=== PATIENT | female | born 1960 | race Caucasian/White ===

== ENCOUNTER 2022-03-03 16:03 | Emergency (ER) | payer BC, SELFPAY ==
[2022-03-03 16:04] VITALS: BP 159/85; PULSE 93; RESP 15; TEMP 36.1; O2SAT 95; BMI 19.3
--- NOTE | 2022-03-03 16:39 | RAD_ITS ---
STUDY: SACRUM AND COCCYX X-RAY SERIES OF 1659 HOURS ON 03/03/2022 REASON FOR EXAM: 62-year-old female with a fall injury and sacrococcygeal pain. TECHNIQUE: 4 view(s) of the sacrum and coccyx were obtained. COMPARISON: None. FINDINGS: Normal bilateral sacroiliac joints. Normal visualized sacral ala and fused sacral bodies. Normal sacrococcygeal junction with a normal angulation. Normal coccygeal segments. No fractures or dislocations of the sacrum or coccyx. There is a 45 degrees sacrococcygeal angle. The presacral soft tissue structures are unremarkable, except for extensive vascular calcification.. RAD/Sacrum-Coccyx min 2 Views IMPRESSION: 1. No fractures or dislocations. 2. No osseous lytic, sclerotic or mass lesions. 3. 45 degrees sacrococcygeal ankle. 4. Extensive vascular calcification. 5. Normal surrounding soft tissues. Electronically Signed: Tomasz Aguillon MD at 18:01 EDT ,
--- NOTE | 2022-03-03 16:40 | ED.VIS.FALL ---
HPI HPI - Fall History of Present Illness Chief Complaint: Lower Extremity Injury Informant: patient Occured/Mechanism Occurred: Month(s) (1) Mechanism/Context: Yes same level fall Narrative: pulled down to the ground by my big dog Usually ambulates: Without assistance Pain/Injury Pain Location: lower extremity (R hip) Quality of Pain: Aching Current Severity: Moderate Maximum Severity: Severe Worsened by: certain movements, walking Relieved by: remaining still Associated Symptoms Associated Symptoms: Negative for Parasthesias, Weakness, Loss of function and Inability to ambulate Narrative Narrative: Patient states she was pulled down by her dog a month ago, she was holding onto the leash, landing on and injuring her right hip. She has had pain when walking ever since but she has been able to. Today she did a certain movement that she cannot recall exactly, but when she did she had a sudden pain that shot down to her foot that was relatively brief but her hip has been hurting worse. This is the first time she has presented for medical attention to have this evaluated since the fall/injury. She denies any bowel or bladder dysfunction. She points to the area of the right SI joint which is hurting as well right now. [facility] Medical History Diverticulitis Home Medications prednisone 40 mg PO DAILY #10 tablet 03/03/22 [Rx Last Taken Unknown] tramadol 50 mg PO Q4H PRN PRN 3 Days #15 tab 03/03/22 [Rx Last Taken Unknown] Allergy/AdvReac Type Severity Reaction Status Date / Time Penicillins [PCN] Allergy Anaphylaxis Verified 03/03/22 16:05 Surgical History H/O: hysterectomy History of colostomy History of colostomy reversal Social History Smoking Status: Current every day smoker tobacco type: cigarettes ROS ROS ED Constitutional Constitutional ED: Denies chills or fever(s) Gastrointestinal Gastrointestinal: Denies abdominal pain, constipation, fecal incontinence, nausea or vomiting Genitourinary Genitourinary ED: Reports other Details: no urinary retention ; Denies abdominal discomfort or urinary incontinence Musculoskeletal Musculoskeletal: Reports as per HPI, back pain and extremity pain; Denies neck pain Integumentary Denies rash or wounds Neurologic Neurologic: Denies headache(s), paresthesias or weakness EXAM Physical Exam Const Vital Signs: 03/03/22 16:04 Temperature 96.9 F L Temperature Source Temporal Pulse Rate 93 Respiratory Rate 15 Blood Pressure 159/85 H Blood Pressure Mean 109 Pulse Ox 95 Oxygen Delivery Method Room Air Positive well nourished and well developed General Appearance ED: well developed and NAD HEENT Negative for trauma or tenderness Eyes PERRL and EOMs intact bilaterally Neck full ROM and supple GI normal to inspection, nondistended, normoactive bowel sounds, soft to palpation and non-tender Back/Spine no CVA tenderness and normal to inspection Thoracic Spine / Upper Back: normal to inspection and thoracic ROM normal Lumbar Spine / Lower Back: lumbar ROM normal and straight leg raise negative bilaterally Sacroiliac Joints: SI joints abnormal tender to palpation (right) and other (no pain w/ compression of iliac crests) Extremity normal to inspection, full ROM and no pedal edema Extremity Narrative: Tender right greater trochanter. Painless hip joint range of motion when performing gentle passive internal/external rotation. Full flexion of the hip induces no joint pain, nor radicular symptoms. Neuro oriented x3 and no sensory deficits noted Sensorium / Orientation: alert Motor Exam: strength 5/5 throughout and clonus absent Deep Tendon Reflexes: Rt Patellar (L4): 2+, Lt Patellar (L4): 2+, Rt Ankle (S1): 2+ and Lt Ankle (S1): 2+ Deep Tendon Reflexes Back: Rt Patellar (L4): 2+, Lt Patellar (L4): 2+, Rt Ankle (S1): 2+ and Lt Ankle (S1): 2+ Plantar Reflex: Downgoing: bilateral Psych mental status grossly normal and thought process normal Skin no rashes or lesions noted and no wounds MDM MDM MDM Narrative Medical decision making narrative: 4 view x-ray series of the sacrum and coccyx shows chronic arthritic abnormalities but nothing acute on my interpretation. 3 view x-ray series of the right hip and pelvis show arthritic abnormalities but no acute fractures mitral rotation. Radiology in agreement with all this, in addition seen that there is a right hip joint effusion and severe arthritis. This could be related to her pain, I will put her on prednisone to help with the inflammation and effusion which may help her pain and walk better, and refer her to orthopedics in addition to prescribing her something else for pain. Radiography Diagnostic Testing: Clinical Impression(s) from Imaging Studies Sacrum and Coccyx X-Ray 03/03/22 16:39 IMPRESSION: 1. No fractures or dislocations. 2. No osseous lytic, sclerotic or mass lesions. 3. 45 degrees sacrococcygeal ankle. 4. Extensive vascular calcification. 5. Normal surrounding soft tissues. Electronically Signed: Tomasz Aguillon MD at 18:01 EDT , Hip/Pelvis X-Ray 03/03/22 16:50 IMPRESSION: 1. No fractures or dislocations 2. Marked narrowing of the lateral aspect right hip joint with mild osteophytic degenerative changes and [id number] contact at that site. 3. Mild right hip joint effusion. 4. No neoplastic or inflammatory mass lesions. 5. Normal sacrum and coccyx. Electronically Signed: Tomasz Aguillon MD at 17:57 EDT , Discharge Plan Triage Chief Complaint: Lower Extremity Injury ED Provider: David Hector Dx/Rx/DC Orders Clinical Impression: Contusion of hip, right, Arthritis of right hip Instructions: How Your Hip Works, What Is Osteoarthritis? Prescriptions: New prednisone 20 MG tablet 40 mg PO DAILY Qty: 10 RF: 0 tramadol 50 MG tablet 50 mg PO Q4H PRN PRN (Reason: Pain) 3 Days Qty: 15 RF: 0 Primary Care Provider: Care Physician,No Primary Referrals: Manuel Contreras DO [STAFF PHYSICIAN] - (Call for follow-up appointment) Care Physician,No Primary [Primary Care Provider] - Disposition Disposition: Home, Self Care
--- NOTE | 2022-03-03 16:50 | RAD_ITS ---
STUDY: AP PELVIS AND RIGHT HIP X-RAY SERIES--4 VIEWS OF 1656 HOURS ON 03/03/2022 REASON FOR EXAM: 62-year-old female with fall injury and right hip pain. TECHNIQUE: 4 views of the pelvis and hip. COMPARISON: None. FINDINGS: Mild demineralization. No fractures or dislocations. There is marked narrowing of the lateral aspect of the right hip joint with mild osteophytic degenerative changes. There is bone on bone contact at that site. A small right hip joint effusion is noted. There is no evidence of neoplastic or inflammatory lesions. Sacrum and coccyx have a normal appearance. There is extensive arterial calcification. Surgical clips are noted of the pelvis. RAD/HIP, UNI W/ Pelvis 2-3 Views IMPRESSION: 1. No fractures or dislocations 2. Marked narrowing of the lateral aspect right hip joint with mild osteophytic degenerative changes and [id number] contact at that site. 3. Mild right hip joint effusion. 4. No neoplastic or inflammatory mass lesions. 5. Normal sacrum and coccyx. Electronically Signed: Tomasz Aguillon MD at 17:57 EDT ,
[2022-03-03] MEDS: traMADol 50 MG Tablet PO (19:38)
[2022-03-03] MEDS: Naproxen 250 MG Tablet 500 MG PO (19:38)
[2022-03-03] MEDS: predniSONE 20 MG Tablet 40 MG PO (19:39)
== END 2022-03-03 19:46 | disposition home or self-care (01) ==
PROVIDERS: Emergency Provider Emergency Medicine; Visit Provider Emergency Medicine
DX: M16.11 Unilateral primary osteoarthritis, right hip (principal); S70.01XA Contusion of right hip, initial encounter; W18.30XA Fall on same level, unspecified, initial encounter; F17.210 Nicotine dependence, cigarettes, uncomplicated
CPT/HCPCS: 72220; 73502; 99283

== ENCOUNTER 2022-10-29 09:48 | Inpatient (IN) | payer BC, SELFPAY ==
[2022-10-29] VITALS (17 sets, daily range): BP systolic 114–140; BP diastolic 66–120; PULSE 57–96; RESP 12–22; TEMP 35.7–36.7; O2SAT 86–98; BMI 18.3; BMI 17.8
--- NOTE | 2022-10-29 10:05 | RAD_ITS ---
EXAM: XR CHEST, 1 VIEW CLINICAL INDICATION: chest pain TECHNIQUE: Frontal view of the chest. This report was created using [employer] report generation technology. COMPARISON: None. FINDINGS: LUNGS AND PLEURAL SPACES: Hyperinflation suggesting emphysema. No pneumothorax. No effusion. HEART: Normal heart size. MEDIASTINUM: No mediastinal or hilar mass. BONES/JOINTS: No acute abnormality. SOFT TISSUES: Normal. RAD/Chest 1 View (Portable) IMPRESSION: Hyperinflation suggesting emphysema. Electronically Signed: Miki Cuevas MD at 10:56 EST ,
--- NOTE | 2022-10-29 10:05 | EKG12_ITS ---
Test Reason : Blood Pressure : / mmHG Vent. Rate : 090 BPM Atrial Rate : 090 BPM P-R Int : 126 ms QRS Dur : 094 ms QT Int : 388 ms P-R-T Axes : 080 089 073 degrees QTc Int : 474 ms Normal sinus rhythm Poor R wave progression Nonspecific T wave abnormality Confirmed by ELENA RUIZ, ROMEO ([id number]), tape editor FRANKLIN SHELL ([id number]) on 10/31/2022 9:25:18 AM Referred By: Confirmed By:ROMEO PARKER MD
--- NOTE | 2022-10-29 10:09 | NURSING ---
NO OLD EKGS
[2022-10-29] MEDS: MethylPREDNISolone 125 MG/2 ML Vial IV (10:16)
[2022-10-29] MEDS: Albuterol 2.5 MG/3 ML VIAL.NEB. INHALATION (10:29)
[2022-10-29] MEDS: Ipratropium/Albuterol Sulfate 3 ML AMPUL.NEB INHALATION ×3 (10:29→20:30)
[2022-10-29 10:30] LABS: Absolute Lymphocyte Count 2.14 X10^3/uL (0.83-4.51); Absolute Neutrophil Count 6.6 X10^3/uL (2.0-7.7); Basophil# 0.04 X10^3/uL; Basophil% 0.4 % (0-1); Eosinophil# 0.03 X10^3/uL; Eosinophils% 0.3 % (0-5); Hematocrit 44.6 % (37-47); Hemoglobin 14.4 g/dL (12.0-15.0); Lymphocyte # 2.14 X10^3/ul (0.83-4.51); Lymphocyte % 21.7 % (19-41); Mean Corp Hgb Conc 32.3 g/dL (32-36); Mean Corpuscular Hgb 32.9 pg (27.0-32.0); Mean Corpuscular Volume 101.8 fL (81-99); Mean Platelet Vol. 10.4 fl (6.2-12.0); Monocyte# 0.97 X10^3/uL; Monocyte% 9.9 % (0-10); NRBC Flagged by Analyzer 0 % (0-5); Neutrophil # 6.63 X10^3/uL (2.7-7.7); Neutrophil % 67.4 % (47-70); Platelet Count 213 K/mm3 (150-450); RBC Distribution Width CV 13.6 % (11.6-14.6); Red Blood Count 4.38 M/mm3 (4.2-5.4); White Blood Count 9.8 K/mm3 (4.4-11.0)
[2022-10-29 10:47] LABS: D-Dimer Quantitative (DVT/PE) 0.92 FEU/ug/m (0.27-0.49)
--- NOTE | 2022-10-29 10:48 | ED.RN ---
d dimer of 0.92
[2022-10-29 10:52] LABS: Anion Gap 5 (5-15); BUN 18 mg/dL (7-18); BUN/Creat Ratio 12.8 RATIO (10-20); Calcium,Total 9.1 mg/dL (8.5-10.1); Chloride 101 mmol/L (98-107); Creatinine, Serum 1.41 mg/dL (0.55-1.02); EST Glomerular Filtration Rate 40 mL/min (>60); Est Glom Filt Rate - Afr Amer 49 mL/min (>60); Estimated Creatinine Clearance 34.56 ml/min; Glucose 158 mg/dL (74-106); Potassium 4.1 mmol/L (3.5-5.1); Sodium Level 136 mmol/L (136-145); Troponin-I HS (w/2H Reflex) 12 pg/mL (3.0-54.0)
--- NOTE | 2022-10-29 10:53 | CT_ITS ---
EXAM: CT ANGIOGRAPHY CHEST WITHOUT AND WITH INTRAVENOUS CONTRAST CLINICAL INDICATION: hypoxic respiratory failure. TECHNIQUE: Helically acquired angiography images were obtained of the chest without and with intravenous contrast. This CT exam was performed using one or more of the following dose reduction techniques: automated exposure control, adjustment of the mA and/or kV according to patient size, and/or use of iterative reconstruction technique. This report was created using [employer] report generation technology. MIP reconstructed images were created and reviewed. CONTRAST: IV 75mL [id number] COMPARISON: None. FINDINGS: PULMONARY ARTERIES: Normal. Normal in caliber. No evidence of pulmonary embolism. AORTA: Normal. Normal in caliber. No evidence of dissection. GREAT VESSELS OF AORTIC ARCH: Normal. Normal in caliber. No evidence of dissection. LUNGS AND PLEURAL SPACES: Centrilobular and paraseptal emphysematous changes of the lungs. Minor atelectatic change at the lung bases. No mass. No pleural effusion or thickening. No pneumothorax. HEART: Mild coronary artery calcification. No pericardial effusion. No signs of right heart strain, ratio of right ventricle to left ventricle measures less than 1. MEDIASTINUM: Normal. No mediastinal or hilar adenopathy. Esophagus is unremarkable. No hiatal hernia. THYROID: Normal. No thyroid lesions. BONES/JOINTS: Normal. No suspicious lytic or blastic abnormality. CT/CTA Chest W/WO Contrast IMPRESSION: 1. No evidence of acute pulmonary embolism. 2. Pulmonary emphysema. Electronically Signed: Miki Cuevas MD at 11:38 EST ,
--- NOTE | 2022-10-29 12:02 | ED.VIS.DYS ---
HPI History of Present Illness Chief Complaint: Shortness of Breath Narrative Narrative: 62-year-old female presenting with shortness of breath for about 3 days. She does have a history of COPD. She is a current every day smoker. She reports that she is not had a fever, chills, body aches. She does not have any chest pain. She has history of provoked PE in the past which happened after surgery. She is no longer anticoagulated. She is eating and drinking normally. She is making normal urine and stool. She reports that if she sits very still or lays down she feels fine but if she gets up and walks she is immediately short of breath. PE Risk Factors: Positive for Prior DVT or PE; Negative for Cancer, OCP + Smoking + > 35, Recent immobilization, Recent surgery or Recent travel [facility] Medical History Diverticulitis Allergy/AdvReac Type Severity Reaction Status Date / Time Penicillins [PCN] Allergy Anaphylaxis Verified 10/29/22 09:54 Surgical History H/O: hysterectomy History of colostomy History of colostomy reversal Social History Smoking Status: Current every day smoker tobacco type: cigarettes ROS ROS ED Constitutional Constitutional ED: Denies chills or fever(s) Eyes Eyes: Denies change in vision or diplopia ENT ENT ED: Denies rhinorrhea or sore throat Cardiovascular Cardiovascular: Denies chest pain or palpitations Respiratory/Chest Respiratory/Chest: Reports cough, dyspnea and dyspnea on exertion Gastrointestinal Gastrointestinal: Denies abdominal pain, nausea or vomiting Genitourinary Genitourinary ED: Denies dysuria or hematuria Musculoskeletal Musculoskeletal: Denies arthralgias or back pain Integumentary Denies abscess Neurologic Neurologic: Denies headache(s) or paresthesias Psychiatric Psychiatric: Denies anxiety or depression EXAM Physical Exam Const Vital Signs: 10/29/22 09:49 10/29/22 09:48 10/29/22 09:55 Temperature 96.3 F L Temperature Source Temporal Pulse Rate 96 Respiratory Rate 12 Respiratory Effort Short of Breath Labored Respiratory Depth Normal Respiratory Pattern Normal Blood Pressure 136/120 H Blood Pressure Mean 125 Pulse Ox 86 98 Oxygen Delivery Method Room Air Nasal Cannula Nasal Cannula Oxygen Flow Rate (L/min) 4 2 10/29/22 10:08 10/29/22 10:05 10/29/22 10:30 Temperature 96.4 F L Temperature Source Temporal Pulse Rate 96 90 Respiratory Rate 18 20 H Respiratory Effort Respiratory Depth Respiratory Pattern Normal Blood Pressure 114/66 Blood Pressure Mean 82 Pulse Ox 95 93 Oxygen Delivery Method Nasal Cannula Nasal Cannula Oxygen Flow Rate (L/min) 1 1 10/29/22 11:08 10/29/22 11:00 10/29/22 12:00 Temperature 96.5 F L 96.9 F L Temperature Source Temporal Temporal Pulse Rate 96 57 L 83 Respiratory Rate 16 20 H 15 Respiratory Effort Respiratory Depth Respiratory Pattern Blood Pressure 115/82 H 140/77 H 120/73 Blood Pressure Mean 93 98 88 Pulse Ox 96 97 94 Oxygen Delivery Method Nasal Cannula Nasal Cannula Nasal Cannula Oxygen Flow Rate (L/min) 2 2 2 10/29/22 12:05 Temperature 96.9 F L Temperature Source Temporal Pulse Rate 83 Respiratory Rate 15 Respiratory Effort Respiratory Depth Respiratory Pattern Blood Pressure 120/73 Blood Pressure Mean 88 Pulse Ox 94 Oxygen Delivery Method Nasal Cannula Oxygen Flow Rate (L/min) 2 Positive well nourished General Appearance ED: NAD; Negative for pallor HEENT Reports moist mucous membranes atraumatic Eyes PERRL and EOMs intact bilaterally Neck no lymphadenopathy, supple and no meningeal signs Resp Auscultation: wheezes throughout Cardio regular rate and regular rhythm Rate: Negative for bradycardia GI non-tender Neuro oriented x3 and CN's II-XII intact bilaterally Sensorium / Orientation: alert Motor Exam: strength 5/5 throughout Psych mental status grossly normal Skin General Skin Exam: Negative for jaundice or pallor MDM MDM MDM Narrative Medical decision making narrative: Patient presenting with hypoxia. She has a history of COPD and she is a smoker. She reports 3 days of worsening shortness of breath. I obtained a CBC to see if she has a elevated white blood cell count or anemia. Her white blood cell count is normal at 9.8. Hemoglobin stable at 14.4. Platelets normal 213. BMP obtained to check her electrolytes and renal function. Electrolytes appear unremarkable. Her creatinine is 1.41. I do not have a previous creatinine to compare this to. She had an EKG performed to assess for cardiac source. EKG shows a normal sinus rhythm with a ventricular rate of 90 bpm without sign of ischemic change or dysrhythmia. Chest x-ray performed for shortness of breath shows no acute cardiopulmonary findings on my interpretation. Radiologist are persistent agrees. I did draw a D-dimer to assess for possible blood clot as a source. She does have a history of PE which was provoked by surgery. Her D-dimer was elevated today 0.92. Because of this I obtained a CTA of the chest which was negative for PE or dissection. There is no evidence of infiltrate. Patient was ambulated in the emergency room and by the time she got back to her bed she was 80% on room air. Given this I think she will need to be admitted to the hospital. I spoke with the hospitalist who recommended doing a rapid COVID and rapid influenza as well as a viral respiratory panel. These were ordered. These are pending on admission. Hospitalist will follow up on these. Impression: 1. COPD exacerbation 2. Hypoxia 3. Elevated creatinine Lab Data Attestation: I reviewed the patient's lab results. Labs: Laboratory Results - last 24 hr 10/29/22 10/29/22 10/29/22 09:50 09:50 09:50 WBC 9.8 RBC 4.38 Hgb 14.4 Hct 44.6 MCV 101.8 H MCH 32.9 H MCHC 32.3 RDW Std Deviation 52.0 H RDW Coeff of Lali 13.6 Plt Count 213 MPV 10.4 Immature Gran % (Auto) 0.300 Neut % (Auto) 67.4 Lymph % (Auto) 21.7 [place] % (Auto) 9.9 Eos % (Auto) 0.3 Baso % (Auto) 0.4 Absolute Neuts (auto) 6.6 Absolute Lymphs (auto) 2.14 Nucleated RBC % 0 D-Dimer Quant (PE/DVT) 0.92 H* Sodium 136 Potassium 4.1 Chloride 101 Carbon Dioxide 30.0 Anion Gap 5 BUN 18 Creatinine 1.41 H Estim Creat Clear Calc 34.56 Est GFR (MDRD) Af Amer 49 L Est GFR (MDRD) Non-Af 40 L BUN/Creatinine Ratio 12.8 Glucose 158 H Calcium 9.1 Troponin I High Sens 12 Radiography Diagnostic Testing: Clinical Impression(s) from Imaging Studies Chest X-Ray 10/29/22 10:05 IMPRESSION: Hyperinflation suggesting emphysema. Electronically Signed: Miki Cuevas MD at 10:56 EST , Chest CTA 10/29/22 10:53 IMPRESSION: 1. No evidence of acute pulmonary embolism. 2. Pulmonary emphysema. Electronically Signed: Miki Cuevas MD at 11:38 EST , Discharge Plan Triage Chief Complaint: Shortness of Breath ED Provider: Israel Grimes Dx/Rx/DC Orders Primary Care Provider: Care Physician,No Primary
[2022-10-29 12:27] LABS: Reflex Troponin-HS? (from REC) Y
--- NOTE | 2022-10-29 12:46 | NURSING ---
MED SURG AAMDO COPD EXAC, HYPOXIA
--- NOTE | 2022-10-29 12:48 | HP.PCM.HOS_ITS ---
HPI - General General Date of Admission: 10/29/22 Date of Service: 10/29/22 Chief Complaint: shortness of breath HPI Narrative WHITNEY DOWLING, is a 62 F who presents suffered a history of dyspnea on exertion. Previous to that, patient had symptoms of the flu. Patient was having myalgias and fever and chills and those resolved and then shortness of breath started. Patient was noted just walking short distance she would feel short of breath. So she presented to the emergency room for evaluation. Patient had CTA of her chest that showed no infiltrates nor PE as patient does have a history of VTE. They got her up and walked her and she dropped down to 80% with ambulation. Hospital service was then contacted. Patient has no prior history of COPD but does smoke currently about half pack per day. She has been coughing up phlegm. [facility] Medical History Diverticulitis Allergy/AdvReac Type Severity Reaction Status Date / Time Penicillins [PCN] Allergy Anaphylaxis Verified 10/29/22 09:54 Surgical History H/O: hysterectomy History of colostomy History of colostomy reversal Social History Smoking Status: Current every day smoker tobacco type: cigarettes ROS ROS Narrative All review of systems were negative except as mentioned above in the history of present illness and the other review of systems. Vital Signs Vital Signs Vital Signs: 10/29/22 09:49 10/29/22 09:48 10/29/22 09:55 Temperature 35.7 C L Temperature Source Temporal Pulse Rate 96 Respiratory Rate 12 Respiratory Effort Short of Breath Labored Respiratory Depth Normal Respiratory Pattern Normal Blood Pressure 136/120 H Blood Pressure Mean 125 Pulse Ox 86 98 Oxygen Delivery Method Room Air Nasal Cannula Nasal Cannula Oxygen Flow Rate (L/min) 4 2 10/29/22 10:08 10/29/22 10:05 10/29/22 10:30 Temperature 35.8 C L Temperature Source Temporal Pulse Rate 96 90 Respiratory Rate 18 20 H Respiratory Effort Respiratory Depth Respiratory Pattern Normal Blood Pressure 114/66 Blood Pressure Mean 82 Pulse Ox 95 93 Oxygen Delivery Method Nasal Cannula Nasal Cannula Oxygen Flow Rate (L/min) 1 1 01/02/23 11:08 10/29/22 11:00 10/29/22 12:00 Temperature 35.8 C L 36.1 C L Temperature Source Temporal Temporal Pulse Rate 96 57 L 83 Respiratory Rate 16 20 H 15 Respiratory Effort Respiratory Depth Respiratory Pattern Blood Pressure 115/82 H 140/77 H 120/73 Blood Pressure Mean 93 98 88 Pulse Ox 96 97 94 Oxygen Delivery Method Nasal Cannula Nasal Cannula Nasal Cannula Oxygen Flow Rate (L/min) 2 2 2 10/29/22 12:05 Temperature 36.1 C L Temperature Source Temporal Pulse Rate 83 Respiratory Rate 15 Respiratory Effort Respiratory Depth Respiratory Pattern Blood Pressure 120/73 Blood Pressure Mean 88 Pulse Ox 94 Oxygen Delivery Method Nasal Cannula Oxygen Flow Rate (L/min) 2 Weight Weight: 51.6 kg Body Mass Index (BMI) 18.3 Physical Exam Const alert and no apparent distress Constitutional Narrative: Cachectic HEENT normocephalic and hearing grossly normal bilaterally Resp normal respiratory effort Cardio regular rate, regular rhythm, S1 normal heart sound and S2 normal heart sound GI normal to inspection, nondistended, normoactive bowel sounds, soft to palpation, non-tender and non-distended Neuro oriented x3, CN's II-XII intact bilaterally, moves all extremities and no focal motor deficits Psych affect normal Results Lab / Micro Data Result Diagrams: 10/29/22 09:50 10/29/22 09:50 Labs: Laboratory Results - last 24 hr 10/29/22 09:50: WBC 9.8, RBC 4.38, Hgb 14.4, Hct 44.6, MCV 101.8 H, MCH 32.9 H, MCHC 32.3, RDW Std Deviation 52.0 H, RDW Coeff of Lali 13.6, Plt Count 213, MPV 10.4, Immature Gran % (Auto) 0.300, Neut % (Auto) 67.4, Lymph % (Auto) 21.7, [place] % (Auto) 9.9, Eos % (Auto) 0.3, Baso % (Auto) 0.4, Absolute Neuts (auto) 6.6, Absolute Lymphs (auto) 2.14, Nucleated RBC % 0 10/29/22 09:50: D-Dimer Quant (PE/DVT) 0.92 H* 10/29/22 09:50: Sodium 136, Potassium 4.1, Chloride 101, Carbon Dioxide 30.0, Anion Gap 5, BUN 18, Creatinine 1.41 H, Estim Creat Clear Calc 34.56, Est GFR (MDRD) Af Amer 49 L, Est GFR (MDRD) Non-Af 40 L, BUN/Creatinine Ratio 12.8, Glucose 158 H, Calcium 9.1, Troponin I High Sens 12 Radiology Impression Chest X-Ray 10/29/22 10:05 IMPRESSION: Hyperinflation suggesting emphysema. Electronically Signed: Miki Cuevas MD at 10:56 EST , Chest CTA 10/29/22 10:53 IMPRESSION: 1. No evidence of acute pulmonary embolism. 2. Pulmonary emphysema. Electronically Signed: Miki Cuevas MD at 11:38 EST , Assessment & Plan Assessment/Plan (1) COPD exacerbation: PLAN: Patient is never been diagnosed with COPD but patient does have emphysematous changes on her CAT scan. Patient did have influenza prior to this release what she thought was influenza. Steroids, bronchodilators I have recommend the ED check her for viral panel which has been since ordered. PLAN: Plan VTE prophylaxis: Low molecular heparin. Charges/Coding Visit Charges Inpatient E&M: 13095 Init Hosp L2
[2022-10-29 13:38] LABS: Troponin-I HS 11 pg/mL (3.0-54.0)
[2022-10-29] MEDS: 0.9% Saline Lock 10 ML Syringe IV ×2 (15:27→22:31)
[2022-10-29] MEDS: guaiFENesin 600 MG Tablet PO (22:27)
[2022-10-30] VITALS (11 sets, daily range): BP systolic 123–150; BP diastolic 66–81; PULSE 80–99; RESP 16–21; TEMP 36.5–36.8; O2SAT 82–94
--- NOTE | 2022-10-30 02:17 | CPS ---
RT unable to perform pep due to critical patient
[2022-10-30] MEDS: Ipratropium/Albuterol Sulfate 3 ML AMPUL.NEB INHALATION ×4 (03:32→14:31)
[2022-10-30] MEDS: 0.9% Saline Lock 10 ML Syringe IV ×2 (04:44→13:21)
[2022-10-30 06:41] LABS: Anion Gap 3 (5-15); BUN 13 mg/dL (7-18); BUN/Creat Ratio 12.4 RATIO (10-20); Calcium,Total 8.9 mg/dL (8.5-10.1); Chloride 102 mmol/L (98-107); Creatinine, Serum 1.05 mg/dL (0.55-1.02); EST Glomerular Filtration Rate 57 mL/min (>60); Est Glom Filt Rate - Afr Amer 69 mL/min (>60); Estimated Creatinine Clearance 44.97 ml/min; Glucose 131 mg/dL (74-106); Potassium 4.4 mmol/L (3.5-5.1); Sodium Level 135 mmol/L (136-145)
--- NOTE | 2022-10-30 07:35 | PN.HOSP_ITS ---
Subjective Subjective Breathing better. Feeling better. Objective Data Objective Data Vital Signs: Vital Signs Temp Pulse Resp BP Pulse Ox O2 Del Method O2 Flow Rate 36.5 C L 80 16 123/66 H 93 Nasal Cannula 3 10/30/22 03:13 10/30/22 03:33 10/30/22 03:33 10/30/22 03:13 10/30/22 03:13 10/30/22 03:18 10/30/22 03:18 Oxygen Flow Rate (L/min) 3 Oxygen Delivery Method Nasal Cannula Weight: 50 kg Body Mass Index (BMI) 17.8 Intake & Output: Intake and Output for Last 24 Hours 10/28/22 10/29/22 10/30/22 23:59 23:59 23:59 Intake Total 200 / 200 Balance 200 / 200 Lab / Micro Data Result Diagrams: 10/29/22 09:50 10/30/22 05:40 Labs: Laboratory Results - last 24 hr 10/29/22 09:50: WBC 9.8, RBC 4.38, Hgb 14.4, Hct 44.6, MCV 101.8 H, MCH 32.9 H, MCHC 32.3, RDW Std Deviation 52.0 H, RDW Coeff of Lali 13.6, Plt Count 213, MPV 10.4, Immature Gran % (Auto) 0.300, Neut % (Auto) 67.4, Lymph % (Auto) 21.7, [place] % (Auto) 9.9, Eos % (Auto) 0.3, Baso % (Auto) 0.4, Absolute Neuts (auto) 6.6, Absolute Lymphs (auto) 2.14, Nucleated RBC % 0 10/29/22 09:50: D-Dimer Quant (PE/DVT) 0.92 H* 10/29/22 09:50: Sodium 136, Potassium 4.1, Chloride 101, Carbon Dioxide 30.0, Anion Gap 5, BUN 18, Creatinine 1.41 H, Estim Creat Clear Calc 34.56, Est GFR (MDRD) Af Amer 49 L, Est GFR (MDRD) Non-Af 40 L, BUN/Creatinine Ratio 12.8, Glucose 158 H, Calcium 9.1, Troponin I High Sens 12 10/29/22 12:54: Troponin I High Sens 11 10/30/22 05:40: Sodium 135 L, Potassium 4.4, Chloride 102, Carbon Dioxide 30.0, Anion Gap 3 L, BUN 13, Creatinine 1.05 H, Estim Creat Clear Calc 44.97, Est GFR (MDRD) Af Amer 69, Est GFR (MDRD) Non-Af 57 L, BUN/Creatinine Ratio 12.4, Glucose 131 H, Calcium 8.9 Micro: Microbiology 10/29/22 14:46 Mucosa - Nasopharyngeal Respiratory Panel (PCR) - Final 10/29/22 12:54 Nasal Secretion SARS-CoV-2 & FLU Antigen (Rapid) - Final Radiography Diagnostic Testing: Radiology Impression Chest X-Ray 10/29/22 10:05 IMPRESSION: Hyperinflation suggesting emphysema. Electronically Signed: Miki Cuevas MD at 10:56 EST , Chest CTA 10/29/22 10:53 IMPRESSION: 1. No evidence of acute pulmonary embolism. 2. Pulmonary emphysema. Electronically Signed: Miki Cuevas MD at 11:38 EST , Physical Exam Const alert and no apparent distress Resp Resp Narrative: diminished. faint exp wheeze Cardio regular rate, regular rhythm, S1 normal heart sound and S2 normal heart sound GI normal to inspection, nondistended, normoactive bowel sounds, soft to palpation and non-tender Assessment & Plan Assessment/Plan (1) COPD exacerbation: PLAN: Patient is never been diagnosed with COPD but patient does have emphysematous changes on her CAT scan. Patient did have influenza prior to this release what she thought was influenza. Steroids, bronchodilators Respiratory panel, rapid test for COVID-19 and influenza negative Patient was 90% with ambulation on 4 L. Patient will require oxygen with rest and activity at 4 L/min. Recommend patient follow-up with pulmonology for further testing including PFTs.
[2022-10-30] MEDS: guaiFENesin 600 MG Tablet PO (09:49)
[2022-10-30] MEDS: Enoxaparin 40 MG/0.4 ML Syringe SC (09:49)
--- NOTE | 2022-10-30 11:22 | CASEMGMT ---
Addendum entered by Betty Pompa 10/30/22 13:03: Pt qualifies for home oxygen, referral sent to [employer] via careport. Referral made for patient link as well. Original Note: NAHUM ANGELES Assessment: Face to Face with pt for initial transition planning/care coordination assessment. NAHUM ANGELES introduced self and role at [facility], pt voices understanding and consents to assessment. Pt is A/O x4 and answers all questions appropriately at this time. Pt sitting up in bed in no distress with oxygen on. Care providers, pharmacy, and demographics verified/updated. Admitting Dx: COPD exac PCP:Pt denies, provided local healthcare directory pamphlet to pt Specialists:Pt denies. Preferred Pharmacy: [facility] Retail Insurance: [place] Prescription Benefit: yes LNOK: Gowojciech Sailaja, Living Arrangements: Pt lives with and adult son in a two story house with 3 steps to enter without a rail. Pt reports he is I in ADL's and denies concerns at home. Transportation: Pt drives self and denies concerns with transportation. DME/HHC/SNF: Pt denies having any DME in the home, previous HHC or SNF stays. Pt states no concerns with going home at time of dc. Provided pt with a verbal local in network list of DME companies should pt qualify for oxygen, pt chose [employer]. Pt is able to afford a pox, encouraged her to get this. Discussed homegoing oxygen instructions, pt is aware to call once home. Pt states she has two big dogs and prefers people not come in the home. Made her aware they may need to come in the home. Pt states no further concerns/needs. CM to follow. Advised pt to ask CM if any further question/concerns/needs arise, voices understanding. Pt Goal: Home Plan: Home, follow for oxygen.
--- NOTE | 2022-10-30 12:19 | DCINST_ITS ---
Discharge Instructions Diet Discharge Diet: No restrictions Dressing / Incision Call your doctor if you observe: Shortness of breath Follow Up Care Test Results: Test results from this visit will be discussed in further detail at your follow- up appointment, if applicable. Discharge Plan Admission Admit Date/Time: 10/29/22 12:43 Primary Reason for Your Visit: COPD exacerbation Attending Provider: Brent Young Primary Care Provider: Care Physician,No Primary Discharge Orders/Prescriptions Prescriptions: New guaifenesin [Mucus Relief ER] 600 mg Tablet Extended Release 12hr 600 mg PO BID Qty: 10 0RF prednisone 20 mg tablet 40 mg PO DAILY 5 Days Qty: 10 0RF albuterol sulfate [ProAir HFA] 90 mcg/actuation HFA aerosol inhaler 2 puff inhalation Q6H PRN (Reason: shortness of breath or wheezing) Qty: 8.5 0RF Continued multivitamin Tablet 1 tab PO DAILY Referrals / Follow Up: [facility] [Provider Group] - Within 1 Month Care Physician,No Primary [Primary Care Provider] - Disposition Disposition (needs filled in before D/C Order can be placed): Home, Self Care
--- NOTE | 2022-10-30 12:22 | DS.PCM_ITS ---
Providers Date of Admission: 10/29/22 Primary Care Physician: No Primary Care Phys Reason For Visit: COPD EX Diagnosis Discharge Diagnosis (1) COPD exacerbation: Status: Chronic Code(s): J44.1 - Chronic obstructive pulmonary disease with (acute) exacerbation Plan: Patient is never been diagnosed with COPD but patient does have emphysematous changes on her CAT scan. Patient did have influenza prior to this release what she thought was influenza. Steroids, bronchodilators Respiratory panel, rapid test for COVID-19 and influenza negative Patient was 90% with ambulation on 4 L. Patient will require oxygen with rest and activity at 4 L/min. Recommend patient follow-up with pulmonology for further testing including PFTs. Medications at Discharge Home Medications multivitamin 1 tab PO DAILY supplement 10/29/22 albuterol sulfate 90 mcg/actuation aerosol inhaler (ProAir HFA) 2 puff inhalation Q6H PRN shortness of breath or wheezing #8.5 grams 10/30/22 guaifenesin 600 mg tablet, extended release 12 hr (Mucus Relief ER) 600 mg PO BID #10 tabs 10/30/22 prednisone 20 mg tablet 40 mg PO DAILY 5 days #10 tabs 10/30/22 Medical Records Data Medical Nutrition Assessment Dietitian: Malnutrition Criteria Met Start: 10/30/22 11:43 Freq: Status: Active Protocol: Document 10/30/22 11:43 RMA (Rec: 10/30/22 11:43 RMA [id number]) Nutrition Malnutrition Evidence of Malnutrition Exists Yes Malnutrition (severe): Acute Illness/Injury Evidenced By Suboptimal Energy Intake ( Severe),Weight Loss (Severe), Physical Changes (Severe) Clinical Problem Acute Disease or Injury Related Malnutrition Etiology Severe protein/calorie malnutrition in the context of acute disease related to inadequate oral intake and increased energy expenditure Signs/Symptoms as evidenced by 4-5% wt loss x past 1 week, BMI 17.8, PO meeting less than 50% estimated nutrition needs and obvious physical signs of muscle/fat wasting in the clavicle, face, arms and legs Status Active Problem Recommendation Dietitian Recommendations/Changes Continue liberalized regular diet. Will add 1-2 oz extra protein w/ meals TID. Will add 240 ml ensure clear w / breakfast and dinner. Pt dislikes ensure plus high protein and not interested in trying ensure pudding or magic cup at this time. Additional ONS as appetite improves and pt willing. Weight / BMI Weight Weight: 50 kg Body Mass Index (BMI) 17.8 ABG / Lab / Microbiology Data Result Diagrams: 10/29/22 09:50 10/30/22 05:40 Laboratory: Laboratory Results - last 24 hr 10/29/22 12:54: Troponin I High Sens 11 10/30/22 05:40: Sodium 135 L, Potassium 4.4, Chloride 102, Carbon Dioxide 30.0, Anion Gap 3 L, BUN 13, Creatinine 1.05 H, Estim Creat Clear Calc 44.97, Est GFR (MDRD) Af Amer 69, Est GFR (MDRD) Non-Af 57 L, BUN/Creatinine Ratio 12.4, Gl ucose 131 H, Calcium 8.9 Microbiology: Microbiology 10/29/22 14:46 Mucosa - Nasopharyngeal Respiratory Panel (PCR) - Final 10/29/22 12:54 Nasal Secretion SARS-CoV-2 & FLU Antigen (Rapid) - Final D/C Instructions Discharge Diet: No restrictions Call your doctor if you observe: Shortness of breath Meaningful Use Info Meaningful Use Diagnoses (Choose all that apply): None applicable Discharge Plan Admission Admit Date/Time: 10/29/22 12:43 Primary Reason for Your Visit: COPD exacerbation Attending Provider: Brent Young Primary Care Provider: Care Physician,Margo Primary Discharge Orders/Prescriptions Prescriptions: New guaifenesin [Mucus Relief ER] 600 mg Tablet Extended Release 12hr 600 mg PO BID Qty: 10 0RF prednisone 20 mg tablet 40 mg PO DAILY 5 Days Qty: 10 0RF albuterol sulfate [ProAir HFA] 90 mcg/actuation HFA aerosol inhaler 2 puff inhalation Q6H PRN (Reason: shortness of breath or wheezing) Qty: 8.5 0RF Continued multivitamin Tablet 1 tab PO DAILY Referrals / Follow Up: Pulmonary Medicine [facility] Pedra[facility] [Provider Group] - Within 1 Month Care Physician,No Primary [Primary Care Provider] - Disposition Disposition (needs filled in before D/C Order can be placed): Home, Self Care Charges/Coding Visit Charges Inpatient E&M: 61188 Disch Hosp
== END 2022-10-30 17:23 | disposition home or self-care (01) | DRG 192 ==
LOC: ED 10:45 → MS3 18:33
PROVIDERS: Emergency Provider Student in an Organized Health Care Education/Training Program
DX: J44.1 Chronic obstructive pulmonary disease with (acute) exacerbation (principal); F17.210 Nicotine dependence, cigarettes, uncomplicated; R79.89 Other specified abnormal findings of blood chemistry; R09.02 Hypoxemia
CPT/HCPCS: 36415; 71045; 71275; 80048; 84484; 85025; 85379; 87428; 87633; 93005; 94640; 94667; 94668; 97802; 99252; 99285; 99406; Q9967; A4216; G0463

== ENCOUNTER → 2022-12-03 | Outpatient (CLI) | payer BC, SELFPAY ==
[2022-12-10 11:08] LABS: Alternaria tenuis <0.10 kU/L (Class 0); Ash, White <0.10 kU/L (Class 0); Aspergillus fumigatus <0.10 kU/L (Class 0); Bermuda Grass <0.10 kU/L (Class 0); Birch <0.10 kU/L (Class 0); Black Walnut <0.10 kU/L (Class 0); Cat Hair / Dander,Stand <0.10 kU/L (Class 0); Cedar, Mountain <0.10 kU/L (Class 0); Cladosporium herbarum <0.10 kU/L (Class 0); Cockroach, American <0.10 kU/L (Class 0); Cottonwood <0.10 kU/L (Class 0); D farinae Mite <0.10 kU/L (Class 0); D pteronyssinus <0.10 kU/L (Class 0); Dog Epithelia <0.10 kU/L (Class 0); Elm, American White <0.10 kU/L (Class 0); Immunoglobulin E 9 IU/mL (6-495); Maple/Box Elder <0.10 kU/L (Class 0); Mulberry, White <0.10 kU/L (Class 0); Oak, White <0.10 kU/L (Class 0); Pecan <0.10 kU/L (Class 0); Penicillium Notatum <0.10 kU/L (Class 0); Pigweed, Rough <0.10 kU/L (Class 0); Ragweed, Short/Common <0.10 kU/L (Class 0); Russian Thistle <0.10 kU/L (Class 0); Sheep Sorrel <0.10 kU/L (Class 0); Sycamore, American <0.10 kU/L (Class 0); Timothy Grass <0.10 kU/L (Class 0)
[2022-12-10 17:58] LABS: Mouse Urine <0.10 kU/L (Class 0)
== END | disposition home or self-care (01) ==
LOC: PAVLAB 14:16
PROVIDERS: Referring Provider Internal Medicine; Visit Provider Internal Medicine
DX: J30.9 Allergic rhinitis, unspecified (principal); J44.1 Chronic obstructive pulmonary disease with (acute) exacerbation
CPT/HCPCS: 36415; 82785; 86003

== ENCOUNTER → 2022-12-13 | Outpatient (CLI) | payer BC, SELFPAY ==
--- NOTE | 2022-12-13 12:19 | PFT ---
This 64-year-old female recent smoker had complete pulmonary function testing today after hospital admission in August for exacerbation of COPD due to viral URI. The patient was on as needed albuterol MDI at the time of the test, taken once since December 03. She has completely quit smoking vaping and using marijuana since her hospital discharge. Spirometry pre and postbronchodilator showed moderate airway obstruction, with no significant bronchodilator response. The FEV1 was 61% predicted, FEV1/FVC 44%, FVC 106% predicted. The flow volume loop corroborates airway obstruction. The chest met ATS standards of spirometry. The combination of spirometry results and recent exacerbation requiring hospitalization is consistent with GOLD stage 2 Grade B COPD. Lung volume studies by plethysmography showed: No evidence of restriction; total lung capacity was 146% predicted, and other lung volumes were greater than 100%. Severe hyperinflation, with residual volume 193% predicted and RV/TLC 132% predicted. Height weight and age were is stated above. Diffusing capacity showed mildly decreased gas exchange, consistent with her COPD severity. DLCO is 51% predicted DLCO/VA is 57% predicted. Carlos Monzon MD MS FCCP [facility]
--- NOTE | 2022-12-13 13:27 | PFTCOMP ---
COMPLETE PULMONARY FUNCTION TEST INTERPRETATION Brief HPI: Patient is a 62-year-old female, currently under the care of Dr. Monzon, who presents to [facility] for complete pulmonary function tests secondary to diagnosis of COPD. Respiratory therapist reports good effort and reproducible results. Interpretation: Forced expiration spirometry shows a moderate large airways obstructive ventilatory defect with an FEV1 of 61% predicted. There is no significant bronchodilator response by strict ATS criteria. Spirograms are of good quality and plateau slowly, indicating slowly emptying areas of the lungs. The respiratory flow volume loop shows decreased expiratory flow rates at all lung volumes consistent with airway obstruction. Lung volumes by body plethysmography show an elevated total lung capacity at 7.46 L, 146% predicted. FRC and RV are elevated out of proportion. Lung volume measurements are consistent with hyperinflation and air-trapping. Diffusion capacity by carbon monoxide is decreased at 51% predicted. The airway resistance is slightly elevated. No previous pulmonary function tests were available for review. Impression: Irreversible moderate large airways obstructive ventilatory defect, resulting in air trapping with hyperinflation, and a symmetric reduction in diffusion capacity
== END | disposition home or self-care (01) ==
PROVIDERS: Referring Provider Internal Medicine; Visit Provider Internal Medicine
DX: J44.1 Chronic obstructive pulmonary disease with (acute) exacerbation (principal)
CPT/HCPCS: 94060; 94726; 94729

== ENCOUNTER → 2024-01-21 | Outpatient (CLI) | payer BC, SELFPAY ==
--- NOTE | 2024-01-21 15:04 | CT_ITS ---
STUDY: LOW DOSE CT LUNG CANCER SCREENING REASON FOR EXAM: Female, 64 years old. 80 pack year history, quit 10/2022 RADIATION DOSAGE (If Supplied By Facility): CTDIvol = ( 2.01 ) mGy, DLP = ( 72.48 ) mGycm TECHNIQUE: No contrast was administered. Low dose technique was utilized (average mAS-38 and kVp 120). 1.25 mm axial source images with a slice interval of 1.25-mm were reconstructed in lung windows. 2.5 mm axial source images with a slice interval of 2.5-mm were reconstructed in lung windows. 5.0 mm axial source images with a slice interval of 5.0-mm were reconstructed in soft tissue windows. COMPARISON: Comparison is made with prior CT of the thorax dated October 29, 2022. NODULES: No suspicious nodules are seen. Emphysema: Hyperinflation. Emphysematous changes. Mild linear scarring in the anterior medial aspect of the right middle lobe. Mild scarring in the right lower lobe. Endobronchial lesion: Unremarkable Aorta: Minimal atherosclerotic plaque formation. CORONARY ARTERIES: Coronary artery calcification is seen. Heart: Minimal pericardial thickening. Pulmonary artery: Unremarkable Mediastinal nodes: Unremarkable Other chest and abdominal findings: CT/Low Dose CT Lung Screening IMPRESSION: Lung-RADS category 2 - Continue annual screening with LDCT in 12 months. IMPORTANT NOTES FOR USE: ACR Lung-RADS Version 1.1 Assessment Categories Release Date: 2018 Category: Coded 0-4 bases on nodule(s) with highest degree of suspicion. Negative screen is defined as categories 1 and 2; a positive screen is defined as categories 3 and 4. Category 3 and 4A nodules that are unchanged on interval CT should be coded as category 2, and individuals returned to screening in 12 months. Category 4X: Category 3 or 4 nodules with additional imaging findings that increase the suspicion of lung cancer, such as spiculation, GGN that doubles in size in 1 year, enlarged lymph notes, etc. Category Modifiers: S (significant finding unrelated to lung cancer) Electronically Signed: Harry Mccormick MD at 13:29 EDT ,
== END | disposition home or self-care (01) ==
LOC: CT 15:02
PROVIDERS: Referring Provider Nurse Practitioner Acute Care; Visit Provider Nurse Practitioner Acute Care
DX: Z12.2 Encounter for screening for malignant neoplasm of respiratory organs (principal); Z87.891 Personal history of nicotine dependence
CPT/HCPCS: 71271

== ENCOUNTER 2024-07-21 17:27 | Inpatient (IN) | payer BC, SELFPAY ==
[2024-07-21] VITALS (11 sets, daily range): BP systolic 108–116; BP diastolic 65–82; PULSE 86–103; RESP 15–20; TEMP 36.6–36.7; O2SAT 91–97; BMI 21.0; BMI 20.6
--- NOTE | 2024-07-21 17:59 | EKG12_ITS ---
Test Reason : SOB Blood Pressure : / mmHG Vent. Rate : 088 BPM Atrial Rate : 088 BPM P-R Int : 148 ms QRS Dur : 102 ms QT Int : 376 ms P-R-T Axes : 092 088 058 degrees QTc Int : 454 ms Sinus rhythm with Premature atrial complexes Otherwise normal ECG Confirmed by Kimo Bernardo ([id number]), image editor FRANKLIN SHELL ([id number]) on 07/22/2024 10:32:56 AM Referred By: Confirmed By:Kimo Bernardo
--- NOTE | 2024-07-21 18:15 | US_ITS ---
EXAM: US DUPLEX BILATERAL LOWER EXTREMITIES VEINS CLINICAL INDICATION: BILATERAL SWELLING TECHNIQUE: Real-time duplex ultrasound scan of the bilateral lower extremity veins integrating B-mode two-dimensional vascular structure, Doppler spectral analysis, color flow Doppler imaging and compression. COMPARISON: No relevant prior studies available. FINDINGS: RIGHT DEEP VEINS: Unremarkable. No DVT in the right common femoral, femoral, proximal deep femoral or popliteal veins. The veins demonstrate normal color flow, are normally compressible, with normal phasic flow and/or augmentation response. RIGHT SUPERFICIAL VEINS: Unremarkable. No thrombus in the visualized right great saphenous vein. LEFT DEEP VEINS: Unremarkable. No DVT in the left common femoral, femoral, proximal deep femoral or popliteal veins. The veins demonstrate normal color flow, are normally compressible, with normal phasic flow and/or augmentation response. LEFT SUPERFICIAL VEINS: Unremarkable. No thrombus in the visualized left great saphenous vein. SOFT TISSUES: No acute findings. No popliteal cyst. US/Venous Duplex Imag/Obi Extrem IMPRESSION: Normal bilateral lower extremity duplex venous ultrasound. Electronically Signed: Aroldo Woods MD at 19:36 EDT ,
--- NOTE | 2024-07-21 18:27 | RAD_ITS ---
EXAM: XR CHEST, 1 VIEW CLINICAL INDICATION: dyspnea TECHNIQUE: Frontal view of the chest. COMPARISON: 03/29/2023 FINDINGS: LUNGS AND PLEURAL SPACES: There are small bilateral pleural effusions. There is minimal bibasilar atelectasis. No pneumothorax. HEART: The cardiac silhouette is mildly enlarged in size. MEDIASTINUM: Central airways and mediastinal contour are unremarkable. BONES/JOINTS: Unremarkable. No acute fracture. SOFT TISSUES: Unremarkable. RAD/Chest 1 View (Portable) IMPRESSION: Cardiomegaly with small bilateral effusions and bibasilar atelectasis Electronically Signed: Aroldo Woods MD at 19:35 EDT ,
[2024-07-21 18:33] LABS: Absolute Lymphocyte Count 0.92 X10^3/uL (0.83-4.51); Absolute Neutrophil Count 2.6 X10^3/uL (2.0-7.7); Basophil# 0.04 X10^3/uL; Eosinophil# 0.04 X10^3/uL; Hematocrit 32.4 % (37-47); Hemoglobin 11.4 g/dL (12.0-15.0); Lymphocyte # 0.92 X10^3/ul (0.83-4.51); Lymphocyte % 23.8 % (19-41); Mean Corp Hgb Conc 35.2 g/dL (32-36); Mean Corpuscular Hgb 35.1 pg (27.0-32.0); Mean Corpuscular Volume 99.7 fL (81-99); Monocyte# 0.29 X10^3/uL; Monocyte% 7.5 % (0-10); NRBC Flagged by Analyzer 0 % (0-5); Neutrophil # 2.57 X10^3/uL (2.7-7.7); Neutrophil % 66.7 % (47-70); Platelet Count 308 K/mm3 (150-450); RBC Distribution Width CV 14.9 % (11.6-14.6); RBC Distribution Width SD 54.4 fl (35.1-43.9); Red Blood Count 3.25 M/mm3 (4.2-5.4); White Blood Count 3.9 K/mm3 (4.4-11.0)
[2024-07-21 19:00] LABS: BNP,B-Type NATRIURETIC PEPTIDE 742.5 pg/mL (0-100)
[2024-07-21 19:04] LABS: D-Dimer Quantitative (DVT/PE) 1.05 FEU/ug/m (0.27-0.49)
[2024-07-21 19:06] LABS: Anion Gap 6 (5-15); BUN 18 mg/dL (7-18); BUN/Creat Ratio 13.1 RATIO (10-20); Calcium,Total 9.4 mg/dL (8.5-10.1); Chloride 102 mmol/L (98-107); Creatinine, Serum 1.37 mg/dL (0.55-1.02); EST Glomerular Filtration Rate 41 mL/min (>60); Est Glom Filt Rate - Afr Amer 50 mL/min (>60); Estimated Creatinine Clearance 39.73 ml/min; Glucose 116 mg/dL (74-106); Potassium 4.4 mmol/L (3.5-5.1); Sodium Level 135 mmol/L (136-145); Troponin-I HS 34 pg/mL (3.0-54.0)
--- NOTE | 2024-07-21 19:13 | CT_ITS ---
EXAM: CT ANGIOGRAPHY CHEST WITHOUT AND WITH INTRAVENOUS CONTRAST CLINICAL INDICATION: dyspnea, elevated d-dimer TECHNIQUE: Helically acquired angiography images were obtained of the chest without and with intravenous contrast. This CT exam was performed using one or more of the following dose reduction techniques: automated exposure control, adjustment of the mA and/or kV according to patient size, and/or use of iterative reconstruction technique. MIP reconstructed images were created and reviewed. CONTRAST: IV 100mL [id number] COMPARISON: 10/29/2022 FINDINGS: PULMONARY ARTERIES: Unremarkable. Normal in caliber. No evidence of pulmonary embolism. AORTA: Unremarkable. Normal in caliber. No evidence of dissection. GREAT VESSELS OF AORTIC ARCH: Unremarkable. Normal in caliber. No evidence of dissection. INFERIOR VENA CAVA: There is reflux of contrast into the inferior vena cava and hepatic veins which may indicate decreased cardiac output. LUNGS AND PLEURAL SPACES: There is bilateral lower lobe consolidation which may represent pneumonia greater on the left. There are bilateral pleural effusions larger on arrival in the left. No mass. HEART: There is a pericardial effusion present that measures 1.6 cm in greatest diameter. MEDIASTINUM: Unremarkable. No mediastinal or hilar adenopathy. Esophagus is unremarkable. No hiatal hernia. THYROID: Unremarkable. No thyroid lesions. BONES/JOINTS: Unremarkable. No suspicious lytic or blastic abnormality. CT/CTA Chest W/WO Contrast IMPRESSION: 1. No evidence of pulmonary embolus. 2. Bilateral pleural effusions and bilateral lower lobe consolidation which may represent bilateral lower lobe pneumonia. 3. No pericardial effusion. 4. Reflux of contrast into the inferior vena cava and hepatic veins which may indicate decreased cardiac output. Electronically Signed: Aroldo Woods MD at 20:05 EDT ,
[2024-07-21 19:20] LABS: Lactic Acid 1.8 mmol/L (0.4-1.9)
--- NOTE | 2024-07-21 20:20 | EDS_ITS ---
HPI History of Present Illness Chief Complaint: Shortness of Breath Detail of Chief Complaint: Shortness of breath Informant: patient Narrative Narrative: Patient presents with shortness of breath that started more than a month ago and progressively worsening. Patient states that normally she is able to go throughout the day without any oxygen but now requiring 4 to 5 L of oxygen. She complains of exertional dyspnea. She complains of leg swelling. Patient states last time she felt short of breath she had a PE but is currently not anticoagulated. She has had a chronic cough but no fever. No history of CHF. She does have history of COPD and states she quit smoking 2 years ago. PFSH PFSH Medical History Acute sinusitis Allergic rhinitis due to allergen COPD (chronic obstructive pulmonary disease) with emphysema COPD exacerbation Diverticulitis Severe protein-calorie malnutrition Smoker Home Medications ?Medication ?Instructions ?Recorded ?Last Taken ?Type ipratropium bromide 21 mcg (0.03 2 spray intranasal BID #30 mL 01/21/24 Unknown Rx %) nasal spray albuterol sulfate 90 mcg/actuation 2 puff inhalation Q6H PRN 02/03/24 Unknown Rx aerosol inhaler (ProAir HFA) shortness of breath or wheezing #8.5 grams fluticasone fur. 200 mcg-umeclid 1 ea inhalation QDAY #1 ea 02/03/24 Unknown Rx 62.5 mcg-vilant 25 mcg inhalat.powder (Trelegy Ellipta) Allergy/AdvReac Type Severity Reaction Status Date / Time Penicillins (PCN) Allergy Anaphylaxis Verified 07/21/24 17:30 Surgical History H/O: hysterectomy History of colostomy History of colostomy reversal Social History Smoking Status: Former smoker how long ago did patient quit smoking: Oct 2022. ROS ROS ED Review of Systems ROS Unobtainable: other Constitutional Constitutional ED: Reports lethargy; Denies chills, fever(s), sweats or weight loss Eyes Eyes: Denies blurry vision, change in vision or diplopia ENT ENT ED: Denies rhinorrhea or sore throat Cardiovascular Cardiovascular: Denies chest pain, orthopnea or racing heartbeat Respiratory/Chest Respiratory/Chest: Reports cough, dyspnea and dyspnea on exertion; Denies orthopnea or sputum Gastrointestinal Gastrointestinal: Denies abdominal pain, diarrhea, nausea or vomiting Genitourinary Genitourinary ED: Denies dysuria, hematuria or urinary frequency Musculoskeletal Musculoskeletal: Reports other Details: Leg edema ; Denies arthralgias, back pain, myalgias or neck pain Integumentary Denies abscess, Abrasions or rash Neurologic Neurologic: Denies headache(s) or weakness Psychiatric Psychiatric: Denies anxiety, depression or suicidal thoughts Endocrine Endocrinology: Denies polydipsia, polyphagia or polyuria Hematologic/Lymphatic Hematologic/Lymphatic: Denies easy bleeding, easy bruising or lymphadenopathy Allergic/Immunologic Allergic/Immunologic ED: Denies mouth swelling, tongue swelling or urticaria EXAM Physical Exam Const Vital Signs: 07/21/24 17:30 07/21/24 17:47 07/21/24 17:47 Temperature 97.8 F Temperature Source Oral Pulse Rate 103 H Respiratory Rate 20 H Respiratory Effort Short of Breath Blood Pressure 114/71 Blood Pressure Mean 85 Pulse Ox 96 Oxygen Delivery Method Nasal Cannula Nasal Cannula Oxygen Flow Rate (L/min) 4 4 07/21/24 18:25 07/21/24 18:32 07/21/24 19:00 Temperature 97.8 F 97.8 F Temperature Source Oral Oral Pulse Rate 91 98 Respiratory Rate 15 17 Respiratory Effort Blood Pressure 113/65 108/82 H Blood Pressure Mean 81 90 Pulse Ox 97 96 92 Oxygen Delivery Method Nasal Cannula Nasal Cannula Nasal Cannula Oxygen Flow Rate (L/min) 4 4 4 07/21/24 19:00 Temperature Temperature Source Pulse Rate 89 Respiratory Rate 16 Respiratory Effort Blood Pressure 108/82 H Blood Pressure Mean 90 Pulse Ox 94 Oxygen Delivery Method Oxygen Flow Rate (L/min) Positive well nourished and well developed General Appearance ED: well developed and NAD HEENT Reports TM's clear and moist mucous membranes normocephalic and atraumatic; Negative for trauma or tenderness Tympanic Membrane ED: Yes TM's clear Eyes PERRL and EOMs intact bilaterally General Eye ED: Negative for pale conjunctiva or scleral icterus Neck no lymphadenopathy, supple and no JVD General: Negative for tenderness Chest Wall inspection of chest normal and palpation of chest normal Chest: Negative for tenderness Resp normal respiratory effort and clear to auscultation bilaterally Resp Narrative: Patient with few Rales in the bases. No significant wheezing. 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 Effort and Inspection: Negative for respiratory distress or pain with movement Auscultation: diminished lung sounds; Negative for rhonchi or wheezes Cardio regular rate, regular rhythm, S1 normal heart sound, S2 normal heart sound and no murmurs Peripheral Pulses: pulses 2+ throughout GI normal to inspection, nondistended, normoactive bowel sounds, soft to palpation, non-tender, non-distended and no masses Back/Spine no CVA tenderness and no thoracic nor lumbar tenderness Extremity Extremity Narrative: +3 edema both lower extremities below the knees. General Extremety ED: Yes edema General Extremity: edema Neuro oriented x3, CN's II-XII intact bilaterally, no sensory deficits noted and gait normal Sensorium / Orientation: awake, alert, oriented to person, oriented to place and oriented to time Motor Exam: strength 5/5 throughout and strength abnormal Psych mental status grossly normal Skin no rashes or lesions noted and no wounds MDM MDM MDM Narrative Medical decision making narrative: Patient presents with shortness of breath x 1 month. In the differential would be acute coronary syndrome versus PE versus pneumonia or CHF. COPD exacerbation would be in the differential. IV line established. EKG obtained on arrival showed a sinus rhythm with ventricular rate of 88 bpm with occasional PACs. CBC with differential showed a white count 3.9 with hemoglobin 11.4 and platelet count 308. Chemistries unremarkable. Lactate normal at 1.8. Troponin normal at 34. BNP was elevated at 742. D-dimer elevated 1.05. CTA of the chest obtained showed no evidence for PE but there were bilateral pleural effusions and concern for decreased ejection fraction. Patient also initially had a chest x-ray that showed bilateral small pleural effusions and cardiomegaly. At this point I suspect likely etiology of her dyspnea is CHF. She was given Lasix 40 mg IV. Will discuss case with hospitalist to evaluate for admission. Lab Data Attestation: I reviewed the patient's lab results. Labs: Laboratory Results - last 24 hr 07/21/24 07/21/24 18:18 18:26 WBC 3.9 L RBC 3.25 L Hgb 11.4 L Hct 32.4 L MCV 99.7 H MCH 35.1 H MCHC 35.2 RDW Std Deviation 54.4 H RDW Coeff of Lali 14.9 H Plt Count 308 MPV 11.0 Immature Gran % (Auto) 0.000 Neut % (Auto) 66.7 Lymph % (Auto) 23.8 Converse % (Auto) 7.5 Eos % (Auto) 1.0 Baso % (Auto) 1.0 Absolute Neuts (auto) 2.6 Absolute Lymphs (auto) 0.92 Nucleated RBC % 0 D-Dimer Quant (PE/DVT) 1.05 H* Sodium 135 L Potassium 4.4 Chloride 102 Carbon Dioxide 27.0 Anion Gap 6 BUN 18 Creatinine 1.37 H Estim Creat Clear Calc 39.73 Est GFR (MDRD) Af Amer 50 L Est GFR (MDRD) Non-Af 41 L BUN/Creatinine Ratio 13.1 Glucose 116 H Lactic Acid 1.8 Calcium 9.4 Troponin I High Sens 34 B-Natriuretic Peptide 742.5 H Radiography Diagnostic Testing: Clinical Impression(s) from Imaging Studies Venous Duplex 07/21/24 18:15 IMPRESSION: Normal bilateral lower extremity duplex venous ultrasound. Electronically Signed: Aroldo Woods MD at 19:36 EDT , Chest X-Ray 07/21/24 18:27 IMPRESSION: Cardiomegaly with small bilateral effusions and bibasilar atelectasis Electronically Signed: Aroldo Woods MD at 19:35 EDT , Chest CTA 07/21/24 19:13 IMPRESSION: 1. No evidence of pulmonary embolus. 2. Bilateral pleural effusions and bilateral lower lobe consolidation which may represent bilateral lower lobe pneumonia. 3. No pericardial effusion. 4. Reflux of contrast into the inferior vena cava and hepatic veins which may indicate decreased cardiac output. Electronically Signed: Aroldo Woods MD at 20:05 EDT , 1 view chest x-ray obtained interpreted by myself as cardiomegaly with small bilateral pleural effusions without evidence of infiltrate or pneumothorax or other acute disease process. Radiology in agreement. EKG Initial EKG: Attestation: I personally reviewed and interpreted this EKG as follows: Comments: Sinus rhythm with rate of 88 bpm with occasional PACs Discharge Plan Triage Chief Complaint: Shortness of Breath Other Complaint: Edema ED Provider: Eron Zepeda Dx/Rx/DC Orders Clinical Impression: CHF (congestive heart failure), Dyspnea, Hypoxemia, History of COPD Prescriptions: No Action Trelegy Ellipta 200-62.5-25 mcg blister with device 1 ea inhalation QDAY Qty: 1 11RF albuterol sulfate [ProAir HFA] 90 mcg/actuation HFA aerosol inhaler 2 puff inhalation Q6H PRN (Reason: shortness of breath or wheezing) Qty: 8.5 5RF ipratropium bromide 21 mcg (0.03 %) spray,non-aerosol 2 spray intranasal BID Qty: 30 3RF Rx Instructions: administer into each nostril Primary Care Provider: Care Physician,No Primary Referrals: Care Physician,No Primary [Primary Care Provider] - Print Language: Korean Disposition Disposition: Acute Care Hospital [facility]
[2024-07-21] MEDS: Furosemide 40 MG/4 ML Vial IV (20:21)
--- NOTE | 2024-07-21 20:27 | HP.PCM.HOS_ITS ---
[facility] - General General Date of Admission: 07/21/24 Date of Service: 07/21/24 Chief Complaint: SOB and LE Edema. HPI Narrative WHITNEY DOWLING, is a 64 F with a past medical history of essential hypertension, history of tobacco abuse (quit ~2 year ago); with subsequent COPD, chronic hypoxic respiratory failure on ~4-5L NC, history of PE (~2013), history of allergic rhinitis, history of severe protein-calorie malnutrition, history of diverticulitis, history of hysterectomy, history of colostomy; s/p reversal, listed allergy to PCN (anaphylaxis) and OA who presents to [facility] ER complaining of SOB and LE edema. Ms. Dowling reports her symptoms began approximately one month prior to admission with the gradual-onset of progressively worsening KURTZ and LE edema. She also admits her SOB was made worse by laying flat - particularly when waking up from sleep. She states she used to just need her supplemental oxygen intermittently with exertion but now she is having to use it continuously. She complains of symmetrical 2-3+ bilateral LE pitting edema that is not helped by wearing compression stockings. She denies a history of CHF and she also denies other similar previous episodes. There was no associated fever, chills, nausea, vomiting, diarrhea or constipation. In the ER she was noted to have an elevated BNP of 2,810 pg/mL along with CTA of chest negative for PE - but positive for Bilateral Pleural Effusions and bilateral lower lobe consolidations with reflux of contrast into the IVC and hepatic veins which may indicated decreased cardiac output consistent with a New-onset of AE of likely systolic CHF complicated by clinical evidence of Cirdx-ry-Yufhjon Respiratory Insufficiency and she was then admitted to the PCU for ongoing care for a stay that is expected to extend beyond 2 midnights. [facility] Medical History Acute sinusitis Severe protein-calorie malnutrition COPD (chronic obstructive pulmonary disease) with emphysema Allergic rhinitis due to allergen COPD exacerbation Smoker Diverticulitis Home Medications ?Medication ?Instructions ?Recorded ?Last Taken ?Type ipratropium bromide 21 mcg (0.03 2 spray intranasal BID #30 mL 01/21/24 Unknown Rx %) nasal spray albuterol sulfate 90 mcg/actuation 2 puff inhalation Q6H PRN 02/03/24 Unknown Rx aerosol inhaler (ProAir HFA) shortness of breath or wheezing #8.5 grams fluticasone fur. 200 mcg-umeclid 1 ea inhalation QDAY #1 ea 02/03/24 Unknown Rx 62.5 mcg-vilant 25 mcg inhalat.powder (Trelegy Ellipta) Allergy/AdvReac Type Severity Reaction Status Date / Time Penicillins (PCN) Allergy Anaphylaxis Verified 07/21/24 17:30 Surgical History H/O: hysterectomy History of colostomy reversal History of colostomy Social History Smoking Status: Former smoker how long ago did patient quit smoking: Oct 2022. ROS ROS Narrative Review of Systems: Constitutional: Patient denies fever or chills. Eyes: Patient denies changes in vision or discharge from eyes. ENT: Patient denies runny nose, sore throat or ear pain. Resp: Patient admits to SOB but she denies cough. CV: Patient denies palpitations or heart racing. GI: Patient admits to nausea and bilious emesis as per HPI. : Patient denies dysuria or hematuria. MSK: Patient admits to 2-3 bilateral lower extremity edema. Skin: Patient denies rash, abscess or jaundice. Neuro: Patient denies headache, paresthesias or focal neurologic deficits. Psych: Patient denies symptoms of uncontrolled depression or anxiety. Allergy: Patient denies lip swelling, tongue swelling or urticaria. Hematology: Patient denies easy bleeding or easy bruisability. Endocrinology: Patient denies polyuria, polydipsia or polyphagia. 14 point ROS otherwise negative except for positives noted above in HPI. Vital Signs Vital Signs Vital Signs: 07/21/24 17:30 07/21/24 17:47 07/21/24 17:47 Temperature 97.8 F Temperature Source Oral Pulse Rate 103 H Respiratory Rate 20 H Respiratory Effort Short of Breath Blood Pressure 114/71 Blood Pressure Mean 85 Pulse Ox 96 Oxygen Delivery Method Nasal Cannula Nasal Cannula Oxygen Flow Rate (L/min) 4 4 07/21/24 18:25 07/21/24 18:32 07/21/24 19:00 Temperature 97.8 F 97.8 F Temperature Source Oral Oral Pulse Rate 91 98 Respiratory Rate 15 17 Respiratory Effort Blood Pressure 113/65 108/82 H Blood Pressure Mean 81 90 Pulse Ox 97 96 92 Oxygen Delivery Method Nasal Cannula Nasal Cannula Nasal Cannula Oxygen Flow Rate (L/min) 4 4 4 07/21/24 19:00 07/21/24 20:25 Temperature 98.1 F Temperature Source Pulse Rate 89 91 Respiratory Rate 16 17 Respiratory Effort Blood Pressure 108/82 H 112/79 Blood Pressure Mean 90 90 Pulse Ox 94 91 Oxygen Delivery Method Oxygen Flow Rate (L/min) Weight Weight: 130 lb 4.8 oz Body Mass Index (BMI) 21.0 Physical Exam Const alert, oriented x3 and no apparent distress Constitutional Narrative: Mild distress noted with patient appearing chronically ill. General Appearance: cooperative HEENT normocephalic, head/scalp atraumatic, hearing grossly normal bilaterally and moist oral mucous membranes Eyes PERRL and EOMs intact bilaterally Neck no lymphadenopathy and supple Resp Resp Narrative: Diminished breath sounds throughout with faint bibasilar rales. Auscultation: rales Cardio regular rate and regular rhythm GI normal to inspection, nondistended, normoactive bowel sounds, soft to palpation, non-tender and non-distended Extremity Extremity Narrative: 2-3+ symmetrical bilateral LE edema. Neuro oriented x3, CN's II-XII intact bilaterally, moves all extremities and no focal motor deficits Sensorium / Orientation: awake, alert, oriented to person, oriented to place and oriented to time Speech: speech normal Psych affect normal Results Medical Records Data Attestation: I reviewed the patient's medical records Lab / Micro Data Attestation: I reviewed the patient's lab results. 07/21/24 18:18 07/21/24 18:18 Labs: Laboratory Results - last 24 hr 07/21/24 18:18: WBC 3.9 L, RBC 3.25 L, Hgb 11.4 L, Hct 32.4 L, MCV 99.7 H, MCH 35.1 H, MCHC 35.2, RDW Std Deviation 54.4 H, RDW Coeff of Lali 14.9 H, Plt Count 308, MPV 11.0, Immature Gran % (Auto) 0.000, Neut % (Auto) 66.7, Lymph % (Auto) 23.8, Maury % (Auto) 7.5, Eos % (Auto) 1.0, Baso % (Auto) 1.0, Absolute Neuts (auto) 2.6, Absolute Lymphs (auto) 0.92, Nucleated RBC % 0, Sodium 135 L, Potassium 4.4, Chloride 102, Carbon Dioxide 27.0, Anion Gap 6, BUN 18, C reatinine 1.37 H, Estim Creat Clear Calc 39.73, Est GFR (MDRD) Af Amer 50 L, Est GFR (MDRD) Non-Af 41 L, BUN/Creatinine Ratio 13.1, Glucose 116 H, Calcium 9.4, Troponin I High Sens 34, B-Natriuretic Peptide 742.5 H 07/21/24 18:26: D-Dimer Quant (PE/DVT) 1.05 H*, Lactic Acid 1.8 Imaging Radiology Impression Venous Duplex 07/21/24 18:15 IMPRESSION: Normal bilateral lower extremity duplex venous ultrasound. Electronically Signed: Aroldo Woods MD at 19:36 EDT , Chest X-Ray 07/21/24 18:27 IMPRESSION: Cardiomegaly with small bilateral effusions and bibasilar atelectasis Electronically Signed: Aroldo Woods MD at 19:35 EDT , Chest CTA 07/21/24 19:13 IMPRESSION: 1. No evidence of pulmonary embolus. 2. Bilateral pleural effusions and bilateral lower lobe consolidation which may represent bilateral lower lobe pneumonia. 3. No pericardial effusion. 4. Reflux of contrast into the inferior vena cava and hepatic veins which may indicate decreased cardiac output. Electronically Signed: Aroldo Woods MD at 20:05 EDT , Assessment & Plan Assessment/Plan (1) CHF (congestive heart failure): QUALIFIERS: Heart failure type: unspecified Heart failure chronicity: acute Qualified Code(s): I50.9 - Heart failure, unspecified (2) Respiratory insufficiency: (3) History of COPD: (4) Smoking greater than 40 pack years: PLAN: Plan 1. New-onset AE CHF; evidenced by elevated BNP of 742.5 pg/mL present on admission with confirmatory bilateral pleural effusions on Chest CT - Admit to PCU. Continue IV Lasix with supplemental KCl and magnesium. Check echocardiogram to evaluate LVEF. Finally, we will consult [facility] to see this patient on-rounds in the AM for further recommendations with help appreciated in advance. 2. [id number] Respiratory Insufficiency attributable to #1- Wean supplemental oxygen as tolerated. 3. History of tobacco abuse (quit ~2 year ago); with subsequent COPD - Stable at this time with no evidence of flare. 4. Essential Hypertension - Continue home regimen plus give prn IV Hydralazine for systolic blood pressure > 160 mmHg. 5. History of PE (~2013) - Noted with CTA of chest negative for PE and LE dopplers negative for DVT this admission. 6. History of allergic rhinitis - Noted. 7. History of severe protein-calorie malnutrition - Noted. 8. History of diverticulitis - Stable. 9. History of hysterectomy - Noted. 10. History of colostomy; s/p reversal - Stable. 11. Listed allergy to PCN (anaphylaxis) - We will avoid this class of agents if possible. 12. OA - Give Tylenol prn. 13. DVT prophylaxis - Lovenox 40 mg sq daily. Total time: Approximately 55 minutes. Charges/Coding Visit Charges Inpatient E&M: 06792 Init Hosp L2
--- NOTE | 2024-07-21 20:54 | ECHOD_ITS ---
Reason For Study: CHF Procedure This was a 2D Doppler, Color Flow transthoracic echocardiogram. Exam performed portable in patient room. Left Ventricle Severely dilated left ventricle. The estimated ejection fraction is 14 %. Stage 1 diastolic dysfunction. There is severe global hypokinesis of the left ventricle. Right Ventricle Normal RV size. Normal systolic function. Atria Normal left atrium. Normal right atrium. Mitral Valve Moderate focal mitral valve thickening. Mild (1+) eccentric mitral valve insufficiency. Tricuspid Valve Normal tricuspid valve. Mild (1+) tricuspid valve insufficiency. Pulmonary artery systolic pressure is 30 mmHg. Aortic Valve Trisinus/trileaflet aortic valve. Mild (1+) aortic valve insufficiency. Pulmonic Valve Mild focal pulmonic valve thickening. Trivial eccentric pulmonic valve insufficiency. Great Vessels Normal aortic root. The pulmonary artery is normal size. Inferior vena cava collapse with respiration. Pericardium/Pleural Small pericardial effusion. There are no echocardiographic indications of cardiac tamponade. MMode/2D Measurements & Calculations LVIDd: 6.9 cm IVSd: 0.73 cm Ao root diam: 3.0 cm LVIDs: 6.4 cm LVPWd: 1.1 cm RVDd: 2.8 cm FS: 7.8 % LAV(MOD-bp): 39.1 ml LVAd ap4: 46.5 cm2 SV(MOD-sp4): 26.2 ml LAV(MOD-bp) Indexed: 23.5 ml/m2 LVLd ap4: 8.9 cm LAV(MOD-sp2): 40.8 ml EDV(MOD-sp4): 205.2 ml LAV(MOD-sp4): 32.6 ml EDV(sp4-el): 205.2 ml LVAs ap4: 41.5 cm2 LVLs ap4: 8.3 cm ESV(MOD-sp4): 179.0 ml ESV(sp4-el): 176.4 ml EF(MOD-sp4): 12.8 % EF(sp4-el): 14.0 % SV(sp4-el): 28.8 ml LA A4 area: 13.8 cm2 LA dimension(2D): 3.1 cm RA A4 area: 11.6 cm2 TAPSE: 1.6 cm Time Measurements MV dec time: 0.14 sec Doppler Measurements & Calculations MV E max donte: 48.0 cm/sec Lat Peak E' Donte: 4.8 cm/sec Med Peak E' Donte: 2.8 cm/sec MV A max donte: 69.4 cm/sec E/E' lat: 10.1 E/E' med: 16.8 MV E/A: 0.69 Ao V2 max: 103.7 cm/sec AI max donte: 383.2 cm/sec LV V1 max: 83.9 cm/sec Ao max P.3 mmHg AI max P.7 mmHg LV V1 max P.8 mmHg AI dec slope: 309.1 cm/sec2 AI P1/2t: 363.1 msec PA V2 max: 49.1 cm/sec TR max donte: 255.8 cm/sec TR max P.2 mmHg ECHO/Echo Complete Interpretation Summary Severely dilated left ventricle. The estimated ejection fraction is 14 %. Stage 1 diastolic dysfunction. Mild (1+) tricuspid valve insufficiency. Small pericardial effusion. Ordering Physician: Yaakov Gonzalez Performed By: Elodia Francis RDCS
[2024-07-21 21:52] LABS: Troponin-I HS 37 pg/mL (3.0-54.0)
[2024-07-21] MEDS: Albuterol 2.5 MG/3 ML VIAL.NEB. INHALATION (23:38)
[2024-07-22] VITALS (12 sets, daily range): BP systolic 93–125; BP diastolic 58–76; PULSE 83–96; RESP 16–28; TEMP 36.1–36.6; O2SAT 84–100; BMI 20.6
[2024-07-22] MEDS: Potassium Chloride Oral Tablet 20 MEQ PO ×3 (00:26→20:41)
[2024-07-22] MEDS: Furosemide 40 MG/4 ML Vial IV ×3 (00:26→17:42)
[2024-07-22] MEDS: Magnesium Chloride 64 MG Delay Rel.Tablet 128 MG PO ×3 (00:26→20:41)
--- NOTE | 2024-07-22 05:55 | RAD_ITS ---
INDICATION: AE CHF. EXAMINATION/TECHNIQUE: X-RAY - XR Chest 1 View COMPARISON: 07/21/2024 FINDINGS: LINES/DEVICES: None. LUNGS: Hyperinflation both lungs suggesting COPD. Ill-defined airspace opacity in the left lung base suggesting pneumonia. Small right pleural effusion has decreased in size since the previous study. MEDIASTINUM AND CARDIOVASCULAR STRUCTURES: Cardiac silhouette is moderately enlarged. Central airways and mediastinal contour are unremarkable. BONES AND SOFT TISSUES: Unremarkable. RAD/Chest 1 View (Portable) IMPRESSION: COPD. Left lower lobe pneumonia. Improved CHF. Electronically Signed: Alisa Munoz MD at 6:47 EDT ,
[2024-07-22] MEDS: Budesonide Respules 0.5 MG/2 ML AMPUL.NEB. INHALATION ×2 (06:52→19:12)
[2024-07-22] MEDS: Ipratropium/Albuterol Sulfate 3 ML AMPUL.NEB INHALATION ×3 (06:53→19:12)
[2024-07-22 07:11] LABS: Absolute Lymphocyte Count 1.09 X10^3/uL (0.83-4.51); Absolute Neutrophil Count 2.2 X10^3/uL (2.0-7.7); Basophil# 0.04 X10^3/uL; Basophil% 1.1 % (0-1); Eosinophil# 0.04 X10^3/uL; Eosinophils% 1.1 % (0-5); Hematocrit 35.5 % (37-47); Hemoglobin 11.7 g/dL (12.0-15.0); Lymphocyte # 1.09 X10^3/ul (0.83-4.51); Lymphocyte % 29.5 % (19-41); Mean Corpuscular Hgb 32.2 pg (27.0-32.0); Mean Corpuscular Volume 97.8 fL (81-99); Monocyte# 0.36 X10^3/uL; Monocyte% 9.8 % (0-10); NRBC Flagged by Analyzer 0 % (0-5); Neutrophil # 2.15 X10^3/uL (2.7-7.7); Neutrophil % 58.2 % (47-70); Platelet Count 216 K/mm3 (150-450); RBC Distribution Width CV 14.6 % (11.6-14.6); RBC Distribution Width SD 52.8 fl (35.1-43.9); Red Blood Count 3.63 M/mm3 (4.2-5.4); White Blood Count 3.7 K/mm3 (4.4-11.0)
[2024-07-22 07:37] LABS: ALB/GLOB Ratio 1.1 RATIO (0.9-2.4); AST(SGOT) 28 U/L (15-37); Alanine Aminotransfer ALT/SGPT 20 U/L (13-56); Albumin, Serum 3.4 g/dL (3.2-5.0); Alkaline Phosphatase 87 U/L (45-117); Anion Gap 7 (5-15); BUN 15 mg/dL (7-18); BUN/Creat Ratio 11.9 RATIO (10-20); Calcium,Total 9.2 mg/dL (8.5-10.1); Chloride 100 mmol/L (98-107); Creatinine, Serum 1.26 mg/dL (0.55-1.02); EST Glomerular Filtration Rate 46 mL/min (>60); Est Glom Filt Rate - Afr Amer 55 mL/min (>60); Estimated Creatinine Clearance 42.39 ml/min; Globulin 3.1 g/dL (2.2-4.2); Glucose 96 mg/dL (74-106); Magnesium 2.2 mg/dL (1.6-2.6); Phosphorus 3.6 mg/dL (2.5-4.9); Potassium 3.9 mmol/L (3.5-5.1); Protein, Total 6.5 g/dL (6.4-8.2); Sodium Level 136 mmol/L (136-145)
--- NOTE | 2024-07-22 09:03 | CON.PCM.CA_ITS ---
Assessment & Plan Assessment/Plan (1) Respiratory insufficiency: PLAN: Patient's respiratory insufficiency is probably multifactorial. She does have a history of longstanding primary pulmonary insults including COPD and remote pulmonary emboli in 2013. However, the CT scan is suggestive of right sided issues. This could be the etiology of her lower extremity edema although she did have a viral infection a month ago which started this lower extremity edema suggestive of a possible cardiomyopathy related to postviral syndrome. 2D echo is pending at this time. Further recommendations concerning therapy and treatment options will be made depending on the outcome of the echo. (2) Lower extremity edema: PLAN: This is suggestive of a recent insult with an viral infection approximately a month ago. This may be related to progressive right-sided heart failure or it could be biventricular failure. The echocardiogram is pending at this time. (3) Hypoxemia: PLAN: Multifactorial hypoxemia related to recent viral infections on top of chronic COPD. Patient is now requiring full-time home oxygen which she had been historically using intermittently. PLAN: Plan 1. 2D echocardiogram is ordered further recommendations be forthcoming once results are known. 2. Would recommend continuing with gentle diuresis. 3. At this time would avoid beta-mata therapy given her current pulmonary status. If she is found to have significant LV dysfunction would institute Coreg and ARB therapy. 4. Will follow-up following the results of the echo. HPI Consult Data Date of Consult: 07/22/24 HPI Narrative Reason for Consultation: Presumed new onset heart failure. HPI Narrative: WHITNEY DOWLING, is a 64 F who presents a 1 month history of increasing shortness of breath and new lower extremity edema. The patient has a history of COPD related tobacco use and also has a history of pulmonary emboli in 2013. The patient has been intermittently on oxygen in her home environment until the last month she has been on it consistently. She now presents with this 1 month history of progressive shortness of breath, new lower extremity edema, and a BNP of 2800. The patient does not have any previous documented right-sided heart failure signs or symptoms to her knowledge. The patient denies any previous history of heart disease and has never had an KS to her knowledge. An echocardiogram is pending at this time. A CT scan done in the emergency department showed no evidence of pulmonary emboli there is a questionable reflux of contrast into the IVC suggestive of right-sided failure. [facility] Medical History Acute sinusitis Severe protein-calorie malnutrition COPD (chronic obstructive pulmonary disease) with emphysema Allergic rhinitis due to allergen COPD exacerbation Smoker Diverticulitis Home Medications ?Medication ?Instructions ?Recorded ?Last Taken ?Type ipratropium bromide 21 mcg (0.03 2 spray intranasal BID #30 mL 01/21/24 Unknown Rx %) nasal spray albuterol sulfate 90 mcg/actuation 2 puff inhalation Q6H PRN 02/03/24 Unknown Rx aerosol inhaler (ProAir HFA) shortness of breath or wheezing #8.5 grams fluticasone fur. 200 mcg-umeclid 1 ea inhalation QDAY #1 ea 02/03/24 Unknown Rx 62.5 mcg-vilant 25 mcg inhalat.powder (Trelegy Ellipta) Allergy/AdvReac Type Severity Reaction Status Date / Time Penicillins (PCN) Allergy Anaphylaxis Verified 07/21/24 17:30 Surgical History H/O: hysterectomy History of colostomy reversal History of colostomy Social History Smoking Status: Former smoker how long ago did patient quit smoking: Oct 2022. ROS Constitutional Constitutional: Reports as per HPI Eyes Eyes: Reports systems reviewed and no addt'l complaints, except as documented ENT HEENT: Reports systems reviewed and no addt'l complaints, except as documented Cardiovascular Cardiovascular: Reports as per HPI Respiratory/Chest Respiratory/Chest: Reports as per HPI Gastrointestinal Gastrointestinal: Reports systems reviewed and no addt'l complaints, except as documented Genitourinary Genitourinary: Reports systems reviewed and no addt'l complaints, except as documented Musculoskeletal Musculoskeletal: Reports systems reviewed and no addt'l complaints, except as documented Integumentary Integumentary: Reports systems reviewed and no addt'l complaints, except as documented Neurologic Neurologic: Reports systems reviewed and no addt'l complaints, except as documented Psychiatric Psychiatric: Reports systems reviewed and no addt'l complaints, except as documented Endocrine Endocrinology: Reports systems reviewed and no addt'l complaints, except as documented Hematologic/Lymphatic Hematologic/Lymphatic: Reports systems reviewed and no addt'l complaints, except as documented Allergic/Immunologic Allergic/Immunologic: Reports systems reviewed and no addt'l complaints, except as documented Physical Exam Narrative Very thin white female with poor nursing home and cachexia. Const alert and oriented x3 HEENT normocephalic Eyes PERRL Neck Neck Narrative: JVD noted at 90 degrees. At the clavicle. Chest Chest Narrative: Chest is thin and the patient is cachectic appearing. Resp Resp Narrative: Patient and his coughing with minimal production of yellow sputum. There is diffuse rhonchi throughout with poor breath sounds in the bases bilaterally. Auscultation: rhonchi throughout Cardio Rate: regular rate Rhythm: regular rhythm Heart Sounds: S1 normal and S2 normal; Negative for click, gallop or murmur GI soft to palpation Extremity General Extremity: edema bilateral lower extremity (2+) Details: moderate Neuro Neuro Narrative: Alert and oriented x 3 Psych mental status grossly normal Risk Stratification Risk Stratification Applicable: No Charges/Coding Visit Charges Inpatient E&M: 03799 Init Hosp L3 Objective Data Vital Signs: Vital Signs Temp Pulse Resp BP Pulse Ox O2 Del Method O2 Flow Rate 98.1 F 86 16 111/66 91 Nasal Cannula 5 07/21/24 22:19 07/21/24 23:41 07/21/24 23:41 07/21/24 22:19 07/21/24 23:41 07/21/24 23:41 07/21/24 23:41 Oxygen Flow Rate (L/min) 5 Oxygen Delivery Method Nasal Cannula Weight: 127 lb 13.89 oz Body Mass Index (BMI) 20.6 Intake & Output: Intake and Output for Last 24 Hours 07/20/24 07/21/24 07/22/24 23:59 23:59 23:59 Intake Total 0 / 0 Balance 0 / 0 Lab / Micro Data Attestation: I reviewed the patient's lab results. 07/22/24 05:09 07/22/24 05:09 Labs: Laboratory Results - last 24 hr 07/21/24 18:18: WBC 3.9 L, RBC 3.25 L, Hgb 11.4 L, Hct 32.4 L, MCV 99.7 H, MCH 35.1 H, MCHC 35.2, RDW Std Deviation 54.4 H, RDW Coeff of Lali 14.9 H, Plt Count 308, MPV 11.0, Immature Gran % (Auto) 0.000, Neut % (Auto) 66.7, Lymph % (Auto) 23.8, [place] % (Auto) 7.5, Eos % (Auto) 1.0, Baso % (Auto) 1.0, Absolute Neuts (auto) 2.6, Absolute Lymphs (auto) 0.92, Nucleated RBC % 0, Sodium 135 L, Potassium 4.4, Chloride 102, Carbon Dioxide 27.0, Anion Gap 6, BUN 18, C reatinine 1.37 H, Estim Creat Clear Calc 39.73, Est GFR (MDRD) Af Amer 50 L, Est GFR (MDRD) Non-Af 41 L, BUN/Creatinine Ratio 13.1, Glucose 116 H, Calcium 9.4, Troponin I High Sens 34, B-Natriuretic Peptide 742.5 H 07/21/24 18:26: D-Dimer Quant (PE/DVT) 1.05 H*, Lactic Acid 1.8 07/21/24 21:18: Troponin I High Sens 37, B-Natriuretic Peptide 2810.0 H 07/22/24 05:09: WBC 3.7 L, RBC 3.63 L, Hgb 11.7 L, Hct 35.5 L, MCV 97.8, MCH 32.2 H, MCHC 33.0 D, RDW Std Deviation 52.8 H, RDW Coeff of Lali 14.6, Plt Count 216, MPV 11.0, Immature Gran % (Auto) 0.300, Neut % (Auto) 58.2, Lymph % (Auto) 29.5, [place] % (Auto) 9.8, Eos % (Auto) 1.1, Baso % (Auto) 1.1 H, Absolute Neuts (auto) 2.2, Absolute Lymphs (auto) 1.09, Nucleated RBC % 0, Sodium 136, Potassium 3.9, Chloride 100, Carbon Dioxide 29.0, Anion Gap 7, BUN 15, C reatinine 1.26 H, Estim Creat Clear Calc 42.39, Est GFR (MDRD) Af Amer 55 L, Est GFR (MDRD) Non-Af 46 L, BUN/Creatinine Ratio 11.9, Glucose 96, Calcium 9.2, Phosphorus 3.6, Magnesium 2.2, Total Bilirubin 0.50, AST 28, ALT 20, Alkaline Phosphatase 87, Total Protein 6.5, Albumin 3.4, Globulin 3.1, Albumin/Globulin Ratio 1.1, TSH 50.000 H Rhythm Strip Rhythm Strip: Sinus Rhythm Rate: 82 Cardiology Labs/Tests 07/21/24 18:18: WBC 3.9 L, RBC 3.25 L, Hgb 11.4 L, Hct 32.4 L, MCV 99.7 H, MCH 35.1 H, MCHC 35.2, Plt Count 308, MPV 11.0, Immature Gran % (Auto) 0.000, Neut % (Auto) 66.7, Lymph % (Auto) 23.8, [place] % (Auto) 7.5, Eos % (Auto) 1.0, Baso % (Auto) 1.0, Absolute Neuts (auto) 2.6, Nucleated RBC % 0, Sodium 135 L, Potassium 4.4, Chloride 102, Carbon Dioxide 27.0, Anion Gap 6, BUN 18, C reatinine 1.37 H, Est GFR (MDRD) Af Amer 50 L, Est GFR (MDRD) Non-Af 41 L, BUN/Creatinine Ratio 13.1, Glucose 116 H, Calcium 9.4, B-Natriuretic Peptide 742.5 H 07/21/24 18:26: D-Dimer Quant (PE/DVT) 1.05 H*, Lactic Acid 1.8 07/21/24 21:18: B-Natriuretic Peptide 2810.0 H 07/22/24 05:09: WBC 3.7 L, RBC 3.63 L, Hgb 11.7 L, Hct 35.5 L, MCV 97.8, MCH 32.2 H, MCHC 33.0 D, Plt Count 216, MPV 11.0, Immature Gran % (Auto) 0.300, Neut % (Auto) 58.2, Lymph % (Auto) 29.5, [place] % (Auto) 9.8, Eos % (Auto) 1.1, B aso % (Auto) 1.1 H, Absolute Neuts (auto) 2.2, Nucleated RBC % 0, Sodium 136, Potassium 3.9, Chloride 100, Carbon Dioxide 29.0, Anion Gap 7, BUN 15, C reatinine 1.26 H, Est GFR (MDRD) Af Amer 55 L, Est GFR (MDRD) Non-Af 46 L, BUN/Creatinine Ratio 11.9, Glucose 96, Calcium 9.2, Phosphorus 3.6, Magnesium 2.2, Total Bilirubin 0.50 Rhythm: EKG: ECHO: Stress Test: Cardiac Cath: PCI: CT Surgery: Holter monitor: EPS: PPM: CXR: Chest CT Scan: Radiography Diagnostic Testing: Radiology Impression Venous Duplex 07/21/24 18:15 IMPRESSION: Normal bilateral lower extremity duplex venous ultrasound. Electronically Signed: Aroldo Woods MD at 19:36 EDT , Chest X-Ray 07/21/24 18:27 IMPRESSION: Cardiomegaly with small bilateral effusions and bibasilar atelectasis Electronically Signed: Aroldo Woods MD at 19:35 EDT , Chest CTA 07/21/24 19:13 IMPRESSION: 1. No evidence of pulmonary embolus. 2. Bilateral pleural effusions and bilateral lower lobe consolidation which may represent bilateral lower lobe pneumonia. 3. No pericardial effusion. 4. Reflux of contrast into the inferior vena cava and hepatic veins which may indicate decreased cardiac output. Electronically Signed: Aroldo Woods MD at 20:05 EDT , Chest X-Ray 07/22/24 05:55 IMPRESSION: COPD. Left lower lobe pneumonia. Improved CHF. Electronically Signed: Alisa Munoz MD at 6:47 EDT , EKG Initial EKG: Attestation: I personally reviewed and interpreted this EKG as follows: (Normal sinus rhythm at 88 bpm occasional PACs otherwise unremarkable.)
--- NOTE | 2024-07-22 09:31 | PN.HOSP_ITS ---
Subjective Subjective Doing well, feels little bit better today says that the swelling in her lower extremities is down Objective Data Objective Data Vital Signs: Vital Signs Temp Pulse Resp BP Pulse Ox O2 Del Method O2 Flow Rate 98.1 F 88 20 H 111/66 93 Nasal Cannula 5 07/21/24 22:19 07/22/24 06:52 07/22/24 06:52 07/21/24 22:19 07/22/24 06:52 07/22/24 06:52 07/22/24 06:52 Oxygen Flow Rate (L/min) 5 Oxygen Delivery Method Nasal Cannula Weight: 127 lb 13.89 oz Body Mass Index (BMI) 20.6 Intake & Output: Intake and Output for Last 24 Hours 07/21/24 07/22/24 07/23/24 03:59 03:59 03:59 Intake Total 0 / 0 Balance 0 / 0 Lab / Micro Data 07/22/24 05:09 07/22/24 05:09 Labs: Laboratory Results - last 24 hr 07/21/24 18:18: WBC 3.9 L, RBC 3.25 L, Hgb 11.4 L, Hct 32.4 L, MCV 99.7 H, MCH 35.1 H, MCHC 35.2, RDW Std Deviation 54.4 H, RDW Coeff of Lali 14.9 H, Plt Count 308, MPV 11.0, Immature Gran % (Auto) 0.000, Neut % (Auto) 66.7, Lymph % (Auto) 23.8, [place] % (Auto) 7.5, Eos % (Auto) 1.0, Baso % (Auto) 1.0, Absolute Neuts (auto) 2.6, Absolute Lymphs (auto) 0.92, Nucleated RBC % 0, Sodium 135 L, Potassium 4.4, Chloride 102, Carbon Dioxide 27.0, Anion Gap 6, BUN 18, C reatinine 1.37 H, Estim Creat Clear Calc 39.73, Est GFR (MDRD) Af Amer 50 L, Est GFR (MDRD) Non-Af 41 L, BUN/Creatinine Ratio 13.1, Glucose 116 H, Calcium 9.4, Troponin I High Sens 34, B-Natriuretic Peptide 742.5 H 07/21/24 18:26: D-Dimer Quant (PE/DVT) 1.05 H*, Lactic Acid 1.8 07/21/24 21:18: Troponin I High Sens 37, B-Natriuretic Peptide 2810.0 H 07/22/24 05:09: WBC 3.7 L, RBC 3.63 L, Hgb 11.7 L, Hct 35.5 L, MCV 97.8, MCH 32.2 H, MCHC 33.0 D, RDW Std Deviation 52.8 H, RDW Coeff of Lali 14.6, Plt Count 216, MPV 11.0, Immature Gran % (Auto) 0.300, Neut % (Auto) 58.2, Lymph % (Auto) 29.5, [place] % (Auto) 9.8, Eos % (Auto) 1.1, Baso % (Auto) 1.1 H, Absolute Neuts (auto) 2.2, Absolute Lymphs (auto) 1.09, Nucleated RBC % 0, Sodium 136, Potassium 3.9, Chloride 100, Carbon Dioxide 29.0, Anion Gap 7, BUN 15, C reatinine 1.26 H, Estim Creat Clear Calc 42.39, Est GFR (MDRD) Af Amer 55 L, Est GFR (MDRD) Non-Af 46 L, BUN/Creatinine Ratio 11.9, Glucose 96, Calcium 9.2, Phosphorus 3.6, Magnesium 2.2, Total Bilirubin 0.50, AST 28, ALT 20, Alkaline Phosphatase 87, Total Protein 6.5, Albumin 3.4, Globulin 3.1, Albumin/Globulin Ratio 1.1, TSH 50.000 H Radiography Diagnostic Testing: Radiology Impression Venous Duplex 07/21/24 18:15 IMPRESSION: Normal bilateral lower extremity duplex venous ultrasound. Electronically Signed: Aroldo Woods MD at 19:36 EDT , Chest X-Ray 07/21/24 18:27 IMPRESSION: Cardiomegaly with small bilateral effusions and bibasilar atelectasis Electronically Signed: Aroldo Woods MD at 19:35 EDT , Chest CTA 07/21/24 19:13 IMPRESSION: 1. No evidence of pulmonary embolus. 2. Bilateral pleural effusions and bilateral lower lobe consolidation which may represent bilateral lower lobe pneumonia. 3. No pericardial effusion. 4. Reflux of contrast into the inferior vena cava and hepatic veins which may indicate decreased cardiac output. Electronically Signed: Aroldo Woods MD at 20:05 EDT , Chest X-Ray 07/22/24 05:55 IMPRESSION: COPD. Left lower lobe pneumonia. Improved CHF. Electronically Signed: Alisa Munoz MD at 6:47 EDT , Rhythm Strip Rhythm Strip: Sinus Rhythm Rate: 82 Physical Exam Narrative General: Alert, Oriented x3, Cooperative, No apparent distress HEENT: Atraumatic, PERRLA, EOMI, Normocephalic Oral: Moist Mucosa Neck: Supple, JVD Lungs: Diminished, Normal air movement, No rhonchi, No wheeze, No rales Cardiovascular: Regular rate, Regular Rhythm, Normal S1, Normal S2, No murmurs Abdomen: Soft, Non Tender, Non-Distended, No Hepato-splenomegaly Extremities: Edema, Capillary Refill Less than 3 Seconds Skin: No rashes, No breakdown Musculoskeletal: No Tenderness to Palpation of Joints or Extremities Neurological: No focal neurological deficits, Motor Exam 5/5 strength throughout, Sensory exam intact to light touch and pain Psych/Mental Status: Normal Affect, Appropriate Assessment & Plan Assessment/Plan (1) CHF (congestive heart failure): QUALIFIERS: Heart failure type: unspecified Heart failure chronicity: acute Qualified Code(s): I50.9 - Heart failure, unspecified (2) Respiratory insufficiency: (3) History of COPD: (4) Smoking greater than 40 pack years: PLAN: Plan 1. New onset CHF unclear etiology with acute on chronic respiratory insufficiency/essential HTN ? Appreciate cardiology's assistance ? Echo is pending ? Continue with IV Lasix 40 mg twice daily ? Wean oxygen as able 2. COPD/history of PE ? Does not appear to be in a COPD flare ? Continue with her home inhalers 3. Severe protein calorie malnutrition ? Nutrition DVT: Lovenox Charges/Coding Visit Charges Inpatient E&M: 13773 Subs Hosp L2
[2024-07-22] MEDS: Enoxaparin 40 MG/0.4 ML Syringe SC (11:05)
[2024-07-22] MEDS: Ipratropium Bromide 0.06% NASAL SPRAY 2 SPRAY NASAL ×2 (11:07→20:45)
[2024-07-22] MEDS: 0.9% Saline Lock 10 ML Syringe IV ×2 (11:07→17:42)
[2024-07-22 11:43] LABS: Allen Test Positive; Base Excess 4 mmol/L (-2 to +2); Bicarbonate 27.2 mmol/L (22-26); Blood Gas Specimen Type ART; Mode Not entered; O2 Delivery Device NRB; PO2 47 mmHG (75-100); SITE R Radial; SO2 86 % (95-99); Total Carbon Dioxide 28 mmol/L; pCO2 34.5 mmHg (35-45); pH 7.51 (7.35-7.45)
--- NOTE | 2024-07-22 14:15 | CASEMGMT ---
NAHUM ANGELES Assessment: Face to Face with pt for initial transition planning/care coordination assessment. NAHUM ANGELES introduced self and role at [facility], pt voices understanding and consents to assessment. Pt is A&O x4 and answers all questions appropriately at this time. Pt sitting up in bed in no distress. Pt at bedside, pt agreeable to asking questions with family present. Care providers, pharmacy, and demographics verified/updated. Strata: 2 Admitting Dx: AECHF PCP: None, Provided pt with list of local PCPs. Specialists: [facility]. Preferred Pharmacy: [facility] Insurance: [employer] Prescription Benefit: yes LNOK: [place], . Living Arrangements: Pt lives with and son in a 2 story home with 15 steps to enter. Pt reports stairs are hard for her to go up. ADLs: Pt states I with ADLs and IADLs previously, but has been getting harder. Transportation: Pt drives self and denies concerns with transportation. DME: BiPap, Oxygen at night through [facility], Pulse Ox. HHC/SNF: Denies hx of. Pt states no concerns with going home at time of dc. Pt states no further concerns/needs. CM to follow. Advised pt to ask CM if any further question/concerns/needs arise, voices understanding. Pt Goal: Home Plan: Home, follow therapy and changes in O2 needs. Stephanie SIDHU CM
--- NOTE | 2024-07-22 14:59 | CHAPLAIN ---
Type of Pastoral Visit _x__ Initial Visit ___ Follow-up Visit ___ On-call Visit ___ General Patient Visit ___ Spiritual Assessment ___ Family Conference ___ Bereavement ___ Rapid Response ___ Code Blue ___ Other (describe below) Pastoral Care Referral From _x__ Patient ___ Family ___ Nurse ___ Physician ___ Program Medical Director ___ Can Sorter ___ Other (describe below) Sacrament/Intervention _x__ Active listening ___ Anointing ___ Gnosticism ___ Bereavement ___ Communion ___ Sharlene exploration ___ ___ Life review ___ Prayer ___ Reconciliation ___ Sacrament of Sick _x__ Supportive presence ___ Wedding ___ Other (describe below) Pastoral Comments patient is on the bi-pap machine but awake and alert; granddaughter is at bedside with another guest also in the room; pt states that she is fine; however she is breathing with great assistance; granddaughter asks for assistance to have the nurse come into room and remove the bi-pap because the patient doesn't like it; pt affirms this request; instructed granddaughter to call again on the light and seek assistance; this was done and someone answered the phone to tell the nurse; again offer of support and presence given to patient and to family; all decline any needs and for direct spiritual care
[2024-07-22] MEDS: Carvedilol 3.125 MG TABLET PO (18:28)
[2024-07-22 20:26] LABS: T4 Free Direct 0.14 ng/dL (0.76-1.46)
[2024-07-22] MEDS: Levothyroxine 25 MCG TABLET PO (20:45)
[2024-07-23] VITALS (15 sets, daily range): BP systolic 81–96; BP diastolic 55–66; PULSE 76–90; RESP 12–19; TEMP 36.4–36.9; O2SAT 4–99; BMI 27.0; BMI 18.8
[2024-07-23 06:19] LABS: Absolute Lymphocyte Count 0.91 X10^3/uL (0.83-4.51); Absolute Neutrophil Count 1.6 X10^3/uL (2.0-7.7); Basophil# 0.03 X10^3/uL; Eosinophil# 0.04 X10^3/uL; Eosinophils% 1.4 % (0-5); Hematocrit 32.5 % (37-47); Hemoglobin 10.4 g/dL (12.0-15.0); Lymphocyte # 0.91 X10^3/ul (0.83-4.51); Lymphocyte % 30.8 % (19-41); Mean Platelet Vol. 10.3 fl (6.2-12.0); Monocyte# 0.34 X10^3/uL; Monocyte% 11.5 % (0-10); NRBC Flagged by Analyzer 0 % (0-5); Neutrophil # 1.62 X10^3/uL (2.7-7.7); Platelet Count 199 K/mm3 (150-450); RBC Distribution Width SD 54.7 fl (35.1-43.9); Red Blood Count 3.25 M/mm3 (4.2-5.4)
[2024-07-23] MEDS: Levothyroxine 25 MCG TABLET PO (06:31)
[2024-07-23 06:40] LABS: Anion Gap 6 (5-15); BUN 19 mg/dL (7-18); BUN/Creat Ratio 11.3 RATIO (10-20); Calcium,Total 9.1 mg/dL (8.5-10.1); Chloride 100 mmol/L (98-107); Creatinine, Serum 1.68 mg/dL (0.55-1.02); EST Glomerular Filtration Rate 33 mL/min (>60); Est Glom Filt Rate - Afr Amer 40 mL/min (>60); Estimated Creatinine Clearance 36.14 ml/min; Glucose 103 mg/dL (74-106); Magnesium 2.5 mg/dL (1.6-2.6); Phosphorus 4.3 mg/dL (2.5-4.9); Potassium 4.2 mmol/L (3.5-5.1); Sodium Level 137 mmol/L (136-145)
[2024-07-23] MEDS: Ipratropium/Albuterol Sulfate 3 ML AMPUL.NEB INHALATION ×3 (06:41→18:57)
[2024-07-23] MEDS: Budesonide Respules 0.5 MG/2 ML AMPUL.NEB. INHALATION ×2 (06:41→18:57)
[2024-07-23] MEDS: Potassium Chloride Oral Tablet 20 MEQ PO ×2 (08:34→20:37)
[2024-07-23] MEDS: Magnesium Chloride 64 MG Delay Rel.Tablet 128 MG PO ×2 (08:34→20:37)
[2024-07-23] MEDS: Carvedilol 3.125 MG TABLET PO ×2 (08:34→16:48)
[2024-07-23] MEDS: Enoxaparin 40 MG/0.4 ML Syringe SC (08:35)
[2024-07-23] MEDS: Ipratropium Bromide 0.06% NASAL SPRAY 2 SPRAY NASAL ×2 (08:35→20:38)
--- NOTE | 2024-07-23 09:31 | PN.CARD_ITS ---
Subjective Subjective The patient's sitting up in the bed today on nasal cannula. Yesterday she had significant respiratory issues and required BiPAP for a period of time. Her O2 sats were markedly depressed yesterday she was diuresed aggressively. She now has issues with hypotension. Her echo showed severe LV dysfunction EF in the 15% range. We have been trying to titrate gently her medical regiment of Coreg and losartan to get her on guideline directed medical therapy. The patient's creatinine increased from 1.26-1.68 with the diuresis her GFR is 33. Telemetry shows her heart rate in the 80s with normal sinus rhythm. Her I's and O's are negative over the last 24 hours. Hemoglobin is 10.4. Objective Data Vital Signs: Vital Signs Temp Pulse Resp BP Pulse Ox O2 Del Method O2 Flow Rate 97.7 F L 77 12 96/61 96 High Flow 7 07/23/24 03:39 07/23/24 06:41 07/23/24 06:41 07/23/24 03:39 07/23/24 06:41 07/23/24 06:41 07/23/24 06:41 FiO2 40 07/23/24 06:02 Oxygen Flow Rate (L/min) 7 Oxygen Delivery Method High Flow Weight: 167 lb 5.294 oz Body Mass Index (BMI) 27.0 Intake & Output: Intake and Output for Last 24 Hours 07/21/24 07/22/24 07/23/24 23:59 23:59 23:59 Intake Total 620 / 740 240 / 240 Output Total 1450 / 1900 1000 / 1000 Balance -830 / -1160 -760 / -760 Lab / Micro Data Attestation: I reviewed the patient's lab results. 07/23/24 05:40 07/23/24 05:40 Labs: Laboratory Results - last 24 hr 07/22/24 19:59: Free T4 0.14 L 07/23/24 05:40: WBC 3.0 L, RBC 3.25 L, Hgb 10.4 L, Hct 32.5 L, MCV 100.0 H, MCH 32.0, MCHC 32.0, RDW Std Deviation 54.7 H, RDW Coeff of Lali 15.0 H, Plt Count 199, MPV 10.3, Immature Gran % (Auto) 0.300, Neut % (Auto) 55.0, Lymph % (Auto) 30.8, [place] % (Auto) 11.5 H, Eos % (Auto) 1.4, Baso % (Auto) 1.0, Absolute Neuts (auto) 1.6 L, Absolute Lymphs (auto) 0.91, Nucleated RBC % 0, Sodium 137, Potassium 4.2, Chloride 100, Carbon Dioxide 31.0, Anion Gap 6, BUN 19 H, C reatinine 1.68 H, Estim Creat Clear Calc 36.14, Est GFR (MDRD) Af Amer 40 L, Est GFR (MDRD) Non-Af 33 L, BUN/Creatinine Ratio 11.3, Glucose 103, Calcium 9.1, Phosphorus 4.3, Magnesium 2.5 ABG Data ABG results: ABG 07/22/24 11:39 Specimen Type ART Sample Site R Radial pH 7.51 H Bicarbonate Actual 27.2 H Total CO2 28 Base Excess 4 H O2 Saturation 86 L O2 % 100.0 ABG pCO2 34.5 L ABG pO2 47 L Randy Test Positive O2 Delivery Device NRB Vent Mode Not entered Rhythm Strip Rhythm Strip: Sinus Rhythm Rate: 80 Cardiology Labs/Tests 07/22/24 11:39: pH 7.51 H, Bicarbonate Actual 27.2 H, Base Excess 4 H, O2 Saturation 86 L, ABG pCO2 34.5 L, ABG pO2 47 L, Randy Test Positive 07/23/24 05:40: WBC 3.0 L, RBC 3.25 L, Hgb 10.4 L, Hct 32.5 L, MCV 100.0 H, MCH 32.0, MCHC 32.0, Plt Count 199, MPV 10.3, Immature Gran % (Auto) 0.300, Neut % (Auto) 55.0, Lymph % (Auto) 30.8, [place] % (Auto) 11.5 H, Eos % (Auto) 1.4, Baso % (Auto) 1.0, Absolute Neuts (auto) 1.6 L, Nucleated RBC % 0, Sodium 137, Potassium 4.2, Chloride 100, Carbon Dioxide 31.0, Anion Gap 6, BUN 19 H, C reatinine 1.68 H, Est GFR (MDRD) Af Amer 40 L, Est GFR (MDRD) Non-Af 33 L, BUN/Creatinine Ratio 11.3, Glucose 103, Calcium 9.1, Phosphorus 4.3, Magnesium 2.5 Rhythm: EKG: ECHO: Stress Test: Cardiac Cath: PCI: CT Surgery: Holter monitor: EPS: PPM: CXR: Chest CT Scan: Radiography Diagnostic Testing: Radiology Impression Echocardiogram 07/21/24 20:54 Interpretation Summary Severely dilated left ventricle. The estimated ejection fraction is 14 %. Stage 1 diastolic dysfunction. Mild (1+) tricuspid valve insufficiency. Small pericardial effusion. Ordering Physician: Yaakov Gonzalez Performed By: Elodia Francis RDCS Physical Exam Const alert and oriented x3 HEENT normocephalic Eyes EOMs intact bilaterally Resp normal respiratory effort Auscultation: rhonchi throughout and diminished lung sounds bilateral lower Cardio Cardio Narrative: Distant heart tones due to pulmonary status Rate: regular rate Rhythm: regular rhythm Heart Sounds: S1 normal and S2 normal; Negative for click, gallop or murmur Extremity General Extremity: edema right lower extremity mild and left lower extremity trace Neuro Neuro Narrative: Alert and oriented x 3 Psych mental status grossly normal Assessment & Plan Assessment/Plan (1) CHF (congestive heart failure): QUALIFIERS: Heart failure type: unspecified Heart failure chronicity: acute Qualified Code(s): I50.9 - Heart failure, unspecified PLAN: Patient has heart failure reduced ejection fraction in the 15% range. We have initiated low-dose Coreg and losartan in divided doses spread out to try and minimize impact on her already low blood pressure. It appears that she is diuresing well her edema in her lower extremities is improved. Her hypotension is making titration of guideline directed medical therapy very challenging. I did discuss with her given her significant pulmonary issues her now new renal insufficiency as well as her severe LV dysfunction that we need to start considering end-of-life wishes. It does appear that this heart failure may be related to a release sent viral infection approximately 4 weeks ago. (2) Respiratory insufficiency: PLAN: The patient required BiPAP for a period of time yesterday. She is currently back on high flow nasal cannula. Respiratory insufficiency being treated by the primary service. (3) Hypoxemia: PLAN: Patient has a history of respiratory hypoxia her O2 sats have been consistently low. She appears asymptomatic with O2 sats in the upper 80s. Further evaluation and treatment per the primary service. At this point in time I would be careful with diuresis given her hypotension and her resolving peripheral edema suggestive that she may becoming intravascularly depleted. This is a situation where invasive monitoring may be required to determine her true volume status. If this is the case consideration may be given for transfer to a higher level of care and heart failure specialist. PLAN: Plan 1. Would decrease diuretic therapy at this time. 2. Continue to try to gently titrate Coreg and losartan. 3. Continue to monitor renal status closely. 4. Patient continues to be a challenge with volume determination would have to consider invasive monitoring and/or inotropic support. Charges/Coding Visit Charges Inpatient E&M: [id number] [place] [id number]
[2024-07-23] MEDS: Furosemide 40 MG Tablet PO (10:13)
[2024-07-23] MEDS: Losartan Potassium 25 MG Tablet PO (11:33)
--- NOTE | 2024-07-23 12:04 | PN.HOSP_ITS ---
Subjective Subjective Feels little bit better today, EF is 14% and she is significantly hypothyroid which is likely contributing somewhat to her cardiac illness Objective Data Objective Data Vital Signs: Vital Signs Temp Pulse Resp BP Pulse Ox O2 Del Method O2 Flow Rate 97.5 F L 85 19 H 81/59 L 93 Nasal Cannula 4 07/23/24 09:39 07/23/24 09:39 07/23/24 09:39 07/23/24 09:39 07/23/24 09:39 07/23/24 10:00 07/23/24 10:00 FiO2 40 07/23/24 06:02 Oxygen Flow Rate (L/min) 4 Oxygen Delivery Method Nasal Cannula Weight: 167 lb 5.294 oz Body Mass Index (BMI) 27.0 Intake & Output: Intake and Output for Last 24 Hours 07/22/24 07/23/24 07/24/24 03:59 03:59 03:59 Intake Total 0 / 0 740 / 740 120 / 120 Output Total 1900 / 1900 550 / 550 Balance 0 / 0 -1160 / -1160 -430 / -430 Lab / Micro Data 07/23/24 05:40 07/23/24 05:40 Labs: Laboratory Results - last 24 hr 07/22/24 19:59: Free T4 0.14 L 07/23/24 05:40: WBC 3.0 L, RBC 3.25 L, Hgb 10.4 L, Hct 32.5 L, MCV 100.0 H, MCH 32.0, MCHC 32.0, RDW Std Deviation 54.7 H, RDW Coeff of Lali 15.0 H, Plt Count 199, MPV 10.3, Immature Gran % (Auto) 0.300, Neut % (Auto) 55.0, Lymph % (Auto) 30.8, [place] % (Auto) 11.5 H, Eos % (Auto) 1.4, Baso % (Auto) 1.0, Absolute Neuts (auto) 1.6 L, Absolute Lymphs (auto) 0.91, Nucleated RBC % 0, Sodium 137, Potassium 4.2, Chloride 100, Carbon Dioxide 31.0, Anion Gap 6, BUN 19 H, C reatinine 1.68 H, Estim Creat Clear Calc 36.14, Est GFR (MDRD) Af Amer 40 L, Est GFR (MDRD) Non-Af 33 L, BUN/Creatinine Ratio 11.3, Glucose 103, Calcium 9.1, Phosphorus 4.3, Magnesium 2.5 Radiography Diagnostic Testing: Radiology Impression Echocardiogram 07/21/24 20:54 Interpretation Summary Severely dilated left ventricle. The estimated ejection fraction is 14 %. Stage 1 diastolic dysfunction. Mild (1+) tricuspid valve insufficiency. Small pericardial effusion. Ordering Physician: Yaakov Gonzalez Performed By: Elodia Francis RDCS Rhythm Strip Rhythm Strip: Sinus Rhythm Rate: 80 Physical Exam Narrative General: Alert, Oriented x3, Cooperative, No apparent distress HEENT: Atraumatic, PERRLA, EOMI, Normocephalic Oral: Moist Mucosa Neck: Supple, JVD Lungs: Diminished, Normal air movement, No rhonchi, No wheeze, No rales Cardiovascular: Regular rate, Regular Rhythm, Normal S1, Normal S2, No murmurs Abdomen: Soft, Non Tender, Non-Distended, No Hepato-splenomegaly Extremities: Edema, Capillary Refill Less than 3 Seconds Skin: No rashes, No breakdown Musculoskeletal: No Tenderness to Palpation of Joints or Extremities Neurological: No focal neurological deficits, Motor Exam 5/5 strength throughout, Sensory exam intact to light touch and pain Psych/Mental Status: Normal Affect, Appropriate Assessment & Plan Assessment/Plan (1) CHF (congestive heart failure): QUALIFIERS: Heart failure type: unspecified Heart failure chronicity: acute Qualified Code(s): I50.9 - Heart failure, unspecified (2) Respiratory insufficiency: (3) History of COPD: (4) Smoking greater than 40 pack years: PLAN: Plan 1. Acute systolic CHF with acute on chronic respiratory insufficiency because of CHF/essential HTN/hypothyroidism ? Appreciate cardiology's assistance ? Echo EF of 14% with stage I diastolic dysfunction. ?Given her EF she was started on Coreg and losartan. Lasix was transitioned to 40 mg p.o. daily secondary to her creatinine ? Wean oxygen as able ? Will increase Synthroid that was started last evening from 25 mcg to 50 mcg given her deficiency and this is likely contributing somewhat to her cardiac dysfunction 2. COPD/history of PE ? Does not appear to be in a COPD flare ? Continue with her home inhalers 3. Severe protein calorie malnutrition ? Nutrition DVT: Lovenox Charges/Coding Visit Charges Inpatient E&M: [id number] Subs Hosp L2
[2024-07-23] MEDS: Acetaminophen 325 MG Tablet 650 MG PO (16:48)
--- NOTE | 2024-07-23 20:34 | CPS ---
Patient refused PAP therapy for night time use.
[2024-07-24] VITALS (15 sets, daily range): BP systolic 83–98; BP diastolic 53–76; PULSE 78–84; RESP 14–20; TEMP 36.1–36.8; O2SAT 89–99; BMI 18.8
[2024-07-24] MEDS: Levothyroxine 50 MCG Tablet PO (05:53)
[2024-07-24] MEDS: Budesonide Respules 0.5 MG/2 ML AMPUL.NEB. INHALATION ×2 (07:03→19:47)
[2024-07-24] MEDS: Ipratropium/Albuterol Sulfate 3 ML AMPUL.NEB INHALATION ×2 (07:03→19:47)
[2024-07-24 08:15] LABS: Anion Gap 7 (5-15); BUN 21 mg/dL (7-18); BUN/Creat Ratio 14.7 RATIO (10-20); Calcium,Total 8.9 mg/dL (8.5-10.1); Chloride 101 mmol/L (98-107); Creatinine, Serum 1.43 mg/dL (0.55-1.02); EST Glomerular Filtration Rate 39 mL/min (>60); Est Glom Filt Rate - Afr Amer 48 mL/min (>60); Glucose 85 mg/dL (74-106); Sodium Level 138 mmol/L (136-145)
[2024-07-24] MEDS: Ipratropium Bromide 0.06% NASAL SPRAY 2 SPRAY NASAL ×2 (08:34→21:31)
[2024-07-24] MEDS: Carvedilol 3.125 MG TABLET PO ×2 (08:34→16:29)
[2024-07-24] MEDS: Furosemide 40 MG Tablet PO (08:35)
[2024-07-24] MEDS: Potassium Chloride Oral Tablet 20 MEQ PO ×2 (08:35→21:32)
[2024-07-24] MEDS: Enoxaparin 40 MG/0.4 ML Syringe SC (08:35)
[2024-07-24] MEDS: Magnesium Chloride 64 MG Delay Rel.Tablet 128 MG PO ×2 (08:35→21:33)
[2024-07-24] MEDS: Polyethylene Glycol 3350 17 GM PACKET PO ×2 (08:36→16:29)
--- NOTE | 2024-07-24 11:20 | PCM.PN.HOSP ---
Subjective Subjective Doing well, no issues overnight. No repeat episodes of her significant shortness of breath like she had the first day Objective Data Objective Data Vital Signs: Vital Signs Temp Pulse Resp BP Pulse Ox O2 Del Method O2 Flow Rate 96.9 F L 79 20 H 95/57 L 89 High Flow 6 07/24/24 05:54 07/24/24 07:03 07/24/24 07:03 07/24/24 08:00 07/24/24 11:07 07/24/24 11:07 07/24/24 11:07 FiO2 40 07/23/24 06:02 Oxygen Flow Rate (L/min) 6 Oxygen Delivery Method High Flow Weight: 116 lb 6.465 oz Body Mass Index (BMI) 18.8 Intake & Output: Intake and Output for Last 24 Hours 07/23/24 07/24/24 07/25/24 03:59 03:59 03:59 Intake Total 740 / 740 1080 / 1080 0 / 0 Output Total 1900 / 1900 1350 / 1350 Balance -1160 / -1160 -270 / -270 0 / 0 Lab / Micro Data 07/23/24 05:40 07/24/24 06:20 Labs: Laboratory Results - last 24 hr 07/24/24 06:20: Sodium 138, Potassium 4.0, Chloride 101, Carbon Dioxide 30.0, Anion Gap 7, BUN 21 H, Creatinine 1.43 H, Estim Creat Clear Calc 34.00, Est GFR (MDRD) Af Amer 48 L, Est GFR (MDRD) Non-Af 39 L, BUN/Creatinine Ratio 14.7, Glucose 85, Calcium 8.9 Micro: Microbiology 07/21/24 18:18 Blood Culture (Wb) - Venous Blood Culture - Preliminary No growth in 48 hours. Rhythm Strip Rhythm Strip: Sinus Rhythm Rate: 80 Physical Exam Narrative General: Alert, Oriented x3, Cooperative, No apparent distress HEENT: Atraumatic, PERRLA, EOMI, Normocephalic Oral: Moist Mucosa Neck: Supple, JVD Lungs: Diminished, Normal air movement, No rhonchi, No wheeze, No rales Cardiovascular: Regular rate, Regular Rhythm, Normal S1, Normal S2, No murmurs Abdomen: Soft, Non Tender, Non-Distended, No Hepato-splenomegaly Extremities: Edema, Capillary Refill Less than 3 Seconds Skin: No rashes, No breakdown Musculoskeletal: No Tenderness to Palpation of Joints or Extremities Neurological: No focal neurological deficits, Motor Exam 5/5 strength throughout, Sensory exam intact to light touch and pain Psych/Mental Status: Normal Affect, Appropriate Assessment & Plan Assessment/Plan (1) CHF (congestive heart failure): QUALIFIERS: Heart failure type: unspecified Heart failure chronicity: acute Qualified Code(s): I50.9 - Heart failure, unspecified (2) Respiratory insufficiency: (3) History of COPD: (4) Smoking greater than 40 pack years: PLAN: Plan 1. Acute systolic CHF with acute on chronic respiratory insufficiency because of CHF/essential HTN/hypothyroidism ? Appreciate cardiology's assistance ? Echo EF of 14% with stage I diastolic dysfunction. ?Given her EF she was started on Coreg and losartan. Lasix was transitioned to 40 mg p.o. daily secondary to her creatinine ? Wean oxygen as able ?Continue with Synthroid at 50 mcg daily. Currently are still requiring 6 L nasal cannula so we will wean as able 2. COPD/history of PE ? Does not appear to be in a COPD flare ? Continue with her home inhalers 3. Severe protein calorie malnutrition ? Nutrition DVT: Lovenox Charges/Coding Visit Charges Inpatient E&M: [id number] Subs Hosp L2
[2024-07-24] MEDS: Losartan Potassium 25 MG Tablet PO (11:52)
--- NOTE | 2024-07-24 12:23 | PN.CARD_ITS ---
<Statement entered by Lynne Hurst MD - 07/24/24 16:52> Pt seen & evaluated w/MASON. I personally interviewed & exam the pt. I was involved in all aspects of pt's orders, interpretation of results & treatment Subjective Subjective Patient seen today at bedside along with the nursing staff Shortness of breath is improving gradually No chest pain reported Objective Data Vital Signs: Vital Signs Temp Pulse Resp BP Pulse Ox O2 Del Method O2 Flow Rate 96.9 F L 79 20 H 95/57 L 89 High Flow 6 07/24/24 05:54 07/24/24 07:03 07/24/24 07:03 07/24/24 08:00 07/24/24 11:07 07/24/24 11:07 07/24/24 11:07 FiO2 40 07/23/24 06:02 Oxygen Flow Rate (L/min) 6 Oxygen Delivery Method High Flow Weight: 116 lb 6.465 oz Body Mass Index (BMI) 18.8 Intake & Output: Intake and Output for Last 24 Hours 07/22/24 07/23/24 07/24/24 23:59 23:59 23:59 Intake Total 620 / 740 960 / 1200 240 / 240 Output Total 1450 / 1900 1400 / 1800 400 / 400 Balance -830 / -1160 -440 / -600 -160 / -160 Lab / Micro Data 07/23/24 05:40 07/24/24 06:20 Labs: Laboratory Results - last 24 hr 07/24/24 06:20: Sodium 138, Potassium 4.0, Chloride 101, Carbon Dioxide 30.0, Anion Gap 7, BUN 21 H, Creatinine 1.43 H, Estim Creat Clear Calc 34.00, Est GFR (MDRD) Af Amer 48 L, Est GFR (MDRD) Non-Af 39 L, BUN/Creatinine Ratio 14.7, Glucose 85, Calcium 8.9 Micro: Microbiology 07/21/24 18:18 Blood Culture (Wb) - Venous Blood Culture - Preliminary No growth in 48 hours. Rhythm Strip Rhythm Strip: Sinus Rhythm Rate: 80 Cardiology Labs/Tests 07/24/24 06:20: Sodium 138, Potassium 4.0, Chloride 101, Carbon Dioxide 30.0, Anion Gap 7, BUN 21 H, Creatinine 1.43 H, Est GFR (MDRD) Af Amer 48 L, Est GFR (MDRD) Non-Af 39 L, BUN/Creatinine Ratio 14.7, Glucose 85, Calcium 8.9 Rhythm: EKG: ECHO: Stress Test: Cardiac Cath: PCI: CT Surgery: Holter monitor: EPS: PPM: CXR: Chest CT Scan: Physical Exam Cardio Cardio Narrative: Review of the cardiac rhythm sinus rhythm Cardiovascular exam S1-S2 regular Chest exam diminished air entry bilateral with mild bilateral inspiratory rales Examination lower extremity +1?+2 lower extremity edema bilateral Assessment & Plan Assessment/Plan (1) COPD (chronic obstructive pulmonary disease) with emphysema: QUALIFIERS: Emphysema type: centrilobular Qualified Code(s): J 43.2 - Centrilobular emphysema (2) Acute systolic heart failure: PLAN: Plan Cardiac care plan; 64-year-old patient with acute systolic heart failure presented with symptoms of shortness of breath Started on treatment with diuretic Lasix ARB with losartan as well as carvedilol she has blood pressure on the lower side systolic blood pressure over 90 Cardiac evaluation by echocardiogram showed EF severely reduced with ejection fraction of around 14%. Also review of the labs revealed significantly elevated TSH level up to 50 patient was started on Synthroid. In addition to the cardiac medication. On review of the bus driver/monitor cardiac rhythm is sinus rhythm no evidence of atrial fibrillation noted. Would recommend to continue current medical therapy. This patient has a progressive symptoms shortness of breath and longstanding history of COPD a smoker And the recent echo showed severely reduced ejection fraction of around 14% contributing to her symptoms of shortness of breath and bilateral lower extremity swelling. Patient is on home oxygen. Other problem include severe protein calorie malnutrition and history of diverticulitis. I discussed cardiac care plan will gradually start to introduce guideline directed medical therapy as tolerated by the blood pressure Annual follow-up in the cardiology clinic. Further evaluation by CTA showed no evidence of pulm embolism The chest x-ray is consistent with cardiomegaly and small bilateral pleural effusion. The chest x-ray also suggestive of left lower lobe pneumonia From cardiac standpoint continue to monitor and follow-up clinically Patient to follow-up with the [facility] cardiology team which can be set up as an outpatient. Lynne Hurst MD,FACC,[facility]
[2024-07-25] VITALS (9 sets, daily range): BP systolic 82–96; BP diastolic 52–66; PULSE 70–81; RESP 16–18; TEMP 36.2–36.6; O2SAT 93–99
[2024-07-25] MEDS: Levothyroxine 50 MCG Tablet PO (05:42)
[2024-07-25] MEDS: Lactulose 20 GM/30 ML UDC 30 GM PO (06:19)
[2024-07-25 06:53] LABS: Absolute Lymphocyte Count 0.83 X10^3/uL (0.83-4.51); Absolute Neutrophil Count 3.2 X10^3/uL (2.0-7.7); Basophil# 0.02 X10^3/uL; Basophil% 0.4 % (0-1); Eosinophil# 0.02 X10^3/uL; Eosinophils% 0.4 % (0-5); Hematocrit 34.3 % (37-47); Lymphocyte # 0.83 X10^3/ul (0.83-4.51); Lymphocyte % 18.4 % (19-41); Mean Corp Hgb Conc 32.1 g/dL (32-36); Mean Corpuscular Hgb 31.8 pg (27.0-32.0); Mean Corpuscular Volume 99.1 fL (81-99); Mean Platelet Vol. 10.3 fl (6.2-12.0); Monocyte# 0.47 X10^3/uL; Monocyte% 10.4 % (0-10); NRBC Flagged by Analyzer 0 % (0-5); Neutrophil # 3.17 X10^3/uL (2.7-7.7); Neutrophil % 70.2 % (47-70); Platelet Count 205 K/mm3 (150-450); RBC Distribution Width CV 14.9 % (11.6-14.6); Red Blood Count 3.46 M/mm3 (4.2-5.4); White Blood Count 4.5 K/mm3 (4.4-11.0)
[2024-07-25] MEDS: Budesonide Respules 0.5 MG/2 ML AMPUL.NEB. INHALATION ×2 (07:03→19:35)
[2024-07-25] MEDS: Ipratropium/Albuterol Sulfate 3 ML AMPUL.NEB INHALATION ×3 (07:03→19:35)
[2024-07-25 07:23] LABS: Anion Gap 5 (5-15); BUN 20 mg/dL (7-18); BUN/Creat Ratio 15.3 RATIO (10-20); Calcium,Total 8.8 mg/dL (8.5-10.1); Chloride 100 mmol/L (98-107); Creatinine, Serum 1.31 mg/dL (0.55-1.02); EST Glomerular Filtration Rate 44 mL/min (>60); Est Glom Filt Rate - Afr Amer 53 mL/min (>60); Glucose 87 mg/dL (74-106); Potassium 4.4 mmol/L (3.5-5.1); Sodium Level 135 mmol/L (136-145)
[2024-07-25] MEDS: Ipratropium Bromide 0.06% NASAL SPRAY 2 SPRAY NASAL ×2 (08:46→20:30)
[2024-07-25] MEDS: Polyethylene Glycol 3350 17 GM PACKET PO (08:49)
[2024-07-25] MEDS: Potassium Chloride Oral Tablet 20 MEQ PO ×2 (08:49→20:29)
[2024-07-25] MEDS: Enoxaparin 40 MG/0.4 ML Syringe SC (08:50)
[2024-07-25] MEDS: Magnesium Chloride 64 MG Delay Rel.Tablet 128 MG PO ×2 (08:50→20:30)
[2024-07-25] MEDS: Furosemide 40 MG Tablet PO (08:50)
[2024-07-25] MEDS: Carvedilol 3.125 MG TABLET PO ×2 (11:38→17:14)
[2024-07-25] MEDS: Bisacodyl 10 MG Suppository RC (12:20)
--- NOTE | 2024-07-25 17:49 | PN.HOSP_ITS ---
Reason for Visit Reason for Visit: Diagnoses Nicotine dependence, cigarettes, uncomplicated (07/21/24) Acute systolic (congestive) heart failure (07/21/24) Heart failure, unspecified (07/21/24) Centrilobular emphysema (07/21/24) Other abnormalities of breathing (07/21/24) Hypoxemia (07/21/24) Localized edema (07/21/24) Personal history of other diseases of the respiratory system (07/21/24) Subjective Subjective Patient was seen and examined today, I briefly talked by phone with cardiology about her care. Patient's systolic blood pressures been in the 80s and 90s today, I held her losartan this morning due to concerns of lowering her blood pressure. The patient is currently on 6 L of oxygen-she states she is on 4 L at home at baseline. Objective Data Objective Data Vital Signs: Vital Signs Temp Pulse Resp BP Pulse Ox O2 Del Method O2 Flow Rate 97.7 F L 78 18 90/58 L 96 High Flow 6 07/25/24 17:00 07/25/24 17:00 07/25/24 17:00 07/25/24 17:00 07/25/24 17:00 07/25/24 17:00 07/25/24 17:00 FiO2 40 07/23/24 06:02 Oxygen Flow Rate (L/min) 6 Oxygen Delivery Method High Flow Weight: 56.2 kg Body Mass Index (BMI) 20.0 Intake & Output: Intake and Output for Last 24 Hours 07/23/24 07/24/24 07/25/24 23:59 23:59 23:59 Intake Total 960 / 1200 360 / 360 Output Total 1400 / 1800 700 / 700 Balance -440 / -600 -340 / -340 Lab / Micro Data 07/25/24 06:11 07/25/24 06:11 Labs: Laboratory Results - last 24 hr 07/25/24 06:11: WBC 4.5, RBC 3.46 L, Hgb 11.0 L, Hct 34.3 L, MCV 99.1 H, MCH 31.8, MCHC 32.1, RDW Std Deviation 54.0 H, RDW Coeff of Lali 14.9 H, Plt Count 205, MPV 10.3, Immature Gran % (Auto) 0.200, Neut % (Auto) 70.2 H, Lymph % (Auto) 18.4 L, [place] % (Auto) 10.4 H, Eos % (Auto) 0.4, Baso % (Auto) 0.4, Absolute Neuts (auto) 3.2, Absolute Lymphs (auto) 0.83, Nucleated RBC % 0, S odium 135 L, Potassium 4.4, Chloride 100, Carbon Dioxide 30.0, Anion Gap 5, BUN 20 H, Creatinine 1.31 H, Estim Creat Clear Calc 39.50, Est GFR (MDRD) Af Amer 53 L, Est GFR (MDRD) Non-Af 44 L, BUN/Creatinine Ratio 15.3, Glucose 87, Calcium 8.8 Micro: Microbiology 07/21/24 18:18 Blood Culture (Wb) - Venous Blood Culture - Preliminary No growth in 48 hours. Rhythm Strip Rhythm Strip: Sinus Rhythm Rate: 80 Physical Exam Const alert, oriented x3 and no apparent distress Constitutional Narrative: Patient appears much older than her stated age, she does appear frail General Appearance: cooperative and well developed Orientation / Consciousness: awake, oriented to person, oriented to place and oriented to time HEENT normocephalic, head/scalp atraumatic and moist oral mucous membranes Eyes PERRL, EOMs intact bilaterally and conjunctivae normal Neck supple, no JVD and thyroid normal General: trachea midline Resp normal respiratory effort, no retractions and no use of accessory muscles Resp Narrative: Decreased breath sounds are noted bilaterally Auscultation: Negative for rales, rhonchi or wheezes Cardio regular rate, regular rhythm, S1 normal heart sound, S2 normal heart sound, no murmurs, no rub and no gallops GI normal to inspection, nondistended, normoactive bowel sounds, soft to palpation, non-tender and non-distended Extremity no clubbing, cyanosis or edema Skin no rashes or lesions noted General Skin Exam: no breakdown Neuro oriented x3, CN's II-XII intact bilaterally, no focal motor deficits and no sensory deficits noted Sensorium / Orientation: awake and alert Speech: speech normal Psych affect normal Assessment & Plan Assessment/Plan (1) Acute systolic heart failure: PLAN: Plan 1. Acute systolic congestive heart failure-etiology unclear at this point, patient will remain on oral Lasix and beta-blockers and losartan will be used blood pressure permitting. #2 cardiomyopathy-type unknown, patient's EF is 14%, complicates care, management, recovery, and prognosis, again patient will remain on her current medications blood pressure permitting #3 acute on chronic hypoxic respiratory failure-patient is on chronic oxygen at home at 4 L. Pulse ox will be monitored, she may need set up with a different oxygen concentrator at home due to her oxygen demand. #4 chronic obstructive pulmonary disease-complicates care, management, recovery, and prognosis #5 hypothyroidism-patient is on thyroid replacement I do not believe the patient has pneumonia currently, I do not feel that the patient has severe protein and caloric malnutrition Total clinical time spent by myself addressing the patient's medical issues, reviewing all of her data, and collaborating with patient's care team: 50 minutes Charges/Coding Visit Charges Inpatient E&M: [id number] [facility] Hosp L3
[2024-07-26] VITALS (9 sets, daily range): BP systolic 80–90; BP diastolic 49–60; PULSE 69–80; RESP 16–18; TEMP 36.4–36.6; O2SAT 92–99; BMI 19.9
[2024-07-26] MEDS: Levothyroxine 50 MCG Tablet PO (03:47)
[2024-07-26 06:18] LABS: Anion Gap 5 (5-15); BUN 20 mg/dL (7-18); BUN/Creat Ratio 15.6 RATIO (10-20); Calcium,Total 8.8 mg/dL (8.5-10.1); Chloride 100 mmol/L (98-107); Creatinine, Serum 1.28 mg/dL (0.55-1.02); EST Glomerular Filtration Rate 45 mL/min (>60); Est Glom Filt Rate - Afr Amer 54 mL/min (>60); Estimated Creatinine Clearance 40.29 ml/min; Glucose 101 mg/dL (74-106); Potassium 4.6 mmol/L (3.5-5.1); Sodium Level 134 mmol/L (136-145)
[2024-07-26] MEDS: Ipratropium/Albuterol Sulfate 3 ML AMPUL.NEB INHALATION ×3 (07:53→19:00)
[2024-07-26] MEDS: Budesonide Respules 0.5 MG/2 ML AMPUL.NEB. INHALATION ×2 (07:53→19:00)
[2024-07-26] MEDS: Ipratropium Bromide 0.06% NASAL SPRAY 2 SPRAY NASAL ×2 (08:31→20:34)
[2024-07-26] MEDS: Furosemide 40 MG Tablet PO (08:37)
[2024-07-26] MEDS: Magnesium Chloride 64 MG Delay Rel.Tablet 128 MG PO ×2 (08:37→20:35)
[2024-07-26] MEDS: Polyethylene Glycol 3350 17 GM PACKET PO (08:37)
[2024-07-26] MEDS: Potassium Chloride Oral Tablet 20 MEQ PO ×2 (08:38→20:35)
[2024-07-26] MEDS: Enoxaparin 40 MG/0.4 ML Syringe SC (08:38)
[2024-07-26] MEDS: Losartan Potassium 25 MG Tablet PO (09:03)
[2024-07-26] MEDS: Carvedilol 3.125 MG TABLET PO ×2 (09:03→16:36)
--- NOTE | 2024-07-26 12:37 | PCM.PN.HOSP ---
Reason for Visit Reason for Visit: Diagnoses Nicotine dependence, cigarettes, uncomplicated (07/21/24) Acute systolic (congestive) heart failure (07/21/24) Heart failure, unspecified (07/21/24) Centrilobular emphysema (07/21/24) Other abnormalities of breathing (07/21/24) Hypoxemia (07/21/24) Localized edema (07/21/24) Personal history of other diseases of the respiratory system (07/21/24) Subjective Subjective Patient was seen and examined today, she remains on oxygen at 4 L via nasal cannula, I had a discussion with the patient about her disease process and possible interventions down the road, she understands that she has severe cardiac impairment, she desires to be full code with all measures if needed. I told the patient we would attempt to administer her medications and if she got dizzy/lightheaded when she stands, we could adjust the dosage. I went over this with her nurse today also. Her blood pressure remains in the 80s systolic but she is currently asymptomatic. Objective Data Objective Data Vital Signs: Vital Signs Temp Pulse Resp BP Pulse Ox O2 Del Method O2 Flow Rate 97.5 F L 71 18 82/54 L 93 Nasal Cannula 4 07/26/24 08:20 07/26/24 11:09 07/26/24 08:20 07/26/24 11:09 07/26/24 08:20 07/26/24 08:20 07/26/24 10:07 FiO2 40 07/23/24 06:02 Oxygen Flow Rate (L/min) 4 Oxygen Delivery Method Nasal Cannula Weight: 56 kg Body Mass Index (BMI) 19.9 Intake & Output: Intake and Output for Last 24 Hours 07/24/24 07/25/24 07/26/24 23:59 23:59 23:59 Intake Total 360 / 360 Output Total 700 / 700 400 / 400 Balance -340 / -340 -400 / -400 Lab / Micro Data 07/25/24 06:11 07/26/24 04:22 Labs: Laboratory Results - last 24 hr 07/26/24 04:22: Sodium 134 L, Potassium 4.6, Chloride 100, Carbon Dioxide 29.0, Anion Gap 5, BUN 20 H, Creatinine 1.28 H, Estim Creat Clear Calc 40.29, Est GFR (MDRD) Af Amer 54 L, Est GFR (MDRD) Non-Af 45 L, BUN/Creatinine Ratio 15.6, Glucose 101, Calcium 8.8 Micro: Microbiology 07/21/24 18:18 Blood Culture (Wb) - Venous Blood Culture - Preliminary No growth in 48 hours. Rhythm Strip Rhythm Strip: Sinus Rhythm Rate: 80 Physical Exam Narrative alert, oriented x3 and no apparent distress Constitutional Narrative: Patient appears much older than her stated age, she does appear frail General Appearance: cooperative and well developed Orientation / Consciousness: awake, oriented to person, oriented to place and oriented to time HEENT normocephalic, head/scalp atraumatic and moist oral mucous membranes Eyes PERRL, EOMs intact bilaterally and conjunctivae normal Neck supple, no JVD and thyroid normal General: trachea midline Resp normal respiratory effort, no retractions and no use of accessory muscles Resp Narrative: Decreased breath sounds are noted bilaterally Auscultation: Negative for rales, rhonchi or wheezes Cardio regular rate, regular rhythm, S1 normal heart sound, S2 normal heart sound, no murmurs, no rub and no gallops GI normal to inspection, nondistended, normoactive bowel sounds, soft to palpation, non-tender and non-distended Extremity no clubbing, cyanosis or edema Skin no rashes or lesions noted General Skin Exam: no breakdown Neuro oriented x3, CN's II-XII intact bilaterally, no focal motor deficits and no sensory deficits noted Sensorium / Orientation: awake and alert Speech: speech normal Psych affect normal Assessment & Plan Assessment/Plan (1) Acute systolic heart failure: PLAN: Plan 1. Acute systolic congestive heart failure-etiology unclear at this point-most likely viral in nature as the patient states that she had a severe illness about a month ago, patient will remain on oral Lasix and beta-blockers and losartan will be used blood pressure permitting. #2 cardiomyopathy-type unknown, patient's EF is 14%, complicates care, management, recovery, and prognosis, again patient will remain on her current medications blood pressure permitting #3 acute on chronic hypoxic respiratory failure-patient is on chronic oxygen at home at 4 L-she states that this is only at night while sleeping. Pulse ox will be monitored, she may need set up with a different oxygen concentrator at home due to her oxygen demand. #4 chronic obstructive pulmonary disease-complicates care, management, recovery, and prognosis #5 hypothyroidism-patient is on thyroid replacement I do not believe the patient had pneumonia currently this admission, I do not feel that the patient has severe protein and caloric malnutrition Total clinical time spent by myself addressing the patient's medical issues, reviewing all of her data, and collaborating with patient's care team: 35 minutes Charges/Coding Visit Charges Inpatient E&M: 93866 Subs Hosp L2
--- NOTE | 2024-07-26 16:40 | PCM.PN.CARD ---
Subjective Subjective Patient seen and examined today. Has been on oxygen through nasal cannula No symptoms of chest pain reported today. And shortness of breath is improving gradually. On the current treat Objective Data Vital Signs: Vital Signs Temp Pulse Resp BP Pulse Ox O2 Del Method O2 Flow Rate 97.6 F L 71 18 82/60 L 93 Nasal Cannula 4 07/26/24 14:00 07/26/24 16:30 07/26/24 16:30 07/26/24 16:30 07/26/24 16:30 07/26/24 16:30 07/26/24 16:30 FiO2 40 07/23/24 06:02 Oxygen Flow Rate (L/min) 4 Oxygen Delivery Method Nasal Cannula Weight: 123 lb 7.342 oz Body Mass Index (BMI) 19.9 Intake & Output: Intake and Output for Last 24 Hours 07/24/24 07/25/24 07/26/24 23:59 23:59 23:59 Intake Total 360 / 360 Output Total 700 / 700 400 / 400 Balance -340 / -340 -400 / -400 Lab / Micro Data 07/25/24 06:11 07/26/24 04:22 Labs: Laboratory Results - last 24 hr 07/26/24 04:22: Sodium 134 L, Potassium 4.6, Chloride 100, Carbon Dioxide 29.0, Anion Gap 5, BUN 20 H, Creatinine 1.28 H, Estim Creat Clear Calc 40.29, Est GFR (MDRD) Af Amer 54 L, Est GFR (MDRD) Non-Af 45 L, BUN/Creatinine Ratio 15.6, Glucose 101, Calcium 8.8 Rhythm Strip Rhythm Strip: Sinus Rhythm Rate: 80 Cardiology Labs/Tests 07/26/24 04:22: Sodium 134 L, Potassium 4.6, Chloride 100, Carbon Dioxide 29.0, Anion Gap 5, BUN 20 H, Creatinine 1.28 H, Est GFR (MDRD) Af Amer 54 L, Est GFR (MDRD) Non-Af 45 L, BUN/Creatinine Ratio 15.6, Glucose 101, Calcium 8.8 Rhythm: EKG: ECHO: Stress Test: Cardiac Cath: PCI: CT Surgery: Holter monitor: EPS: PPM: CXR: Chest CT Scan: Physical Exam Cardio Cardio Narrative: Patient alert orientated x 3 Cardiac exam underlying cardiac rhythm is regular sinus rhythm S1 and S2 are normal no murmurs or rub Chest exam normal respiratory effort decreased breath sounds noted bilaterally. Assessment & Plan Assessment/Plan (1) COPD (chronic obstructive pulmonary disease) with emphysema: QUALIFIERS: Emphysema type: centrilobular Qualified Code(s): J43.2 - Centrilobular emphysema (2) Nicotine addiction: QUALIFIERS: Nicotine product type: cigarettes Substance use status: in remission Qualified Code(s): F17.211 - Nicotine dependence, cigarettes, in remission (3) Acute systolic heart failure: PLAN: Plan Cardiac care plan recommendation 64-year-old patient who has acute systolic congestive heart failure. Etiology possible viral myocarditis On review of the echocardiogram patient has severe LV systolic dysfunction Ejection fraction in the range of 14% Also patient has acute on chronic hypoxic respiratory failure Patient has a history of COPD and has been on 4 L oxygen at home Known history of hypothyroidism currently on thyroid replacement therapy. I reviewed the cardiac evaluation and the current medication. Which include beta-mata low-dose metoprolol as tolerated by the blood pressure patient as well is on furosemide Losartan Electrolyte replaced using potassium chloride. From cardiac standpoint recommendation would be to continue on medical treatment as tolerated by the blood pressure and clinical response Once stable patient can follow-up and evaluated further as an outpatient with the cardiology team here at [facility].
[2024-07-27] MEDS: Levothyroxine 50 MCG Tablet PO (03:15)
[2024-07-27] MEDS: Ipratropium/Albuterol Sulfate 3 ML AMPUL.NEB INHALATION ×2 (06:50→14:01)
[2024-07-27] MEDS: Budesonide Respules 0.5 MG/2 ML AMPUL.NEB. INHALATION (06:50)
[2024-07-27 07:26] VITALS: PULSE 74; RESP 18; O2SAT 94
[2024-07-27 07:55] VITALS: BP 89/48; PULSE 72; RESP 17; TEMP 36.6; O2SAT 93
[2024-07-27] MEDS: Polyethylene Glycol 3350 17 GM PACKET PO (07:59)
[2024-07-27] MEDS: Furosemide 40 MG Tablet PO (07:59)
[2024-07-27] MEDS: Enoxaparin 40 MG/0.4 ML Syringe SC (08:00)
[2024-07-27] MEDS: Magnesium Chloride 64 MG Delay Rel.Tablet 128 MG PO (08:00)
[2024-07-27] MEDS: Potassium Chloride Oral Tablet 20 MEQ PO (08:00)
[2024-07-27] MEDS: Ipratropium Bromide 0.06% NASAL SPRAY 2 SPRAY NASAL (08:01)
[2024-07-27] MEDS: Carvedilol 3.125 MG TABLET PO ×2 (09:39→17:21)
[2024-07-27] MEDS: Acetaminophen 325 MG Tablet 650 MG PO (09:42)
[2024-07-27 14:33] VITALS: PULSE 76; RESP 19
[2024-07-27 14:44] VITALS: BP 89/58; PULSE 67; RESP 16; TEMP 36.6; O2SAT 91
[2024-07-27] MEDS: Losartan Potassium 25 MG Tablet PO (14:47)
[2024-07-27 15:56] VITALS: O2SAT 4; O2SAT 82; O2SAT 87; O2SAT 89
--- NOTE | 2024-07-27 16:33 | CASEMGMT ---
RN notified NAHUM ANGELES pt would like a conserving portable tank. NAHUM ANGELES into pt room to discuss pt needs. Pt uses [facility] for O2 needs, has a portable tank, pt would like to get a conserving device for the tank. NAHUM ANGELES obtained script and walking O2 test. 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
--- NOTE | 2024-07-27 16:36 | CASEMGMT ---
RN notified RN KARTHIK pt would like to a conserving portable O2 tank. NAHUM ANGELES into pt room to discuss pt needs. Pt would like to get conserving device for portable tank. NAHMU ANGELES [place] [facility] [place] informed to email order to Harika so pt can cone picker today. Obtained order, sent via email to Harika. Notified pt. Pt denies additional questions or concerns at this time.
--- NOTE | 2024-07-27 17:00 | DCINST_ITS ---
Discharge Instructions Diet Discharge Diet: No restrictions Activity Discharge Activity: Return to Normal Activity Weight Bearing Status: Full weight bearing Additional Activity Instructions:: Be on the look out for any lightheadedness while walking, if you feel lightheaded please sit down Follow Up Care Test Results: Test results from this visit will be discussed in further detail at your follow- up appointment, if applicable. Discharge Plan Admission Admit Date/Time: 07/21/24 20:43 Primary Reason for Your Visit: Congestive heart failure Attending Provider: Luis Howard Primary Care Provider: Care Physician,No Primary Consulting Providers: Yaakov Gonzalez; Kimo Bernardo; Manuel Ross Instructions Additional Instructions / Restrictions: Use 4 L of oxygen at rest, 5 L of oxygen while ambulating Discharge Orders/Prescriptions Prescriptions: New furosemide 40 mg Tablet 40 mg PO DAILY Qty: 30 0RF carvedilol 3.125 mg Tablet 3.125 mg PO BIDCM Qty: 60 0RF potassium chloride 20 mEq Tablet,Er Particles/Crystals 20 meq PO BID Qty: 60 0RF losartan 25 mg Tablet 25 mg PO DAILY Qty: 30 0RF magnesium chloride [Mag 64] 64 mg Tablet,Delayed Release (Dr/Ec) 128 mg PO BID Qty: 60 0RF levothyroxine 88 mcg capsule 88 mcg PO DAILY Qty: 30 0RF Continued Trelegy Ellipta 200-62.5-25 mcg blister with device 1 ea inhalation QDAY Qty: 1 11RF albuterol sulfate [ProAir HFA] 90 mcg/actuation HFA aerosol inhaler 2 puff inhalation Q6H PRN (Reason: shortness of breath or wheezing) Qty: 8.5 5RF ipratropium bromide 21 mcg (0.03 %) spray,non-aerosol 2 spray intranasal BID Qty: 30 3RF Rx Instructions: administer into each nostril Referrals / Follow Up: Care Physician,No Primary [Primary Care Provider] - Disposition Disposition (needs filled in before D/C Order can be placed): Home, Self Care
--- NOTE | 2024-07-27 17:07 | PCM.DC.SUM ---
Providers Date of Admission: 07/21/24 Date of Discharge: 07/27/24 Primary Care Physician: Margo Primary Care Phys Consultations 07/21/24 22:11 Consult: Cardiology Routine Consulting Provider: Kimo Bernardo Reason for Consult: AE CHF; new and poorly tolerated. EMERGENT Consult: No MD Notified: Yes Date Notified: 07/22/24 Time Notified: 08:29 Method of Notification: Text Method of Consult:: In-Person Reason For Visit: AECHF Diagnosis Discharge Diagnosis (1) COPD (chronic obstructive pulmonary disease) with emphysema: Status: Chronic Code(s): J43.9 - Emphysema, unspecified Qualifiers: Emphysema type: centrilobular Qualified Code(s): J43.2 - Centrilobular emphysema (2) Nicotine addiction: Status: Chronic Code(s): F17.200 - Nicotine dependence, unspecified, uncomplicated Qualifiers: Nicotine product type: cigarettes Substance use status: in remission Qualified Code(s): F17.211 - Nicotine dependence, cigarettes, in remission (3) Acute systolic heart failure: Status: Acute Code(s): I50.21 - Acute systolic (congestive) heart failure Plan 1. Acute systolic congestive heart failure-etiology unclear at this point-most likely viral in nature as the patient states that she had a severe illness about a month ago, patient will remain on oral Lasix and beta-blockers and losartan will be used blood pressure permitting. #2 cardiomyopathy-type unknown, patient's EF is 14%, complicates care, management, recovery, and prognosis, again patient will remain on her current medications blood pressure permitting #3 acute on chronic hypoxic respiratory failure-patient is on chronic oxygen at home at 4 L-she states that this is only at night while sleeping. Pulse ox will be monitored, she may need set up with a different oxygen concentrator at home due to her oxygen demand. #4 chronic obstructive pulmonary disease-complicates care, management, recovery, and prognosis #5 hypothyroidism-patient is on thyroid replacement I do not believe the patient had pneumonia currently this admission, I do not feel that the patient has severe protein and caloric malnutrition Total clinical time spent by myself addressing the patient's medical issues, reviewing all of her data, and collaborating with patient's care team: 35 minutes Medications at Discharge Home Medications ipratropium bromide 21 mcg (0.03 %) nasal spray 2 spray intranasal BID #30 mL 03/26/24 albuterol sulfate 90 mcg/actuation aerosol inhaler (ProAir HFA) 2 puff inhalation Q6H PRN shortness of breath or wheezing #8.5 grams 02/03/24 fluticasone fur. 200 mcg-umeclid 62.5 mcg-vilant 25 mcg inhalat.powder (Trelegy Ellipta) 1 ea inhalation QDAY #1 ea 02/03/24 carvedilol 3.125 mg tablet 3.125 mg PO BIDCM #60 tabs 07/27/24 furosemide 40 mg tablet 40 mg PO DAILY #30 tabs 07/27/24 levothyroxine 88 mcg capsule 88 mcg PO DAILY #30 caps 07/27/24 losartan 25 mg tablet 25 mg PO DAILY #30 tabs 07/27/24 magnesium chloride 64 mg (magnesium chloride) tablet,delayed release (Mag 64) 128 mg (2 x 64 mg) PO BID #60 tabs 07/27/24 potassium chloride 20 mEq tablet,extended release(part/cryst) 20 meq PO BID #60 tabs 07/27/24 Hospital Course Operations None Procedures 2-D Echocardiogram Summary of Care Provided Minutes Spent on Discharge: 32 Hospital Course: 64-year-old white female was seen in the emergency room at [facility] with complaints of worsening shortness of breath over approximately a month. Patient states she had an illness approximately a month ago-she was nonspecific about the type of illness but it sounded as if she was describing an upper respiratory tract infection. Patient uses nighttime oxygen due to chronic obstructive pulmonary disease. Workup in the emergency room included a CBC which showed a low white blood cell count at 3.9, hemoglobin was 11.4, D-dimer was elevated at 1.05, chemistry profile was abnormal for creatinine of 1.37, beta nitric peptide was elevated at 742. CT of the chest was performed which showed no evidence of pulmonary embolus, there is noted to be bilateral pleural effusions and bilateral lower lobe consolidation which was questionable for pneumonia. Patient's venous duplex of the lower extremities were negative for VTE. Patient was admitted to PCU for possible pneumonia and congestive heart failure with hypoxia, this examiner did not feel she ultimately had pneumonia and felt that the patient's hypoxia was secondary to congestive heart failure. Patient underwent an echocardiogram which showed a very poor ejection fraction of approximately 14%, she was seen in consultation by cardiology recommended medical treatment and follow-up as an outpatient. Discussions were carried out with the patient concerning her prognosis and the patient desired full measures during her hospitalization. Patient remained on oxygen throughout her hospital stay, on 07/27/2024 she was seen and examined: On examination she appeared in good health and spirits, she does not appear to be in any distress. Vital signs as documented. Skin warm and dry and without overt rashes. Neck without JVD, thyroid appears normal, trachea is midline, neck is supple. Lungs clear, normal air movement was noted. Heart exam notable for regular rhythm, normal sounds and absence of murmurs, rubs or gallops. Abdomen unremarkable and without evidence of organomegaly, masses, or abdominal aortic enlargement, bowel sounds are present in all 4 quadrants, no abdominal tenderness was noted. Extremities nonedematous, no cyanosis was noted, no clubbing was noted. Neuro: Cranial nerves II through XII are grossly intact, no focal motor deficits were noted, sensation to light touch and pinprick is intact, motor exam 5/5 throughout. Psych: Patient is alert and oriented x3, she does not appear anxious or depressed, she does not appear agitated. Patient was felt to be stable for discharge home on 07/27/2024, she required 5 L of oxygen while ambulating and 4 L at rest. Weight / BMI Weight Weight: 56.2 kg Body Mass Index (BMI) 20.0 ABG / Lab / Microbiology Data 07/25/24 06:11 07/26/24 04:22 Microbiology: Microbiology 07/21/24 18:18 Blood Culture (Wb) - Venous Blood Culture - Final No growth in 5 days. D/C Instructions Discharge Diet: No restrictions Weight Bearing Status: Full weight bearing Additional Activity Instructions: Be on the look out for any lightheadedness while walking, if you feel lightheaded please sit down Meaningful Use Info Meaningful Use Meaningful Use Diagnoses (Choose all that apply): CHF CHF ENRICO/ARB ordered at discharge?: Yes Documented LVEF (%): 14 Ischemic Stroke Statin Dosing Therapy Reference: STATIN DOSE THERAPY REFERENCE: * Patients > 75 years receive moderate or high dose statin therapy. * Patients 75 years or YOUNGER should receive HIGH intensity statin dose unless contraindicated. You will be required to document reason for non-treatment if statin daily dose does not meet guidelines. HIGH DOSE STATIN THERAPY DAILY Atorvastatin > than or = to 40 mg Rosuvastatin > than or = to 20 mg Amlodipine + Atorvastatin > than or = to 2.5/40 mg Ezetimibe + Simvastatin 10/80 mg Simvastatin 80mg Discharge Plan Admission Admit Date/Time: 07/21/24 20:43 Primary Reason for Your Visit: Congestive heart failure Attending Provider: Luis Howard Primary Care Provider: Care Physician,No Primary Consulting Providers: Yaakov Gonzalez; Kimo Bernardo; Manuel Ross Instructions Additional Instructions / Restrictions: Use 4 L of oxygen at rest, 5 L of oxygen while ambulating Discharge Orders/Prescriptions Prescriptions: New furosemide 40 mg Tablet 40 mg PO DAILY Qty: 30 0RF carvedilol 3.125 mg Tablet 3.125 mg PO BIDCM Qty: 60 0RF potassium chloride 20 mEq Tablet,Er Particles/Crystals 20 meq PO BID Qty: 60 0RF losartan 25 mg Tablet 25 mg PO DAILY Qty: 30 0RF magnesium chloride [Mag 64] 64 mg Tablet,Delayed Release (Dr/Ec) 128 mg PO BID Qty: 60 0RF levothyroxine 88 mcg capsule 88 mcg PO DAILY Qty: 30 0RF Continued Trelegy Ellipta 200-62.5-25 mcg blister with device 1 ea inhalation QDAY Qty: 1 11RF albuterol sulfate [ProAir HFA] 90 mcg/actuation HFA aerosol inhaler 2 puff inhalation Q6H PRN (Reason: shortness of breath or wheezing) Qty: 8.5 5RF ipratropium bromide 21 mcg (0.03 %) spray,non-aerosol 2 spray intranasal BID Qty: 30 3RF Rx Instructions: administer into each nostril Referrals / Follow Up: Care Physician,No Primary [Primary Care Provider] - Disposition Disposition (needs filled in before D/C Order can be placed): Home, Self Care Charges/Coding Visit Charges Inpatient E&M: 54474 Disch Hosp >30min
[2024-07-27 17:18] VITALS: BP 97/65; PULSE 84; RESP 17; TEMP 36.6; O2SAT 92
== END 2024-07-27 18:15 | disposition home or self-care (01) | DRG 291 ==
LOC: ED 20:25 → PCU 21:46
PROVIDERS: Family Medicine; Admitting Provider Internal Medicine; Emergency Provider Emergency Medicine; Visit Provider Internal Medicine
DX: I11.0 Hypertensive heart disease with heart failure (principal); I50.21 Acute systolic (congestive) heart failure; J96.21 Acute and chronic respiratory failure with hypoxia; I95.9 Hypotension, unspecified; I42.9 Cardiomyopathy, unspecified; Z99.81 Dependence on supplemental oxygen; J43.2 Centrilobular emphysema; E03.9 Hypothyroidism, unspecified; I50.82 Biventricular heart failure; F17.211 Nicotine dependence, cigarettes, in remission; N28.9 Disorder of kidney and ureter, unspecified; Z88.0 Allergy status to penicillin; Z79.51 Long term (current) use of inhaled steroids; Z79.890 Hormone replacement therapy; Z79.899 Other long term (current) drug therapy; Z86.711 Personal history of pulmonary embolism
CPT/HCPCS: 36415; 36600; 71045; 71275; 80048; 80053; 82803; 83605; 83735; 83880; 84100; 84439; 84443; 84484; 85025; 85379; 87040; 93005; 93306; 93970; 94002; 94003; 94640; 94668; 94762; 97110; 97162; 97166; 97530; 97535; 97802; 97803; 99285; 99406; Q9967; A4216; J1940

== ENCOUNTER → 2024-08-12 | Outpatient (CLI) | payer BC, SELFPAY ==
[2024-08-12 11:29] LABS: Hematocrit 34.3 % (37-47); Mean Corp Hgb Conc 32.1 g/dL (32-36); Mean Corpuscular Hgb 32.5 pg (27.0-32.0); Mean Corpuscular Volume 101.5 fL (81-99); Mean Platelet Vol. 9.3 fl (6.2-12.0); Platelet Count 314 K/mm3 (150-450); RBC Distribution Width CV 15.1 % (11.6-14.6); RBC Distribution Width SD 55.9 fl (35.1-43.9); Red Blood Count 3.38 M/mm3 (4.2-5.4); White Blood Count 5.2 K/mm3 (4.4-11.0)
[2024-08-12 11:53] LABS: Anion Gap 5 (5-15); BUN 30 mg/dL (7-18); BUN/Creat Ratio 26.1 RATIO (10-20); Calcium,Total 9.4 mg/dL (8.5-10.1); Chloride 102 mmol/L (98-107); Creatinine, Serum 1.15 mg/dL (0.55-1.02); EST Glomerular Filtration Rate 51 mL/min (>60); Est Glom Filt Rate - Afr Amer 61 mL/min (>60); Glucose 102 mg/dL (74-106); Magnesium 2.6 mg/dL (1.6-2.6); Potassium 4.6 mmol/L (3.5-5.1); Sodium Level 139 mmol/L (136-145)
== END | disposition home or self-care (01) ==
LOC: LAB 10:31
PROVIDERS: Referring Provider Internal Medicine Cardiovascular Disease; Visit Provider Internal Medicine Cardiovascular Disease
DX: I50.9 Heart failure, unspecified (principal)
CPT/HCPCS: 36415; 80048; 83735; 83880; 85027

== ENCOUNTER → 2024-08-26 | Outpatient (CLI) | payer BC, SELFPAY ==
--- NOTE | 2024-08-26 12:42 | VDLE_ITS ---
Reason For Study: Left leg swelling RIGHT LEFT CFV is compressible, spontaneous, phasic, GSV is normal. competent and demonstrates normal CFV is compressible, spontaneous, phasic, augmentation. competent, and demonstrates normal Procedure augmentation. This is a venous duplex using B-mode, color FV is compressible, spontaneous, phasic, flow and spectral Doppler. competent and demonstrates normal Exam performed in department. augmentation. A preliminary report was called and/or faxed POP V is compressible, spontaneous, phasic, to [facility] RN Voicemail. competent and demonstrates normal augmentation. T/P Trunk is compressible. PTV is compressible. LT PerV is compressible. VL/Venous Duplex US, Unilateral Interpretation Summary Deep veins of the left lower extremity are patent and compressible segmentally. There is no evidence of left lower extremity deep vein thrombosis. The left great saphenous vein jackie ears patent and compressible segmentally. Ordering Physician: Kimo Bernardo Performed By: Zaida Rao RVT
== END | disposition home or self-care (01) ==
LOC: CVS 12:41
PROVIDERS: Referring Provider Internal Medicine Cardiovascular Disease; Visit Provider Internal Medicine Cardiovascular Disease
DX: R60.0 Localized edema (principal); M79.89 Other specified soft tissue disorders
CPT/HCPCS: 93971

== ENCOUNTER → 2024-10-14 | Outpatient (CLI) | payer BC, SELFPAY ==
--- NOTE | 2024-10-14 12:51 | ECHOLC_ITS ---
Reason For Study: CONGESTIVE HEART FAILURE Procedure This was a limited 2D transthoracic echocardiogram. The study was technically difficult. Contrast injection was performed. Exam performed in department. Left Ventricle Severely dilated left ventricle. The left ventricular ejection fraction is 20 %. There is severe global hypokinesis of the left ventricle. Right Ventricle Normal RV size. Normal systolic function. Atria Normal left atrium. Normal right atrium. Mitral Valve Normal mitral valve. Mild (1+) eccentric mitral valve insufficiency. Tricuspid Valve Normal tricuspid valve. Aortic Valve Trisinus/trileaflet aortic valve. Mild (1+) eccentric aortic valve insufficiency. Pulmonic Valve Normal pulmonic valve. Great Vessels Normal aortic root. The pulmonary artery is normal size. Normal inferior vena cava. Pericardium/Pleural No pericardial effusion. Medication 22 gauge I.V. with prn adaptor inserted into right arm. Diluted definity 2.5ml given slow IV push to enhance endocardial definition. MMode/2D Measurements & Calculations LVIDd: 6.7 cm IVSd: 0.80 cm LVOT diam: 1.9 cm LVIDs: 6.0 cm LVPWd: 0.99 cm RVDd: 2.8 cm FS: 10.7 % LVOT area: 2.9 cm2 LAV(MOD-bp): 36.5 ml LVAd ap4: 50.4 cm2 LVAd ap2: 47.9 cm2 LAV(MOD-bp) Indexed: 23.8 ml/m2 LVLd ap4: 9.1 cm LVLd ap2: 8.6 cm LAV(MOD-sp2): 44.6 ml EDV(MOD-sp4): 232.9 ml EDV(MOD-sp2): 217.0 ml LAV(MOD-sp4): 29.3 ml EDV(sp4-el): 236.4 ml EDV(sp2-el): 228.1 ml LVAs ap4: 44.3 cm2 LVAs ap2: 42.2 cm2 LVLs ap4: 8.4 cm LVLs ap2: 7.8 cm ESV(MOD-sp4): 196.1 ml ESV(MOD-sp2): 188.7 ml ESV(sp4-el): 199.3 ml ESV(sp2-el): 193.1 ml EF(MOD-sp4): 15.8 % EF(MOD-sp2): 13.0 % EF(sp4-el): 15.7 % SV(MOD-sp4): 36.8 ml SV(MOD-sp2): 28.3 ml SV(sp4-el): 37.1 ml SI(MOD-sp4): 24.0 ml/m2 SI(MOD-sp2): 18.4 ml/m2 Ao sinus diam: 3.3 cm LA A4 area: 12.8 cm2 LA dimension(2D): 3.7 cm TAPSE: 1.5 cm RA A4 area: 9.3 cm2 Time Measurements MV dec time: 0.15 sec Doppler Measurements & Calculations MV E max donte: 40.4 cm/sec Lat Peak E' Donte: 3.7 cm/sec Med Peak E' Donte: 4.0 cm/sec MV A max donte: 97.1 cm/sec E/E' lat: 10.9 E/E' med: 10.1 MV E/A: 0.42 MV dec slope: 273.0 cm/sec2 AI max donte: 420.7 cm/sec AI max P.8 mmHg AI dec slope: 270.4 cm/sec2 AI P1/2t: 455.8 msec ECHO/Echo Limited w/Contrast Interpretation Summary There is severe global hypokinesis of the left ventricle. Mild (1+) eccentric mitral valve insufficiency. The left ventricular ejection fraction is 20 %. Mild (1+) eccentric aortic valve insufficiency. Severely dilated left ventricle. Contrast injection was performed. Ordering Physician: Kimo Bernardo Referring Physician: Kimo Bernardo Performed By: Acacia Roth RDCS
== END | disposition home or self-care (01) ==
LOC: CVS 12:50
PROVIDERS: Referring Provider Internal Medicine Cardiovascular Disease; Visit Provider Internal Medicine Cardiovascular Disease
DX: I50.9 Heart failure, unspecified (principal)
CPT/HCPCS: 93308; Q9957; A4216; C8924

== ENCOUNTER → 2024-10-19 | Outpatient (CLI) | payer BC, SELFPAY ==
[2024-10-19 14:46] LABS: Anion Gap 3 (5-15); BUN 17 mg/dL (7-18); BUN/Creat Ratio 18.1 RATIO (10-20); Calcium,Total 9.4 mg/dL (8.5-10.1); Chloride 108 mmol/L (98-107); Creatinine, Serum 0.94 mg/dL (0.55-1.02); EST Glomerular Filtration Rate 64 mL/min (>60); Est Glom Filt Rate - Afr Amer 77 mL/min (>60); Glucose 126 mg/dL (74-106); Potassium 5.2 mmol/L (3.5-5.1); Sodium Level 140 mmol/L (136-145)
== END | disposition home or self-care (01) ==
LOC: LAB 13:13
PROVIDERS: Referring Provider Physician Assistant Medical; Visit Provider Physician Assistant Medical
DX: I50.9 Heart failure, unspecified (principal)
CPT/HCPCS: 36415; 80048

== ENCOUNTER → 2024-11-09 | Outpatient (CLI) | payer BC, SELFPAY ==
[2024-11-09 14:28] LABS: Anion Gap 3 (5-15); BUN 16 mg/dL (7-18); BUN/Creat Ratio 17.2 RATIO (10-20); Calcium,Total 9.2 mg/dL (8.5-10.1); Chloride 104 mmol/L (98-107); Creatinine, Serum 0.93 mg/dL (0.55-1.02); EST Glomerular Filtration Rate 65 mL/min (>60); Est Glom Filt Rate - Afr Amer 78 mL/min (>60); Glucose 130 mg/dL (74-106); Potassium 4.6 mmol/L (3.5-5.1); Sodium Level 138 mmol/L (136-145)
== END | disposition home or self-care (01) ==
LOC: LAB 13:34
PROVIDERS: Referring Provider Physician Assistant Medical; Visit Provider Physician Assistant Medical
DX: I50.9 Heart failure, unspecified (principal)
CPT/HCPCS: 36415; 80048

== ENCOUNTER → 2024-12-04 | Outpatient (CLI) | payer BC, SELFPAY ==
[2024-12-04 15:43] LABS: Anion Gap 4 (5-15); BUN 18 mg/dL (7-18); Calcium,Total 9.6 mg/dL (8.5-10.1); Chloride 100 mmol/L (98-107); Creatinine, Serum 0.95 mg/dL (0.55-1.02); EST Glomerular Filtration Rate 63 mL/min (>60); Est Glom Filt Rate - Afr Amer 77 mL/min (>60); Glucose 130 mg/dL (74-106); Potassium 4.3 mmol/L (3.5-5.1); Sodium Level 136 mmol/L (136-145)
== END | disposition home or self-care (01) ==
PROVIDERS: Referring Provider Physician Assistant Medical; Visit Provider Physician Assistant Medical
DX: I50.9 Heart failure, unspecified (principal); E03.9 Hypothyroidism, unspecified
CPT/HCPCS: 36415; 80048; 84443

== ENCOUNTER → 2025-02-02 | Outpatient (CLI) | payer BC, SELFPAY ==
[2025-02-02 14:07] LABS: Thyroid Stim Hormone (TSH) 0.873 uIU/mL (0.300-4.200)
== END | disposition home or self-care (01) ==
LOC: VSLAB 12:24
PROVIDERS: PCP Family Medicine; Visit Provider Physician Assistant Medical
DX: E03.9 Hypothyroidism, unspecified (principal)
CPT/HCPCS: 36415; 84443

== ENCOUNTER → 2025-03-08 | Outpatient (CLI) | payer BC, SELFPAY ==
[2025-03-08 15:53] LABS: Anion Gap 10 (5-15); BUN 13 mg/dL (4-19); BUN/Creat Ratio 16.5 RATIO (10-20); Carbon Dioxide 25.8 mmol/L (21.0-32.0); Chloride 103 mmol/L (98-108); Creatinine, Serum 0.78 mg/dL (0.70-1.20); EST Glomerular Filtration Rate 85 (>60); Glucose 108 mg/dL (70-99); Potassium 4.4 mmol/L (3.3-5.1); Pro- Brain NATRIURETIC PEPTIDE 146 pg/mL (<=900); Sodium Level 139 mmol/L (133-145)
== END | disposition home or self-care (01) ==
LOC: LAB 13:26
PROVIDERS: PCP Family Medicine; Referring Provider Internal Medicine Cardiovascular Disease; Visit Provider Internal Medicine Cardiovascular Disease
DX: B33.24 Viral cardiomyopathy (principal)
CPT/HCPCS: 36415; 80048; 83880; 84443

== ENCOUNTER → 2025-04-19 | Outpatient (CLI) | payer BC, SELFPAY ==
--- NOTE | 2025-04-19 13:01 | ECHOLC_ITS ---
Reason For Study Reason For Study: CARDIOMYOPATHY Procedure This was a limited 2D transthoracic echocardiogram. The study was technically difficult. Contrast injection was performed. Exam performed in department. Left Ventricle Normal LV size. The left ventricular ejection fraction is 25 %. Stage 1 diastolic dysfunction. Right Ventricle Normal RV size. Normal systolic function. Atria Normal left atrium. Normal right atrium. Mitral Valve Normal mitral valve. Tricuspid Valve Normal tricuspid valve. Aortic Valve The aortic valve is not well visualized. Mild (1+) aortic valve insufficiency. Pericardium/Pleural No pericardial effusion. Medication 22 gauge I.V. with prn adaptor inserted into right arm. Diluted definity 2ml given slow IV push to enhance endocardial definition. MMode/2D Measurements & Calculations LVIDd: 5.2 cm IVSd: 1.1 cm LVOT diam: 2.0 cm LVIDs: 4.5 cm LVPWd: 0.90 cm LVOT area: 3.2 cm2 RVDd: 2.5 cm FS: 13.9 % LAV(MOD-bp): 21.8 ml LVAd ap4: 36.7 cm2 LVAd ap2: 35.2 cm2 LAV(MOD-bp) Indexed: 14.3 ml/m2 LVLd ap4: 7.8 cm LVLd ap2: 7.4 cm LAV(MOD-sp2): 24.8 ml EDV(MOD-sp4): 143.8 ml EDV(MOD-sp2): 135.7 ml LAV(MOD-sp4): 18.0 ml EDV(sp4-el): 147.6 ml EDV(sp2-el): 142.4 ml LVAs ap4: 29.4 cm2 LVAs ap2: 28.2 cm2 LVLs ap4: 6.8 cm LVLs ap2: 6.5 cm ESV(MOD-sp4): 105.7 ml ESV(MOD-sp2): 99.3 ml ESV(sp4-el): 107.2 ml ESV(sp2-el): 104.6 ml EF(MOD-sp4): 26.5 % EF(MOD-sp2): 26.8 % EF(sp4-el): 27.4 % SV(MOD-sp4): 38.2 ml SV(MOD-sp2): 36.4 ml SV(sp4-el): 40.4 ml SI(MOD-sp4): 25.1 ml/m2 SI(MOD-sp2): 23.9 ml/m2 Ao sinus diam: 3.5 cm LA A4 area: 9.0 cm2 LA dimension(2D): 2.9 cm RA A4 area: 8.3 cm2 TAPSE: 1.7 cm Time Measurements MV dec time: 0.24 sec Doppler Measurements & Calculations MV E max donte: 44.3 cm/sec Lat Peak E' Donte: 5.4 cm/sec Med Peak E' Donte: 7.9 cm/sec MV A max donte: 74.7 cm/sec E/E' lat: 8.2 E/E' med: 5.6 MV E/A: 0.59 MV dec slope: 183.2 cm/sec2 AI max donte: 336.2 cm/sec AI max P.2 mmHg AI dec slope: 160.9 cm/sec2 AI P1/2t: 612.2 msec ECHO/Echo Limited w/Contrast Interpretation Summary The left ventricular ejection fraction is 25 %. Stage 1 diastolic dysfunction. Contrast injection was performed. Compared to previous study, the left ventricu lar systolic function is the same.. Ordering Physician: Kimo Bernardo Referring Physician: Kimo Bernardo Performed By: Acacia Roth RDCS
--- OUTSIDE RECORDS SUMMARY | 2025-04-19 22:35 | XMS RPT_ITS | CCD ---
Author Organization [facility] Care Team Providers Care Apartment Leasing Agent Name Role Phone Pcp, No Primary Care Provider Unavailabl e Unavailable Primary Care Provider Unavailabl e Care Physician, No Primary Primary Care Provider Unavailable Dr. Israel Grimes Emergency Provider Dr. Brent Young Admit Provider Dr. Brent Young Attending Provider Dr. Brent Young Other Provider Unavailable Primary Care Provider Unavailabl e Care Physician, No Primary Referring Provider Un available Dr. Carlos Monzon Attending Provider Dr. Carlos Monzon Referring Provider Care Physician, No Primary Referring Provider Un available Dr. Carlos Monzon Other Provider Care Physician, No Primary Primary Care Provider Unavailable Dr. Kimo Bernardo MD Attending Provider Dr. Kimo Bernardo MD Referring Provider Dr. Manjeet Zapata MD Attending Provider Mary Molina Attending Provider Mary Molina Referring Provider Care Physician, No Primary Referring Provider Un available Taylor Barnes Attending Provider Ester Stahl DO Primary Care Provider Care Physician, No Primary Primary Care Provider Unavailable Mary Molina Attending Provider Mary Molina Referring Provider Ester Stahl DO Referring Provider Dr. Kimo Bernardo MD Attending Provider Dr. Kimo Bernardo MD Referring Provider Care Physician, No Primary Primary Care Unava ilable Yaakov Gonzalez Admitting Unavailable Yaakov Gonzalez Consulting Unavailable Luis Howard Attending Unavailable Kimo Bernardo Consulting Unavailable Manuel Ross Consulting Unavailable Care Physician, No Primary Primary Care Unava ilable Patricia SULLIVAN, Mary Barrera Attending Unavail able Patricia SULLIVAN, Mary Barrera Referring Unavail able Care Physician, No Primary Primary Care Unava ilable Patricia SULLIVAN, Mary Barrera Attending Unavail able Patricia SULLIVAN, Mary Barrera Referring Unavail able Care Physician, No Primary Primary Care Unava ilable Kimo Bernardo Referring Unavailable Kimo Bernardo Attending Unavailable Care Physician, No Primary Primary Care Unava ilable Patricia SULLIVAN, Mary Barrera Attending Unavail able Patricia SULLIVAN, Mary Barrera Referring Unavail able Kimo Bernardo Referring Unavailable Favio VSC, Ester Primary Care Unavailable Kimo Bernardo Attending Unavailable Care Physician, No Primary Referring Unava ilable Care Physician, No Primary Primary Care Unava ilable Medardo RIVERS, Taylor Attending Unavailable Kimo Bernardo Attending Unavailable Care Physician, No Primary Primary Care Unava ilable Care Physician, No Primary Primary Care Unava ilable Kimo Bernardo Attending Unavailable Kimo Bernardo Referring Unavailable Care Physician, No Primary Primary Care Unava ilable Care Physician, No Primary Referring Unava ilable Patricia SULLIVAN, Mary Barrera Attending Unavail able Kimo Bernardo Referring Unavailable Favio VSC, Ester Primary Care Unavailable Kimo Bernardo Attending Unavailable Favio VSC, Ester Primary Care Unavailable Favio VSC, Ester Referring Unavailable Kimo Bernardo Attending Unavailable Favio VSC, Ester Primary Care Unavailable Care Physician, No Primary Referring Unava ilable Medardo AN/SYQ 13 NAV/C2 OPERATOR, Taylor Attending Unavailable Care Physician, No Primary Primary Care Unava ilable Care Physician, No Primary Referring Unava ilable Kimo Bernardo Attending Unavailable Favio VSC, Ester Primary Care Unavailable Patricia SULLIVAN, Mary Barrera Attending Unavail able Favio VSC, Ester Primary Care Unavailable Medardo AN/SYQ 13 NAV/C2 OPERATOR, Taylor Referring Unavailable Medardo AN/SYQ 13 NAV/C2 OPERATOR, Taylor Attending Unavailable Favio VSC, Ester Primary Care Unavailable Medardo AN/SYQ 13 NAV/C2 OPERATOR, Taylor Referring Unavailable Medardo AN/SYQ 13 NAV/C2 OPERATOR, Taylor Attending Unavailable Brent Cam Attending Unavailable Care Physician, No Primary Primary Care Unava ilable Kimo Bernardo Referring Unavailable Care Physician, No Primary Primary Care Unava ilable Manjeet Zapata Attending Unavailable Care Physician, No Primary Primary Care Unava ilable Yaakov Gonzalez Attending Unavailable Yaakov Gonzalez Admitting Unavailable Yaakov Gonzalez Consulting Unavailable Care Physician, No Primary Primary Care Unava ilable Kimo Bernardo Referring Unavailable Kimo Bernardo Attending Unavailable Luis Howard Attending Unavailable Kimo Bernardo Consulting Unavailable Manuel Ross Consulting Unavailable Luis Howard Consulting Unavailable Care Physician, No Primary Primary Care Unava ilable Manjeet Zapata Attending Unavailable Lynne Hurst Attending Unavailable Manuel Ross Attending Unavailable Kimo Bernardo Attending Unavailable Allergies Allergy Classification Reported Allergen(s) Allergy Type Date of Onset Reaction(s) Facility (9 sources) Penicillins; Translations: [Penicillins] Allergy to substance 03-03-2022 Anaphylaxis [facility] Medications Current Medications Medication Drug Class(es) Dates Sig (Normalized) Sig (Original) Fluticasone-Umeclidi n-Vilanter (14 sources) Start: 02-22-2025 Fluticasone-Umeclid in-Vilanter (Trelegy Ellipta) 200-62.5-25 mcg blister with device Active 1 NMA INHALATION daily February 22, 2025 8:56am Start: 02-03-2024 End: 02-22-2025 Znoqfditnuh-Efhgkajzm-Zjeapa er (Trelegy Ellipta) 200-62.5-25 mcg blister with device Discontinued 1 NMA INHALATION daily February 03, 2024 2:12pm February 22, 2025 8:56am Start: 02-03-2024 Fluticasone-Um eclidin-Vilanter (Trelegy Ellipta) 200-62.5-25 mcg blister with device Active 1 NMA INHALATION daily February 03, 2024 2:12pm Start: 02-03-2024 End: 02-03-2024 Vhttwltkgrd-Fuqiahecb-Thyoeo er (Trelegy Ellipta) 200-62.5-25 mcg blister with device Discontinued 1 NMA INHALATION daily February 03, 2024 12:00am February 03, 2024 2:13pm Start: 12-13-2022 End: 08-23-2023 Pgesqgskqjs-Ggyqlxvao-Wcmaur er (Trelegy Ellipta) 200-62.5-25 mcg blister with device Discontinued 1 NMA INHALATION DAILY 60 December 13, 2022 1:10pm August 23, 2023 10:11am Start: 12-13-2022 End: 08-23-2023 Gchrvxxnapy-Cgcxqradr-Nrkhpk er (Trelegy Ellipta) 200-62.5-25 mcg blister with device Discontinued 1 INH INHALATION DAILY 60 December 13, 2022 1:10pm August 23, 2023 10:11am Start: 12-13-2022 Fluticasone-Um eclidin-Vilanter (Trelegy Ellipta) 200-62.5-25 mcg blister with device Active 1 INH INHALATION DAILY 60 December 13, 2022 12:10pm Start: 12-03-2022 End: 12-13-2022 Cknnwzhlgac-Uhcisjdoe-Suqkde er (Trelegy Ellipta) 200-62.5-25 mcg blister with device Discontinued 1 NMA INHALATION DAILY 60 December 03, 2022 1:00am December 13, 2022 1:11pm Start: 12-03-2022 End: 12-13-2022 Cwtkwrkhwry-Tclvqctnv-Nfpkhw er (Trelegy Ellipta) 200-62.5-25 mcg blister with device Discontinued 1 INH INHALATION DAILY 60 December 03, 2022 1:00am December 13, 2022 1:11pm Start: 12-03-2022 End: 12-13-2022 Yufeszkzzyu-Kqnpwunen-Gzevxj er (Trelegy Ellipta) 200-62.5-25 mcg blister with device Discontinued 1 INH INHALATION DAILY 60 December 03, 2022 12:00am December 13, 2022 12:11pm Start: 12-03-2022 Fluticasone-Um eclidin-Vilanter (Trelegy Ellipta) 200-62.5-25 mcg blister with device Active 1 INH INHALATION DAILY 60 December 03, 2022 12:00am levothyroxine sodium 0.088 mg oral tablet (8 sources) l-Thyroxine Start: 11-20-2024 take 1 tablet by mouth once daily Levothyroxine 88 mcg tablet Active 88 ug PO DAILY November 20, 2024 12:54pm Prescription ran out 3 weeks ago Start: 11-20-2024 End: 11-20-2024 take 1 tablet by mouth once daily Levothyroxine 88 mcg tablet Discontinued 88 ug PO DAILY November 20, 2024 1:00am November 20, 2024 12:54pm Prescription ran out 3 weeks ago Start: 07-27-2024 End: 11-20-2024 take 1 capsule by mouth once daily Levothyroxine 88 mcg capsule Discontinued 88 ug PO DAILY August 20, 2024 11:42am November 20, 2024 12:23pm losartan potassium 25 mg oral tablet (4 sources) Angiotensin 2 Receptor Mata Start: 07-27-2024 End: 08-12-2024 take 1 tablet by mouth once daily Losartan 25 mg tablet Active 25 mg PO DAILY August 12, 2024 4:22pm spironolactone 25 mg oral tablet (2 sources) Aldosterone Antagonist Start: 11-20-2024 take 1 tablet by mouth once daily Spironolactone 25 mg tablet Active 25 mg PO DAILY November 20, 2024 1:00am traMADol hydrochloride 50 mg oral tablet (1 source) Opioid Agonist Start: 03-03-2022 take 50 mg by mouth every four hours as needed Tramadol Active 50 MG PO EVERY 4 HOURS NEEDED 09 01March 03, 2022 7:30pm Completed/Discontinued Medications Medication Drug Class(es) Dates Sig (Normalized) Sig (Original) acetaminophen 21.7 mg/ml / dextromethorphan hydrobromide 0.667 mg/ml / phenylephrine hydrochloride 0.333 mg/ml oral solution (3 sources) Uncompetitive W-jebcbm-T-aspartat e Receptor Antagonist, Sigma-1 Agonist, alpha-1 Adrenergic Agonist Start: 08-23-2023 End: 02-03-2024 take 1 mL by mouth once Phenylephrine-Dm- Acetaminophen (Theraflu Expressmax Cold Day) 5-10-325 mg/15 mL liquid Discontinued mL PO August 23, 2023 12:00am February 03, 2024 1:56pm Start: 08-23-2023 take 1 mL by mouth once Ukrttbdiahvmu-Kt-Jscneosifmztd (Theraflu Expressmax Cold Day) 5-10-325 mg/15 mL liquid Active ML PO August 23, 2023 12:00am [id number] 200 actuat albuterol 0.09 mg/actuat metered dose inhaler (13 sources) beta2-Adrenergic Agonist Start: 10-30-2022 End: 02-03-2024 Albuterol Sulfate (Proair Hfa) 90 mcg/actuation HFA aerosol inhaler Discontinued 2 NMA INHALATION EVERY 6 HOURS as needed for shortness of breath or wheezing 8.December 03, 2022 2:56pm February 03, 2024 2:13pm Start: 10-30-2022 End: 12-03-2022 take 1 puff(s) by inhalation every six hours Albuterol Sulfate (Proair Hfa) 90 mcg/actuation HFA aerosol inhaler Active 2 PUFF INHALATION EVERY 6 HOURS 8.December 03, 2022 2:56pm albuterol 0.833 mg/ml / ipratropium bromide 0.167 mg/ml inhalation solution (3 sources) Anticholinergic, beta2-Adrenergic Agonist Start: 01-21-2024 End: 01-21-2024 take 1 mL by inhalation every four hours as needed for wheezing Ipratropium-Albuterol 0.5 mg-3 mg(2.5 mg base)/3 mL solution for nebulization Discontinued 3 mL INHALATION EVERY 4 HOURS NEEDED as needed for SOB &/OR WHEEZING 180 January 21, 2024 12:00am January 21, 2024 2:27pm Start: 01-21-2024 End: 01-21-2024 take 1 mL by inhalation every four hours as needed Ipratropium-Albuterol Discontinued 3 ML INHALATION EVERY 4 HOURS NEEDED 180 January 21, 2024 12:00am January 21, 2024 2:27pm carvedilol 3.125 mg oral tablet (6 sources) alpha-Adrenergic Mata, beta-Adrenergic Mata Start: 07-27-2024 End: 11-20-2024 take 1 tablet by mouth twice daily at mealtime Carvedilol 3.125 mg tablet Discontinued 3.125 mg PO TWICE DAILY WITH MEALS 180 August 12, 2024 4:21pm November 20, 2024 12:48pm 30 actuat fluticasone furoate 0.2 mg/actuat / vilanterol 0.025 mg/actuat dry powder inhaler (3 sources) Corticosteroid, beta2-Adrenergic Agonist Start: 08-23-2023 End: 02-03-2024 Fluticasone Furoate-Vilantero l (Breo Ellipta) 200-25 mcg/dose blister with device Discontinued 1 NMA INHALATION daily August 23, 2023 12:00am February 03, 2024 1:57pm after inhalation, rinse mouth with water and spit out; do not swallow Start: 08-23-2023 Fluticasone Fu roate-Vilanterol (Breo Ellipta) 200-25 mcg/dose blister with device Active 1 INH INHALATION daily August 23, 2023 12:00am after inhalation, rinse mouth with water and spit out; do not swallow furosemide 40 mg oral tablet (8 sources) Loop Diuretic Start: 07-27-2024 End: 03-08-2025 take 1 tablet by mouth once daily as needed for edema Furosemide 40 mg tablet Discontinued 40 mg PO DAILY as needed for edema October 15, 2024 2:05pm November 20, 2024 12:26pm 12 hr guaiFENesin 600 mg extended release oral tablet (6 sources) Start: 10-30-2022 End: 12-03-2022 take 1 tablet by mouth twice daily, then take 1 tablet by mouth every twelve hours Guaifenesin (Mucus Relief Er) 600 mg Tablet Extended Release 12hr Discontinued 600 mg PO TWICE A DAY October 30, 2022 1:00am December 03, 2022 2:08pm ipratropium bromide 0.021 mg/actuat metered dose nasal spray (7 sources) Anticholinergic Start: 01-21-2024 End: 11-20-2024 Ipratropium Blodgett 21 mcg (0.03 %) spray,non-aerosol Discontinued 2 NMA INTRANASAL TWICE A DAY January 21, 2024 12:00am November 20, 2024 12:24pm administer into each nostril Start: 01-21-2024 take 1 spray(s) nasa l route twice daily Ipratropium Blodgett Active 2 SPRAY INTRANASAL TWICE A DAY January 21, 2024 12:00am administer into each nostril Start: 2023 End: 2023 Ipratropium Blodgett (Atroven t Hfa) 17 mcg/actuation HFA aerosol inhaler Discontinued 2 NMA INHALATION Q8H 12.2023 1:00am 2023 3:09pm Start: 2023 End: 2023 take 1 puff(s) by inhalation every eight hours Ipratropium Blodgett (Atrovent Hfa) 17 mcg/actuation HFA aerosol inhaler Discontinued 2 PUFF INHALATION Q8H 12.9 2023 1:00am 2023 3:09pm Start: 2023 End: 01-28-2023 take 1 spray(s) nasal route twice daily Ipratropium Blodgett Discontinued 2 SPRAY INTRANASAL TWICE A DAY 2023 1:00am January 28, 2023 10:29am administer into each nostril Ipratropium Blodgett 21 mcg (0.03 %) spray,non-aerosol (2 sources) Start: 2023 End: 01-28-2023 Ipratropium Blodgett 21 mcg (0.03 %) spray,non-aerosol Discontinued 2 NMA INTRANASAL TWICE A DAY 2023 1:00am January 28, 2023 10:29am administer into each nostril magnesium chloride 598 mg delayed release oral tablet (2 sources) Start: 07-27-2024 End: 08-12-2024 Magnesium Chloride (Mag 64) 64 mg Tablet,Delayed Release (Dr/Ec) Discontinued 128 mg PO TWICE A DAY 60 July 27, 2024 12:00am August 12, 2024 4:21pm Multivitamin preparation (4 sources) Start: 10-29-2022 End: 12-03-2022 take 1 tablet by mouth once daily Multivitamin Discontinued 1 TABLET PO DAILY October 29, 2022 1:00am December 03, 2022 2:08pm Start: 10-29-2022 End: 12-03-2022 take 1 tablet by mouth once daily Multivitamin Discontinued 1 TABLET PO DAILY October 29, 2022 12:00am December 03, 2022 1:08pm Start: 10-29-2022 take 1 tablet by aretha once daily Multivitamin Active 1 TABLET PO DAILY October 29, 2022 12:00am Multivitamin Tablet (2 sources) Start: 10-29-2022 End: 12-03-2022 Multivitamin Tablet Discontinued 1 {tbl} PO DAILY October 29, 2022 1:00am December 03, 2022 2:08pm microencapsulated potassium chloride 20 meq extended release oral tablet (4 sources) Start: 07-27-2024 End: 10-19-2024 take 1 tablet by mouth twice daily Potassium Chloride 20 mEq tablet,ER particles/crystals Discontinued 20 meq PO TWICE A DAY August 12, 2024 4:23pm October 19, 2024 4:51pm predniSONE 10 mg oral tablet (13 sources) Start: 2023 End: 08-23-2023 take 4 tablets by mouth once daily in the morning, then take 3 tablets by mouth once daily, then take 2 tablets by mouth once daily, then take 1 tablet by mouth once daily Prednisone 10 mg tablets,dose pack Discontinued 10 mg PO As Directed January 28, 2023 10:29am August 23, 2023 9:52am Take 4 tablets daily by mouth in AM x 2 days, then 3 tablets daily for 2 days, then 2 tablets daily x 2 days, then 1 tablet daily until complete. Start: 10-30-2022 End: 12-03-2022 take 2 tablets by mouth once daily Prednisone 20 mg tablet Discontinued 40 mg PO DAILY 08 01October 30, 2022 1:00am December 03, 2022 2:08pm Start: 10-30-2022 End: 12-03-2022 take 40 mg by mouth once daily Prednisone Discontinued 40 MG PO DAILY 08 01October 30, 2022 1:00am December 03, 2022 2:08pm Start: 03-03-2022 take 40 mg by mouth once daily Prednisone Active 40 MG PO DAILY March 03, 2022 7:30pm sulfamethoxazole 800 mg / trimethoprim 160 mg oral tablet (11 sources) Dihydrofolate Reductase Inhibitor Antibacterial, Sulfonamide Antimicrobial Start: 01-28-2023 End: 07-21-2024 Sulfamethoxazole-Trimethopri m (Bactrim Ds) 800-160 mg tablet Discontinued 1 {tbl} PO TWICE A DAY July 23, 2023 12:00am August 23, 2023 9:52am Umeclidinium (3 sources) Anticholinergic Start: 08-23-2023 End: 02-03-2024 take 62.5 ug by inhalation once daily Umeclidinium (Incruse Ellipta) 62.5 mcg/actuation blister with device Discontinued 1 NMA INHALATION daily August 23, 2023 12:00am February 03, 2024 1:57pm Start: 08-23-2023 take 62.5 ug by inha lation once daily Umeclidinium (Incruse Ellipta) 62.5 mcg/actuation blister with device Active 1 INH INHALATION daily August 23, 2023 12:00am Problems Active Problems Problem Classification Problem Date Documented Date Episodic/Chronic Chronic obstructive pulmonary disease and bronchiectasis (20 sources) Acute exacerbation of chronic obstructive airways disease; Translations: [Chronic obstructive pulmonary disease with (acute) exacerbation] Onset: 01-11-2025 Chronic Comment on above: Management plan as a ford Conditions associated with dizziness or vertigo (3 sources) Infection involving inner ear; Translations: [Labyrinthitis, right ear] 08-23-2023 Episodic Congestive heart failure; nonhypertensive (9 sources) Congestive heart failure; Translations: [Heart failure, unspecified] Onset: 07-30-2024 07-21-2024 Chronic Hypertension with complications and secondary hypertension (1 source) Hypertensive heart disease with heart failure; Translations: [Hypertensive heart disease with heart failure] Onset: 08-20-2024 Chronic Nutritional deficiencies (8 sources) Deficiency of macronutrients; Translations: [Unspecified severe protein-calorie malnutrition] 12-03-2022 Chronic Comment on above: Her weight is up to 130 pounds. BMI is finally over 20, today was 20.9. She is doing a great job taking care of herself, and was congratulated today.Blood pressure was mildly elevated at 137/79, does not need treatment currently but will keep an eye on it. Osteoarthritis (8 sources) Arthritis of hip; Translations: [Unilateral primary osteoarthritis, right hip] 03-11-2022 Chronic Other lower respiratory disease (3 sources) Dyspnea; Translations: [Shortness of breath] Episodic Other lower respiratory disease (5 sources) Hypoxia; Translations: [Hypoxemia] 08-23-2023 Episodic Other lower respiratory disease (2 sources) History of chronic obstructive airway disease; Translations: [Personal history of other diseases of the respiratory system] 07-21-2024 Episodic Other lower respiratory disease (2 sources) Hypoxemia; Translations: [Hypoxemia] 07-21-2024 Episodic Other lower respiratory disease (2 sources) Respiratory insufficiency; Translations: [Other abnormalities of breathing] 08-04-2024 Episodic Other upper respiratory disease (7 sources) Allergic rhinitis; Translations: [Allergic rhinitis, unspecified] 12-03-2022 Chronic Other upper respiratory disease (3 sources) Allergic rhinitis, unspecified; Translations: [Allergic rhinitis, cause unspecified] 12-03-2022 Chronic Other upper respiratory infections (3 sources) Acute sinusitis; Translations: [Acute sinusitis, unspecified] 01-28-2023 Episodic Rashida-; endo-; and myocarditis; cardiomyopathy (except that caused by tuberculosis or sexually transmitted disease) (7 sources) Cardiomyopathy; Translations: [Cardiomyopathy, unspecified] 01-27-2025 Chronic Rashida-; endo-; and myocarditis; cardiomyopathy (except that caused by tuberculosis or sexually transmitted disease) (2 sources) Viral cardiomyopathy; 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] Onset: 03-11-2025 Episodic Residual codes; unclassified (2 sources) Edema of lower extremity; Translations: [Localized edema] 08-12-2024 Episodic Substance-related disorders (12 sources) Nicotine dependence; Translations: [Nicotine dependence, unspecified, uncomplicated] Onset: 07-30-2024 12-03-2022 Chronic Comment on above: quit 10/2022 Superficial injury; contusion (8 sources) Contusion of hip; Translations: [Contusion of right hip, initial encounter] 03-11-2022 Episodic Thyroid disorders (6 sources) Hypothyroidism; Translations: [Hypothyroidism, unspecified] Onset: 02-08-2025 11-20-2024 Chronic Unclassified (1 source) Moderate COPD, GOLD stage II, grade B. With severe hyperinflation and no bronchodilator response. Her clinical course and CXR is most consistent with pure emphysema. She has limited pulmonary reserve, so typically has severe exacerbations with minor viral URIs. Stephany s breathing is now clinically well controlled, and her exercise tolerance and symptoms (none) have returned to baseline. Data on frequent severe exacerbators like Stephany supports staying on Trelegy for between 2 and 6 months before downgrading to a LAMA/LABA, because of her recent hospitalization and high chance of readmission and re-exacerbation in the next 6 months. - She does not qualify for pulmonary rehabilitation and does not need an ABG - I will check her overnight oximetry on room air with DASCO (an unattended home sleep study) to determine if she still needs O2. - Influenza vaccine in the office today. It is her first flu vaccine ever. Routine immunizations (she is still not ready for a COVID vaccine due to her belief system), avoid sick contacts, and wear mask when exposed to triggers, all discussed today. Nicotine addiction: in remission - Maintain smoking cessation; she is motivated to do so. She is succeeding [employer] and does not want NRT. No evidence of significant allergic rhinitis on testing, IgE is normal, although the patient does have distinct seasonality to her symptoms. - Take twyf-tfa-xhjnkdz allergy medicine during her seasonal symptom flare - Can give as needed Atrovent nasal spray for nasal congestion. She will follow up in January after Trelegy, adjusting her O2 dose and as needed, thank you for referring this pleasant woman to [facility] [place]. 12-13-2022 Past or Other Problems Problem Classification Problem Date Documented Date Episodic/Chronic Other lower respiratory disease (1 source) Other abnormalities of breathing; Translations: [Other abnormalities of breathing] Onset: 07-30-2024 Episodic Other lower respiratory disease (1 source) Personal history of other diseases of the respiratory system; Translations: [Personal history of other diseases of the respiratory system] Onset: 07-30-2024 Episodic Other lower respiratory disease (1 source) Hypoxemia; Translations: [Hypoxemia] Onset: 07-30-2024 Episodic Residual codes; unclassified (2 sources) Localized edema; Translations: [Localized edema] Onset: 07-30-2024 Episodic Results Test Name Value Interpretation Reference Range Facility Anion gap in Serum or Plasma Ordered By: Kimo Bernardo on 03-08-2025 Anion gap [Moles/Vol] 10 mmol/L 03-11 [facility] BUN/creatinine ratioOrdered By: Kimo Bernardo on 03-08-2025 Urea nitrogen/Creatinine [Mass ratio] 16.5 mg/mg 08-16 [facility] Basic Metabolic Profile (BMP )on 03-08-2025 BUN/CRE 16.5 RATIO Normal 08-16 [facility] Comment on above: Performed By: #### L 267.6228, L501.9520, L500.2500 #### [facility] [address] [place], [address] Calcium [Mass/Vol] 10.0 mg/dL Normal 7.6-11.0 [facility] Comment on above: Performed By: #### L 503.7505, [id number], L500.2500 #### [facility] [address] [place], [address] Chloride [Moles/Vol] 103 mmol/L Normal 98-108 [facility] Comment on above: Performed By: #### L 503.7505, [id number], L500.2500 #### [facility] [address] [place], [address] CO2 [Moles/Vol] 25.8 mmol/L Normal 21.0-32.0 [facility] Comment on above: Performed By: #### L 503.7505, [id number], L500.2500 #### [facility] [address] [place], [address] Creatinine [Mass/Vol] 0.78 mg/dL Normal 0.70-1.20 [facility] Comment on above: Performed By: #### L 503.7505, [id number], [id number] #### [facility] [address] [place], [address] GAP 10 Normal 5-15 [facility] Comment on above: Performed By: #### L 503.7505, [id number], [id number] #### [facility] [address] [place], [address] GFR/1.73 sq M.predicted among non-blacks MDRD (S/P/Bld) [Vol rate/Area] 85 mL/min/{1.73_m2} Normal >60 [facility] Comment on above: Result Comment: mL/m in/1.73m2 CKD-EPI Creatinine Equation (2020) Performed By: #### L 503.7505, [id number], [id number] #### [facility] [address] [place], [address] Glucose [Mass/Vol] 108 mg/dL High 70-99 [facility] Comment on above: Performed By: #### L 503.7505, L501.9520, L500.2500 #### [facility] [address] [place], [address] Potassium [Moles/Vol] 4.4 mmol/L Normal 3.3-5.1 [facility] Comment on above: Performed By: #### L 503.7505, L501.9520, L500.2500 #### [facility] [address] [place], [address] Sodium [Moles/Vol] 139 mmol/L Normal 133-145 [facility] Comment on above: Performed By: #### L 503.7505, L501.9520, L500.2500 #### [facility] [address] [place], [address] Urea nitrogen [Mass/Vol] 13 mg/dL Normal 4-19 [facility] Comment on above: Performed By: #### L 503.7505, L501.9520, L500.2500 #### [facility] [address] [place], [address] Carbon dioxide, total [Moles /volume] in Central venous bloodOrdered By: Kimo Bernardo on 03-08-2025 CO2 [Moles/Vol] 25.8 mmol/L 21.0-32.0 [facility] Cardiology Visit Reporton Cardiology Visit Report [facility] [address] [place] [address] OFFICE VISIT Date of Service: 03/08/25 MR#: [id number] Acct: [id number] Name: STEPHAYN MENARD Rep #: [id number] : 1960 Provider: Dr. Kimo pierce MD Age/Sex: 65/F Location: [facility] [place] [facility] Status: Signed HPI HPI History of Present Illness Details: Patient is a pleasant 65-year-old white female that comes today with family member. The patient is here for monitoring of her cardiovascular status. She had she was hospitalized back in June 2020 for with severe COPD and nonischemic cardiomyopathy EF in the 14% range. Prior to that admission she had had a significant viral infection and her blood pressure was low and it was difficult to titrate any guideline directed medical therapy for LV recovery. After she was discharged she has slowly been titrated on medical therapy. The patient also had an elevated TSH of 50 and was started on thyroid replacement. Repeat echocardiogram October 2024 showed an EF of 20%. She had stopped taking her Lasix due to weight loss and lightheadedness and she had completely resolved her lower extremity edema. She has had no recurrence of her lower extremity edema she reports she is getting around the house doing her actives of daily living with her home oxygen therapy. As long as she does not push it she does fairly well. She gets short of breath when she tries to do too much too quickly. Blood pressure in office today is 155/87 heart rate 72 respirate 18 she is 95% saturated on her nasal cannula oxygen. The patient denies any lightheadedness dizziness or near syncope. She reports she feels much better since she has been in her home environment since last fall. The patient has not been readmitted to hospital since that admission June 2024. Intake Vital Signs 01/27/25 07:56 03/08/25 13:03 Height 5 ft 6 in 5 ft 6 in Weight: 110 lb 110 lb BMI 17.7 17.7 BP 154/82 H 155/87 H Blood Pressure Location Rt brachial Lt brachial Position Sitting Sitting Respiration 20 H 18 Pulse 80 72 Pulse Source Monitor Auscultation Temp 97.5 F L Temperature Source Temporal Artery Pulse Oximetry (%) 98 95 Oxygen Delivery Method nasal canula nasal canula Oxygen Flow Rate (L/min) 3 3 Intake Visit Reasons: 3 M FU Social Worker Assistant Required: No Accompanied by: Is patient in pain?: No Allergies Penicillins (PCN) Allergy (Verified 03/08/25 13:04) Anaphylaxis Medications ???Medication ???Instructions ???Recorded ???Confirmed ???Type albuterol sulfate 90 mcg/actuation 2 puff inhalation Q6H PRN 03/08/25 Rx aerosol inhaler (ProAir HFA) shortness of breath or wheezing #8.5 grams losartan 25 mg tablet 25 mg PO DAILY #90 tabs 08/12/24 0 03/08/25 Rx carvedilol 3.125 mg tablet 3.125 mg PO BID #180 tabs 11/20/24 03/08/25 Rx levothyroxine 88 mcg tablet 88 mcg PO DAILY #90 tabs 11/20/24 03/08/25 Rx spironolactone 25 mg tablet 25 mg PO DAILY #90 tabs 11/20/24 0 03/08/25 Rx fluticasone fur. 200 mcg-umeclid 1 ea inhalation QDAY #1 ea 02/22/2 5 03/08/25 Rx 62.5 mcg-vilant 25 mcg inhalat.powder (Trelegy Ellipta) Ejection fraction %: 20 Have you fallen in the past year?: No PFSH Medical History Cardiomyopathy Hypothyroid Lower extremity edema Acute systolic heart failure Respiratory insufficiency Smoking greater than 40 pack years Nicotine addiction Acute sinusitis Severe protein-calorie malnutrition COPD (chronic obstructive pulmonary disease) with emphysema Allergic rhinitis due to allergen COPD exacerbation Smoker Diverticulitis Surgical History H/O: hysterectomy History of colostomy reversal History of colostomy Social History Smoking Status: Former smoker how long ago did patient quit smoking: Oct 2022. alcohol intake: never substance use type: does not use caffeine: Yes ROS Const Const: Negative for fatigue or weakness ENT ENT: Negative for dizziness or balance problems Cardio Chest Pain: No Palpitations: No Edema: None Muscle aches with walking: None Resp Respiratory: Positive for SOB with activity; Negative for SOB at rest or SOB orthopnea SOB lying down GI GI: Negative nausea, vomiting or heartburn Musc Musc: Negative for muscle weakness or balance problems Neuro Neuro: Negative for dizziness, lightheadedness, near syncope, syncope or weakness Endo Endo: Negative for fatigue Cardiology Exam Const Appearance: cooperative, comfortable, no acute distress and frail appearing Nutritional Appearance: thin Head Head: normal to inspection Eyes General: appe (more content not included)... Normal [facility] Chloride assayOrdered By: Delmy Bernardo on 03-08-2025 Chloride [Moles/Vol] 103 mmol/L 98-108 [facility] Glomerular filtration rate ( GFR) estimation/1.73 sq m using serum, plasma, or whole bOrdered By: Kimo Bernardo on 03-08-2025 GFR/1.73 sq M.predicted among non-blacks MDRD (S/P/Bld) [Vol rate/Area] 85 mL/min/{1.73_m2} >60 [facility] Comment on above: mL/min/1.73m2 CKD-EP I Creatinine Equation (2020) L503.7505on 03-08-2025 Natriuretic peptide B (Bld) [Mass/Vol] 146 pg/mL Normal <=900 [facility] Comment on above: Result Comment: Hear t Failure Unlikely: < 300 pg/mL Heart Failure Likely < 50 Years: > 450 pg/mL 50-75 Years: > 900 pg/mL >75 Years: > 1800 pg/mL Performed By: #### L 503.7505, L501.9520, L500.2500 #### [facility] [address] [place], [place], [id number] Natriuretic peptide.B prohor suleman N-Terminal [Mass/volume] in Serum or PlasmaOrdered By: Kimo Bernardo on 03-08-2025 Natriuretic peptide.B prohormone N-Terminal [Mass/Vol] 146 pg/mL <900 [facility] Comment on above: Heart Failure Unlike ly: < 300 pg/mLHeart Failure Likely< 50 Years: > 450 pg/mL50-75 Years: > 900 pg/mL>75 Years: > 1800 pg/mL Potassium measurement (mass/ volume)Ordered By: Kimo Bernardo on 03-08-2025 Potassium (Unsp spec) [Mass/Vol] 4.4 mmol/L 3.3-5.1 [facility] Serum creatinine measurement (mass/volume)Ordered By: Kimo Bernardo on 03-08-2025 Creatinine [Mass/Vol] 0.78 mg/dL 0.70-1.20 [facility] Serum glucose measurement (m ass/volume)Ordered By: Kimo Bernardo on 03-08-2025 Glucose [Mass/Vol] 108 mg/dL High 70-99 [facility] Serum or plasma calcium bennett urement (mass/volume)Ordered By: Kimo Bernardo on 03-08-2025 Calcium [Mass/Vol] 10.0 mg/dL 7.6-11.0 [facility] Serum or plasma urea nitroge n measurement (mass/volume)Ordered By: Kimo Bernardo on 03-08-2025 Urea nitrogen [Mass/Vol] 13 mg/dL 4-19 [facility] Sodium levelOrdered By: Fly Bernardo on 03-08-2025 Sodium [Moles/Vol] 139 mmol/L 133-145 [facility] TSH DL <= 0.005 mIU/L QnOrde red By: Kimo Bernardo on 03-08-2025 TSH Qn 2.360 uIU/mL 0.300-4.200 [facility] Thyroid Stim Hormone (TSH)on 03-08-2025 TSH 2.360 uIU/mL Normal 0.300-4.200 [facility] Comment on above: Performed By: #### L 503.7505, L501.9520, L500.2500 #### [facility] [address] [place], [address] TSH DL <= 0.005 mIU/L QnOrde red By: Mary Gomez on 02-02-2025 Thyroid Stimulating Hormone (TSH) 0.873 uIU/mL 0.300-4.200 [facility] TSH Qn 0.873 uIU/mL 0.300-4.200 [facility] Thyroid Stim Hormone (TSH)on 02-02-2025 TSH 0.873 uIU/mL Normal 0.300-4.200 [facility] Comment on above: Performed By: #### L 300.8000, L500.2500, L503.6620, L100.0100, L501.4020 #### [facility] [address] [place], [address] Pulmonary Visit Reporton Pulmonary Visit Report [facility] [place] [address] [place] [address] OFFICE VISIT Date of Service: 01/27/25 MR#: [id number] Acct: [id number] Name: STEPHANY MENARD Rep #: [id number] : 1960 Provider: ROMEL Batres Age/Sex: 65/F Location: [facility] [place].[facility] Status: Signed Assessment and Plan Assessment and Plan (1) COPD (chronic obstructive pulmonary disease) with emphysema: Status: Chronic Qualifiers: Emphysema type: centrilobular Qualified Code(s): J43.2 - Centrilobular emphysema Plan: Stable, she does not appear to be an exacerbation of COPD today. No need for prednisone or antibiotic. Continue maintenance medication, the patient is symptomatically controlled with triple therapy on Trelegy. No additional testing at this time. If you recall, a PFT was ordered prior to this office visit but given the patient's severe heart failure with an EF of 20%, she was not able to participate in that PFT at this time. Contact the office for any new or worsening symptoms. An acute visit and typically be arranged within 1-2 days. Follow-up in 3-4 months. (2) Hypoxia: Status: Chronic Plan: She is using and benefiting from supplemental oxygen. She has been encouraged to continue to titrate as needed to maintain saturations 89 to 92%. I have requested that humidification be added to her home concentrator to help with the runny nose. (3) Smoking greater than 40 pack years: Status: Acute Comment: quit 10/2022 Plan: Encourage ongoing smoking cessation. Repeat LDCT due in June, ordered accordingly. 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 This impacts her ability to test the patient to clarify the stage of COPD she is at. She is under medical management trying to optimize EF. Follow-up in the office in 3 to 4 months, if the patient is doing better from cardiac standpoint we will reorder the PFT. (5) Allergic rhinitis due to allergen: Status: Chronic Qualifiers: Allergic rhinitis trigger: pollen Allergic rhinitis seasonality: seasonal Qualified Code(s): J30.1 - Allergic rhinitis due to pollen Plan: The patient has tried Flonase without any symptom improvement. I suggested that she be formally tested by either an research intern who also performs allergy shots or an manager state. The patient states that she does not want to see any more doctors right now. Orders: Orders Low Dose CT Lung Screening 06/28/25 F17.200 - Nicotine dependence, unspecified, uncomplicated, F17.210 - Nicotine dependence, cigarettes, uncomplicated HPI HPI Comments Details: This patient presents to the office today for follow-up of her COPD with hypoxia. She is ambulatory and currently on supplemental oxygen. She is accompanied today by family member. She has not recently been seen in the ED or urgent care for any respiratory illness. She has not recently been prescribed antibiotics or steroids for her breathing. She is compliant with the use of Trelegy 1 puff daily. She reports rinsing her mouth out after each use. She denies a medication side effect such as sore throat or thrush. She uses albuterol 2-3 times a week. She is compliant with supplemental oxygen wearing 4 L/min at all times including with sleep. She continues complete smoking cessation. Sats are 97-98% on 4 lpm continuous. However, if she takes if off, sitting on room air for 30 minutes it is 92%. If you recall, she quit smoking completely in January 2024. She has shortness of breath on exertion. She has a dry cough. She denies any hemoptysis. She is having sinus congestion and frequent sneezing, as well as itchy eyes. She denies any wheezing, chest tightness, chest pain or palpitations. She has not had any fever, chills or body aches. Intake Vital Signs 08/03/24 07:43 11/20/24 11:20 01/27/25 07:56 Height 5 ft 6 in 5 ft 6 in 5 ft 6 in Weight: 110 lb BMI 17.7 BP 154/82 H Blood Pressure Location Rt brachial Position Sitting Respiration 20 H Pulse 80 Pulse Source Monitor Temp 97.5 F L Temperature Source Temporal Artery Pulse Oximetry (%) 98 Oxygen Delivery Method nasal canula Oxygen Flow Rate (L/min) 3 Intake Visit Reasons: 4 M FU Chief Complaint: SOB Social Worker Assistant Required: No DME Vendor: Ann Marie Accompanied by: Allergies Penicillins (PCN) Allergy (Verified 01/27/25 13:15) Anaphylaxis Medications ???Medication ???Instructions ???Recorded ???Confirmed ???Type albuterol sulfate 90 mcg/actuation 2 puff inhalation Q6H PRN 01/27/25 Rx aerosol inhaler (ProAir HFA) shortness of breath or wheezing #8.5 grams fluticasone fur. 200 mcg-umeclid 1 ea inhalation QDAY #1 ea (more content not included)... Normal [facility] Basic Metabolic Profile (BMP )on 12-04-2024 BUN/CRE 19.0 RATIO Normal 10-20 [facility] Comment on above: Performed By: #### L 300.8000, L500.2500, L503.6620, L100.0100, L501.4020 #### [facility] [address] [place], [address] CA,Total 9.6 mg/dL Normal 8.5-10.1 [facility] Comment on above: Performed By: #### L 300.8000, L500.2500, L503.6620, L100.0100, L501.4020 #### [facility] [address] [place], [address] Chloride [Moles/Vol] 100 mmol/L Normal 98-107 [facility] Comment on above: Performed By: #### L 300.8000, L500.2500, L503.6620, L100.0100, L501.4020 #### [facility] [address] [place], [address] CO2 [Moles/Vol] 32.0 mmol/L Normal 21.0-32.0 [facility] Comment on above: Performed By: #### L 300.8000, L500.2500, L503.6620, L100.0100, L501.4020 #### [facility] [address] [place], [address] Creatinine [Mass/Vol] 0.95 mg/dL Normal 0.55-1.02 [facility] Comment on above: Result Comment: The validity of the calculated GFR GFRAA in patients over 70 years has not been determined. Clinical correlation is essential. Performed By: #### L 300.8000, L500.2500, L503.6620, L100.0100, L501.4020 #### [facility] [address] [place], [address] EST GFR - AA 77 mL/min Normal >60 [facility] Comment on above: Result Comment: Afri can Tristanian GFR Calc Performed By: #### L 300.8000, L500.2500, L503.6620, L100.0100, L501.4020 #### [facility] [address] [place], [address] GAP 4 Low 5-15 [facility] Comment on above: Performed By: #### L 300.8000, L500.2500, L503.6620, L100.0100, L501.4020 #### [facility] [address] [place], [address] GFR/1.73 sq M.predicted among non-blacks MDRD (S/P/Bld) [Vol rate/Area] 63 mL/min/{1.73_m2} Normal >60 [facility] Comment on above: Result Comment: Non- GFR Calc Performed By: #### L 300.8000, L500.2500, L503.6620, L100.0100, L501.4020 #### [facility] [address] [place], [address] Glucose [Mass/Vol] 130 mg/dL High 74-106 [facility] Comment on above: Result Comment: Fast ing Glucose result greater than or equal to 126 mg/dL suggests DIABETES MELLITUS per A.D.A. criteria. Performed By: #### L 300.8000, L500.2500, L503.6620, L100.0100, L501.4020 #### [facility] [address] [place], [address] Potassium [Moles/Vol] 4.3 mmol/L Normal 3.5-5.1 [facility] Comment on above: Performed By: #### L 300.8000, L500.2500, L503.6620, L100.0100, L501.4020 #### [facility] [address] [place], [address] Sodium [Moles/Vol] 136 mmol/L Normal 136-145 [facility] Comment on above: Performed By: #### L 300.8000, L500.2500, L503.6620, L100.0100, L501.4020 #### [facility] [address] [place], [address] Urea nitrogen [Mass/Vol] 18 mg/dL Normal 7-18 [facility] Comment on above: Performed By: #### L 300.8000, L500.2500, L503.6620, L100.0100, L501.4020 #### [facility] [address] [place], [address] Blood urea nitrogen (BUN)/cr eatinine ratioOrdered By: Mary Gomez on 12-04-2024 Urea nitrogen/Creatinine [Mass ratio] 19.0 mg/mg 10-20 [facility] Carbon dioxide measurementOr dered By: Mary Gomez on 12-04-2024 CO2 [Moles/Vol] 32.0 mmol/L 21.0-32.0 [facility] Chloride measurementOrdered By: Mary Gomez on 12-04-2024 Chloride [Moles/Vol] 100 mmol/L 98-107 [facility] Estimated glomerular filtrat ion rate (GFR) AmericanOrdered By: Mary Gomez on 12-04-2024 Estimated GFR (MDRD) Amer 77 mL/min >60 [facility] Comment on above: GFR Calc Glomerular filtration rate ( GFR) estimationOrdered By: Mary Gomez on 12-04-2024 Estimated GFR (MDRD) Non-Af Amer 63 mL/min >60 [facility] Comment on above: Non- GFR Calc GFR/1.73 sq M.predicted among non-blacks MDRD (S/P/Bld) [Vol rate/Area] 63 mL/min/{1.73_m2} >60 [facility] Comment on above: Non- GFR Calc Glucose measurementOrdered B y: Mary Gomez on 12-04-2024 Glucose [Mass/Vol] 130 mg/dL High 74-106 [facility] Comment on above: Fasting Glucose resu lt greater than or equal to 126 mg/dL suggests DIABETES MELLITUS per A.D.A. criteria. Potassium measurementOrdered By: Mary Gomez on 12-04-2024 Potassium [Moles/Vol] 4.3 mmol/L 3.5-5.1 [facility] Serum anion gap measurementO rdered By: Mary Gomez on 12-04-2024 Anion gap [Moles/Vol] 4 mmol/L Low 5-15 [facility] Serum or plasma calcium bennett urement (mass/volume)Ordered By: Mary Gomez on 12-04-2024 Calcium [Mass/Vol] 9.6 mg/dL 8.5-10.1 [facility] Serum or plasma creatinine m easurement (mass/volume)Ordered By: Mary Gomez on 12-04-2024 Creatinine [Mass/Vol] 0.95 mg/dL 0.55-1.02 [facility] Comment on above: The validity of the calculated GFR & GFRAA in patients over 70 years has not been determined. Clinical correlation is essential. Serum or plasma thyroid stim ulating hormone (TSH) measurement (units/volume)Ordered By: Mary Gomez on 12-04-2024 TSH Qn 39.300 uIU/mL High 0.358-3.740 [facility] Serum or plasma urea nitroge n measurement (mass/volume)Ordered By: Mray Gomez on 12-04-2024 Urea nitrogen [Mass/Vol] 18 mg/dL 7-18 [facility] Sodium levelOrdered By: Fly Gomez on 12-04-2024 Sodium [Moles/Vol] 136 mmol/L 136-145 [facility] TSH QnOrdered By: Mary Rothman on 12-04-2024 Thyroid Stimulating Hormone (TSH) 39.300 uIU/mL High 0.358-3.740 [facility] Thyroid Stim Hormone (TSH)on 12-04-2024 TSH 39.300 uIU/mL High 0.358-3.740 [facility] Comment on above: Performed By: #### L 300.8000, L500.2500, L503.6620, L100.0100, L501.4020 #### [facility] [address] [place], [address] Cardiology Visit Reporton Cardiology Visit Report [facility] [address] [place] [address] OFFICE VISIT Date of Service: 11/20/24 MR#: [id number] Acct: [id number] Name: STEPHANY MENARD Rep #: [id number] : 1960 Provider: NATE Jiménez Age/Sex: 64/F Location: [facility] [place] Status: Signed HPI HPI History of Present Illness Details: Patient comes in today for posthospital visit. She is a 64-year-old white female with a history of severe COPD and a nonischemic cardiomyopathy diagnosed when she was hospitalized July 21, 2024. The patient has suffered a significant viral infection approximately 3 to 4 weeks prior to admission. She came in with progressive shortness of breath and echocardiogram showed she had global severe LV dysfunction EF estimated at 14%. She had 1+ tricuspid insufficiency and a small pericardial effusion. She had a CTA done on admission which showed no evidence of pulmonary embolus bilateral pleural effusions and bilateral lower lobe consolidation which was thought to possibly represent pneumonia. There was no pericardial effusion documented on the CT. The patient continues on her home oxygen which she gets 4 L nasal cannula this was present prior to her recent hospitalization. She is also has a history of hypothyroidism on replacement. The patient's TSH was 50 on admission and she was started on replacement therapy. She did have a repeat echocardiogram in October which demonstrated an ejection fraction of 20%. Patient states that she stopped taking her Lasix because she had too much weight loss and felt lightheaded. She would use it if she felt that she had lower extremity edema. I did discuss with patient about considering an ICD. Patient declines at this time. She states that she is not lightheaded or dizzy. She does not have any near syncope. She does not have any palpitations that she is aware of. She feels that her shortness of breath is at baseline. She does not have any lower extremity edema. She does not have any chest pain. Intake Vital Signs 08/12/24 09:59 11/20/24 11:20 Height 5 ft 6 in 5 ft 6 in Weight: 108 lb BMI 17.4 BP 148/81 H Blood Pressure Location Lt brachial Position Sitting Respiration 18 Pulse 82 Pulse Source NIBP Pulse Oximetry (%) 95 Oxygen Delivery Method nasal canula Oxygen Flow Rate (L/min) 3 Comment Normally on 4 liters at home Intake Visit Reasons: 3 M FU Social Worker Assistant Required: No Is patient in pain?: No Allergies Penicillins (PCN) Allergy (Verified 11/20/24 11:23) Anaphylaxis Medications ???Medication ???Instructions ???Recorded ???Confirmed ???Type albuterol sulfate 90 mcg/actuation 2 puff inhalation Q6H PRN 02/03/24 11/20/24 Rx aerosol inhaler (ProAir HFA) shortness of breath or wheezing #8.5 grams fluticasone fur. 200 mcg-umeclid 1 ea inhalation QDAY #1 ea 02/03/24 11/20/24 Rx 62.5 mcg-vilant 25 mcg inhalat.powder (Trelegy Ellipta) losartan 25 mg tablet 25 mg PO DAILY #90 tabs 08/12/24 11/20/24 Rx carvedilol 3.125 mg tablet 3.125 mg PO BID #180 tabs 11/20/24 11/20/24 Rx furosemide 40 mg tablet 40 mg PO DAILY PRN edema 11/20/24 11/20/24 History levothyroxine 88 mcg tablet 88 mcg PO DAILY #90 tabs 11/20/24 11/20/24 Rx spironolactone 25 mg tablet 25 mg PO DAILY #90 tabs 11/20/24 11/20/24 Rx Ejection fraction %: 20 Have you fallen in the past year?: No PFSH Medical History (Updated 11/20/24 @ 14:10 by Mary SULLIVAN, PA) Cardiomyopathy Hypothyroid Lower extremity edema Acute systolic heart failure Respiratory insufficiency Smoking greater than 40 pack years Nicotine addiction Acute sinusitis Severe protein-calorie malnutrition COPD (chronic obstructive pulmonary disease) with emphysema Allergic rhinitis due to allergen COPD exacerbation Smoker Diverticulitis Surgical History H/O: hysterectomy History of colostomy reversal History of colostomy Social History Smoking Status: Former smoker how long ago did patient quit smoking: Oct 2022. alcohol intake: never substance use type: does not use caffeine: Yes ROS Const Const: Negative for fatigue or weakness Eyes Eyes: Negative for change in vision ENT ENT: Negative for dizziness or balance problems Cardio Chest Pain: No Palpitations: No Edema: None Resp Respiratory: Positive for SOB with activity (Uses oxygen.); Negative for SOB at rest or SOB orthopnea SOB lying down GI GI: Negative nausea or heartburn Musc Musc: Negative for balance problems Neuro Neuro: Negative for dizziness, lightheadedness, near syncope, syncope or weakness Endo Endo: Negative for fatigue Cardiology Exam Const Appearance: cooperative, comfortable a (more content not included)... Normal [facility] Basic Metabolic Profile (BMP )on 11-09-2024 BUN/CRE 17.2 RATIO Normal -20 [facility] Comment on above: Performed By: #### L 300.8000, L500.2500, L503.6620, L100.0100, L501.4020 #### [facility] [address] [place], [place], [id number] CA,Total 9.2 mg/dL Normal 8.5-10.1 [facility] Comment on above: Performed By: #### L 300.8000, L500.2500, L503.6620, L100.0100, L501.4020 #### [facility] [address] [place], [address] Chloride [Moles/Vol] 104 mmol/L Normal 98-107 [facility] Comment on above: Performed By: #### L 300.8000, L500.2500, L503.6620, L100.0100, L501.4020 #### [facility] [address] [place], [address] CO2 [Moles/Vol] 31.0 mmol/L Normal 21.0-32.0 [facility] Comment on above: Performed By: #### L 300.8000, L500.2500, L503.6620, L100.0100, L501.4020 #### [facility] [address] [place], [address] Creatinine [Mass/Vol] 0.93 mg/dL Normal 0.55-1.02 [facility] Comment on above: Result Comment: The validity of the calculated GFR GFRAA in patients over 70 years has not been determined. Clinical correlation is essential. Performed By: #### L 300.8000, L500.2500, L503.6620, L100.0100, L501.4020 #### [facility] [address] [place], [address] EST GFR - AA 78 mL/min Normal >60 [facility] Comment on above: Result Comment: Afri can Tristanian GFR Calc Performed By: #### L 300.8000, L500.2500, L503.6620, L100.0100, L501.4020 #### [facility] [address] [place], [address] GAP 3 Low 5-15 [facility] Comment on above: Performed By: #### L 300.8000, L500.2500, L503.6620, L100.0100, L501.4020 #### [facility] [address] [place], [address] GFR/1.73 sq M.predicted among non-blacks MDRD (S/P/Bld) [Vol rate/Area] 65 mL/min/{1.73_m2} Normal >60 [facility] Comment on above: Result Comment: Non- GFR Calc Performed By: #### L 300.8000, L500.2500, L503.6620, L100.0100, L501.4020 #### [facility] [address] [place], [address] Glucose [Mass/Vol] 130 mg/dL High 74-106 [facility] Comment on above: Result Comment: Fast ing Glucose result greater than or equal to 126 mg/dL suggests DIABETES MELLITUS per A.D.A. criteria. Performed By: #### L 300.8000, L500.2500, L503.6620, L100.0100, L501.4020 #### [facility] [address] [place], [address] Potassium [Moles/Vol] 4.6 mmol/L Normal 3.5-5.1 [facility] Comment on above: Performed By: #### L 300.8000, L500.2500, L503.6620, L100.0100, L501.4020 #### [facility] [address] [place], [address] Sodium [Moles/Vol] 138 mmol/L Normal 136-145 [facility] Comment on above: Performed By: #### L 300.8000, L500.2500, L503.6620, L100.0100, L501.4020 #### [facility] [address] [place], [address] Urea nitrogen [Mass/Vol] 16 mg/dL Normal 7-18 [facility] Comment on above: Performed By: #### L 300.8000, L500.2500, L503.6620, L100.0100, L501.4020 #### [facility] [address] [place], [address] Blood urea nitrogen (BUN)/cr eatinine ratioOrdered By: Mary Gomez on 11-09-2024 Urea nitrogen/Creatinine [Mass ratio] 17.2 mg/mg 10-20 [facility] Carbon dioxide measurementOr dered By: Mary Gomez on 11-09-2024 CO2 [Moles/Vol] 31.0 mmol/L 21.0-32.0 [facility] Chloride measurementOrdered By: Mary Gomez on 11-09-2024 Chloride [Moles/Vol] 104 mmol/L 98-107 [facility] Estimated glomerular filtrat ion rate (GFR) AmericanOrdered By: Mary Gomez on 11-09-2024 Estimated GFR (MDRD) Amer 78 mL/min >60 [facility] Comment on above: GFR Calc Glomerular filtration rate ( GFR) estimationOrdered By: Mary Gomez on 11-09-2024 Estimated GFR (MDRD) Non-Af Amer 65 mL/min >60 [facility] Comment on above: Non- GFR Calc Glucose measurementOrdered B y: Mary Gomez on 11-09-2024 Glucose [Mass/Vol] 130 mg/dL High 74-106 [facility] Comment on above: Fasting Glucose resu lt greater than or equal to 126 mg/dL suggests DIABETES MELLITUS per A.D.A. criteria. Potassium measurementOrdered By: Mary Gomez on 11-09-2024 Potassium [Moles/Vol] 4.6 mmol/L 3.5-5.1 [facility] Serum anion gap measurementO rdered By: Mary Gomez on 11-09-2024 Anion gap [Moles/Vol] 3 mmol/L Low 5-15 [facility] Serum or plasma calcium bennett urement (mass/volume)Ordered By: Mary Gomez on 11-09-2024 Calcium [Mass/Vol] 9.2 mg/dL 8.5-10.1 [facility] Serum or plasma creatinine m easurement (mass/volume)Ordered By: Mary Gomez on 11-09-2024 Creatinine [Mass/Vol] 0.93 mg/dL 0.55-1.02 [facility] Comment on above: The validity of the calculated GFR & GFRAA in patients over 70 years has not been determined. Clinical correlation is essential. Serum or plasma urea nitroge n measurement (mass/volume)Ordered By: Mary Gomez on 11-09-2024 Urea nitrogen [Mass/Vol] 16 mg/dL 7-18 [facility] Sodium levelOrdered By: Fly Gomez on 11-09-2024 Sodium [Moles/Vol] 138 mmol/L 136-145 [facility] Basic Metabolic Profile (BMP )on 10-19-2024 BUN/CRE 18.1 RATIO Normal 10-20 [facility] Comment on above: Performed By: #### L 300.8000, L500.2500, L503.6620, L100.0100, L501.4020 #### [facility] [address] [place], [address] CA,Total 9.4 mg/dL Normal 8.5-10.1 [facility] Comment on above: Performed By: #### L 300.8000, L500.2500, L503.6620, L100.0100, L501.4020 #### [facility] [address] [place], [address] Chloride [Moles/Vol] 108 mmol/L High 98-107 [facility] Comment on above: Performed By: #### L 300.8000, L500.2500, L503.6620, L100.0100, L501.4020 #### [facility] [address] [place], [address] CO2 [Moles/Vol] 29.0 mmol/L Normal 21.0-32.0 [facility] Comment on above: Performed By: #### L 300.8000, L500.2500, L503.6620, L100.0100, L501.4020 #### [facility] [address] [place], [address] Creatinine [Mass/Vol] 0.94 mg/dL Normal 0.55-1.02 [facility] Comment on above: Result Comment: The validity of the calculated GFR GFRAA in patients over 70 years has not been determined. Clinical correlation is essential. Performed By: #### L 300.8000, L500.2500, L503.6620, L100.0100, L501.4020 #### [facility] [address] [place], [address] EST GFR - AA 77 mL/min Normal >60 [facility] Comment on above: Result Comment: Afri can Tristanian GFR Calc Performed By: #### L 300.8000, L500.2500, L503.6620, L100.0100, L501.4020 #### [facility] [address] [place], [address] GAP 3 Low 5-15 [facility] Comment on above: Performed By: #### L 300.8000, L500.2500, L503.6620, L100.0100, L501.4020 #### [facility] [address] [place], [address] GFR/1.73 sq M.predicted among non-blacks MDRD (S/P/Bld) [Vol rate/Area] 64 mL/min/{1.73_m2} Normal >60 [facility] Comment on above: Result Comment: Non- GFR Calc Performed By: #### L 300.8000, L500.2500, L503.6620, L100.0100, L501.4020 #### [facility] [address] [place], [address] Glucose [Mass/Vol] 126 mg/dL High 74-106 [facility] Comment on above: Result Comment: Fast ing Glucose result greater than or equal to 126 mg/dL suggests DIABETES MELLITUS per A.D.A. criteria. Performed By: #### L 300.8000, L500.2500, L503.6620, L100.0100, L501.4020 #### [facility] [address] [place], [address] Potassium [Moles/Vol] 5.2 mmol/L High 3.5-5.1 [facility] Comment on above: Performed By: #### L 300.8000, L500.2500, L503.6620, L100.0100, L501.4020 #### [facility] [address] [place], [address] Sodium [Moles/Vol] 140 mmol/L Normal 136-145 [facility] Comment on above: Performed By: #### L 300.8000, L500.2500, L503.6620, L100.0100, L501.4020 #### [facility] [address] [place], [address] Urea nitrogen [Mass/Vol] 17 mg/dL Normal 7-18 [facility] Comment on above: Performed By: #### L 300.8000, L500.2500, L503.6620, L100.0100, L501.4020 #### [facility] [address] [place], [address] Blood urea nitrogen (BUN)/cr eatinine ratioOrdered By: Mary Gomez on 10-19-2024 Urea nitrogen/Creatinine [Mass ratio] 18.1 mg/mg 10-20 [facility] Carbon dioxide measurementOr dered By: Mary Gomez on 10-19-2024 CO2 [Moles/Vol] 29.0 mmol/L 21.0-32.0 [facility] Chloride measurementOrdered By: Mary Gomez on 10-19-2024 Chloride [Moles/Vol] 108 mmol/L High 98-107 [facility] Estimated glomerular filtrat ion rate (GFR) AmericanOrdered By: Mary Gomez on 10-19-2024 Estimated GFR (MDRD) Amer 77 mL/min >60 [facility] Comment on above: GFR Calc Glomerular filtration rate ( GFR) estimationOrdered By: Mary Gomez on 12-23-2024 Estimated GFR (MDRD) Non-Af Amer 64 mL/min >60 [facility] Comment on above: Non- GFR Calc Glucose measurementOrdered B y: Mary Gomez on 10-19-2024 Glucose [Mass/Vol] 126 mg/dL High 74-106 [facility] Comment on above: Fasting Glucose resu lt greater than or equal to 126 mg/dL suggests DIABETES MELLITUS per A.D.A. criteria. Potassium measurementOrdered By: Mary Gomez on 10-19-2024 Potassium [Moles/Vol] 5.2 mmol/L High 3.5-5.1 [facility] Serum anion gap measurementO rdered By: Mary Gomez on 10-19-2024 Anion gap [Moles/Vol] 3 mmol/L Low 5-15 [facility] Serum or plasma calcium bennett urement (mass/volume)Ordered By: Mary Gomez on 10-19-2024 Calcium [Mass/Vol] 9.4 mg/dL 8.5-10.1 [facility] Serum or plasma creatinine m easurement (mass/volume)Ordered By: Mary Gomez on 10-19-2024 Creatinine [Mass/Vol] 0.94 mg/dL 0.55-1.02 [facility] Comment on above: The validity of the calculated GFR & GFRAA in patients over 70 years has not been determined. Clinical correlation is essential. Serum or plasma urea nitroge n measurement (mass/volume)Ordered By: Mary Gomez on 10-19-2024 Urea nitrogen [Mass/Vol] 17 mg/dL - [facility] Sodium levelOrdered By: Fly Gomez on 10-19-2024 Sodium [Moles/Vol] 140 mmol/L 136-145 [facility] Echo Limited w/Contraston Echo Limited w/Contrast [facility] [address] [place] [address] Echo Limited w/Contrast 10/14/24 1301 MR#: [id number] Acct: [id number] Name: STEPHANY MENARD Ibrahima Rep #: [id number] : 1960 64 From: Manjeet Zapata MD Attending Dr: Dr. Kimo Bernardo MD Status: FIDEL DUMONT Ordering Dr: Kimo Bernardo MD Date: 10/14/24 Location: [facility] Sex: F C Admitted: Reason For Study: CONGESTIVE HEART FAILURE Procedure This was a limited 2D transthoracic echocardiogram. The study was technically difficult. Contrast injection was performed. Exam performed in department. Left Ventricle Severely dilated left ventricle. The left ventricular ejection fraction is 20 %. There is severe global hypokinesis of the left ventricle. Right Ventricle Normal RV size. Normal systolic function. Atria Normal left atrium. Normal right atrium. Mitral Valve Normal mitral valve. Mild (1+) eccentric mitral valve insufficiency. Tricuspid Valve Normal tricuspid valve. Aortic Valve Trisinus/trileaflet aortic valve. Mild (1+) eccentric aortic valve insufficiency. Pulmonic Valve Normal pulmonic valve. Great Vessels Normal aortic root. The pulmonary artery is normal size. Normal inferior vena cava. Pericardium/Pleural No pericardial effusion. Medication 22 gauge I.V. with prn adaptor inserted into right arm. Diluted definity 2.5ml given slow IV push to enhance endocardial definition. MMode/2D Measurements Calculations LVIDd: 6.7 cm IVSd: 0.80 cm LVOT diam: 1.9 cm LVIDs: 6.0 cm LVPWd: 0.99 cm RVDd: 2.8 cm FS: 10.7 % LVOT area: 2.9 cm2 LAV(MOD-bp): 36.5 ml LVAd ap4: 50.4 cm2 LVAd ap2: 47.9 cm2 LAV(MOD-bp) Indexed: 23.8 ml/m2 LVLd ap4: 9.1 cm LVLd ap2: 8.6 cm LAV(MOD-sp2): 44.6 ml EDV(MOD-sp4): 232.9 ml EDV(MOD-sp2): 217.0 ml LAV(MOD-sp4): 29.3 ml EDV(sp4-el): 236.4 ml EDV(sp2-el): 228.1 ml LVAs ap4: 44.3 cm2 LVAs ap2: 42.2 cm2 LVLs ap4: 8.4 cm LVLs ap2: 7.8 cm ESV(MOD-sp4): 196.1 ml ESV(MOD-sp2): 188.7 ml ESV(sp4-el): 199.3 ml ESV(sp2-el): 193.1 ml EF(MOD-sp4): 15.8 % EF(MOD-sp2): 13.0 % EF(sp4-el): 15.7 % SV(MOD-sp4): 36.8 ml SV(MOD-sp2): 28.3 ml SV(sp4-el): 37.1 ml SI(MOD-sp4): 24.0 ml/m2 SI(MOD-sp2): 18.4 ml/m2 Ao sinus diam: 3.3 cm LA A4 area: 12.8 cm2 LA dimension(2D): 3.7 cm TAPSE: 1.5 cm RA A4 area: 9.3 cm2 Time Measurements MV dec time: 0.15 sec Doppler Measurements Calculations MV E max sukh: 40.4 cm/sec Lat Peak E' Sukh: 3.7 cm/sec Med Peak E' Sukh: 4.0 cm/sec MV A max sukh: 97.1 cm/sec E/E' lat: 10.9 E/E' med: 10.1 MV E/A: 0.42 MV dec slope: 273.0 cm/sec2 AI max sukh: 420.7 cm/sec AI max P.8 mmHg AI dec slope: 270.4 cm/sec2 AI P1/2t: 455.8 msec ECHO/Echo Limited w/Contrast Interpretation Summary There is severe global hypokinesis of the left ventricle. Mild (1+) eccentric mitral valve insufficiency. The left ventricular ejection fraction is 20 %. Mild (1+) eccentric aortic valve insufficiency. Severely dilated left ventricle. Contrast injection was performed. Ordering Physician: Kimo Bernardo Referring Physician: Kimo Bernardo Performed By: Acacia Roth RDCS 10/14/24 0827 Date Manjeet Zapata MD CC: Dr. Kimo Bernardo MD; No Primary Care Physician Date Dictated: 10/14/24 1301 Date Transcribed: 10/14/241646 Technical Professional: Signed Normal [facility] Venous Duplex US, Unilateral on 08-26-2024 Venous Duplex US, Unilateral [facility] [address] [place] [address] Venous Duplex US, Unilateral 08/26/24 1243 MR#: [id number] Acct: [id number] Name: STEPHANY MENARD Rep #: [id number] : 1960 64 From: Brent Cam MD Attending Dr: Dr. Kimo Bernardo MD Status: RE G CLI Ordering Dr: Kimo Bernardo MD Date: 08/26/24 Location: [facility] Sex: F C Admitted: Reason For Study: Left leg swelling RIGHT LEFT CFV is compressible, spontaneous, phasic, GSV is normal. competent and demonstrates normal CFV is compressible, spontaneous, phasic, augmentation. competent, and demonstrates normal Procedure augmentation. This is a venous duplex using B-mode, color FV is compressible, spontaneous, phasic, flow and spectral Doppler. competent and demonstrates normal Exam performed in department. augmentation. A preliminary report was called and/or faxed POP V is compressible, spontaneous, phasic, to [facility] RN Voicemail. competent and demonstrates normal augmentation. T/P Trunk is compressible. PTV is compressible. LT PerV is compressible. VL/Venous Duplex US, Unilateral Interpretation Summary Deep veins of the left lower extremity are patent and compressible segmentally. There is no evidence of left lower extremity deep vein thrombosis. The left great saphenous vein appears patent and compressible segmentally. Ordering Physician: Kimo Bernardo Performed By: Zaida Rao RVT 08/26/24 1643 Date Brent Cam MD CC: Dr. Kimo Bernardo MD; No Primary Care Physician Date Dictated: 08/26/24 1243 Date Transcribed: 08/26/24 1643 Technical Professional: Signed Normal [facility] L5000.0010on 08-15-2024 BNP Normal [facility] Comment on above: Result Comment: TEST RESULTS LIMITS B-Type Natriuretic Peptide 1157.9 High pg/mL 0.0-100.0 Siemens ADVIA Joobiliaur XP methodology [facility] ORIGINAL REPORT ON FILE IN LAB CONTAINS ADDITIONAL TEST SITE INFORMATION. Performed By: #### L 300.8000, L500.2500, L503.6620, L100.0100, L501.4020 #### [facility] [address] [place], [address] 12 Lead EKG performed by [facility] on 08-12-2024 12 Lead EKG performed by [facility] [address] [place] [address] 12 Lead EKG performed by [facility] 08/12/24 0805 MR#: [id number] Acct: [id number] Name: STEPHANY MENARD Ibrahima Rep #: [id number] : 1960 64 From: Kimo Bernardo MD Attending Dr: Dr. Kimo Bernardo MD Status: DE P AMB Ordering Dr: Kimo Bernardo MD Date: 08/12/24 [place] [facility] Sex: F C Admitted: [facility]/12 Lead EKG performed by [facility] ECG Report Interpretation ----Sinus Rhythm -Nonspecific ST depression + Nonspecific T-abnormality -Nondiagnostic. ABNORMAL Electronically signed on 08/12/2024 at 10:[address] Kimo [place]wood Software Version [id number] 08/12/24 1037 Date Kimo Bernardo MD CC: No Primary Care Physician Date Dictated: 08/12/24804 Date Transcribed: 08/12/24804 Technical Professional: Signed Normal [facility] Basic Metabolic Profile (BMP )on 08-12-2024 BUN/CRE 26.1 RATIO High 10-20 [facility] Comment on above: Performed By: #### L 300.8000, L500.2500, L503.6620, L100.0100, L501.4020 #### [facility] [address] [place], [address] CA,Total 9.4 mg/dL Normal 8.5-10.1 [facility] Comment on above: Performed By: #### L 300.8000, L500.2500, L503.6620, L100.0100, L501.4020 #### [facility] [address] [place], [address] Chloride [Moles/Vol] 102 mmol/L Normal 98-107 [facility] Comment on above: Performed By: #### L 300.8000, L500.2500, L503.6620, L100.0100, L501.4020 #### [facility] [address] [place], [address] CO2 [Moles/Vol] 32.0 mmol/L Normal 21.0-32.0 [facility] Comment on above: Performed By: #### L 300.8000, L500.2500, L503.6620, L100.0100, L501.4020 #### [facility] [address] [place], [address] Creatinine [Mass/Vol] 1.15 mg/dL High 0.55-1.02 [facility] Comment on above: Result Comment: The validity of the calculated GFR GFRAA in patients over 70 years has not been determined. Clinical correlation is essential. Performed By: #### L 300.8000, L500.2500, L503.6620, L100.0100, L501.4020 #### [facility] [address] [place], [address] EST GFR - AA 61 mL/min Normal >60 [facility] Comment on above: Result Comment: Afri can Tristanian GFR Calc Performed By: #### L 300.8000, L500.2500, L503.6620, L100.0100, L501.4020 #### [facility] [address] [place], [address] GAP 5 Normal 5-15 [facility] Comment on above: Performed By: #### L 300.8000, L500.2500, L503.6620, L100.0100, L501.4020 #### [facility] [address] [place], [address] GFR/1.73 sq M.predicted among non-blacks MDRD (S/P/Bld) [Vol rate/Area] 51 mL/min/{1.73_m2} Low >60 [facility] Comment on above: Result Comment: Non- GFR Calc Performed By: #### L 300.8000, L500.2500, L503.6620, L100.0100, L501.4020 #### [facility] [address] [place], [address] Glucose [Mass/Vol] 102 mg/dL Normal 74-106 [facility] Comment on above: Result Comment: Fast ing Glucose result from 100 to 125 mg/dL suggests IMPAIRED HOMEOSTASIS per A.D.A. criteria. Performed By: #### L 300.8000, L500.2500, L503.6620, L100.0100, L501.4020 #### [facility] [address] [place], [address] Potassium [Moles/Vol] 4.6 mmol/L Normal 3.5-5.1 [facility] Comment on above: Performed By: #### L 300.8000, L500.2500, L503.6620, L100.0100, L501.4020 #### [facility] [address] [place], [address] Sodium [Moles/Vol] 139 mmol/L Normal 136-145 [facility] Comment on above: Performed By: #### L 300.8000, L500.2500, L503.6620, L100.0100, L501.4020 #### [facility] [address] [place], [address] Urea nitrogen [Mass/Vol] 30 mg/dL High 7-18 [facility] Comment on above: Performed By: #### L 300.8000, L500.2500, L503.6620, L100.0100, L501.4020 #### [facility] [address] [place], [address] CBC-Complete Blood Cnt No Di ffon 08-12-2024 Erythrocyte distribution width (RBC) [Ratio] 15.1 % High 11.6-14.6 [facility] Comment on above: Performed By: #### L 300.8000, L500.2500, L503.6620, L100.0100, L501.4020 #### [facility] [address] [place], [address] Hematocrit (Bld) [Volume fraction] 34.3 % Low 37-47 [facility] Comment on above: Performed By: #### L 300.8000, L500.2500, L503.6620, L100.0100, L501.4020 #### [facility] [address] [place], [address] Hemoglobin (Bld) [Mass/Vol] 11.0 g/dL Low 12.0-15.0 [facility] Comment on above: Performed By: #### L 300.8000, L500.2500, L503.6620, L100.0100, L501.4020 #### [facility] [address] [place], [address] MCH (RBC) [Entitic mass] 32.5 pg High 27.0-32.0 [facility] Comment on above: Performed By: #### L 300.8000, L500.2500, L503.6620, L100.0100, L501.4020 #### [facility] [address] [place], [address] MCHC (RBC) [Mass/Vol] 32.1 g/dL Normal 32-36 [facility] Comment on above: Performed By: #### L 300.8000, L500.2500, L503.6620, L100.0100, L501.4020 #### [facility] [address] [place], [address] MCV (RBC) [Entitic vol] 101.5 fL High 81-99 [facility] Comment on above: Performed By: #### L 300.8000, L500.2500, L503.6620, L100.0100, L501.4020 #### [facility] [address] [place], [address] Platelet mean volume (Bld) [Entitic vol] 9.3 fL Normal 6.2-12.0 [facility] Comment on above: Performed By: #### L 300.8000, L500.2500, L503.6620, L100.0100, L501.4020 #### [facility] [address] [place], [address] Platelets (Bld) [#/Vol] 314 10*3/uL Normal 150-450 [facility] Comment on above: Performed By: #### L 300.8000, L500.2500, L503.6620, L100.0100, L501.4020 #### [facility] [address] [place], [address] RBC (Bld) [#/Vol] 3.38 10*6/uL Low 4.2-5.4 [facility] Comment on above: Performed By: #### L 300.8000, L500.2500, L503.6620, L100.0100, L501.4020 #### [facility] [address] [place], [address] RDW SD 55.9 fl High 35.1-43.9 [facility] Comment on above: Performed By: #### L 300.8000, L500.2500, L503.6620, L100.0100, L501.4020 #### [facility] [address] [place], [address] WBC (Bld) [#/Vol] 5.2 10*3/uL Normal 4.4-11.0 [facility] Comment on above: Performed By: #### L 300.8000, L500.2500, L503.6620, L100.0100, L501.4020 #### [facility] [address] [place], [address] Cardiology Visit Reporton Cardiology Visit Report [facility] [address] [place] [address] OFFICE VISIT Date of Service: 08/12/24 MR#: [id number] Acct: [id number] Name: STEPHANY MENARD Rep #: [id number] : 1960 Provider: Dr. Kimo pierce MD Age/Sex: 64/F [place] [facility] Status: Signed with Addenda ADDENDUM by Dr. Kimo Bernardo MD on 08/12/24 at 1035 HPI History of Present Illness Details: ECG done in the office today shows normal sinus rhythm at 79 bpm [address] minor nonspecific [address]-T wave changes. Assessment and Plan Assessment and Plan (1) CHF (congestive heart failure): Status: Acute Qualifiers: Heart failure type: unspecified Heart failure chronicity: acute Qualified Code(s): I50.9 - Heart failure, unspecified (2) Lower extremity edema: Status: Acute (3) Hypoxemia: Status: Acute Orders: Orders 12 Lead EKG performed by BMS Today I50.9 - Heart failure, unspecified Echo, Limited Study 2 Months I50.9 - Heart failure, unspecified Venous Duplex US, Unilateral 2 Weeks R60.0 - Localized edema Basic Metabolic Profile (BMP) Today I50.9 - Heart failure, unspecified BNP,B-Type NATRIURETIC PEPTIDE Today I50.9 - Heart failure, unspecified CBC-Complete Blood Cnt No Diff Today I50.9 - Heart failure, unspecified Magnesium Today I50.9 - Heart failure, unspecified Plan Details Follow Up: 3 Months (With [facility] and as needed) 08/12/24 1035 Date Kimo Bernardo MD cc: * Signed HPI HPI History of Present Illness Details: Patient comes in today for posthospital visit. She is a 64-year-old white female with a history of severe COPD and a nonischemic cardiomyopathy diagnosed when she was hospitalized July 21, 2024. The patient has suffered a significant viral infection approximately 3 to 4 weeks prior to admission. She came in with progressive shortness of breath and echocardiogram showed she had global severe LV dysfunction EF estimated at 14%. She had 1+ tricuspid insufficiency and a small pericardial effusion. She had a CTA done on admission which showed no evidence of pulmonary embolus bilateral pleural effusions and bilateral lower lobe consolidation which was thought to possibly represent pneumonia. There was no pericardial effusion documented on the CT. The patient continues on her home oxygen which she gets 4 L nasal cannula this was present prior to her recent hospitalization. She is also has a history of hypothyroidism on replacement. The patient's TSH was 50 on admission and she was started on replacement therapy. The patient's last blood work showed a hemoglobin 11.0. Sodium was 134 potassium 4.6 BUN 20 creatinine 1.28 with a GFR of 45. Her magnesium was 2.5 and calcium 8.8. The patient was discharged on magnesium replacement. The patient does complain of unilateral left lower extremity edema. This is dependent edema by her report it is gone when she first gets up in the morning and quickly occurs. She has tried compression socks and this only made the edema occur much more prominently higher above the compression socks. She has been treated with wraps in the past as well. This is not a new phenomenon. Intake Vital Signs 07/27/24 09:53 08/03/24 07:43 08/12/24 09:55 08/12/24 09:59 Height 5 ft 6 in 5 ft 6 in 5 ft 6 in 5 ft 6 in Weight: 121 lb 126 lb BMI 19.5 20.3 BP 100/63 112/74 Blood Pressure Location Rt brachial Rt brachial Position Sitting Sitting Respiration 18 18 Pulse 88 76 Pulse Source Monitor Monitor Temp 96.4 F L Temperature Source Temporal Artery Pulse Oximetry (%) 98 93 Oxygen Delivery Method nasal canula nasal canula Oxygen Flow Rate (L/min) 4 4 Comment pulse ox per pt machine Intake Visit Reasons: S/P [facility] 07/26 [facility] Social Worker Assistant Required: No Is patient in pain?: No Allergies Penicillins (PCN) Allergy (Verified 08/12/24 09:54) Anaphylaxis Medications ???Medication ???Instructions ???Recorded ???Confirmed ???Type ipratropium bromide 21 mcg (0.03 2 spray intranasal BID #30 mL 01/21/24 08/12/24 Rx %) nasal spray albuterol sulfate 90 mcg/actuation 2 puff inhalation Q6H PRN 02/03/24 08/12/24 Rx aerosol inhaler (ProAir HFA) shortness of breath or wheezing #8.5 grams fluticasone fur. 200 mcg-umeclid 1 ea inhalation QDAY #1 ea 02/03/24 08/12/24 Rx 62.5 mcg-vilant 25 mcg inhalat.powder (Trelegy Ellipta) carvedilol 3.125 mg tablet 3.125 mg PO BIDCM #60 tabs 07/27/24 08/12/24 Rx furosemide 40 mg tablet 40 mg PO DAILY #30 tabs 07/27/24 08/12/24 Rx levothyroxine 88 mcg capsule 88 mcg PO DAILY #30 caps 07/27/24 08/12/24 Rx losartan 25 mg tablet 25 mg PO DAILY #30 tabs 07/27/24 08/12/24 Rx magnesium chloride 64 mg 128 mg (2 x 64 mg) PO BID #60 tabs 07/27/24 08/12/24 Rx (magnesium c (more content not included)... Normal [facility] Magnesiumon 08-12-2024 Magnesium [Mass/Vol] 2.6 mg/dL Normal 1.6-2.6 [facility] Comment on above: Performed By: #### L 300.8000, L500.2500, L503.6620, L100.0100, L501.4020 #### [facility] [address] [place], [address] Pulmonary Visit Reporton Pulmonary Visit Report [facility] [place] [address] [place] [address] OFFICE VISIT Date of Service: 08/03/24 MR#: [id number] Acct: [id number] Name: STEPHANY MENARD Rep #: [id number] : 1960 Provider: ROMEL Batres Age/Sex: 64/F Location: [facility] Status: Signed Assessment and Plan Assessment and Plan (1) COPD (chronic obstructive pulmonary disease) with emphysema: Status: Chronic Qualifiers: Emphysema type: centrilobular Qualified Code(s): J43.2 - Centrilobular emphysema Plan: Stable, she does not appear to be an exacerbation of COPD today. No need for prednisone or antibiotic. She was previously on Trelegy which was discontinued during her recent hospital stay, I have encouraged her to restart Trelegy. Repeat pulmonary function test, it has been quite sometime since we assessed the patient's COPD stage, I suspect it has progressed. Contact the office for any new or worsening symptoms. An acute visit and typically be arranged within 1-2 days. Follow-up in 3 months. I offered in the annual influenza vaccination, the patient declined and stated I really do not want any more medications and I need right now. (2) Hypoxia: Status: Chronic Plan: She is using and benefiting from supplemental oxygen. She has been encouraged to continue to titrate as needed to maintain saturations 89 to 92%. (3) Smoking greater than 40 pack years: Status: Chronic Comment: quit 10/2022 Plan: Encourage ongoing smoking cessation. The patient would have been due for an LDCT in December, however her recent hospitalization she had a CTA of the chest. It did show bilateral pleural effusions. If the pulmonary function test also indicates residual pleural effusion, by showing either a mixed restrictive and obstructive impairment or showing a restrictive impairment, then we may need to reevaluate by repeating a CT of the chest. She is not due for the LDCT in December at this point. Continue to encourage ongoing smoking cessation. (4) Acute systolic heart failure: Status: Acute Plan: Complicates exam, plan, care and prognosis. I will hold off on repeating the pulmonary function test until the patient is more stable from a cardiac standpoint. Orders: Orders Pulmonary Function Test (Comp) 12/26/24 J43.2 - Centrilobular emphysema Plan Details Follow Up: 3 Months ([facility]) HPI 6 M FU Chief Complaint: Shortness of breath HPI Comments Details: This patient presents to the office today for follow-up of her COPD with hypoxia. She is ambulatory and currently on supplemental oxygen. She is accompanied today by family member. She has not recently been seen in the ED or urgent care for any respiratory illness, was recently hospitalized for new onset of acute hypoxic respiratory failure.. She has not recently been prescribed antibiotics or steroids for her breathing. She has not recently been using Trelegy. She reports that it was discontinued during her recent hospital stay. She was told to talk about it with you to see if she needed to go back on the medication. She states that shortness of breath has not progressed since stopping Trelegy. She does occasionally utilize albuterol. She is compliant with supplemental oxygen wearing 4 L/min at all times including with sleep. She continues complete smoking cessation. If you recall, she quit smoking completely in January 2024. She denies shortness of breath. She has an occasional cough productive of yellow-colored sputum. She denies any hemoptysis. She denies any wheezing, chest tightness, chest pain or palpitations. She has not had any fever, chills or body aches. 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 200 mcg-umeclid 1 ea inhalation QDAY #1 ea 02/03/24 08/03/24 Rx 62.5 mcg-vilant 25 mcg inhalat.powder (Trelegy Ellipta) carvedilol 3.125 mg tablet 3.125 mg PO BIDCM #60 tabs 07/27/24 08/03/24 R (more content not included)... Normal [facility] Culture, Blood (WB)on 2023 CUB Blood cultures x2, from two different sites No growth in 5 days. Normal [facility] Comment on above: Performed By: #### L 300.8000, L500.2500, L503.6620, L100.0100, L501.4020 #### [facility] [address] [place], [address] Discharge Instructionon 06-[address] [facility] Medical Records Department [address] [place] [address] Instructions for Home/Discharge Instructions 07/27/24 1700 MR#: [id number] Acct: [id number] Name: STEPHANY MENARD Rep #: [id number] : 1960 64 From: Luis Howard DO PCP: Care Physician,No Primary Status:ADM IN Discharge Instructions Diet Discharge Diet: No restrictions Activity Discharge Activity: Return to Normal Activity Weight Bearing Status: Full weight bearing Additional Activity Instructions:: Be on the look out for any lightheadedness while walking, if you feel lightheaded please sit down Follow Up Care Test Results: Test results from this visit will be discussed in further detail at your follow-up appointment, if applicable. Discharge Plan Admission Admit Date/Time: 07/21/24 20:43 Primary Reason for Your Visit: Congestive heart failure Attending Provider: Luis Howard Primary Care Provider: Care Physician,No Primary Consulting Providers: Yaakov Gonzalez; Kimo Bernardo; Manuel Ross Instructions Additional Instructions / Restrictions: Use 4 L of oxygen at rest, 5 L of oxygen while ambulating Discharge Orders/Prescriptions Prescriptions: New furosemide 40 mg Tablet 40 mg PO DAILY Qty: 30 0RF carvedilol 3.125 mg Tablet 3.125 mg PO BIDCM Qty: 60 0RF potassium chloride 20 mEq Tablet,Er Particles/Crystals 20 meq PO BID Qty: 60 0RF losartan 25 mg Tablet 25 mg PO DAILY Qty: 30 0RF magnesium chloride [Mag 64] 64 mg Tablet,Delayed Release (Dr/Ec) 128 mg PO BID Qty: 60 0RF levothyroxine 88 mcg capsule 88 mcg PO DAILY Qty: 30 0RF Continued Trelegy Ellipta 200-62.5-25 mcg blister with device 1 ea inhalation QDAY Qty: 1 11RF albuterol sulfate [ProAir HFA] 90 mcg/actuation HFA aerosol inhaler 2 puff inhalation Q6H PRN (Reason: shortness of breath or wheezing) Qty: 8.5 5RF ipratropium bromide 21 mcg (0.03 %) spray,non-aerosol 2 spray intranasal BID Qty: 30 3RF Rx Instructions: administer into each nostril Referrals / Follow Up: Care Physician,No Primary [Primary Care Provider] - Disposition Disposition (needs filled in before D/C Order can be placed): Home, Self Care 07/27/24 1707 Luis Howard DO CC: Dr. Yaakov Gonzalez DO; Dr. Kimo Bernardo MD; Dr. Manuel Ross MD; No Primary Care Physician Signed Normal [facility] Basic Metabolic Profile (BMP )on 07-26-2024 BUN/CRE 15.6 RATIO Normal 10-20 [facility] Comment on above: Performed By: #### L 300.8000, L500.2500, L503.6620, L100.0100, L501.4020 #### [facility] [address] [place], [address] CA,Total 8.8 mg/dL Normal 8.5-10.1 [facility] Comment on above: Performed By: #### L 300.8000, L500.2500, L503.6620, L100.0100, L501.4020 #### [facility] [address] [place], [address] Chloride [Moles/Vol] 100 mmol/L Normal 98-107 [facility] Comment on above: Performed By: #### L 300.8000, L500.2500, L503.6620, L100.0100, L501.4020 #### [facility] [address] [place], [address] CO2 [Moles/Vol] 29.0 mmol/L Normal 21.0-32.0 [facility] Comment on above: Performed By: #### L 300.8000, L500.2500, L503.6620, L100.0100, L501.4020 #### [facility] [address] [place], [address] Creatinine [Mass/Vol] 1.28 mg/dL High 0.55-1.02 [facility] Comment on above: Result Comment: The validity of the calculated GFR GFRAA in patients over 70 years has not been determined. Clinical correlation is essential. Performed By: #### L 300.8000, L500.2500, L503.6620, L100.0100, L501.4020 #### [facility] [address] [place], [address] ECRCL 40.29 ml/min Normal [facility] Comment on above: Performed By: #### L 300.8000, L500.2500, L503.6620, L100.0100, L501.4020 #### [facility] [address] [place], [address] EST GFR - AA 54 mL/min Low >60 [facility] Comment on above: Result Comment: Afri can Tristanian GFR Calc Performed By: #### L 300.8000, L500.2500, L503.6620, L100.0100, L501.4020 #### [facility] [address] [place], [address] GAP 5 Normal 5-15 [facility] Comment on above: Performed By: #### L 300.8000, L500.2500, L503.6620, L100.0100, L501.4020 #### [facility] [address] [place], [address] GFR/1.73 sq M.predicted among non-blacks MDRD (S/P/Bld) [Vol rate/Area] 45 mL/min/{1.73_m2} Low >60 [facility] Comment on above: Result Comment: Non- GFR Calc Performed By: #### L 300.8000, L500.2500, L503.6620, L100.0100, L501.4020 #### [facility] [address] [place], [address] Glucose [Mass/Vol] 101 mg/dL Normal 74-106 [facility] Comment on above: Result Comment: Fast ing Glucose result from 100 to 125 mg/dL suggests IMPAIRED HOMEOSTASIS per A.D.A. criteria. Performed By: #### L 300.8000, L500.2500, L503.6620, L100.0100, L501.4020 #### [facility] [address] [place], [address] Potassium [Moles/Vol] 4.6 mmol/L Normal 3.5-5.1 [facility] Comment on above: Performed By: #### L 300.8000, L500.2500, L503.6620, L100.0100, L501.4020 #### [facility] [address] [place], [address] Sodium [Moles/Vol] 134 mmol/L Low 136-145 [facility] Comment on above: Performed By: #### L 300.8000, L500.2500, L503.6620, L100.0100, L501.4020 #### [facility] [address] [place], [address] Urea nitrogen [Mass/Vol] 20 mg/dL High 7-18 [facility] Comment on above: Performed By: #### L 300.8000, L500.2500, L503.6620, L100.0100, L501.4020 #### [facility] [address] [place], [address] Basic Metabolic Profile (BMP )on 07-25-2024 BUN/CRE 15.3 RATIO Normal 10-20 [facility] Comment on above: Performed By: #### L 300.8000, L500.2500, L503.6620, L100.0100, L501.4020 #### [facility] [address] [place], [address] CA,Total 8.8 mg/dL Normal 8.5-10.1 [facility] Comment on above: Performed By: #### L 300.8000, L500.2500, L503.6620, L100.0100, L501.4020 #### [facility] [address] [place], [address] Chloride [Moles/Vol] 100 mmol/L Normal 98-107 [facility] Comment on above: Performed By: #### L 300.8000, L500.2500, L503.6620, L100.0100, L501.4020 #### [facility] [address] [place], [address] CO2 [Moles/Vol] 30.0 mmol/L Normal 21.0-32.0 [facility] Comment on above: Performed By: #### L 300.8000, L500.2500, L503.6620, L100.0100, L501.4020 #### [facility] [address] [place], [address] Creatinine [Mass/Vol] 1.31 mg/dL High 0.55-1.02 [facility] Comment on above: Result Comment: The validity of the calculated GFR GFRAA in patients over 70 years has not been determined. Clinical correlation is essential. Performed By: #### L 300.8000, L500.2500, L503.6620, L100.0100, L501.4020 #### [facility] [address] [place], [address] ECRCL 39.50 ml/min Normal [facility] Comment on above: Performed By: #### L 300.8000, L500.2500, L503.6620, L100.0100, L501.4020 #### [facility] [address] [place], [address] EST GFR - AA 53 mL/min Low >60 [facility] Comment on above: Result Comment: Afri can Tristanian GFR Calc Performed By: #### L 300.8000, L500.2500, L503.6620, L100.0100, L501.4020 #### [facility] [address] [place], [address] GAP 5 Normal 5-15 [facility] Comment on above: Performed By: #### L 300.8000, L500.2500, L503.6620, L100.0100, L501.4020 #### [facility] [address] [place], [address] GFR/1.73 sq M.predicted among non-blacks MDRD (S/P/Bld) [Vol rate/Area] 44 mL/min/{1.73_m2} Low >60 [facility] Comment on above: Result Comment: Non- GFR Calc Performed By: #### L 300.8000, L500.2500, L503.6620, L100.0100, L501.4020 #### [facility] [address] [place], [address] Glucose [Mass/Vol] 87 mg/dL Normal 74-106 [facility] Comment on above: Performed By: #### L 300.8000, L500.2500, L503.6620, L100.0100, L501.4020 #### [facility] [address] [place], [address] Potassium [Moles/Vol] 4.4 mmol/L Normal 3.5-5.1 [facility] Comment on above: Performed By: #### L 300.8000, L500.2500, L503.6620, L100.0100, L501.4020 #### [facility] [address] [place], [address] Sodium [Moles/Vol] 135 mmol/L Low 136-145 [facility] Comment on above: Performed By: #### L 300.8000, L500.2500, L503.6620, L100.0100, L501.4020 #### [facility] [address] [place], [address] Urea nitrogen [Mass/Vol] 20 mg/dL High 7-18 [facility] Comment on above: Performed By: #### L 300.8000, L500.2500, L503.6620, L100.0100, L501.4020 #### [facility] [address] [place], [address] CBC W/Diff, Automatedon 09-2 Absolute Lymph 0.83 X10 3/uL Normal 0.83-4.51 [facility] Comment on above: Performed By: #### L 300.8000, L500.2500, L503.6620, L100.0100, L501.4020 #### [facility] [address] [place], [address] Absolute Neut 3.2 X10 3/uL Normal 2.0-7.7 [facility] Comment on above: Performed By: #### L 300.8000, L500.2500, L503.6620, L100.0100, L501.4020 #### [facility] [address] [place], [address] Basophils/100 WBC (Bld) 0.4 % Normal 0-1 [facility] Comment on above: Performed By: #### L 300.8000, L500.2500, L503.6620, L100.0100, L501.4020 #### [facility] [address] [place], [address] Eosinophils/100 WBC (Bld) 0.4 % Normal 0-5 [facility] Comment on above: Performed By: #### L 300.8000, L500.2500, L503.6620, L100.0100, L501.4020 #### [facility] [address] [place], [address] Erythrocyte distribution width (RBC) [Ratio] 14.9 % High 11.6-14.6 [facility] Comment on above: Performed By: #### L 300.8000, L500.2500, L503.6620, L100.0100, L501.4020 #### [facility] [address] [place], [address] Hematocrit (Bld) [Volume fraction] 34.3 % Low 37-47 [facility] Comment on above: Performed By: #### L 300.8000, L500.2500, L503.6620, L100.0100, L501.4020 #### [facility] [address] [place], [address] Hemoglobin (Bld) [Mass/Vol] 11.0 g/dL Low 12.0-15.0 [facility] Comment on above: Performed By: #### L 300.8000, L500.2500, L503.6620, L100.0100, L501.4020 #### [facility] [address] [place], [address] IG% 0.200 Normal 0.0-0.9 [facility] Comment on above: Result Comment: IG% - Immature Granulocytes (promyelocytes, myelocytes and metamyelocytes) > 1% indicates that a LEFT SHIFT is Present. Performed By: #### L 300.8000, L500.2500, L503.6620, L100.0100, L501.4020 #### [facility] [address] [place], [address] Lymphocytes/100 WBC (Bld) 18.4 % Low 19-41 [facility] Comment on above: Performed By: #### L 300.8000, L500.2500, L503.6620, L100.0100, L501.4020 #### [facility] [address] [place], [address] MCH (RBC) [Entitic mass] 31.8 pg Normal 27.0-32.0 [facility] Comment on above: Performed By: #### L 300.8000, L500.2500, L503.6620, L100.0100, L501.4020 #### [facility] [address] [place], [address] MCHC (RBC) [Mass/Vol] 32.1 g/dL Normal 32-36 [facility] Comment on above: Performed By: #### L 300.8000, L500.2500, L503.6620, L100.0100, L501.4020 #### [facility] [address] [place], [address] MCV (RBC) [Entitic vol] 99.1 fL High 81-99 [facility] Comment on above: Performed By: #### L 300.8000, L500.2500, L503.6620, L100.0100, L501.4020 #### [facility] [address] [place], [address] Monocytes/100 WBC (Bld) 10.4 % High 0-10 [facility] Comment on above: Performed By: #### L 300.8000, L500.2500, L503.6620, L100.0100, L501.4020 #### [facility] [address] [place], [address] Neutrophils/100 WBC (Bld) 70.2 % High 47-70 [facility] Comment on above: Performed By: #### L 300.8000, L500.2500, L503.6620, L100.0100, L501.4020 #### [facility] [address] [place], [address] Nucleated RBC (Bld) [#/Vol] 0 10*3/uL Normal 0-5 [facility] Comment on above: Performed By: #### L 300.8000, L500.2500, L503.6620, L100.0100, L501.4020 #### [facility] [address] [place], [address] Platelet mean volume (Bld) [Entitic vol] 10.3 fL Normal 6.2-12.0 [facility] Comment on above: Performed By: #### L 300.8000, L500.2500, L503.6620, L100.0100, L501.4020 #### [facility] [address] [place], [address] Platelets (Bld) [#/Vol] 205 10*3/uL Normal 150-450 [facility] Comment on above: Performed By: #### L 300.8000, L500.2500, L503.6620, L100.0100, L501.4020 #### [facility] [address] [place], [address] RBC (Bld) [#/Vol] 3.46 10*6/uL Low 4.2-5.4 [facility] Comment on above: Performed By: #### L 300.8000, L500.2500, L503.6620, L100.0100, L501.4020 #### [facility] [address] [place], [address] RDW SD 54.0 fl High 35.1-43.9 [facility] Comment on above: Performed By: #### L 300.8000, L500.2500, L503.6620, L100.0100, L501.4020 #### [facility] [address] [place], [address] WBC (Bld) [#/Vol] 4.5 10*3/uL Normal 4.4-11.0 [facility] Comment on above: Performed By: #### L 300.8000, L500.2500, L503.6620, L100.0100, L501.4020 #### [facility] [address] [place], [address] Basic Metabolic Profile (BMP )on 07-24-2024 BUN/CRE 14.7 RATIO Normal 10-20 [facility] Comment on above: Performed By: #### L 500.2500 #### [facility] [address] [place], [address] CA,Total 8.9 mg/dL Normal 8.5-10.1 [facility] Comment on above: Performed By: #### L 500.2500 #### [facility] [address] [place], [address] Chloride [Moles/Vol] 101 mmol/L Normal 98-107 [facility] Comment on above: Performed By: #### L 500.2500 #### [facility] [address] [place], [address] CO2 [Moles/Vol] 30.0 mmol/L Normal 21.0-32.0 [facility] Comment on above: Performed By: #### L 500.2500 #### [facility] [address] [place], [address] Creatinine [Mass/Vol] 1.43 mg/dL High 0.55-1.02 [facility] Comment on above: Result Comment: The validity of the calculated GFR GFRAA in patients over 70 years has not been determined. Clinical correlation is essential. Performed By: #### L 500.2500 #### [facility] [address] [place], [address] ECRCL 34.00 ml/min Normal [facility] Comment on above: Performed By: #### L 500.2500 #### [facility] [address] [place], [address] EST GFR - AA 48 mL/min Low >60 [facility] Comment on above: Result Comment: Afri can Tristanian GFR Calc Performed By: #### L 500.2500 #### [facility] [address] [place], [address] GAP 7 Normal 5-15 [facility] Comment on above: Performed By: #### L 500.2500 #### [facility] [address] [place], [address] GFR/1.73 sq M.predicted among non-blacks MDRD (S/P/Bld) [Vol rate/Area] 39 mL/min/{1.73_m2} Low >60 [facility] Comment on above: Result Comment: Non- GFR Calc Performed By: #### L 500.2500 #### [facility] [address] [place], [address] Glucose [Mass/Vol] 85 mg/dL Normal 74-106 [facility] Comment on above: Performed By: #### L 500.2500 #### [facility] [address] [place], [address] Potassium [Moles/Vol] 4.0 mmol/L Normal 3.5-5.1 [facility] Comment on above: Performed By: #### L 500.2500 #### [facility] [address] [place], [address] Sodium [Moles/Vol] 138 mmol/L Normal 136-145 [facility] Comment on above: Performed By: #### L 500.2500 #### [facility] [address] [place], [address] Urea nitrogen [Mass/Vol] 21 mg/dL High 7-18 [facility] Comment on above: Performed By: #### L 500.2500 #### [facility] [address] [place], [address] Basic Metabolic Profile (BMP )on 07-23-2024 BUN/CRE 11.3 RATIO Normal 10-20 [facility] Comment on above: Performed By: #### L 500.2500 #### [facility] [address] [place], [address] CA,Total 9.1 mg/dL Normal 8.5-10.1 [facility] Comment on above: Performed By: #### L 500.2500 #### [facility] [address] [place], [address] Chloride [Moles/Vol] 100 mmol/L Normal 98-107 [facility] Comment on above: Performed By: #### L 500.2500 #### [facility] [address] [place], [address] CO2 [Moles/Vol] 31.0 mmol/L Normal 21.0-32.0 [facility] Comment on above: Performed By: #### L 500.2500 #### [facility] [address] [place], [address] Creatinine [Mass/Vol] 1.68 mg/dL High 0.55-1.02 [facility] Comment on above: Result Comment: The validity of the calculated GFR GFRAA in patients over 70 years has not been determined. Clinical correlation is essential. Performed By: #### L 500.2500 #### [facility] [address] [place], [address] ECRCL 36.14 ml/min Normal [facility] Comment on above: Performed By: #### L 500.2500 #### [facility] [address] [place], [address] EST GFR - AA 40 mL/min Low >60 [facility] Comment on above: Result Comment: Afri can Tristanian GFR Calc Performed By: #### L 500.2500 #### [facility] [address] [place], [address] GAP 6 Normal 5-15 [facility] Comment on above: Performed By: #### L 500.2500 #### [facility] [address] [place], [address] GFR/1.73 sq M.predicted among non-blacks MDRD (S/P/Bld) [Vol rate/Area] 33 mL/min/{1.73_m2} Low >60 [facility] Comment on above: Result Comment: Non- GFR Calc Performed By: #### L 500.2500 #### [facility] [address] [place], [address] Glucose [Mass/Vol] 103 mg/dL Normal 74-106 [facility] Comment on above: Result Comment: Fast ing Glucose result from 100 to 125 mg/dL suggests IMPAIRED HOMEOSTASIS per A.D.A. criteria. Performed By: #### L 500.2500 #### [facility] [address] [place], [address] Potassium [Moles/Vol] 4.2 mmol/L Normal 3.5-5.1 [facility] Comment on above: Performed By: #### L 500.2500 #### [facility] [address] [place], [address] Sodium [Moles/Vol] 137 mmol/L Normal 136-145 [facility] Comment on above: Performed By: #### L 500.2500 #### [facility] [address] [place], [address] Urea nitrogen [Mass/Vol] 19 mg/dL High 7-18 [facility] Comment on above: Performed By: #### L 500.2500 #### [facility] [address] [place], [address] CBC W/Diff, Automatedon -2 Absolute Lymph 0.91 X10 3/uL Normal 0.83-4.51 [facility] Comment on above: Performed By: #### L 500.2500 #### [facility] [address] [place], [address] Absolute Neut 1.6 X10 3/uL Low 2.0-7.7 [facility] Comment on above: Performed By: #### L 500.2500 #### [facility] [address] [place], [address] Basophils/100 WBC (Bld) 1.0 % Normal 0-1 [facility] Comment on above: Performed By: #### L 500.2500 #### [facility] [address] [place], [address] Eosinophils/100 WBC (Bld) 1.4 % Normal 0-5 [facility] Comment on above: Performed By: #### L 500.2500 #### [facility] [address] [place], [address] Erythrocyte distribution width (RBC) [Ratio] 15.0 % High 11.6-14.6 [facility] Comment on above: Performed By: #### L 500.2500 #### [facility] [address] [place], [address] Hematocrit (Bld) [Volume fraction] 32.5 % Low 37-47 [facility] Comment on above: Performed By: #### L 500.2500 #### [facility] [address] [place], [address] Hemoglobin (Bld) [Mass/Vol] 10.4 g/dL Low 12.0-15.0 [facility] Comment on above: Performed By: #### L 500.2500 #### [facility] [address] [place], [address] IG% 0.300 Normal 0.0-0.9 [facility] Comment on above: Result Comment: IG% - Immature Granulocytes (promyelocytes, myelocytes and metamyelocytes) > 1% indicates that a LEFT SHIFT is Present. Performed By: #### L 500.2500 #### [facility] [address] [place], [address] Lymphocytes/100 WBC (Bld) 30.8 % Normal 19-41 [facility] Comment on above: Performed By: #### L 500.2500 #### [facility] [address] [place], [address] MCH (RBC) [Entitic mass] 32.0 pg Normal 27.0-32.0 [facility] Comment on above: Performed By: #### L 500.2500 #### [facility] [address] [place], [address] MCHC (RBC) [Mass/Vol] 32.0 g/dL Normal 32-36 [facility] Comment on above: Performed By: #### L 500.2500 #### [facility] [address] [place], [address] MCV (RBC) [Entitic vol] 100.0 fL High 81-99 [facility] Comment on above: Performed By: #### L 500.2500 #### [facility] [address] [place], [address] Monocytes/100 WBC (Bld) 11.5 % High 0-10 [facility] Comment on above: Performed By: #### L 500.2500 #### [facility] [place], [address] Neutrophils/100 WBC (Bld) 55.0 % Normal 47-70 [facility] Comment on above: Performed By: #### L 500.2500 #### [facility] [address] [place], [address] Nucleated RBC (Bld) [#/Vol] 0 10*3/uL Normal 0-5 [facility] Comment on above: Performed By: #### L 500.2500 #### [facility] [address] [place], [address] Platelet mean volume (Bld) [Entitic vol] 10.3 fL Normal 6.2-12.0 [facility] Comment on above: Performed By: #### L 500.2500 #### [facility] [address] [place], [address] Platelets (Bld) [#/Vol] 199 10*3/uL Normal 150-450 [facility] Comment on above: Performed By: #### L 500.2500 #### [facility] [address] [place], [address] RBC (Bld) [#/Vol] 3.25 10*6/uL Low 4.2-5.4 [facility] Comment on above: Performed By: #### L 500.2500 #### [facility] [address] [place], [address] RDW SD 54.7 fl High 35.1-43.9 [facility] Comment on above: Performed By: #### L 500.2500 #### [facility] [address] [place], [address] WBC (Bld) [#/Vol] 3.0 10*3/uL Low 4.4-11.0 [facility] Comment on above: Performed By: #### L 500.2500 #### [facility] [address] [place], [address] Magnesiumon 07-23-2024 Magnesium [Mass/Vol] 2.5 mg/dL Normal 1.6-2.6 [facility] Comment on above: Performed By: #### L 500.2500 #### [facility] [address] [place], [address] Phosphoruson 07-23-2024 Phosphate [Mass/Vol] 4.3 mg/dL Normal 2.5-4.9 [facility] Comment on above: Performed By: #### L 500.2500 #### [facility] [address] [place], [address] Blood Gases by CPSon 024 PORFIRIO TEST Positive Normal [facility] Comment on above: Performed By: #### L 300.8000, L500.2500, L503.6620, L100.0100, L501.4020 #### [facility] [address] [place], [address] Base excess Calc (Bld) [Moles/Vol] 4 mmol/L High -2 to +2 [facility] Comment on above: Performed By: #### L 300.8000, L500.2500, L503.6620, L100.0100, L501.4020 #### [facility] [address] [place], [address] Blood Gas Type ART [facility] Comment on above: Performed By: #### L 300.8000, L500.2500, L503.6620, L100.0100, L501.4020 #### [facility] [address] [place], [address] CO2 [Moles/Vol] 28 mmol/L [facility] Comment on above: Performed By: #### L 300.8000, L500.2500, L503.6620, L100.0100, L501.4020 #### [facility] [address] [place], [address] FI02 100.0 [facility] Comment on above: Performed By: #### L 300.8000, L500.2500, L503.6620, L100.0100, L501.4020 #### [facility] [address] [place], [address] HCO3 (Bld) [Moles/Vol] 27.2 mmol/L High 22-26 [facility] Comment on above: Performed By: #### L 300.8000, L500.2500, L503.6620, L100.0100, L501.4020 #### [facility] [address] [place], [address] Mode Not entered [facility] Comment on above: Performed By: #### L 300.8000, L500.2500, L503.6620, L100.0100, L501.4020 #### [facility] [address] [place], [address] O2 Delivery Dev NRB [facility] Comment on above: Performed By: #### L 300.8000, L500.2500, L503.6620, L100.0100, L501.4020 #### [facility] [address] [place], [address] pCO2 34.5 mmHg Low 35-45 [facility] Comment on above: Performed By: #### L 300.8000, L500.2500, L503.6620, L100.0100, L501.4020 #### [facility] [address] [place], [address] pH (Bld) 7.51 [pH] High 7.35-7.45 [facility] Comment on above: Performed By: #### L 300.8000, L500.2500, L503.6620, L100.0100, L501.4020 #### [facility] [address] [place], [address] PO2 47 mmHG Low 75-100 [facility] Comment on above: Performed By: #### L 300.8000, L500.2500, L503.6620, L100.0100, L501.4020 #### [facility] [address] [place], [address] SITE R Radial Normal [facility] Comment on above: Performed By: #### L 300.8000, L500.2500, L503.6620, L100.0100, L501.4020 #### [facility] [address] [place], [address] SO2 86 Low 95-99 [facility] Comment on above: Performed By: #### L 300.8000, L500.2500, L503.6620, L100.0100, L501.4020 #### [facility] [address] [place], [address] CBC W/Diff, Automatedon 09-2 Absolute Lymph 1.09 X10 3/uL Normal 0.83-4.51 [facility] Comment on above: Performed By: #### L 300.8000, L500.2500, L503.6620, L100.0100, L501.4020 #### [facility] [address] [place], [address] Absolute Neut 2.2 X10 3/uL Normal 2.0-7.7 [facility] Comment on above: Performed By: #### L 300.8000, L500.2500, L503.6620, L100.0100, L501.4020 #### [facility] [address] [place], [address] Basophils/100 WBC (Bld) 1.1 % High 0-1 [facility] Comment on above: Performed By: #### L 300.8000, L500.2500, L503.6620, L100.0100, L501.4020 #### [facility] [address] [place], [address] Eosinophils/100 WBC (Bld) 1.1 % Normal 0-5 [facility] Comment on above: Performed By: #### L 300.8000, L500.2500, L503.6620, L100.0100, L501.4020 #### [facility] [address] [place], [address] Erythrocyte distribution width (RBC) [Ratio] 14.6 % Normal 11.6-14.6 [facility] Comment on above: Performed By: #### L 300.8000, L500.2500, L503.6620, L100.0100, L501.4020 #### [facility] [address] [place], [address] Hematocrit (Bld) [Volume fraction] 35.5 % Low 37-47 [facility] Comment on above: Performed By: #### L 300.8000, L500.2500, L503.6620, L100.0100, L501.4020 #### [facility] [address] [place], [address] Hemoglobin (Bld) [Mass/Vol] 11.7 g/dL Low 12.0-15.0 [facility] Comment on above: Performed By: #### L 300.8000, L500.2500, L503.6620, L100.0100, L501.4020 #### [facility] [address] [place], [address] IG% 0.300 Normal 0.0-0.9 [facility] Comment on above: Result Comment: IG% - Immature Granulocytes (promyelocytes, myelocytes and metamyelocytes) > 1% indicates that a LEFT SHIFT is Present. Performed By: #### L 300.8000, L500.2500, L503.6620, L100.0100, L501.4020 #### [facility] [address] [place], [address] Lymphocytes/100 WBC (Bld) 29.5 % Normal 19-41 [facility] Comment on above: Performed By: #### L 300.8000, L500.2500, L503.6620, L100.0100, L501.4020 #### [facility] [address] [place], [address] MCH (RBC) [Entitic mass] 32.2 pg High 27.0-32.0 [facility] Comment on above: Performed By: #### L 300.8000, L500.2500, L503.6620, L100.0100, L501.4020 #### [facility] [address] [place], [address] MCHC (RBC) [Mass/Vol] 33.0 g/dL Normal 32-36 [facility] Comment on above: Performed By: #### L 300.8000, L500.2500, L503.6620, L100.0100, L501.4020 #### [facility] [address] [place], [address] MCV (RBC) [Entitic vol] 97.8 fL Normal 81-99 [facility] Comment on above: Performed By: #### L 300.8000, L500.2500, L503.6620, L100.0100, L501.4020 #### [facility] [address] [place], [address] Monocytes/100 WBC (Bld) 9.8 % Normal 0-10 [facility] Comment on above: Performed By: #### L 300.8000, L500.2500, L503.6620, L100.0100, L501.4020 #### [facility] [address] [place], [address] Neutrophils/100 WBC (Bld) 58.2 % Normal 47-70 [facility] Comment on above: Performed By: #### L 300.8000, L500.2500, L503.6620, L100.0100, L501.4020 #### [facility] [address] [place], [address] Nucleated RBC (Bld) [#/Vol] 0 10*3/uL Normal 0-5 [facility] Comment on above: Performed By: #### L 300.8000, L500.2500, L503.6620, L100.0100, L501.4020 #### [facility] [address] [place], [address] Platelet mean volume (Bld) [Entitic vol] 11.0 fL Normal 6.2-12.0 [facility] Comment on above: Performed By: #### L 300.8000, L500.2500, L503.6620, L100.0100, L501.4020 #### [facility] [address] [place], [address] Platelets (Bld) [#/Vol] 216 10*3/uL Normal 150-450 [facility] Comment on above: Performed By: #### L 300.8000, L500.2500, L503.6620, L100.0100, L501.4020 #### [facility] [address] [place], [address] RBC (Bld) [#/Vol] 3.63 10*6/uL Low 4.2-5.4 [facility] Comment on above: Performed By: #### L 300.8000, L500.2500, L503.6620, L100.0100, L501.4020 #### [facility] [address] [place], [address] RDW SD 52.8 fl High 35.1-43.9 [facility] Comment on above: Performed By: #### L 300.8000, L500.2500, L503.6620, L100.0100, L501.4020 #### [facility] [address] [place], [address] WBC (Bld) [#/Vol] 3.7 10*3/uL Low 4.4-11.0 [facility] Comment on above: Performed By: #### L 300.8000, L500.2500, L503.6620, L100.0100, L501.4020 #### [facility] [address] [place], [address] Chest 1 View (Portable)on Chest 1 View (Portable) [facility] Imaging Services [address] [place] [address] Chest 1 View (Portable) MR#: [id number] Acct: [id number] Name: STEPHANY MENARD Rep #: [id number] : 1960 F 64 From: Alisa Mazariegos PCP: Care Physician,No Primary Status: ADM IN Study: Chest 1 View (Portable) Date of Exam: 07/22/24 Exam# [id number] Ordering Dr: Yaakov Gonzalez DO [id number] INDICATION: AE CHF. EXAMINATION/TECHNIQUE: X-RAY - XR Chest 1 View COMPARISON: 07/21/2024 FINDINGS: LINES/DEVICES: None. LUNGS: Hyperinflation both lungs suggesting COPD. Ill-defined airspace opacity in the left lung base suggesting pneumonia. Small right pleural effusion has decreased in size since the previous study. MEDIASTINUM AND CARDIOVASCULAR STRUCTURES: Cardiac silhouette is moderately enlarged. Central airways and mediastinal contour are unremarkable. BONES AND SOFT TISSUES: Unremarkable. RAD/Chest 1 View (Portable) IMPRESSION: COPD. Left lower lobe pneumonia. Improved CHF. Electronically Signed: Alisa Munoz MD at 6:47 EDT Reading Location ID and State: [facility] / [place] Tel , Service support , CC: Dr. Yaakov Gonzalez DO; No Primary Care Physician Technical Professional: Signed Normal [facility] Metabolic Prof ilon 07-22-2024 Albumin [Mass/Vol] 3.4 g/dL Normal 3.2-5.0 [facility] Comment on above: Performed By: #### L 300.8000, L500.2500, L503.6620, L100.0100, L501.4020 #### [facility] [address] [place], [address] Albumin/Globulin [Mass ratio] 1.1 {ratio} Normal 0.9-2.4 [facility] Comment on above: Performed By: #### L 300.8000, L500.2500, L503.6620, L100.0100, L501.4020 #### [facility] [address] [place], [address] ALK P 87 U/L Normal 45-117 [facility] Comment on above: Performed By: #### L 300.8000, L500.2500, L503.6620, L100.0100, L501.4020 #### [facility] [address] [place], [address] ALT [Catalytic activity/Vol] 20 U/L Normal 13-56 [facility] Comment on above: Performed By: #### L 300.8000, L500.2500, L503.6620, L100.0100, L501.4020 #### [facility] [address] [place], [address] AST [Catalytic activity/Vol] 28 U/L Normal 15-37 [facility] Comment on above: Performed By: #### L 300.8000, L500.2500, L503.6620, L100.0100, L501.4020 #### [facility] [address] [place], [address] Bilirubin [Mass/Vol] 0.50 mg/dL Normal 0.20-1.00 [facility] Comment on above: Result Comment: For patients on eltrombopag therapy, use of Dimension [place] TBIL is not recommended. Performed By: #### L 300.8000, L500.2500, L503.6620, L100.0100, L501.4020 #### [facility] [address] [place], [address] BUN/CRE 11.9 RATIO Normal 10-20 [facility] Comment on above: Performed By: #### L 300.8000, L500.2500, L503.6620, L100.0100, L501.4020 #### [facility] [address] [place], [address] CA,Total 9.2 mg/dL Normal 8.5-10.1 [facility] Comment on above: Performed By: #### L 300.8000, L500.2500, L503.6620, L100.0100, L501.4020 #### [facility] [address] [place], [address] Chloride [Moles/Vol] 100 mmol/L Normal 98-107 [facility] Comment on above: Performed By: #### L 300.8000, L500.2500, L503.6620, L100.0100, L501.4020 #### [facility] [address] [place], [address] CO2 [Moles/Vol] 29.0 mmol/L Normal 21.0-32.0 [facility] Comment on above: Performed By: #### L 300.8000, L500.2500, L503.6620, L100.0100, L501.4020 #### [facility] [address] [place], [address] Creatinine [Mass/Vol] 1.26 mg/dL High 0.55-1.02 [facility] Comment on above: Result Comment: The validity of the calculated GFR GFRAA in patients over 70 years has not been determined. Clinical correlation is essential. Performed By: #### L 300.8000, L500.2500, L503.6620, L100.0100, L501.4020 #### [facility] [address] [place], [address] ECRCL 42.39 ml/min Normal [facility] Comment on above: Performed By: #### L 300.8000, L500.2500, L503.6620, L100.0100, L501.4020 #### [facility] [address] [place], [address] EST GFR - AA 55 mL/min Low >60 [facility] Comment on above: Result Comment: Afri can Tristanian GFR Calc Performed By: #### L 300.8000, L500.2500, L503.6620, L100.0100, L501.4020 #### [facility] [address] [place], [address] GAP 7 Normal 5-15 [facility] Comment on above: Performed By: #### L 300.8000, L500.2500, L503.6620, L100.0100, L501.4020 #### [facility] [address] [place], [address] GFR/1.73 sq M.predicted among non-blacks MDRD (S/P/Bld) [Vol rate/Area] 46 mL/min/{1.73_m2} Low >60 [facility] Comment on above: Result Comment: Non- GFR Calc Performed By: #### L 300.8000, L500.2500, L503.6620, L100.0100, L501.4020 #### [facility] [address] [place], [address] Globulin (S) [Mass/Vol] 3.1 g/dL Normal 2.2-4.2 [facility] Comment on above: Performed By: #### L 300.8000, L500.2500, L503.6620, L100.0100, L501.4020 #### [facility] [address] [place], [address] Glucose [Mass/Vol] 96 mg/dL Normal 74-106 [facility] Comment on above: Performed By: #### L 300.8000, L500.2500, L503.6620, L100.0100, L501.4020 #### [facility] [address] [place], [address] Potassium [Moles/Vol] 3.9 mmol/L Normal 3.5-5.1 [facility] Comment on above: Performed By: #### L 300.8000, L500.2500, L503.6620, L100.0100, L501.4020 #### [facility] [address] [place], [address] Sodium [Moles/Vol] 136 mmol/L Normal 136-145 [facility] Comment on above: Performed By: #### L 300.8000, L500.2500, L503.6620, L100.0100, L501.4020 #### [facility] [address] [place], [address] T PROT 6.5 g/dL Normal 6.4-8.2 [facility] Comment on above: Performed By: #### L 300.8000, L500.2500, L503.6620, L100.0100, L501.4020 #### [facility] [address] [place], [address] Urea nitrogen [Mass/Vol] 15 mg/dL Normal 7-18 [facility] Comment on above: Performed By: #### L 300.8000, L500.2500, L503.6620, L100.0100, L501.4020 #### [facility] [address] [place], [address] Consultation - Cardiologyon 07-22-2024 Consultation - Cardiology [facility] Medical Records Department [address] [place] [address] Consultation - Cardiology 07/22/24 0903 MR#: [id number] Acct: [id number] Name: STEPHANY MENARD Ibrahima Rep #: [id number] : 1960 64 From: Kimo Bernardo MD PCP: Care Physician,No Primary Status:ADM IN Location: [place] [address] Assessment Plan Assessment/Plan (1) Respiratory insufficiency: PLAN: Patient's respiratory insufficiency is probably multifactorial. She does have a history of longstanding primary pulmonary insults including COPD and remote pulmonary emboli in 2013. However, the CT scan is suggestive of right sided issues. This could be the etiology of her lower extremity edema although she did have a viral infection a month ago which started this lower extremity edema suggestive of a possible cardiomyopathy related to postviral syndrome. 2D echo is pending at this time. Further recommendations concerning therapy and treatment options will be made depending on the outcome of the echo. (2) Lower extremity edema: PLAN: This is suggestive of a recent insult with an viral infection approximately a month ago. This may be related to progressive right-sided heart failure or it could be biventricular failure. The echocardiogram is pending at this time. (3) Hypoxemia: PLAN: Multifactorial hypoxemia related to recent viral infections on top of chronic COPD. Patient is now requiring full-time home oxygen which she had been historically using intermittently. PLAN: Plan 1. 2D echocardiogram is ordered further recommendations be forthcoming once results are known. 2. Would recommend continuing with gentle diuresis. 3. At this time would avoid beta-mata therapy given her current pulmonary status. If she is found to have significant LV dysfunction would institute Coreg and ARB therapy. 4. Will follow-up following the results of the echo. HPI Consult Data Date of Consult: 07/22/24 HPI Narrative Reason for Consultation: Presumed new onset heart failure. HPI Narrative: STEPHANY MENARD, is a 64 F who presents a 1 month history of increasing shortness of breath and new lower extremity edema. The patient has a history of COPD related tobacco use and also has a history of pulmonary emboli in 2013. The patient has been intermittently on oxygen in her home environment until the last month she has been on it consistently. She now presents with this 1 month history of progressive shortness of breath, new lower extremity edema, and a BNP of 2800. The patient does not have any previous documented right-sided heart failure signs or symptoms to her knowledge. The patient denies any previous history of heart disease and has never had an TN to her knowledge. An echocardiogram is pending at this time. A CT scan done in the emergency department showed no evidence of pulmonary emboli there is a questionable reflux of contrast into the IVC suggestive of right-sided failure. [facility] Medical History Acute sinusitis Severe protein-calorie malnutrition COPD (chronic obstructive pulmonary disease) with emphysema Allergic rhinitis due to allergen COPD exacerbation Smoker Diverticulitis Home Medications ???Medication ???Instructions ???Recorded ???Last Taken ???Type ipratropium bromide 21 mcg (0.03 2 spray intranasal BID #30 mL 01/21/24 Unknown Rx %) nasal spray albuterol sulfate 90 mcg/actuation 2 puff inhalation Q6H PRN 02/03/24 Unknown Rx aerosol inhaler (ProAir HFA) shortness of breath or wheezing #8.5 grams fluticasone fur. 200 mcg-umeclid 1 ea inhalation QDAY #1 ea 02/03/24 Unknown Rx 62.5 mcg-vilant 25 mcg inhalat.powder (Trelegy Ellipta) Allergy/AdvReac Type Severity Reaction Status Date / Time Penicillins (PCN) Allergy Anaphylaxis Verified 07/21/24 17:30 Surgical History H/O: hysterectomy History of colostomy reversal History of colostomy Social History Smoking Status: Former smoker how long ago did patient quit smoking: Oct 2022. ROS Constitutional Constitutional: Reports as per HPI Eyes Eyes: Reports systems reviewed and no addt'l complaints, except as documented ENT HEENT: Reports systems reviewed and no addt'l complaints, except as documented Cardiovascular Cardiovascular: Reports as per HPI Respiratory/Chest Respiratory/Chest: Reports as per HPI Gastrointestinal Gastrointestinal: Reports systems reviewed and no addt'l complaints, except as documented Genitourinary Genitourinary: Reports systems reviewed and no addt'l complaints, except as documented Musculoskeletal Musculoskeletal: Reports systems reviewed and no addt'l complaints, except as documented Integumentary Integumentary: Reports sys (more content not included)... Normal [facility] Magnesiumon 07-22-2024 Magnesium [Mass/Vol] 2.2 mg/dL Normal 1.6-2.6 [facility] Comment on above: Performed By: #### L 300.8000, L500.2500, L503.6620, L100.0100, L501.4020 #### [facility] [address] [place], [address] Phosphoruson 07-22-2024 Phosphate [Mass/Vol] 3.6 mg/dL Normal 2.5-4.9 [facility] Comment on above: Performed By: #### L 300.8000, L500.2500, L503.6620, L100.0100, L501.4020 #### [facility] [address] [place], [address] T4 Free Directon 07-22-2024 T4 FREE DIRECT 0.14 ng/dL Low 0.76-1.46 [facility] Comment on above: Performed By: #### L 500.2500 #### [facility] [address] [place], [address] Thyroid Stim Hormone (TSH)on 07-22-2024 TSH 50.000 uIU/mL High 0.358-3.740 [facility] Comment on above: Performed By: #### L 300.8000, L500.2500, L503.6620, L100.0100, L501.4020 #### [facility] [address] [place], [address] 12 Lead EKGon 07-21-2024 12 Lead EKG [facility] Cardiovascular Services [address] [place] [address] 12 Lead EKG 07/21/24 1806 MR#: [id number] Acct: [id number] Name: STEPHANY MENADR Rep #: [id number] : 1960 64 From: Kimo Bernardo MD Attending Dr: Dr. Manuel Ross MD Status : ADM IN Ordering Dr: Eron Zepeda DO Date: 07/21/24 Location: [facility] Sex: F C Admitted: 07/21/24 Test Reason : SOB Blood Pressure : / mmHG Vent. Rate : 088 BPM Atrial Rate : 088 BPM P-R Int : 148 ms QRS Dur : 102 ms QT Int : 376 ms P-R-T Axes : 092 088 058 degrees QTc Int : 454 ms Sinus rhythm with Premature atrial complexes Otherwise normal ECG Confirmed by Kimo Bernardo ([id number]), material expeditor FRANKLIN SHELL ([id number]) on 07/22/2024 10:32:56 AM Referred By: Confirmed By:Kimo Bernardo 07/22/24 1032 Date Kimo Bernardo MD CC: Dr. Manuel Ross MD; Dr. Eron Zepeda DO; No Primary Care Physician Signed Normal [facility] BNP,B-Type NATRIURETIC PEPTI Tammy 07-21-2024 Natriuretic peptide B (Bld) [Mass/Vol] 2810.0 pg/mL High 0-100 [facility] Comment on above: Performed By: #### L 300.8000, L500.2500, L503.6620, L100.0100, L501.4020 #### [facility] [address] [place], [address] Natriuretic peptide B (Bld) [Mass/Vol] 742.5 pg/mL High 0-100 [facility] Comment on above: Performed By: #### L 300.8000, L500.2500, L503.6620, L100.0100, L501.4020 #### [facility] [address] [place], [address] Basic Metabolic Profile (BMP )on 07-21-2024 BUN/CRE 13.1 RATIO Normal 10-20 [facility] Comment on above: Order Comment: 'TROP ' Serial specimen #1, #2 or #3: 1 Performed By: #### L 300.8000, L500.2500, L503.6620, L100.0100, L501.4020 #### [facility] [address] [place], [address] CA,Total 9.4 mg/dL Normal 8.5-10.1 [facility] Comment on above: Order Comment: 'TROP ' Serial specimen #1, #2 or #3: 1 Performed By: #### L 300.8000, L500.2500, L503.6620, L100.0100, L501.4020 #### [facility] [address] [place], [address] Chloride [Moles/Vol] 102 mmol/L Normal 98-107 [facility] Comment on above: Order Comment: 'TROP ' Serial specimen #1, #2 or #3: 1 Performed By: #### L 300.8000, L500.2500, L503.6620, L100.0100, L501.4020 #### [facility] [address] [place], [address] CO2 [Moles/Vol] 27.0 mmol/L Normal 21.0-32.0 [facility] Comment on above: Order Comment: 'TROP ' Serial specimen #1, #2 or #3: 1 Performed By: #### L 300.8000, L500.2500, L503.6620, L100.0100, L501.4020 #### [facility] [address] [place], [address] Creatinine [Mass/Vol] 1.37 mg/dL High 0.55-1.02 [facility] Comment on above: Order Comment: 'TROP ' Serial specimen #1, #2 or #3: 1 Result Comment: The validity of the calculated GFR GFRAA in patients over 70 years has not been determined. Clinical correlation is essential. Performed By: #### L 300.8000, L500.2500, L503.6620, L100.0100, L501.4020 #### [facility] [address] [place], [address] ECRCL 39.73 ml/min Normal [facility] Comment on above: Order Comment: 'TROP ' Serial specimen #1, #2 or #3: 1 Performed By: #### L 300.8000, L500.2500, L503.6620, L100.0100, L501.4020 #### [facility] [address] [place], [address] EST GFR - AA 50 mL/min Low >60 [facility] Comment on above: Order Comment: 'TROP ' Serial specimen #1, #2 or #3: 1 Result Comment: Afri can Tristanian GFR Calc Performed By: #### L 300.8000, L500.2500, L503.6620, L100.0100, L501.4020 #### [facility] [address] [place], [address] GAP 6 Normal 5-15 [facility] Comment on above: Order Comment: 'TROP ' Serial specimen #1, #2 or #3: 1 Performed By: #### L 300.8000, L500.2500, L503.6620, L100.0100, L501.4020 #### [facility] [address] [place], [address] GFR/1.73 sq M.predicted among non-blacks MDRD (S/P/Bld) [Vol rate/Area] 41 mL/min/{1.73_m2} Low >60 [facility] Comment on above: Order Comment: 'TROP ' Serial specimen #1, #2 or #3: 1 Result Comment: Non- GFR Calc Performed By: #### L 300.8000, L500.2500, L503.6620, L100.0100, L501.4020 #### [facility] [address] [place], [address] Glucose [Mass/Vol] 116 mg/dL High 74-106 [facility] Comment on above: Order Comment: 'TROP ' Serial specimen #1, #2 or #3: 1 Result Comment: Fast ing Glucose result from 100 to 125 mg/dL suggests IMPAIRED HOMEOSTASIS per A.D.A. criteria. Performed By: #### L 300.8000, L500.2500, L503.6620, L100.0100, L501.4020 #### [facility] [address] [place], [address] Potassium [Moles/Vol] 4.4 mmol/L Normal 3.5-5.1 [facility] Comment on above: Order Comment: 'TROP ' Serial specimen #1, #2 or #3: 1 Performed By: #### L 300.8000, L500.2500, L503.6620, L100.0100, L501.4020 #### [facility] [address] [place], [address] Sodium [Moles/Vol] 135 mmol/L Low 136-145 [facility] Comment on above: Order Comment: 'TROP ' Serial specimen #1, #2 or #3: 1 Performed By: #### L 300.8000, L500.2500, L503.6620, L100.0100, L501.4020 #### [facility] [address] [place], [address] Urea nitrogen [Mass/Vol] 18 mg/dL Normal 7-18 [facility] Comment on above: Order Comment: 'TROP ' Serial specimen #1, #2 or #3: 1 Performed By: #### L 300.8000, L500.2500, L503.6620, L100.0100, L501.4020 #### [facility] [address] [place], [address] CBC W/Diff, Automatedon 06-29-2023 Absolute Lymph 0.92 X10 3/uL Normal 0.83-4.51 [facility] Comment on above: Performed By: #### L 300.8000, L500.2500, L503.6620, L100.0100, L501.4020 #### [facility] [address] [place], [address] Absolute Neut 2.6 X10 3/uL Normal 2.0-7.7 [facility] Comment on above: Performed By: #### L 300.8000, L500.2500, L503.6620, L100.0100, L501.4020 #### [facility] [address] [place], [address] Basophils/100 WBC (Bld) 1.0 % Normal 0-1 [facility] Comment on above: Performed By: #### L 300.8000, L500.2500, L503.6620, L100.0100, L501.4020 #### [facility] [address] [place], [address] Eosinophils/100 WBC (Bld) 1.0 % Normal 0-5 [facility] Comment on above: Performed By: #### L 300.8000, L500.2500, L503.6620, L100.0100, L501.4020 #### [facility] [address] [place], [address] Erythrocyte distribution width (RBC) [Ratio] 14.9 % High 11.6-14.6 [facility] Comment on above: Performed By: #### L 300.8000, L500.2500, L503.6620, L100.0100, L501.4020 #### [facility] [address] [place], [address] Hematocrit (Bld) [Volume fraction] 32.4 % Low 37-47 [facility] Comment on above: Performed By: #### L 300.8000, L500.2500, L503.6620, L100.0100, L501.4020 #### [facility] [address] [place], [address] Hemoglobin (Bld) [Mass/Vol] 11.4 g/dL Low 12.0-15.0 [facility] Comment on above: Performed By: #### L 300.8000, L500.2500, L503.6620, L100.0100, L501.4020 #### [facility] [address] [place], [address] IG% 0.000 Normal 0.0-0.9 [facility] Comment on above: Result Comment: IG% - Immature Granulocytes (promyelocytes, myelocytes and metamyelocytes) > 1% indicates that a LEFT SHIFT is Present. Performed By: #### L 300.8000, L500.2500, L503.6620, L100.0100, L501.4020 #### [facility] [address] [place], [address] Lymphocytes/100 WBC (Bld) 23.8 % Normal 19-41 [facility] Comment on above: Performed By: #### L 300.8000, L500.2500, L503.6620, L100.0100, L501.4020 #### [facility] [address] [place], [address] MCH (RBC) [Entitic mass] 35.1 pg High 27.0-32.0 [facility] Comment on above: Performed By: #### L 300.8000, L500.2500, L503.6620, L100.0100, L501.4020 #### [facility] [address] [place], [address] MCHC (RBC) [Mass/Vol] 35.2 g/dL Normal 32-36 [facility] Comment on above: Performed By: #### L 300.8000, L500.2500, L503.6620, L100.0100, L501.4020 #### [facility] [address] [place], [address] MCV (RBC) [Entitic vol] 99.7 fL High 81-99 [facility] Comment on above: Performed By: #### L 300.8000, L500.2500, L503.6620, L100.0100, L501.4020 #### [facility] [address] [place], [address] Monocytes/100 WBC (Bld) 7.5 % Normal 0-10 [facility] Comment on above: Performed By: #### L 300.8000, L500.2500, L503.6620, L100.0100, L501.4020 #### [facility] [address] [place], [address] Neutrophils/100 WBC (Bld) 66.7 % Normal 47-70 [facility] Comment on above: Performed By: #### L 300.8000, L500.2500, L503.6620, L100.0100, L501.4020 #### [facility] [address] [place], [address] Nucleated RBC (Bld) [#/Vol] 0 10*3/uL Normal 0-5 [facility] Comment on above: Performed By: #### L 300.8000, L500.2500, L503.6620, L100.0100, L501.4020 #### [facility] [address] [place], [address] Platelet mean volume (Bld) [Entitic vol] 11.0 fL Normal 6.2-12.0 [facility] Comment on above: Performed By: #### L 300.8000, L500.2500, L503.6620, L100.0100, L501.4020 #### [facility] [address] [place], [address] Platelets (Bld) [#/Vol] 308 10*3/uL Normal 150-450 [facility] Comment on above: Performed By: #### L 300.8000, L500.2500, L503.6620, L100.0100, L501.4020 #### [facility] [address] [place], [address] RBC (Bld) [#/Vol] 3.25 10*6/uL Low 4.2-5.4 [facility] Comment on above: Performed By: #### L 300.8000, L500.2500, L503.6620, L100.0100, L501.4020 #### [facility] [address] [place], [address] RDW SD 54.4 fl High 35.1-43.9 [facility] Comment on above: Performed By: #### L 300.8000, L500.2500, L503.6620, L100.0100, L501.4020 #### [facility] [address] [place], [address] WBC (Bld) [#/Vol] 3.9 10*3/uL Low 4.4-11.0 [facility] Comment on above: Performed By: #### L 300.8000, L500.2500, L503.6620, L100.0100, L501.4020 #### [facility] [address] [place], [address] CTA Chest W/WO Contraston CTA Chest W/WO Contrast [facility] Imaging Services [address] [place] [address] CTA Chest W/WO Contrast MR#: [id number] Acct: [id number] Name: STEPHANY MENARD Ibrahima Rep #: [id number] : 1960 F 64 From: Aroldo Woods MD PCP: Care Physician,No Primary Status: REG ER Study: CTA Chest W/WO Contrast Date of Exam: 07/21/24 Exam# [id number] Ordering Dr: Eron Zepeda DO [id number] EXAM: CT ANGIOGRAPHY CHEST WITHOUT AND WITH INTRAVENOUS CONTRAST CLINICAL INDICATION: dyspnea, elevated d-dimer TECHNIQUE: Helically acquired angiography images were obtained of the chest without and with intravenous contrast. This CT exam was performed using one or more of the following dose reduction techniques: automated exposure control, adjustment of the mA and/or kV according to patient size, and/or use of iterative reconstruction technique. MIP reconstructed images were created and reviewed. CONTRAST: IV 100mL [id number] COMPARISON: 10/29/2022 FINDINGS: PULMONARY ARTERIES: Unremarkable. Normal in caliber. No evidence of pulmonary embolism. AORTA: Unremarkable. Normal in caliber. No evidence of dissection. GREAT VESSELS OF AORTIC ARCH: Unremarkable. Normal in caliber. No evidence of dissection. INFERIOR VENA CAVA: There is reflux of contrast into the inferior vena cava and hepatic veins which may indicate decreased cardiac output. LUNGS AND PLEURAL SPACES: There is bilateral lower lobe consolidation which may represent pneumonia greater on the left. There are bilateral pleural effusions larger on arrival in the left. No mass. HEART: There is a pericardial effusion present that measures 1.6 cm in greatest diameter. MEDIASTINUM: Unremarkable. No mediastinal or hilar adenopathy. Esophagus is unremarkable. No hiatal hernia. THYROID: Unremarkable. No thyroid lesions. BONES/JOINTS: Unremarkable. No suspicious lytic or blastic abnormality. CT/CTA Chest W/WO Contrast IMPRESSION: 1. No evidence of pulmonary embolus. 2. Bilateral pleural effusions and bilateral lower lobe consolidation which may represent bilateral lower lobe pneumonia. 3. No pericardial effusion. 4. Reflux of contrast into the inferior vena cava and hepatic veins which may indicate decreased cardiac output. Electronically Signed: Aroldo Woods MD at 20:05 EDT , CC: Dr. Eron Zepeda DO; No Primary Care Physician Technical Professional: Signed Normal [facility] Chest 1 View (Portable)on Chest 1 View (Portable) [facility] Imaging Services [address] [place] [address] Chest 1 View (Portable) MR#: [id number] Acct: [id number] Name: STEPHANY MENARD Rep #: [id number] : 1960 F 64 From: Aroldo Woods MD PCP: Care Physician,No Primary Status: REG ER Study: Chest 1 View (Portable) Date of Exam: 07/21/24 Exam# [id number] Ordering Dr: Eron Zepeda DO [id number] EXAM: XR CHEST, 1 VIEW CLINICAL INDICATION: dyspnea TECHNIQUE: Frontal view of the chest. COMPARISON: 03/29/2023 FINDINGS: LUNGS AND PLEURAL SPACES: There are small bilateral pleural effusions. There is minimal bibasilar atelectasis. No pneumothorax. HEART: The cardiac silhouette is mildly enlarged in size. MEDIASTINUM: Central airways and mediastinal contour are unremarkable. BONES/JOINTS: Unremarkable. No acute fracture. SOFT TISSUES: Unremarkable. RAD/Chest 1 View (Portable) IMPRESSION: Cardiomegaly with small bilateral effusions and bibasilar atelectasis Electronically Signed: Aroldo Woods MD at 19:35 EDT , CC: Dr. Eron Zepeda, DO; No Primary Care Physician Technical Professional: Signed Normal [facility] D-Dimer Quantitative (DVT/PE )on 07-21-2024 D-DIMER QUANT 1.05 FEU/ug/m Invalid Interpretation Code 0.27-0.49 [facility] Comment on above: Result Comment: D-Di ramana ELEVATED (>0.49): Additional studies and clinical assessments are indicated to conclude diagnosis of: Deep Vein Thrombosis (DVT) or Pulmonary Embolism (PE) Performed By: #### L 300.8000, L500.2500, L503.6620, L100.0100, L501.4020 #### [facility] [address] [facility] [place], [address] Echo Completeon 07-21-2024 Echo [facility] Cardiovascular Services [address] [place] [address] Echo Complete 07/22/249[address] MR#: [id number] Acct: [id number] Name: STEPHANY MENARD Rep #: [id number] : 1960 64 From: Manjeet Zapata MD Attending Dr: Dr. Manuel Ross MD Status : ADM IN Ordering Dr: Yaakov Gonzalez DO Date: 07/21/24 Location: U Sex: F C Admitted: 07/21/24 Reason For Study: CHF Procedure This was a 2D Doppler, Color Flow transthoracic echocardiogram. Exam performed portable in patient room. Left Ventricle Severely dilated left ventricle. The estimated ejection fraction is 14 %. Stage 1 diastolic dysfunction. There is severe global hypokinesis of the left ventricle. Right Ventricle Normal RV size. Normal systolic function. Atria Normal left atrium. Normal right atrium. Mitral Valve Moderate focal mitral valve thickening. Mild (1+) eccentric mitral valve insufficiency. Tricuspid Valve Normal tricuspid valve. Mild (1+) tricuspid valve insufficiency. Pulmonary artery systolic pressure is 30 mmHg. Aortic Valve Trisinus/trileaflet aortic valve. Mild (1+) aortic valve insufficiency. Pulmonic Valve Mild focal pulmonic valve thickening. Trivial eccentric pulmonic valve insufficiency. Great Vessels Normal aortic root. The pulmonary artery is normal size. Inferior vena cava collapse with respiration. Pericardium/Pleural Small pericardial effusion. There are no echocardiographic indications of cardiac tamponade. MMode/2D Measurements Calculations LVIDd: 6.9 cm IVSd: 0.73 cm Ao root diam: 3.0 cm LVIDs: 6.4 cm LVPWd: 1.1 cm RVDd: 2.8 cm FS: 7.8 % LAV(MOD-bp): 39.1 ml LVAd ap4: 46.5 cm2 SV(MOD-sp4): 26.2 ml LAV(MOD-bp) Indexed: 23.5 ml/m2 LVLd ap4: 8.9 cm LAV(MOD-sp2): 40.8 ml EDV(MOD-sp4): 205.2 ml LAV(MOD-sp4): 32.6 ml EDV(sp4-el): 205.2 ml LVAs ap4: 41.5 cm2 LVLs ap4: 8.3 cm ESV(MOD-sp4): 179.0 ml ESV(sp4-el): 176.4 ml EF(MOD-sp4): 12.8 % EF(sp4-el): 14.0 % SV(sp4-el): 28.8 ml LA A4 area: 13.8 cm2 LA dimension(2D): 3.1 cm RA A4 area: 11.6 cm2 TAPSE: 1.6 cm Time Measurements MV dec time: 0.14 sec Doppler Measurements Calculations MV E max sukh: 48.0 cm/sec Lat Peak E' Sukh: 4.8 cm/sec Med Peak E' Sukh: 2.8 cm/sec MV A max sukh: 69.4 cm/sec E/E' lat: 10.1 E/E' med: 16.8 MV E/A: 0.69 Ao V2 max: 103.7 cm/sec AI max sukh: 383.2 cm/sec LV V1 max: 83.9 cm/sec Ao max P.3 mmHg AI max P.7 mmHg LV V1 max P.8 mmHg AI dec slope: 309.1 cm/sec2 AI P1/2t: 363.1 msec PA V2 max: 49.1 cm/sec TR max sukh: 255.8 cm/sec TR max P.2 mmHg ECHO/Echo Complete Interpretation Summary Severely dilated left ventricle. The estimated ejection fraction is 14 %. Stage 1 diastolic dysfunction. Mild (1+) tricuspid valve insufficiency. Small pericardial effusion. Ordering Physician: Yaakov Gonzalez Performed By: Elodia Francis RDCS 07/22/24 1259 Date Manjeet Zapata MD CC: Dr. Yaakov Gonzalez DO; Dr. Manuel Ross MD; No Primary Care Physician Date Dictated: 07/22/24917 Date Transcribed: 07/22/241258 Technical Professional: Signed Normal [facility] Emergency Department Summary on 07-21-2024 Emergency Department Summary [facility] Medical Records Department [address] [place] [id number] Emergency Department Summary 07/21/24 MR#: [id number] Acct: [id number] Name: STEPHANY MENARD Rep #: [id number] : 1960 64 From: Eron Zepeda DO PCP: Care Physician,No Primary Status:ADM IN Location: [place] [address] HPI History of Present Illness Chief Complaint: Shortness of Breath Detail of Chief Complaint: Shortness of breath Informant: patient Narrative Narrative: Patient presents with shortness of breath that started more than a month ago and progressively worsening. Patient states that normally she is able to go throughout the day without any oxygen but now requiring 4 to 5 L of oxygen. She complains of exertional dyspnea. She complains of leg swelling. Patient states last time she felt short of breath she had a PE but is currently not anticoagulated. She has had a chronic cough but no fever. No history of CHF. She does have history of COPD and states she quit smoking 2 years ago. PFSH PFSH Medical History Acute sinusitis Allergic rhinitis due to allergen COPD (chronic obstructive pulmonary disease) with emphysema COPD exacerbation Diverticulitis Severe protein-calorie malnutrition Smoker Home Medications ???Medication ???Instructions ???Recorded ???Last Taken ???Type ipratropium bromide 21 mcg (0.03 2 spray intranasal BID #30 mL 01/21/24 Unknown Rx %) nasal spray albuterol sulfate 90 mcg/actuation 2 puff inhalation Q6H PRN 02/03/24 Unknown Rx aerosol inhaler (ProAir HFA) shortness of breath or wheezing #8.5 grams fluticasone fur. 200 mcg-umeclid 1 ea inhalation QDAY #1 ea 02/03/24 Unknown Rx 62.5 mcg-vilant 25 mcg inhalat.powder (Trelegy Ellipta) Allergy/AdvReac Type Severity Reaction Status Date / Time Penicillins (PCN) Allergy Anaphylaxis Verified 07/21/24 17:30 Surgical History (Reviewed 02/03/24 @ 14:09 by Taylor Batres AN/SYQ 13 NAV/C2 OPERATOR, AN/SYQ 13 NAV/C2 OPERATOR-C) H/O: hysterectomy History of colostomy History of colostomy reversal Social History (Reviewed 02/03/24 @ 14:09 by Taylor Batres AN/SYQ 13 NAV/C2 OPERATOR, AN/SYQ 13 NAV/C2 OPERATOR-C) Smoking Status: Former smoker how long ago did patient quit smoking: Oct 2022. ROS ROS ED Review of Systems ROS Unobtainable: other Constitutional Constitutional ED: Reports lethargy; Denies chills, fever(s), sweats or weight loss Eyes Eyes: Denies blurry vision, change in vision or diplopia ENT ENT ED: Denies rhinorrhea or sore throat Cardiovascular Cardiovascular: Denies chest pain, orthopnea or racing heartbeat Respiratory/Chest Respiratory/Chest: Reports cough, dyspnea and dyspnea on exertion; Denies orthopnea or sputum Gastrointestinal Gastrointestinal: Denies abdominal pain, diarrhea, nausea or vomiting Genitourinary Genitourinary ED: Denies dysuria, hematuria or urinary frequency Musculoskeletal Musculoskeletal: Reports other Details: Leg edema ; Denies arthralgias, back pain, myalgias or neck pain Integumentary Denies abscess, Abrasions or rash Neurologic Neurologic: Denies headache(s) or weakness Psychiatric Psychiatric: Denies anxiety, depression or suicidal thoughts Endocrine Endocrinology: Denies polydipsia, polyphagia or polyuria Hematologic/Lymphatic Hematologic/Lymphatic: Denies easy bleeding, easy bruising or lymphadenopathy Allergic/Immunologic Allergic/Immunologic ED: Denies mouth swelling, tongue swelling or urticaria EXAM Physical Exam Const Vital Signs: 07/21/24 17:30 07/21/24 17:47 07/21/24 17:47 Temperature 97.8 F Temperature Source Oral Pulse Rate 103 H Respiratory Rate 20 H Respiratory Effort Short of Breath Blood Pressure 114/71 Blood Pressure Mean 85 Pulse Ox 96 Oxygen Delivery Method Nasal Cannula Nasal Cannula Oxygen Flow Rate (L/min) 4 4 07/21/24 18:25 07/21/24 18:32 07/21/24 19:00 Temperature 97.8 F 97.8 F Temperature Source Oral Oral Pulse Rate 91 98 Respiratory Rate 15 17 Respiratory Effort Blood Pressure 113/65 108/82 H Blood Pressure Mean 81 90 Pulse Ox 97 96 92 Oxygen Delivery Method Nasal Cannula Nasal Cannula Nasal Cannula Oxygen Flow Rate (L/min) 4 4 4 07/21/24 19:00 Temperature Temperature Source Pulse Rate 89 Respiratory Rate 16 Respiratory Effort Blood Pressure 108/82 H Blood Pressure Mean 90 Pulse Ox 94 Oxygen Delivery Method Oxygen Flow Rate (L/min) Positive well nourished and well developed General Appearance ED: well developed and NAD HEENT Reports TM's clear and moist mucous membranes normocephalic and atraumatic; Negative for trauma or tenderness Tympanic Membrane ED: Yes TM's clear Eyes PERRL and EOMs intact bilaterally General Eye ED: Negative for pale conjunctiva or scleral icterus Neck no lymphadenopathy, supple and no JVD Genera (more content not included)... Normal [facility] H AND P Exam - Hospitaliston 07-21-2024 H&P Exam - Hospitalist [facility] Medical Records Department [address] [place] [address] H P Exam - Hospitalist 07/21/242026 MR#: [id number] Acct: [id number] Name: RYANSTEPHANY CHAMBERS Ibrahima Rep #: [id number] : 1960 64 From: Yaakov Gonzalez DO PCP: Care Physician,No Primary Status:ADM IN Location: [id number] - General General Date of Admission: 07/21/24 Date of Service: 07/21/24 Chief Complaint: SOB and LE Edema. HPI Narrative STEPHANY MENARD, is a 64 F with a past medical history of essential hypertension, history of tobacco abuse (quit 2 year ago); with subsequent COPD, chronic hypoxic respiratory failure on 4-5L NC, history of PE ( 2013), history of allergic rhinitis, history of severe protein-calorie malnutrition, history of diverticulitis, history of hysterectomy, history of colostomy; s/p reversal, listed allergy to PCN (anaphylaxis) and OA who presents to [facility] ER complaining of SOB and LE edema. Ms. Menard reports her symptoms began approximately one month prior to admission with the gradual-onset of progressively worsening KURTZ and LE edema. She also admits her SOB was made worse by laying flat - particularly when waking up from sleep. She states she used to just need her supplemental oxygen intermittently with exertion but now she is having to use it continuously. She complains of symmetrical 2-3+ bilateral LE pitting edema that is not helped by wearing compression stockings. She denies a history of CHF and she also denies other similar previous episodes. There was no associated fever, chills, nausea, vomiting, diarrhea or constipation. In the ER she was noted to have an elevated BNP of 2,810 pg/mL along with CTA of chest negative for PE - but positive for Bilateral Pleural Effusions and bilateral lower lobe consolidations with reflux of contrast into the IVC and hepatic veins which may indicated decreased cardiac output consistent with a New-onset of AE of likely systolic CHF complicated by clinical evidence of Ydfpe-dt-Nevbnxf Respiratory Insufficiency and she was then admitted to the PCU for ongoing care for a stay that is expected to extend beyond 2 midnights. [facility] Medical History Acute sinusitis Severe protein-calorie malnutrition COPD (chronic obstructive pulmonary disease) with emphysema Allergic rhinitis due to allergen COPD exacerbation Smoker Diverticulitis Home Medications ???Medication ???Instructions ???Recorded ???Last Taken ???Type ipratropium bromide 21 mcg (0.03 2 spray intranasal BID #30 mL 01/21/24 Unknown Rx %) nasal spray albuterol sulfate 90 mcg/actuation 2 puff inhalation Q6H PRN 02/03/24 Unknown Rx aerosol inhaler (ProAir HFA) shortness of breath or wheezing #8.5 grams fluticasone fur. 200 mcg-umeclid 1 ea inhalation QDAY #1 ea 02/03/24 Unknown Rx 62.5 mcg-vilant 25 mcg inhalat.powder (Trelegy Ellipta) Allergy/AdvReac Type Severity Reaction Status Date / Time Penicillins (PCN) Allergy Anaphylaxis Verified 07/21/24 17:30 Surgical History H/O: hysterectomy History of colostomy reversal History of colostomy Social History Smoking Status: Former smoker how long ago did patient quit smoking: Oct 2022. ROS ROS Narrative Review of Systems: Constitutional: Patient denies fever or chills. Eyes: Patient denies changes in vision or discharge from eyes. ENT: Patient denies runny nose, sore throat or ear pain. Resp: Patient admits to SOB but she denies cough. CV: Patient denies palpitations or heart racing. GI: Patient admits to nausea and bilious emesis as per HPI. : Patient denies dysuria or hematuria. MSK: Patient admits to 2-3 bilateral lower extremity edema. Skin: Patient denies rash, abscess or jaundice. Neuro: Patient denies headache, paresthesias or focal neurologic deficits. Psych: Patient denies symptoms of uncontrolled depression or anxiety. Allergy: Patient denies lip swelling, tongue swelling or urticaria. Hematology: Patient denies easy bleeding or easy bruisability. Endocrinology: Patient denies polyuria, polydipsia or polyphagia. 14 point ROS otherwise negative except for positives noted above in HPI. Vital Signs Vital Signs Vital Signs: 07/21/24 17:30 07/21/24 17:47 07/21/24 17:47 Temperature 97.8 F Temperature Source Oral Pulse Rate 103 H Respiratory Rate 20 H Respiratory Effort Short of Breath Blood Pressure 114/71 Blood Pressure Mean 85 Pulse Ox 96 Oxygen Delivery Method Nasal Cannula Nasal Cannula Oxygen Flow Rate (L/min) 4 4 07/21/24 18:25 07/21/24 18:32 07/21/24 19:00 Temperature 97.8 F 97.8 F Temperature Source Oral Oral Pulse Rat (more content not included)... Normal [facility] L501.4020on 07-21-2024 TROPONIN-I HS 37 pg/mL Normal 3.0-54.0 [facility] Comment on above: Order Comment: 'TROP ' Serial specimen #1, #2 or #3: 2 Result Comment: Plea se Note: New Test Units and Gender Specific Reference Ranges. For more information see Policy Stat Procedure [place] High Sensitivity Troponin (TNIH) and attachments. Performed By: #### L 300.8000, L500.2500, L503.6620, L100.0100, L501.4020 #### [facility] [address] [place], [address] TROPONIN-I HS 34 pg/mL Normal 3.0-54.0 [facility] Comment on above: Order Comment: 'TROP ' Serial specimen #1, #2 or #3: 1 Result Comment: Plea se Note: New Test Units and Gender Specific Reference Ranges. For more information see Policy Stat Procedure [place] High Sensitivity Troponin (TNIH) and attachments. Performed By: #### L 300.8000, L500.2500, L503.6620, L100.0100, L501.4020 #### [facility] [address] [place], [address] Lactic Acidon 07-21-2024 Lactate [Moles/Vol] 1.8 mmol/L Normal 0.4-1.9 [facility] Comment on above: Order Comment: 'TROP ' Serial specimen #1, #2 or #3: 1 Performed By: #### L 300.8000, L500.2500, L503.6620, L100.0100, L501.4020 #### [facility] [address] [place], [address] Venous Duplex Imag/Obi Extre [facility] 07-21-2024 Venous Duplex Imag/Obi Extrem [facility] Imaging Services [address] [place] [address] Venous Duplex Imag/Obi Extrem MR#: [id number] Acct: [id number] Name: STEPHANY MENARD Rep #: [id number] : 1960 F 64 From: Aroldo Woods MD PCP: Care Physician,No Primary Status: REG ER Study: Venous Duplex Imag/Obi Extrem Date of Exam: Exam# [id number] Ordering Dr: Eron Zepeda DO [id number] EXAM: US DUPLEX BILATERAL LOWER EXTREMITIES VEINS CLINICAL INDICATION: BILATERAL SWELLING TECHNIQUE: Real-time duplex ultrasound scan of the bilateral lower extremity veins integrating B-mode two-dimensional vascular structure, Doppler spectral analysis, color flow Doppler imaging and compression. COMPARISON: No relevant prior studies available. FINDINGS: RIGHT DEEP VEINS: Unremarkable. No DVT in the right common femoral, femoral, proximal deep femoral or popliteal veins. The veins demonstrate normal color flow, are normally compressible, with normal phasic flow and/or augmentation response. RIGHT SUPERFICIAL VEINS: Unremarkable. No thrombus in the visualized right great saphenous vein. LEFT DEEP VEINS: Unremarkable. No DVT in the left common femoral, femoral, proximal deep femoral or popliteal veins. The veins demonstrate normal color flow, are normally compressible, with normal phasic flow and/or augmentation response. LEFT SUPERFICIAL VEINS: Unremarkable. No thrombus in the visualized left great saphenous vein. SOFT TISSUES: No acute findings. No popliteal cyst. US/Venous Duplex Imag/Obi Extrem IMPRESSION: Normal bilateral lower extremity duplex venous ultrasound. Electronically Signed: Aroldo Woods MD at 19:36 EDT , CC: Dr. Eron Zepeda DO; No Primary Care Physician Technical Professional: Signed Normal [facility] Alternaria alternata IgE ser umOrdered By: Dr. Monzon on 12-03-2022 A. alternata IgE Qn (S) <0.10 kU/L Class 0 [facility] No Panel InformationOrdered By: Dr. Monzon on 12-03-2022 Cat Hair Allergen <0.10 kU/L Class 0 [facility] Common Ragweed (Short) Allergen <0.10 kU/L Class 0 [facility] Immunoglobulin E 9 IU/mL 6-495 [facility] Maple (Weld) Allergen IgE Ab <0.10 kU/L Class 0 [facility] Mouse Urine Allergen IgE Antibody <0.10 kU/L Class 0 [facility] Comment on above: Performed at: [address] [id number] Director: Belen Liz MD, Phone: [phone] RAST Comment Comment . [facility] Comment on above: Levels of Specific I gE Class Description of Class ----- < 0.10 0 Negative 0.10 - 0.31 0/I Equivocal/Low 0.32 - 0.55 I Low 0.56 - 1.40 II Moderate 1.41 - 3.90 III High 3.91 - 19.00 IV Very High 19.01 - 100.00 V Very High >100.00 Very High [place] Tree Allergen <0.10 kU/L Class 0 [facility] Rough pigweed specific IgE a ntibody assayOrdered By: Dr. Monzon on 12-03-2022 Rough Pigweed IgE Qn (S) <0.10 kU/L Class 0 [facility] Serum Tristanian sycamore IgE antibody assay (units/volume)Ordered By: Dr. Monzon on 12-03-2022 Tristanian Converse IgE Qn (S) <0.10 kU/L Class 0 [facility] Serum Aspergillus fumigatus IgE antibody assay (units/volume)Ordered By: Dr. Monzon on 12-03-2022 A. fumigatus IgE Qn (S) <0.10 kU/L Class 0 [facility] Serum Bermuda grass IgE anti body assay (units/volume)Ordered By: Dr. Monzon on 12-03-2022 Bermuda grass IgE Qn (S) <0.10 kU/L Class 0 [facility] Serum Cladosporium herbarum IgE antibody assay (units/volume)Ordered By: Dr. Monzon on 12-03-2022 C. herbarum IgE Qn (S) <0.10 kU/L Class 0 [facility] Serum Dermatophagoides farin ae specific IgE antibody assay (units/volume)Ordered By: Dr. Monzon on 12-03-2022 Tristanian house dust mite IgE Qn (S) <0.10 kU/L Class 0 [facility] Serum house dust mi te IgE antibody assay (units/volume)Ordered By: Dr. Monzon on 12-03-2022 house dust mite IgE Qn (S) <0.10 kU/L Class 0 [facility] Serum Penicillium notatum Ig E antibody assay (units/volume)Ordered By: Dr. Monzon on 12-03-2022 P. notatum IgE Qn (S) <0.10 kU/L Class 0 [facility] Serum Periplaneta americana IgE antibody assay (units/volume)Ordered By: Dr. Monzon on 12-03-2022 Tristanian Cockroach IgE Qn (S) <0.10 kU/L Class 0 [facility] Serum Kosovan thistle specif ic IgE antibody assayOrdered By: Dr. Monzon on 12-03-2022 Saltwort IgE Qn (S) <0.10 kU/L Class 0 [facility] Serum birch specific IgE ant ibody assayOrdered By: Dr. Monzon on 12-03-2022 Silver Birch IgE Qn (S) <0.10 kU/L Class 0 [facility] Serum black walnut IgE antib selene assay (units/volume)Ordered By: Dr. Monzon on 12-03-2022 Black N[place] IgE Qn (S) <0.10 kU/L Class 0 [facility] Serum cottonwood IgE antibod y assay (units/volume)Ordered By: Dr. Monzon on 12-03-2022 Troy IgE Qn (S) <0.10 kU/L Class 0 [facility] Serum dog epithelium IgE ant ibody assay (units/volume)Ordered By: Dr. Monzon on 12-03-2022 Dog epithelium IgE Qn (S) <0.10 kU/L Class 0 [facility] Serum mountain cedar specifi c IgE antibody assayOrdered By: Dr. Monzon on 12-03-2022 Mountain Juniper IgE Qn (S) <0.10 kU/L Class 0 [facility] Serum pecan or hickory nut I gE antibody assay (units/volume)Ordered By: Dr. Monzon on 12-03-2022 Pecan or [place] Nut IgE Qn (S) <0.10 kU/L Class 0 [facility] Serum sheep sorrel IgE antib selene assay (units/volume)Ordered By: Dr. Monzon on 12-03-2022 Sheep [place] IgE Qn (S) <0.10 kU/L Class 0 [facility] Serum j carlos IgE antibody a ssay (units/volume)Ordered By: Dr. Monzon on 12-03-2022 J Carlos IgE Qn (S) <0.10 kU/L Class 0 [facility] Serum white audrey IgE antibody assay (units/volume)Ordered By: Dr. Monzon on 12-03-2022 White Audrey IgE Qn (S) <0.10 kU/L Class 0 [facility] Serum white elm IgE antibody assay (units/volume)Ordered By: Dr. Monzon on 12-03-2022 White Elm IgE Qn (S) <0.10 kU/L Class 0 [facility] Serum white mulberry IgE ant ibody assay (units/volume)Ordered By: Dr. Monzon on 12-03-2022 White mulberry IgE Qn (S) <0.10 kU/L Class 0 [facility] Basophil percentageOrdered B y: Dr. Young on 10-30-2022 Chloride [Moles/Vol] 102 mmol/L 98-107 [facility] Glucose [Mass/Vol] 131 mg/dL 74-106 [facility] Comment on above: Fasting Glucose resu lt greater than or equal to 126 mg/dL suggests DIABETES MELLITUS per A.D.A. criteria. Potassium [Moles/Vol] 4.4 mmol/L 3.5-5.1 [facility] Sodium [Moles/Vol] 135 mmol/L 136-145 [facility] Laboratory - Chemistry and C hemistry - challengeOrdered By: Dr. Young on 10-30-2022 CO2 [Moles/Vol] 30.0 mmol/L 21.0-32.0 [facility] Urea nitrogen/Creatinine [Mass ratio] 12.4 mg/mg 10-20 [facility] No Panel InformationOrdered By: Dr. Young on 10-30-2022 Estimated Creatinine Clearance Calc 44.97 ml/min [facility] Estimated GFR (MDRD) Amer 69 mL/min >60 [facility] Comment on above: GFR Calc Estimated GFR (MDRD) Non-Af Amer 57 mL/min >60 [facility] Comment on above: Non- GFR Calc Serum or plasma calcium bennett urement (mass/volume)Ordered By: Dr. Young on 10-30-2022 Calcium [Mass/Vol] 8.9 mg/dL 8.5-10.1 [facility] Serum or plasma creatinine m easurement (mass/volume)Ordered By: Dr. Young on 10-30-2022 Creatinine [Mass/Vol] 1.05 mg/dL 0.55-1.02 [facility] Comment on above: The validity of the calculated GFR & GFRAA in patients over 70 years has not been determined. Clinical correlation is essential. Serum or plasma urea nitroge n measurement (mass/volume)Ordered By: Dr. Young on 10-30-2022 Urea nitrogen [Mass/Vol] 13 mg/dL 7-18 [facility] Thin prep Papanicolaou smear with manual screeningOrdered By: Dr. Young on 10-30-2022 Thin prep Papanicolaou smear with manual screening 3 5-15 [facility] Absolute lymphocyte countOrd ered By: Dr. Grimes on 10-29-2022 Lymphocytes Auto (Unsp spec) [#/Vol] 2.14 10*3/uL 0.83-4.51 [facility] Basophil percentageOrdered B y: Dr. Grimes on 10-29-2022 Basophils/100 WBC (Bld) 0.4 % 0-1 [facility] Eosinophils/100 WBC (Bld) 0.3 % 0-5 [facility] Neutrophils (Bld) [#/Vol] 6.6 10*3/uL 2.0-7.7 [facility] Neutrophils/100 WBC (Bld) 67.4 % 47-70 [facility] WBC (Bld) [#/Vol] 9.8 10*3/uL 4.4-11.0 [facility] Basophil percentageon 2022 Chloride [Moles/Vol] 101 mmol/L 98-107 [facility] Work Phone: Glucose [Mass/Vol] 158 mg/dL 74-106 [facility] Work Phone: Comment on above: Fasting Glucose resu lt greater than or equal to 126 mg/dL suggests DIABETES MELLITUS per A.D.A. criteria. Potassium [Moles/Vol] 4.1 mmol/L 3.5-5.1 [facility] Work Phone: Comment on above: Moderate Hemolysis, Result may be falsely increased. Sodium [Moles/Vol] 136 mmol/L 136-145 [facility] Work Phone: Blood erythrocytes count (nu mber/volume)Ordered By: Dr. Grimes on 10-29-2022 RBC (Bld) [#/Vol] 4.38 10*6/uL 4.2-5.4 [facility] Blood hemoglobin measurement (mass/volume)Ordered By: Dr. Grimes on 10-29-2022 Hemoglobin (Bld) [Mass/Vol] 14.4 g/dL 12.0-15.0 [facility] Blood lymphocytes/100 leukoc ytesOrdered By: Dr. Grimes on 10-29-2022 Lymphocytes/100 WBC (Bld) 21.7 % 19-41 [facility] Blood monocytes/100 leukocyt esOrdered By: Dr. Grimes on 10-29-2022 Monocytes/100 WBC (Bld) 9.9 % 0-10 [facility] Blood platelet mean volumeOr dered By: Dr. Grimes on 10-29-2022 Platelet mean volume (Bld) [Entitic vol] 10.4 fL 6.2-12.0 [facility] CNOVon 10-29-2022 CNOV Office Visit ([facility] ) NITESHSTEPHANY ([id number]) 1960 F Date Time Provider Department 10/29/22 9:30 AM GIBRAN LACY [facility] During your visit today, we recorded the following information about you: Gibran Lacy MD 10/29/2022 10:09 AM Signed [facility] Triage Note: Patient presents to the [facility] with complaint of shortness of breath. She had the flu last week. She currently feels short of breath with significant dyspnea with simple ambulation. Her pulse ox would not go above 88% during rooming. Xray is not available here today. Further evaluation recommended in the ER. She will got to [facility]. Report sent by [employer]. Allergies As of Date: 10/29/2022 (Not on File) Date Reviewed: Never Reviewed Primary Visit Diagnosis:SOB (shortness of breath) [R06.02] Problem List As Of Date: 10/29/2022 (None) Encounter Status:Closed by GIBRAN LACY on 10/29/22 Normal [facility] Determination of erythrocyte mean corpuscular volume (MCV)Ordered By: Dr. Grimes on 10-29-2022 MCV (RBC) [Entitic vol] 101.8 fL 81-99 [facility] Hematocrit Auto (Bld) [Volum e fraction]Ordered By: Dr. Grimes on 10-29-2022 Hematocrit (Bld) [Volume fraction] 44.6 % 37-47 [facility] Laboratory - Chemistry and C hemistry - challengeon 10-29-2022 CO2 [Moles/Vol] 30.0 mmol/L 21.0-32.0 [facility] Work Phone: Urea nitrogen/Creatinine [Mass ratio] 12.8 mg/mg 10-20 [facility] Work Phone: Laboratory - Hematology and Cell countsOrdered By: Dr. Grimes on 10-29-2022 Erythrocyte distribution width (RBC) [Entitic vol] 52.0 fL 35.1-43.9 [facility] Erythrocyte distribution width (RBC) [Ratio] 13.6 % 11.6-14.6 [facility] Immature granulocytes/100 WBC (Bld) 0.300 % 0.0-0.9 [facility] Comment on above: IG% - Immature Granu locytes (promyelocytes, myelocytes and metamyelocytes) > 1% indicates that a LEFT SHIFT is Present. MCH (RBC) [Entitic mass] 32.9 pg 27.0-32.0 [facility] Nucleated RBC/100 WBC (Bld) [Ratio] 0 % 0-5 [facility] Laboratory - Microbiology an d Antimicrobial susceptibilityOrdered By: Dr. Grimes on 10-29-2022 Respiratory pathogens DNA and RNA 12b panel FELIX+probe (Unsp spec) [facility] MCHC Auto (RBC) [Mass/Vol]Or dered By: Dr. Grimes on 10-29-2022 MCHC (RBC) [Mass/Vol] 32.3 g/dL 32-36 [facility] No Panel InformationOrdered By: Dr. Grimes on 10-29-2022 Troponin I High Sensitivity 11 pg/mL 3.0-54.0 [facility] Comment on above: Please Note: New Christina t Units and Gender Specific Reference Ranges. For more information see Policy Stat Procedure [place] High Sensitivity Troponin (TNIH) and attachments. D-Dimer Quantitative (PE/DVT) 0.92 FEU/ug/m 0.27-0.49 [facility] Comment on above: D-Dimer ELEVATED (>0 .49): Additional studies and clinicalassessments are indicated to conclude diagnosis of:Deep Vein Thrombosis (DVT) or Pulmonary Embolism (PE)CRITICAL VALUE VERIFIED. CALLED TO SHAINA CLINTON 10/29/22 Shanae6 Rebecca Mckay.RESULTS READ BACK BY SAME . No Panel Informationon 10-29 Estimated Creatinine Clearance Calc 34.56 ml/min [facility] Work Phone: Estimated GFR (MDRD) Amer 49 mL/min >60 [facility] [facility] Work Phone: Comment on above: GFR Calc Estimated GFR (MDRD) Non-Af Amer 40 mL/min >60 [facility] Work Phone: Comment on above: Non- GFR Calc Troponin I High Sensitivity 12 pg/mL 3.0-54.0 [facility] Work Phone: Comment on above: Please Note: New Christina t Units and Gender Specific Reference Ranges. For more information see Policy Stat Procedure [place] High Sensitivity Troponin (TNIH) and attachments. Platelets bldOrdered By: Dr. Grimes on 10-29-2022 Platelets (Bld) [#/Vol] 213 10*3/uL 150-450 [facility] Serum or plasma calcium bennett urement (mass/volume)on 10-29-2022 Calcium [Mass/Vol] 9.1 mg/dL 8.5-10.1 [facility] Work Phone: Serum or plasma creatinine m easurement (mass/volume)on 10-29-2022 Creatinine [Mass/Vol] 1.41 mg/dL 0.55-1.02 [facility] Work Phone: Comment on above: The validity of the calculated GFR & GFRAA in patients over 70 years has not been determined. Clinical correlation is essential. Serum or plasma urea nitroge n measurement (mass/volume)on 10-29-2022 Urea nitrogen [Mass/Vol] 18 mg/dL 7-18 [facility] Work Phone: Thin prep Papanicolaou smear with manual screeningon 10-29-2022 Thin prep Papanicolaou smear with manual screening 5 5-15 [facility] Work Phone: Otheron 10-12-2011 CONVERTED CLINICAL HISTORY OPERATIVE PROCEDURE: Ileostomy reversal, flexible sigmoidoscopy CLINICAL INFORMATION: Diverticulitis [facility] CONVERTED ELECTRONIC SIGNATURE ANN COLLINS M.D., PATHOLOGIST (Electronic signature on file) Final Signed Out: 10/12/2011 14:33 [facility] CONVERTED FINAL DIAGNOSIS FINAL DIAGNOSIS: ILEOSTOMY, EXCISION - FIBROSIS, CHRONIC INFLAMMATION AND FOREIGN BODY GIANT CELL REACTION. SPECIMEN: COLON [facility] CONVERTED ORDERING PROVIDER Ordering Provider: DANIEL SANCHES [facility] Otheron 07-30-2011 CONVERTED CLINICAL HISTORY OPERATIVE PROCEDURE: Cystoscopy, insertion obi ureteral stents, colostomy reversal CLINICAL INFORMATION: Diverticulitis [facility] CONVERTED FINAL DIAGNOSIS FINAL DIAGNOSIS: COLOSTOMY, RESECTION - MILD REACTIVE CHANGES, NONSPECIFIC. SPECIMEN: STOMA [facility] CONVERTED GROSS DESCRIPTION GROSS DESCRIPTION: Old stoma site Container labeled old stoma site. Received is a portion of bowel measuring 3 x 3 x 3 cm. The serosal surface demonstrates numerous adhesions. One margin has the appearance of a previous ostomy site. On cut section, the mucosa is wrinkled, james-pink. Chocolate Temperer sample submitted in two cassettes. SMS:[facility] MICROSCOPIC DESCRIPTION: Slides reviewed. SDS/gpl [facility] CONVERTED ORDERING PROVIDER Ordering Provider: DANIEL SANCHES [facility] Thyroidon 07-30-2011 TSH Anselmo GATES M.D., PATHOLOGIST (Electronic signature on file) Final Signed Out: 07/30/2011 15:48 [facility] Otheron 02-12-2011 CONVERTED CLINICAL HISTORY OPERATIVE PROCEDURE: Cystoscopy, insertion of obi ureteral stents, laparotomy, partial colectomy with end colostomy, appendectomy CLINICAL INFORMATION: Diverticulitis [facility] CONVERTED ELECTRONIC SIGNATURE PRIYANKA GASTELUM M.D. (Electronic signature on file) Final Signed Out: 02/12/2011 15:50 [facility] CONVERTED FINAL DIAGNOSIS FINAL DIAGNOSIS: A) APPENDECTOMY - NO DIAGNOSTIC ABNORMALITY. B) COLOSTOMY - OSTOMY SITE WITH NO DIAGNOSTIC ABNORMALITY IDENTIFIED. SPECIMEN: (A) APPENDIX (B) COLON [facility] CONVERTED GROSS DESCRIPTION GROSS DESCRIPTION: Appendix A) Specimen A labeled appendix consists of a vermiform appendix measuring 6 cm in length x 0.7 cm in diameter. The specimen includes a segment of mesoappendix measuring 5 x 1.5 x 0.7 cm in greatest dimension. The appendiceal serosa is smooth and glistening. On sectioning, no abnormalities are identified. Chocolate Temperer sections from the specimen are submitted in two cassettes labeled A. Colon, end of stoma B) Specimen B labeled colon (end of stoma) consists of a segment of bowel measuring 4 cm in length x 3 cm in diameter. One end of the specimen is stapled, the other end consists of an ostomy site measuring 2.2 cm x 2 cm. The ostomy site has a narrow rim of chaudhry-white skin measuring up to 0.2 cm. The mucosa of the ostomy is lobular and james with a granular surface. The specimen also includes a segment of mesentery measuring 3.5 x 2 x 2 cm. The bowel segment is opened out lengthwise to reveal no focal abnormalities. Sections from the specimen are submitted as follows: Chocolate Temperer sections from the specimen are submitted in three cassettes labeled B. EAC/gpl MICROSCOPIC DESCRIPTION: Slides reviewed. EAC/lrs [facility] CONVERTED ORDERING PROVIDER Ordering Provider: PATRICK JOHANSEN [facility] Otheron 12-25-2010 CONVERTED CLINICAL HISTORY OPERATIVE PROCEDURE: Colon CLINICAL INFORMATION: [facility] CONVERTED FINAL DIAGNOSIS FINAL DIAGNOSIS: A) TRANSVERSE COLON, BIOPSY - NO TISSUE IDENTIFIED IN CONTAINER. B) CECUM, BIOPSY - TUBULAR ADENOMA. SPECIMEN: (A) COLON BX, TRANS. (B) CECUM BIOPSY [facility] CONVERTED GROSS DESCRIPTION GROSS DESCRIPTION: Transverse colon polyp A) Specimen A is labeled transverse colon polyp. No tissue is identified within the container. No sections are submitted. Cecal polyp B) Specimen B is labeled cecal polyp. Received are fragments of soft red-james tissue measuring 0.3 cm in aggregate diameter. The specimen is totally submitted in cassette B x3. [facility]/lrs MICROSCOPIC DESCRIPTION: Slides reviewed. [facility]/gpl [facility] CONVERTED ORDERING PROVIDER Ordering Provider: DANIEL SANCHES [facility] Thyroidon 12-25-2010 TSH Anselmo GATES M.D., PATHOLOGIST (Electronic signature on file) Final Signed Out: 12/25/2010 16:59 [facility] 08-21-2010 CONVERTED CLINICAL HISTORY CLINICAL INFORMATION [facility] CONVERTED ELECTRONIC SIGNATURE KASSANDRA VELIZ M.D., PATHOLOGIST (Electronic signature on file) Final Signed Out: 08/21/2010 15:59 [facility] CONVERTED FINAL DIAGNOSIS DIAGNOSIS ABDOMINAL FLUID - NO MALIGNANT CELLS IDENTIFIED. REACTIVE MESOTHELIAL CELLS. NARRATIVE MESOTHELIAL CELLS, HISTIOCYTES. [facility] CONVERTED GROSS DESCRIPTION SPECIMEN: A) ASB, ASCITES FLUID W/PARAFFIN BLOCK abdominal fluid Description: Materials Prepared & Examined: Volume: ......... 4 # of Cell Blocks: .......... 1 Color: ............ Red # of Monolayers: .......... 1 Consistency: ...... clotted # of Smear slides: ......... 1 # of Slides: ................. 4 [facility] CONVERTED ORDERING PROVIDER Ordering Provider: ASC GEN SURG PAPOURAS [facility] CONVERTED PROCEDURE PROCEDURE: [facility] CONVERTED CLINICAL HISTORY OPERATIVE PROCEDURE: Laparotomy, sigmoid resection colostomy, total abdominal hysterectomy, bilateral salpingo-oophorectomy; cystoscopy, insertion of bilateral ureteral stents CLINICAL INFORMATION: Intra-abdominal abscess [facility] CONVERTED ELECTRONIC SIGNATURE PRIYANKA GASTELUM M.D. (Electronic signature on file) Final Signed Out: 08/21/2010 14:32 [facility] CONVERTED FINAL DIAGNOSIS FINAL DIAGNOSIS: A) HYSTERECTOMY WITH BILATERAL SALPINGO-OOPHORECTOMY - LEFT TUBO-OVARIAN ABSCESS WITH INVOLVEMENT OF THE POSTERIOR UTERINE SEROSA AND RIGHT MESOSALPINX. PROLIFERATIVE ENDOMETRIUM. B) SIGMOID COLON RESECTION - TRANSMURAL FISTULA TRACT WITH ASSOCIATED ABSCESS. FEATURES CONSISTENT WITH OBSTRUCTION WITH EXTENSIVE POLYPOID MUCOSAL EDEMA. MULTIPLE SMALL TUBULAR ADENOMAS. MULTIPLE BENIGN MESENTERIC LYMPH NODES. SPECIMEN: (A) UTERUS/TUBES/OVARIES (B) SIGMOID [facility] CONVERTED GROSS DESCRIPTION GROSS DESCRIPTION: Uterus, tubes, and ovaries A) The specimen labeled uterus, tubes and ovaries consists of totally excised uterus with right and left adnexa attached. The left ovary is enlarged and cystic. The entire right ovarian surface as well as the posterior uterus and posterior aspect of the right tube and ovary is hemorrhagic, granular and disrupted. With the adnexa removed, the uterus weighs 93.5 gm. It measures 8.5 cm between the fundus and external cervical os; 5 cm between the cornua and 3.5 cm in greatest anterior to posterior dimension. The anterior serosal surface is pink-james and glistening. The ectocervix specimen measures 3.5 cm in greatest dimension. The external cervical os is linear and measures 1.2 cm. The uterus is bivalved to reveal a triangular shaped endometrial cavity measuring 3 cm x 4.5 cm in greatest dimension. It is lined by thin, james velvety endometrium with no endometrial lesions identified. The endocervical canal is unremarkable. The myometrium averages 2 cm in thickness. Sectioning of the myometrium reveals no intramural nodules. The left ovary measures 6.5 x 4.5 x 3.5 cm in greatest dimension. The surface is hemorrhagic and adhesed. On sectioning, the ovarian parenchyma is rubbery and pink-white with multiple necrotic yellow-green foci. The oviduct cannot be separately identified. The right ovary and oviduct are hemorrhagic and adhesed. On sectioning, the ovary is somewhat difficult to identify. It measures approximately 3 cm in greatest dimension. The ovarian tissue is yellow-james and is hemorrhagic throughout. The attached segment of oviduct includes the fimbriated end. It measures 5 cm in length and up to 1.2 cm in diameter. On sectioning, there is a chrome yellow focus adjacent to the distal lumen of the oviduct which lies either within the ovary or within the mesosalpinx. Chocolate Temperer sections are submitted as follows: anterior cervix A1; posterior cervix A2; anterior endomyometrium A3 and A4; posterior endomyometrium and hemorrhagic serosa A5-A9; left adnexa A10-A16; right adnexa A17-A20. Sigmoid colon B) Specimen B labeled sigmoid colon consists of an adhesed distorted colon segment as well as a circular segment of skin consistent with an ostomy site measuring 3 cm in diameter and a stapled bowel segment measuring 4.5 cm in length x 1 cm in diameter. The adhesed bowel segment measures 19 cm in length. At one end of the specimen there is an open margin measuring 3.5 cm in diameter. The opposite margin is stapled and measures 4 cm in length. The serosal surface is hemorrhagic, shaggy, granular, and indurated. The bowel segment is opened out lengthwise to reveal a markedly edematous mucosa throughout. Multiple bag-like edematous polypoid mucosal lesions are identified measuring up to 3 cm in greatest diameter. In addition, several small pink-james mucosal polyps are noted, measuring from 0.3 up to 0.9 cm in greatest dimension. On sectioning, the bowel wall is markedly thickened measuring up to 2.5 cm. A fistula tract is identified measuring 1 cm in greatest dimension, extending to the serosal surface where it is associated with the hemorrhagic granular tissue described above. Sections from the specimen are submitted as follows: sections from the fistula tract with adjacent serosa cassettes B1-B4; small mucosal polyps B5-B6; additional area representative thickened bowel and mesentery B7-B8; area representative edematous mucosa B9. EAC:[facility] MICROSCOPIC DESCRIPTION: Slides reviewed. EAC/gpl [facility] CONVERTED ORDERING PROVIDER Ordering Provider: ASC GEN SURG PAPOURAS [facility] Laboratory - Microbiology an d Antimicrobial susceptibility Respiratory pathogens DNA and RNA 12b panel FELIX+probe (Unsp spec) [facility] Work Phone: Vital Signs Date Time Vital Sign Value Performing Clinician Jacquelyn reece 03-08-2025 13:03-0400 Body height 167.64 cm No Primary Care Physician [facility] 03-08-2025 13:03-0400 Body mass index (BMI) [Ratio] 17.7 kg/m2 No Primary Care Physician [facility] 03-08-2025 13:03-0400 Body weight 49.89 kg No Primary Care Physician [facility] 03-08-2025 13:03-0400 Diastolic blood pressure 87 mm[Hg] No Primary Care Physician [facility] 03-08-2025 13:03-0400 Heart rate 72 /min No Primary Care Physician [facility] 03-08-2025 13:03-0400 Inhaled oxygen flow rate 3 L/min No Primary Care Physician [facility] 03-08-2025 13:03-0400 Respiratory rate 18 /min No Primary Care Physician [facility] 03-08-2025 13:03-0400 SaO2% (BldA) [Mass fraction] 95 % No Primary Care Physician [facility] 03-08-2025 13:03-0400 Systolic blood pressure 155 mm[Hg] No Primary Care Physician [facility] 01-27-2025 07:56-0400 Body mass index (BMI) [Ratio] 17.7 kg/m2 No Primary Care Physician [facility] 01-27-2025 07:56-0400 Body temperature 97.5 [degF] No Primary Care Physician [facility] 01-27-2025 07:56-0400 Body weight 49.89 kg No Primary Care Physician [facility] 01-27-2025 07:56-0400 Diastolic blood pressure 82 mm[Hg] No Primary Care Physician [facility] 01-27-2025 07:56-0400 Heart rate 80 /min No Primary Care Physician [facility] 01-27-2025 07:56-0400 Inhaled oxygen flow rate 3 L/min No Primary Care Physician [facility] 01-27-2025 07:56-0400 Respiratory rate 20 /min No Primary Care Physician [facility] 01-27-2025 07:56-0400 SaO2% (BldA) [Mass fraction] 98 % No Primary Care Physician [facility] 01-27-2025 07:56-0400 Systolic blood pressure 154 mm[Hg] No Primary Care Physician [facility] 11-20-2024 11:20-0500 Body height 167.64 cm No Primary Care Physician [facility] 11-20-2024 11:20-0500 Body mass index (BMI) [Ratio] 17.4 kg/m2 No Primary Care Physician [facility] 11-20-2024 11:20-0500 Body weight 48.98 kg No Primary Care Physician [facility] 11-20-2024 11:20-0500 Diastolic blood pressure 81 mm[Hg] No Primary Care Physician [facility] 11-20-2024 11:20-0500 Heart rate 82 /min No Primary Care Physician [facility] 11-20-2024 11:20-0500 Inhaled oxygen flow rate 3 L/min No Primary Care Physician [facility] 11-20-2024 11:20-0500 Respiratory rate 18 /min No Primary Care Physician [facility] 11-20-2024 11:20-0500 SaO2% (BldA) [Mass fraction] 95 % No Primary Care Physician [facility] 11-20-2024 11:20-0500 Systolic blood pressure 148 mm[Hg] No Primary Care Physician [facility] 12-13-2022 11:15-0500 Body height 167.64 cm No Primary Care Physician [facility] 12-13-2022 11:12-0500 Body mass index (BMI) [Ratio] 20.1 kg/m2 No Primary Care Physician [facility] 12-13-2022 11:12-0500 Body temperature 98 [degF] No Primary Care Physician [facility] 12-13-2022 11:12-0500 Body weight 56.69 kg No Primary Care Physician [facility] 12-13-2022 11:12-0500 Diastolic blood pressure 70 mm[Hg] No Primary Care Physician [facility] 12-13-2022 11:12-0500 Heart rate 83 /min No Primary Care Physician [facility] 12-13-2022 11:12-0500 Inhaled oxygen flow rate 4 L/min No Primary Care Physician [facility] 12-13-2022 11:12-0500 Respiratory rate 18 /min No Primary Care Physician [facility] 12-13-2022 11:12-0500 SaO2% (BldA) [Mass fraction] 92 % No Primary Care Physician [facility] 12-13-2022 11:12-0500 Systolic blood pressure 149 mm[Hg] No Primary Care Physician [facility] 12-03-2022 13:07-0500 Body height 167.64 cm No Primary Care Physician [facility] 12-03-2022 13:07-0500 Body mass index (BMI) [Ratio] 19.8 kg/m2 No Primary Care Physician [facility] 12-03-2022 13:07-0500 Body temperature 97.7 [degF] No Primary Care Physician [facility] 12-03-2022 13:07-0500 Body weight 55.79 kg No Primary Care Physician [facility] 12-03-2022 13:07-0500 Diastolic blood pressure 90 mm[Hg] No Primary Care Physician [facility] 12-03-2022 13:07-0500 Heart rate 95 /min No Primary Care Physician [facility] 12-03-2022 13:07-0500 Inhaled oxygen flow rate 4 L/min No Primary Care Physician [facility] 12-03-2022 13:07-0500 Respiratory rate 18 /min No Primary Care Physician [facility] 12-03-2022 13:07-0500 SaO2% (BldA) [Mass fraction] 93 % No Primary Care Physician [facility] 12-03-2022 13:07-0500 Systolic blood pressure 138 mm[Hg] No Primary Care Physician [facility] 10-30-2022 15:21-0500 Heart rate 83 /min No Primary Care Physician [facility] 10-30-2022 15:21-0500 Respiratory rate 18 /min No Primary Care Physician [facility] 10-30-2022 14:26-0500 Inhaled oxygen flow rate 3 L/min No Primary Care Physician [facility] 10-30-2022 14:00-0500 Body temperature 97.7 [degF] No Primary Care Physician [facility] 10-30-2022 14:00-0500 Diastolic blood pressure 70 mm[Hg] No Primary Care Physician [facility] 10-30-2022 14:00-0500 SaO2% (BldA) [Mass fraction] 91 % No Primary Care Physician [facility] 10-30-2022 14:00-0500 Systolic blood pressure 125 mm[Hg] No Primary Care Physician [facility] 10-30-2022 11:28-0500 Body height 167.64 cm No Primary Care Physician [facility] Work Phone: 10-30-2022 11:28-0500 Body weight 50 kg No Primary Care Physician [facility] 10-29-2022 13:17-0500 Body mass index (BMI) [Ratio] 17.8 kg/m2 No Primary Care Physician [facility] 10-29-2022 12:05-0500 Body temperature 96.9 [degF] No Primary Care Physician [facility] Work Phone: 10-29-2022 12:05-0500 Diastolic blood pressure 73 mm[Hg] No Primary Care Physician [facility] Work Phone: 10-29-2022 12:05-0500 Heart rate 83 /min No Primary Care Physician [facility] Work Phone: 10-29-2022 12:05-0500 Inhaled oxygen flow rate 2 L/min No Primary Care Physician [facility] Work Phone: 10-29-2022 12:05-0500 Respiratory rate 15 /min No Primary Care Physician [facility] Work Phone: 10-29-2022 12:05-0500 SaO2% (BldA) [Mass fraction] 94 % No Primary Care Physician [facility] Work Phone: 10-29-2022 12:05-0500 Systolic blood pressure 120 mm[Hg] No Primary Care Physician [facility] Work Phone: 10-29-2022 09:49-0500 Body height 167.64 cm No Primary Care Physician [facility] Work Phone: 10-29-2022 09:49-0500 Body mass index (BMI) [Ratio] 18.3 kg/m2 No Primary Care Physician [facility] Work Phone: 01-02-2023 09:49-0500 Body weight 51.6 kg No Primary Care Physician [facility] Work Phone: 03-03-2022 16:04-0400 Body height 167.64 cm [facility] Work Phone: 03-03-2022 16:04-0400 Body mass index (BMI) [Ratio] 19.3 kg/m2 [facility] Work Phone: 03-03-2022 16:04-0400 Body temperature 96.9 [degF] [facility] Work Phone: 03-03-2022 16:04-0400 Body weight 54.43 kg [facility] Work Phone: 03-03-2022 16:04-0400 Diastolic blood pressure 85 mm[Hg] [facility] Work Phone: 03-03-2022 16:04-0400 Heart rate 93 /min [facility] Work Phone: 03-03-2022 16:04-0400 Respiratory rate 15 /min [facility] Work Phone: 03-03-2022 16:04-0400 SaO2% (BldA) [Mass fraction] 95 % [facility] Work Phone: 03-03-2022 16:04-0400 Systolic blood pressure 159 mm[Hg] [facility] Work Phone: 10-12-2011 14:33-0500 Body mass index (BMI) [Ratio] [facility] Encounters Encounter Date Encounter Type Care Provider Facility Start: 04-19-2025 ambulatory Kimo Bernardo Facility :[facility] Start: 03-08-2025 End: 03-08-[address] Kimo Bernardo [facility] -[facility] Work Phone: Start: 03-08-2025 End: 03-08-2025 ambulatory No Primary Care Physician [facility] Work Phone: Start: 03-08-2025 End: 03-08-2025 ambulatory Kimo Bernardo Facility:[facility] Start: 02-02-2025 End: 02-02-2025 ambulatory No Primary Care Physician [facility] Work Phone: Start: 02-02-2025 End: 02-02-2025 Patient encounter procedure Mary SULLIVAN -[facility], [facility] Start: 02-02-2025 End: 02-02-2025 ambulatory Ester Favio VS Facility:[facility] Start: 01-27-2025 End: 01-27-2025 Patient encounter procedure Taylor Batres AN/SYQ 13 NAV/C2 OPERATORKeilaC -[facility] Work Phone: Start: 01-27-2025 End: 01-27-2025 ambulatory Ester Favio [facility] Facility:[facility] Start: 01-21-2025 ambulatory Ester Favio VS Faci lity:[facility] Start: 01-12-2025 ambulatory Ester Favio [facility] Faci lity:[facility] Start: 12-04-2024 End: 12-04-2024 Patient encounter procedure Mary SULLIVAN -Laboratory Work Phone: Start: 12-04-2024 End: 12-04-2024 ambulatory No Primary Care Physician Facility:[facility] Start: 11-20-2024 End: 11-20-2024 Patient encounter procedure Mary SULLIVAN -[facility] Work Phone: Start: 11-20-2024 End: 11-20-2024 ambulatory No Primary Care Physician Facility:[facility] Start: 11-09-2024 End: 11-09-2024 Patient encounter procedure Mary SULLIVAN -Laboratory Work Phone: Start: 11-09-2024 End: 11-09-2024 ambulatory No Primary Care Physician Facility:[facility] Start: 10-19-2024 End: 10-19-2024 Patient encounter procedure Mary Gomez PA -Laboratory Work Phone: Start: 10-19-2024 End: 10-19-2024 ambulatory No Primary Care Physician Facility:[facility] Start: 10-14-2024 ambulatory No Primary Car e Physician Facility:[facility] Start: 10-14-2024 Non-patient / Non-visit Dr. Luis RUIZ -[facility] Start: 10-14-2024 End: 10-14-[address] Kimo Bernardo MD -Cardiovascular Services Work Phone: Start: 10-14-2024 End: 10-14-2024 ambulatory No Primary Care Physician Facility:[facility] Start: 08-26-2024 ambulatory [facility] Facility:[facility] Start: 08-26-2024 End: 08-26-2024 ambulatory No Primary Care Physician Facility:[facility] Start: 08-12-2024 End: 08-12-2024 ambulatory No Primary Care Physician Facility:[facility] Start: 08-12-2024 End: 08-12-2024 ambulatory No Primary Care Physician Facility:[facility] Start: 08-03-2024 End: 08-03-2024 ambulatory No Primary Care Physician Facility:[facility] Start: 07-27-2024 ambulatory Kimo Bernardo Facility :[facility] Start: 07-22-2024 ambulatory No Primary Car e Physician Facility:[facility] Start: 07-21-2024 ambulatory No Primary Car e Physician Facility:[facility] Start: 07-21-2024 End: 07-27-2024 Evaluation and management of inpatient No Primary Care Physician Facility:[facility] Start: 01-21-2024 End: 01-21-2024 ambulatory [facility] Work Phone: Start: 01-21-2024 End: 01-21-2024 Patient encounter procedure [facility] Work Phone: Start: 12-13-2022 Non-patient / Non-visit No Chirstin milady Care Physician [facility] Start: 12-13-2022 End: 12-13-2022 Patient encounter procedure No Primary Care Physician [facility]-Pulmonary Medicine [facility] Start: 12-13-2022 End: 12-13-2022 ambulatory No Primary Care Physician [facility] Work Phone: Start: 12-13-2022 End: 12-13-2022 Patient encounter procedure No Primary Care Physician [facility]-Pulmonary Services/Neurology Start: 12-03-2022 End: 12-03-2022 ambulatory No Primary Care Physician [facility] Work Phone: Start: 12-03-2022 End: 12-03-2022 Patient encounter procedure No Primary Care Physician [facility] Start: 12-03-2022 End: 12-03-2022 Patient encounter procedure No Primary Care Physician [facility] Start: 11-01-2022 Registered Referred No Primary Care Physician [facility] Start: 10-30-2022 Non-patient / Non-visit No Christin henning Care Physician [facility] Start: 10-29-2022 Non-patient / Non-visit No Christin henning Care Physician [facility] Start: 10-29-2022 End: 10-30-2022 Evaluation and management of inpatient No Primary Care Physician [facility] 3 Start: 10-29-2022 End: 10-29-2022 ambulatory Facility:[facility] Start: 10-29-2022 End: 10-29-2022 Patient encounter procedure Gibran Lacy MD Work Phone: [facility] Care Comment on above: SOB (shortness of br eath) (Primary Dx) Start: 03-03-2022 End: 03-03-2022 Emergency department patient visit [facility] Start: 10-11-2011 End: 10-11-2011 Patient encounter procedure Daniel Sanches Work Phone: [facility] Start: 10-11-2011 Results Only Dnaiel Sanches Work Phone: [facility] Start: 07-27-2011 End: 07-27-2011 Patient encounter procedure Daniel Sanches Work Phone: [facility] Start: 07-27-2011 Results Only Daniel Sanches Work Phone: [facility] Start: 02-08-2011 End: 02-08-2011 Patient encounter procedure Patrick Johansen Work Phone: [facility] Start: 02-08-2011 Results Only Patrick Johansen Work Phone: [facility] Start: 12-22-2010 End: 12-22-2010 Patient encounter procedure Daniel Sanches Work Phone: [facility] Start: 12-22-2010 Results Only Daniel Sanches Work Phone: [facility] Start: 08-16-2010 End: 08-16-2010 Patient encounter procedure Daniel Sanches Work Phone: [facility] Start: 08-16-2010 Results Only Daniel Sanches Work Phone: [facility] Procedures Date Procedure Procedure Detail Performing Clinician Start: 12-04-2024 Measurement of renal function No Primary Care Physician Comment on above: GFR Calc Start: 01-21-2024 CT of chest Start: 10-29-2022 CT angiography of ch est with contrast No Primary Care Physician Start: 10-29-2022 Plain chest X-ray No Pr imary Care Physician Start: 03-03-2022 Plain x-ray of pelvi s and lower extremity Start: 03-03-2022 Radiography of sacrococcygeal spine Start: 10-11-2011 CONVERTED SURGICAL PATHOLOGY Daniel Sanhces Work Phone: Start: 07-27-2011 CONVERTED SURGICAL PATHOLOGY Daniel Sanches Work Phone: Start: 02-08-2011 CONVERTED SURGICAL PATHOLOGY Patrick Johansen Work Phone: Start: 12-22-2010 CONVERTED SURGICAL PATHOLOGY Daniel Sanches Work Phone: Start: 08-17-2010 CONVERTED SURGICAL PATHOLOGY Daniel Sanches Work Phone: Start: 08-16-2010 CONVERTED CYTOLOGY NON-TRIMMER AND REINFORCER Daniel Sanches Work Phone: Respiratory Panel (PCR) No P rimary Care Physician Respiratory Panel (PCR) No P rimary Care Physician Plan of Treatment Date Care Activity Detail Author Start: 10-30-2022 Patient discharge [facility] Start: 10-30-2022 Blood chemistry [facility] Work Phone: Start: 10-29-2022 Following clinical pathway protocol [facility] Start: 10-29-2022 Assessment of risk of venous thromboembolism [facility] Start: 10-29-2022 Insertion of catheter into peripheral vein [facility] Start: 10-29-2022 Oxygen therapy [facility] Start: 10-29-2022 Patient referral to dietitian [facility] Start: 10-29-2022 Providing care according to standard [facility] Start: 10-29-2022 Respiratory therapy [facility] Work Phone: Start: 10-29-2022 Tobacco use cessation education [facility] Start: 10-29-2022 Troponin I measurement [facility] Work Phone: Start: 10-29-2022 Verification routine [facility] Work Phone: Start: 10-29-2022 Admission procedure [facility] Start: 10-29-2022 Taking nasal swab [facility] Work Phone: Start: 10-29-2022 End: 10-29-2022 [facility] Start: 10-29-2022 Inhalation therapy procedure [facility] Start: 10-29-2022 Physiotherapy of chest [facility] Start: 10-28-2022 DEPRESSION ASSESSMENT DEPRESSION ASSESSMENT [facility] Start: 06-28-2022 Influenza vaccination INFLUENZA (#1) [facility] Start: 06-28-2020 Influenza vaccination INFLUENZA (#1) [facility] Start: 10-02-2017 DIABETES SCREEN DIABETES SCREEN [facility] Start: 01-02-2012 SHINGRIX VACCINE (1 of 2) SHINGRIX VACCINE (1 of 2) [facility] Start: 01-02-2012 Tuberculosis screening COLORECTAL CANCER SCREENING,SEE MODIFIER [facility] Start: 2007 COLOGUARD (FIT-DNA) COLOGUARD (FIT-DNA) [facility] Start: 2007 Colonoscopy COLONOSCOPY [facility] Start: 2007 COLORECTAL CANCER SCREENING COLORECTAL CANCER SCREENING [facility] Start: [address] COLONOGRAPHY [facility] Start: 2007 FECAL OCCULT BLOOD FECAL OCCULT BLOOD [facility] Start: 2007 LIPID SCREEN LIPID SCREEN [facility] Start: 2007 SIGMOIDOSCOPY SIGMOIDOSCOPY [facility] Start: 2002 Mammography MAMMOGRAM [facility] Start: 01-02-1992 HPV TESTING HPV TESTING [facility] Start: 1983 PAP TESTING PAP TESTING [facility] Start: 1981 Urine microalbumin profile DTAP,TDAP,TD (1 - Tdap) [facility] Start: 01-02-1980 HEPATITIS C SCREENING HEPATITIS C SCREENING [facility] Start: 01-02-1980 HIV SCREENING HIV SCREENING [facility] Start: 1960 COVID-19 VACCINE (#1) COVID-19 VACCINE (#1) [facility] Anion gap measurement [facility] Work Phone: BUN/Creatinine ratio [facility] Work Phone: Calcium [Mass/volume ] in Serum or Plasma [facility] Work Phone: Carbon dioxide, tota l [Moles/volume] in Serum or Plasma [facility] Work Phone: Chloride [Moles/volu me] in Serum or Plasma [facility] Work Phone: Continuous pulse oximetry [facility] Creatinine [Moles/vo lume] in Serum or Plasma [facility] Work Phone: CT Chest [facility] Exercise tolerance test [facility] Glucose [Mass/volume ] in Serum or Plasma [facility] Work Phone: Influenza virus A an d B and SARS-CoV-2 (COVID-19) Ag panel - Upper respiratory specim [facility] Work Phone: Measurement of renal function [facility] Work Phone: Measurement of respi ratory function [facility] Patient Education How Your Hip W orks What Is Osteoarthritis? [facility] Work Phone: Patient referral [facility] Work Phone: Potassium [Moles/vol ume] in Serum or Plasma [facility] Work Phone: SARS-CoV-2 & FLU Ant igen (Rapid) SARS-CoV-2 & FLU Antigen (Rapid) [facility] Work Phone: Sodium [Moles/volume ] in Serum or Plasma [facility] Work Phone: Troponin I measurement [facility] Work Phone: Urea nitrogen [Mass/volume] in Serum or Plasma [facility] Work Phone: [facility] Immunizations Immunization Date Immunization Notes Care Provider Fa cility 12-13-2022 influenza, injectabl e, quadrivalent, preservative free [facility] 12-13-2022 influenza, seasonal, injectable No Primary Care Physician [facility] Payers Date Payer Category Payer Self-pay [id number] 2010 Unknown [employer]AREY PATINO BS FEP PPO [id number] 2010-Present [phone] [address] [place] [address] PPO [id number] 2009 Unknown CAREY PATINO BS FEP PPO [id number] 2009-Present PPO [id number] 1999 Unknown [id number] Unknown [id number] 2.16840.1.749107.3.579.2.462 Unknown [id number] 2.840.1.519418.3.579.2.462 Unknown [id number] 2.16.840.1.643181.3.579.2.462 Unknown [id number] 2.16.840.1.116188.3.579.2.462 Unknown [id number] 2.840.1.147919.3.579.2.462 Unknown [id number] 2.16.840.1.862863.3.579.2.462 Unknown [id number] 2.16.840.1.325422.3.579.2.462 Unknown [id number] 2.16.840.1.609418.3.579.2.462 Unknown [id number] 2.16.840.1.621800.3.579.2.462 Unknown [id number] 2.16840.1.311801.3.579.2.462 Unknown [id number] 2.840.1.662322.3.579.2.462 Unknown [id number] 2.840.1.817401.3.579.2.462 Unknown [id number] 2.840.1.667293.3.579.2.462 Unknown [id number] 2.840.1.861105.3.579.2.462 Unknown [id number] 2.840.1.622431.3.579.2.462 Unknown [id number] 2.840.1.734228.3.579.2.462 Unknown [id number] 2.840.1.635013.3.579.2.462 Unknown [id number] 2.840.1.371346.3.579.2.462 Unknown [id number] 2.840.1.242397.3.579.2.462 Unknown [id number] 2.840.1.659040.3.579.2.462 Unknown [id number] 2.840.1.803522.3.579.2.462 Unknown [id number] 2.16840.1.248203.3.579.2.462 Unknown [id number] 2.840.1.818832.3.579.2.462 Unknown [id number] 2.840.1.883281.3.579.2.462 Unknown [id number] 2.16.840.1.654882.3.579.2.462 Unknown [id number] 2.16.840.1.219863.3.579.2.462 Unknown [id number] 2.16.840.1.386646.3.579.2.462 Unknown [id number] 2.16.840.1.211095.3.579.2.462 Unknown [id number] 2.16.840.1.770131.3.579.2.462 Unknown [id number] 2.16.840.1.631486.3.579.2.462 Unknown [id number] 2.16.840.1.689426.3.579.2.462 Unknown [id number] 2.16.840.1.779082.3.579.2.462 Social History Date Type Detail [facility] Start: 1960 Sex Assigned At Not on file [facility] Start: 03-03-2022 End: 08-23-2023 Tobacco smoking status NHIS Unknown if ever smoked [facility] Start: 1960 Sex Assigned At Female [facility] Start: 08-12-2024 [facility] Start: 02-08-2025 Sex Female (finding) [facility] Functional Status Date Assessment Result Facility 10-30-2022 Functional status Ambulates;Up ad dahiana [facility] Work Phone: Mental Status Date Assessment Result Facility 10-30-2022 Cognitive function Demonstrates ability to follow instructions/comprehend [facility] Work Phone: Clinical Notes 10-29-2022 to 11-20-2024 Note Date & Type Note Facility 11-20-2024 Evaluation note Diagnosis Onset Date Resolution CHF (congestive heart failure) acute November 20 11:09am Hypothyroid acute November 20, 2024 11:09am Cardiomyopathy chronic November 202024 11:09am Smoking greater than 40 pack years acute January 27, 2025 1:09pm Allergic rhinitis due to allergen chronic January 27, 2025 1:09pm Cardiomyopathy chronic January 27, 2025 1:09pm COPD (chronic obstructive pulmonary disease) with emphysema chronic January 1:09pm Hypoxia chronic January 27 1:09pm [facility] Work Phone: 1(712) 742-682901-24-2025 Evaluation note* Diagnosis Onset Date Resolution Status Admit Date CHF (congestive heart failure) acute November 20, 2024 11:09am Hypothyroid acute November 20, 2024 11:09am Cardiomyopathy chronic November 202024 11:09am Smoking greater than 40 pack years acute January 27, 2025 1:09pm Allergic rhinitis due to allergen January 27, 2025 1:09pm Cardiomyopathy chronic January 27, 2025 1:09pm COPD (chronic obstructive pulmonary disease) with emphysema January 27, 2025 1:09pm Hypoxia January 27 1:09pm Hypothyroid acute March 08 1:00pm Cardiomyopathy chronic March 08, 2025 1:00pm 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 [id number] Providers Date of Admission: 07/21/24 Date of Discharge: 07/27/24 Primary Care Physician: No Primary Care Phys Consultations 07/21/24 22:11 Consult: Cardiology Routine Consulting Provider: Kimo Bernardo Reason for Consult: AE CHF; new and poorly tolerated. EMERGENT Consult: No MD Notified: Yes Date Notified: 07/22/24 Time Notified: 08:29 Method of Notification: Text Method of Consult:: In-Person Reason For Visit: AECHF Diagnosis Discharge Diagnosis (1) COPD (chronic obstructive pulmonary disease) with emphysema: Status: Chronic Code(s): J43.9 - Emphysema, unspecified Qualifiers: Emphysema type: centrilobular Qualified Code(s): J43.2 - Centrilobular emphysema (2) Nicotine addiction: Status: Chronic Code(s): F17.200 - Nicotine dependence, unspecified, uncomplicated Qualifiers: Nicotine product type: cigarettes Substance use status: in remission Qualified Code(s): F 17.211 - Nicotine dependence, cigarettes, in remission (3) Acute systolic heart failure: Status: Acute Code(s): I50.21 - Acute systolic (congestive) heart failure Plan 1. Acute systolic congestive heart failure-etiology unclear at this point-most likely viral in nature as the patient states that she had a severe illness about a month ago, patient will remain on oral Lasix and beta-blockers and losartan will be used blood pressure permitting. #2 cardiomyopathy-type unknown, patient's EF is 14%, complicates care, management, recovery, and prognosis, again patient will remain on her current medications blood pressure permitting #3 acute on chronic hypoxic respiratory failure-patient is on chronic oxygen at home at 4 L-she states that this is only at night while sleeping. Pulse ox will be monitored, she may need set up with a different oxygen concentrator at home due to her oxygen demand. #4 chronic obstructive pulmonary disease-complicates care, management, recovery, and prognosis #5 hypothyroidism-patient is on thyroid replacement I do not believe the patient had pneumonia currently this admission, I do not feel that the patient has severe protein and caloric malnutrition Total clinical time spent by myself addressing the patient's medical issues, reviewing all of her data, and collaborating with patient's care team: 35 minutes Medications at Discharge Home Medications ipratropium bromide 21 mcg (0.03 %) nasal spray 2 spray intranasal BID #30 mL 01/21/24 albuterol sulfate 90 mcg/actuation aerosol inhaler (ProAir HFA) 2 puff inhalation Q6H PRN shortness of breath or wheezing #8.5 grams 02/03/24 fluticasone fur. 200 mcg-umeclid 62.5 mcg-vilant 25 mcg inhalat.powder (Trelegy Ellipta) 1 ea inhalation QDAY #1 ea 02/03/24 carvedilol 3.125 mg tablet 3.125 mg PO BIDCM #60 tabs 07/27/24 furosemide 40 mg tablet 40 mg PO DAILY #30 tabs 07/27/24 levothyroxine 88 mcg capsule 88 mcg PO DAILY #30 caps 07/27/24 losartan 25 mg tablet 25 mg PO DAILY #30 tabs 07/27/24 magnesium chloride 64 mg (magnesium chloride) tablet,delayed release (Mag 64) 128 mg (2 x 64 mg) PO BID #60 tabs 07/27/24 potassium chloride 20 mEq tablet,extended release(part/cryst) 20 meq PO BID #60 tabs 07/27/24 Hospital Course Operations None Procedures 2-D Echocardiogram Summary of Care Provided Minutes Spent on Discharge: 32 Hospital Course: 64-year-old white female was seen in the emergency room at [facility] with complaints of worsening shortness of breath over approximately a month. Patient states she had an illness approximately a month ago-she was nonspecific about the type of illness but it sounded as if she was describing an upper respiratory tract infection. Patient uses nighttime oxygen due to chronic obstructive pulmonary disease. Workup in the emergency room included a CBC which showed a low white blood cell count at 3.9, hemoglobin was 11.4, D-dimer was elevated at 1.05, chemistry profile was abnormal for creatinine of 1.37, beta nitric peptide was elevated at 742. CT of the chest was performed which showed no evidence of pulmonary embolus, there is noted to be bilateral pleural effusions and bilateral lower lobe consolidation which was questionable for pneumonia. Patient's venous duplex of the lower extremities were negative for VTE. Patient was admitted to PCU for possible pneumonia and congestive heart failure with hypoxia, this examiner did not feel she ultimately had pneumonia and felt that the patient's hypoxia was secondary to congestive heart failure. Patient underwent an echocardiogram which showed a very poor e (more content not included)...[facility]02-16-2023 Procedure note [facility] [facility]22 NoteHNO ID: [id number] Author: Gibran Lacy MD Service: ? Author Type: Physician Type: Progress Notes Filed: 10/29/2022 10:09 AM Note Text: Express Care Triage Note: Patient presents to the express care with complaint of shortness of breath. She had the flu last week. She currently feels short of breath with significant dyspnea with simple ambulation. Her pulse ox would not go above 88% during rooming. Xray is not available here today. Further evaluation recommended in the ER. She will got to [facility]. Report sent by [employer].[facility]01-02-2023 History of Present illness Narrative* Gibran Lacy MD - 10/29/2022 10:03 AM EST [facility] Triage Note: Patient presents to the [facility] with complaint of shortness of breath. She had the flu last week. She currently feels short of breath with significant dyspnea with simple ambulation. Her pulseox would not go above 88% during rooming. Xray is not available here today. Further evaluation recommended in the ER. She will got to [facility]. Report sent by [employer]. documented in this encounterOhio[facility] noteNo assessment information availableWKettering Health Behavioral [facility] Work Phone: Evaluation note* Diagnosis Onset Date Resolution Status COPD exacerbation chronic [facility] Work Phone: Evaluation note* Diagnosis SOB (shortness of breath)- Primary Shortness of breath documented in this encounter [facility] note* Diagnosis Onset Date Resolution Status COPD exacerbation resolved Severe protein-calorie malnutrition acute Allergic rhinitis due to allergen chronic COPD (chronic obstructive pu lmonary disease) with emphysema chronic COPD exacerbation resolved [facility] Work Phone: Evaluation note* Diagnosis Onset Date Resolution Status COPD exacerbation resolved Allergic rhinitis due to allergen chronic COPD (chronic obstructive pu lmonary disease) with emphysema chronic Severe protein-calorie malnutrition chronic COPD exacerbation resolved Allergic rhinitis due to allergen chronic COPD (chronic obstructive pu lmonary disease) with emphysema chronic Severe protein-calorie malnutrition chronic COPD exacerbation resolved [facility] Work Phone: Reason for referral (narrative)No reason for referral information availableWKettering Health Behavioral [facility] Work Phone: Chief Complaint and Reason for Visit Chief Complaint RIGHT HIP PAIN Chief Complaint COPD EXACERBATION, H YPOXIA COPD EXACERBATION, HYPOXIA Reason for Visit COPD exacerbation Chief Complaint COPD EX COPD EXACERBATION, HYPOXIA COPD EX Reason for Visit COPD exacerbation Chief Complaint COPD EX COPD EXACERBATION, HYPOXIA COPD EX PATIENT LINK PROGRAM Hospital FU Reason for Visit COPD exacerbation Severe protein-calorie malnutrition Allergic rhinitis due to allergen COPD (chronic obstructive pulmonary disease) with emphysema COPD exacerbation Chief Complaint COPD EX COPD EXACERBATION, HYPOXIA COPD EX PATIENT LINK [facility] FU COPD-*please fax prelim to office for 1pm appt* test results COPD-*please fax prelim to office for 1pm appt* Reason for Visit COPD exacerbation Allergic rhinitis due to allergen COPD (chronic obstructive pulmonary disease) with emphysema Severe protein-calorie malnutrition COPD exacerbation Allergic rhinitis due to allergen COPD (chronic obstructive pulmonary disease) with emphysema Severe protein-calorie malnutrition COPD exacerbation Chief Complaint HX SMOKING, QUIT 10/29 023 Chief Complaint Admit Date CHF October 14, 2024 12:47pm INT LABS October 19, 2024 1:12pm 3 M FU November 20, 2024 1 1:09am 4 M FU January 27, 2025 1:09 pm Reason for Visit Admit Date CHF (congestive heart failure) October 292024 11:09am Hypothyroid November 20, 2024 1 1:09am Cardiomyopathy November 20, 2024 1 1:09am Smoking greater than 40 pack years January 27, 2025 1:09pm Allergic rhinitis due to allergen January 27, 2025 1:09pm Cardiomyopathy January 27, 2025 1:09 pm COPD (chronic obstructive pu lmonary disease) with emphysema January 27, 2025 1:09pm Hypoxia January 27, 2025 1:09 pm Chief Complaint Admit Date 3 M FU November 20, 2024 1 1:09am 4 M FU January 27, 2025 1:09 pm 3 M FU March 08, 2025 1:00p m E-ORDER March 08, 2025 1:26p m Reason for Visit Admit Date CHF (congestive heart failure) October 292024 11:09am Hypothyroid November 20, 2024 1 1:09am Cardiomyopathy November 20, 2024 1 1:09am Smoking greater than 40 pack years January 27, 2025 1:09pm Allergic rhinitis due to allergen January 27, 2025 1:09pm Cardiomyopathy January 27, 2025 1:09 pm COPD (chronic obstructive pu lmonary disease) with emphysema January 27, 2025 1:09pm Hypoxia January 27, 2025 1:09 pm Hypothyroid March 08, 2025 1:00p m Cardiomyopathy March 08, 2025 1:00p m COPD (chronic obstructive pu lmonary disease) with emphysema March 08, 2025 1:00pm Advance Directives No Advanced Directives Records Found Advance Directive Response Recorded Date/ Time Living Will No March 03, 2022 4: 11pm Power of Pump Operator Byproducts No March 03, 2022 4:11pm Advance Directive Response Recorded Date/ Time Living Will No October 29 3 9:54am Power of Pump Operator Byproducts No October 29 023 9:54am Advance Directive Response Recorded Date/ Time Living Will No October 29 3 1:18pm Power of Pump Operator Byproducts No October 29 023 1:18pm Advance Directive Response Recorded Date/ Time Living Will No October 29 3 2:18pm Power of Pump Operator Byproducts No October 29 023 2:18pm Advance Directive Response Recorded Date/ Time Living Will No July 21, 2024 10:19pm Do you have a Healthcare Power of Pump Operator Byproducts? No July 21, 2024 10:19pm Summary Purpose Family History No Family History Records FoundNo Family History Records Found Additional Source Comments Source Comments (unrecognize d section and content) In the event this informatio n is protected by the Federal Confidentiality of Alcohol and Drug Abuse Patient Records regulations: The Federal rules restrict any use of the information to criminally investigate or prosecute any alcohol or drug abuse patient.[facility] the event this information is protected by the Federal Confidentiality of Alcohol and Drug Abuse Patient Records regulations: The Federal rules restrict any use of the information to criminally investigate or prosecute any alcohol or drug abuse patient.[facility] Goals (unrecognized section and content) Goals may be documented in a n alternate sectionGoals may be documented in an alternate sectionGoals may be documented in an alternate sectionGoals may be documented in an alternate sectionGoals may be documented in an alternate sectionGoals may be documented in an alternate sectionGoals may be documented in an alternate sectionGoals may be documented in an alternate section INFORMATION SOURCE (unrecogn ized section and content) DATE CREATED AUTHOR 10/29/2022 [facility] DATE CREATED AUTHOR AUTHOR'S ORGANIZ ATION [facility] Care Teams (unrecognized sec tion and content) Team Status: Active Member Role Status Dates No Primary Care Physician Primary Care Provider Active Team Status: Inactive Member Role Status Dates No Primary Care Physician Primary Care Provider Active Taylor Batres AN/SYQ 13 NAV/C2 OPERATOR, AN/SYQ 13 NAV/C2 OPERATOR-C Attending Provider, Referrin g Provider Active Team Status: Active Member Role Status Dates No Primary Care Physician Primary Care Provider Active Dr. Israel Grimes DO Emergency Provider Active Dr. Brent Young DO Admit Provider, At tending Provider, Other Provider Active Team Status: Inactive Member Role Status Dates No Primary Care Physician Primary Care Provider, Refer ring Provider Active Dr. Carlos Monzon MD Attending Provider Active Team Status: Inactive Member Role Status Dates No Primary Care Physician Primary Care Provider Active Dr. Israel Grimes DO Emergency Provider Active Dr. Brent Young DO Admit Provider, Attending Provid er Active Team Status: Active Member Role Status Dates No Primary Care Physician Primary Care Provider Active Patient Link Program Attending Provider Active Team Status: Inactive Member Role Status Dates No Primary Care Physician Primary Care Provider Active Dr. Carlos Monzon MD Attending Provider, Referring Provider Active Team Status: Active Member Role Status Dates No Primary Care Physician Primary Care Provider Active Dr. Carlos Monzon MD Attending Provi elisa, Referring Provider, Other Provider Active Team Status: Active Member Role Status Dates Ester WALLER DO Primary Care Provider Active Team Status: Inactive Member Role Status Dates No Primary Care Physician Primary Care Provider Active Start: October 14, 2024 End: October 14, 2024 Dr. Kimo Bernardo MD Attending Provider Active Start: October 14, 2024 End: October 14, 2024 Dr. Kimo Bernardo MD Referring Provider Active Start: October 14, 2024 End: October 14, 2024 Team Status: Active Member Role Status Dates No Primary Care Physician Primary Care Provider Active Start: October 14, 2024 Dr. Manjeet Zapata MD Attending Provider Active S tart: October 14, 2024 Team Status: Inactive Member Role Status Dates No Primary Care Physician Primary Care Provider Active Start: October 19, 2024 End: October 19, 2024 Mary Gomez PA, PA Attending Provider Active Start: October 19, 2024 End: October 19, 2024 Mary Gomez PA, PA Referring Provider Active Start: October 19, 2024 End: October 19, 2024 Team Status: Inactive Member Role Status Dates No Primary Care Physician Primary Care Provider Active Start: November 09, 2024 End: November 09, 2024 Mary SULLIVAN PA Attending Provider Active Start: November 09, 2024 End: November 09, 2024 Mary Gomez PA, PA Referring Provider Active Start: November 09, 2024 End: November 09, 2024 Team Status: Inactive Member Role Status Dates No Primary Care Physician Primary Care Provider Active Start: November 20, 2024 End: November 20, 2024 No Primary Care Physician Referring Provider Active Start: November 20, 2024 End: November 20, 2024 Mary Gomez PA, PA Attending Provider Active Start: November 20, 2024 End: November 20, 2024 Team Status: Inactive Member Role Status Dates No Primary Care Physician Primary Care Provider Active Start: December 04, 2024 End: December 04, 2024 Mary Gomez PA PA Attending Provider Active Start: December 04, 2024 End: December 04, 2024 Mary Gomez PA, PA Referring Provider Active Start: December 04, 2024 End: December 04, 2024 Team Status: Inactive Member Role Status Dates No Primary Care Physician Referring Provider Active Start: January 27, 2025 End: January 27, 2025 Taylor Batres AN/SYQ 13 NAV/C2 OPERATOR, AN/SYQ 13 NAV/C2 OPERATOR-C Attending Provider Active Start: January 27, 2025 End: January 27, 2025 Ester WALLER, DO Primary Care Provider Active Start: January 27, 2025 End: January 27, 2025 Team Status: Inactive Member Role Status Dates Ester WALLER, DO Primary Care Provider Active Start: February 02, 2025 End: February 02, 2025 Mary Gomez PA, PA Attending Provider Active Start: February 02, 2025 End: February 02, 2025 Team Status: Inactive Member Role Status Dates Ester Faviojg WALLER, DO Primary Care Provider Active Start: March 08, 2025 End: March 08, 2025 Ester WALLER, DO Referring Provider Active Start: March 08, 2025 End: March 08, 2025 Dr. Kimo Bernardo MD Attending Provider Active Start: March 08, 2025 End: March 08, 2025 Team Status: Inactive Member Role Status Dates Ester Faviojg WHEAT, DO Primary Care Provider Active Start: March 08, 2025 End: March 08, 2025 Dr. Kimo Bernardo MD Attending Provider Active Start: March 08, 2025 End: March 08, 2025 Dr. Kimo Bernardo MD Referring Provider Active Start: March 08, 2025 End: March 08, 2025 FOR RECORDS PERTAINING TO PATIENTS WHO ARE OR HAVE BEEN ENROLLED IN A CHEMICAL DEPENDENCY/SUBSTANCEABUSE PROGRAM, SOME INFORMATION MAY BE OMITTED. This clinical summary was aggregated from multiple sources. Caution should be exercised in using it in the provision of clinical care. This summary normalizes information from multiple sources, and as a consequence, information in this document may materially change the coding, format and clinical context of patient data. In addition, data may be omitted in some cases. CLINICAL DECISIONS SHOULD BE BASED ON THE PRIMARY CLINICAL RECORDS. [facility] [employer] provides no warranty or guarantee of the accuracy or completeness of information in this document.
== END | disposition home or self-care (01) ==
PROVIDERS: PCP Family Medicine; Referring Provider Internal Medicine Cardiovascular Disease; Visit Provider Internal Medicine Cardiovascular Disease
DX: B33.24 Viral cardiomyopathy (principal)
CPT/HCPCS: 93308; Q9957; A4216; C8924

== ENCOUNTER → 2025-07-09 | Outpatient (CLI) | payer BC, SELFPAY ==
--- NOTE | 2025-07-09 13:23 | CT_ITS ---
PROCEDURE: LOW DOSE CT LUNG SCREENING 07/09/2025 REASON FOR EXAM: SMOKER QUIT 2022 TECHNIQUE: Procedure Code: [id number] Modality: CT Procedure: LOW DOSE CT LUNG SCREENING Coronal and Sagittal reconstruction series were provided. One or more dose reduction techniques were used (e.g., Automated exposure control, adjustment of the mA and/or kV according to patient size, use of iterative reconstruction technique). REFERENCE LINK: [facility] Lung-RADS RADIATION DOSE SUMMARY: CTDlvol: 2 mGy DLP: 57 mGycm COMPARISON: June 2024. FINDINGS: PULMONARY NODULES: (Only nodules >3mm are reported) Nodules described below are on series 2 unless otherwise specified. Thyroid gland: Negative. Lungs: Severe emphysematous changes Pleura: Negative for pleural effusion or pneumothorax. Airways: Imaged bronchi and trachea negative. Mediastinum: Negative for mediastinal mass. Lymph nodes: Negative for axillary, mediastinal or hilar adenopathy. Heart and Vasculature: Mildly prominent ascending thoracic aorta 3.4 x 3.5 cm. Heart normal size. Moderate vascular calcifications of the thoracic aorta. Coronary Artery Calcifications: Severe vascular calcifications of the coronary arteries Upper Abdomen: Negative Hardware: None. Bones: Age-appropriate degenerative changes of the thoracic spine. CT/Low Dose CT Lung Screening IMPRESSION: Emphysema. Lung-RADS Category: 2 BENIGN (BASED ON IMAGING FEATURES OR INDOLENT BEHAVIOR). RECOMMEND 12-MONTH SCREENING LDCT. Reading Location: [id number]
== END | disposition home or self-care (01) ==
LOC: CT 13:21
PROVIDERS: PCP Family Medicine; Referring Provider Nurse Practitioner Acute Care; Visit Provider Nurse Practitioner Acute Care
DX: F17.210 Nicotine dependence, cigarettes, uncomplicated (principal)
CPT/HCPCS: 71271

== ENCOUNTER → 2025-08-20 | Outpatient (CLI) | payer BC, SELFPAY ==
[2025-08-20 14:13] LABS: Anion Gap 8 (5-15); BUN 16 mg/dL (4-19); BUN/Creat Ratio 17.5 RATIO (10-20); Calcium,Total 9.3 mg/dL (7.6-11.0); Carbon Dioxide 28.0 mmol/L (21.0-32.0); Chloride 104 mmol/L (98-108); Glucose 130 mg/dL (70-99); Potassium 4.3 mmol/L (3.3-5.1)
== END | disposition home or self-care (01) ==
LOC: LAB 13:04
PROVIDERS: PCP Family Medicine; Referring Provider Physician Assistant Medical; Visit Provider Physician Assistant Medical
DX: B33.24 Viral cardiomyopathy (principal)
CPT/HCPCS: 36415; 80048